=== PATIENT | female | born 1975 | race African-American/Black ===

== ENCOUNTER 2018-12-22 14:52 | Inpatient (IN) | payer OTHER ==
[2018-12-22 16:26] VITALS: BMI 23.5
--- NOTE | 2018-12-22 17:12 | HP ---
CIWA Score Nausea/Vomitin-Mild Nausea/No Vomiting Muscle Tremors: 3 Anxiety: 3 Agitation: 3 Paroxysmal Sweats: 3 Orientation: 0-Oriented Tacttile Disturbances: 0-None Auditory Disturbances: 0-None Visual Disturbances: 0-None Headache: 0-None Present CIWA-Ar Total Score: 13 - Admission Criteria OASAS Guidelines: Admission for Medically Managed Detox: Requires at least one of the followin. CIWA greater than 12 2. Seizures within the past 24 hours 3. Delirium tremens within the past 24 hours 4. Hallucinations within the past 24 hours 5. Acute intervention needed for co occurring medical disorder 6. Acute intervention needed for co occurring psychiatric disorder 7. Severe withdrawal that cannot be handled at a lower level of care (continued vomiting, continued diarrhea, abnormal vital signs) requiring intravenous medication and/or fluids 8. Admission ROS [facility] - HPI Chief Complaint: I need help with my addiction. Allergies/Adverse Reactions: Allergies Allergy/AdvReac Type Severity Reaction Status Date / Time No Known Allergies Allergy Verified 12/22/18 16:58 History of Present Illness: pt is a 43yr old female with a history of alcohol and cocaine dependence seeking detox for treatment. pt is also on a MMTP program last dose received today with 30mg pending verification. Exam Limitations: No Limitations - Ebola screening Have you traveled outside of the country in the last 21 days: No Have you had contact with anyone from an Ebola affected area: No Have you been sick,other than usual withdrawal symptoms: No Do you have a fever: No - Review of Systems Constitutional: Night Sweats, Changes in sleep, Unintentional Wgt. Loss EENT: reports: Blurred Vision, Tearing Respiratory: reports: No Symptoms reported Cardiac: reports: No Symptoms Reported GI: reports: Constipated, Poor Appetite, Poor Fluid Intake : reports: No Symptoms Reported Musculoskeletal: reports: No Symptoms Reported Integumentary: reports: No Symptoms Reported, Sweating Neuro: reports: Headache, Tingling, Tremors Endocrine: reports: Excessive Sweating, Flushing, Intolerance to Cold, Intolerance to Heat Hematology: reports: No Symptoms Reported Psychiatric: reports: Judgement Intact, Mood/Affect Appropiate, Orientated x3, Agitated, Anxious Other Systems: Reviewed and Negative Patient History - Patient Medical History Hx Anemia: No Hx Asthma: No Hx Chronic Obstructive Pulmonary Disease (COPD): No Hx Cancer: No Hx Cardiac Disorders: No Hx Congestive Heart Failure: No Hx Hypertension: No Hx Hypercholesterolemia: No Hx Pacemaker: No HX Cerebrovascular Accident: No Hx Seizures: No Hx Dementia: No Hx Diabetes: No Hx Gastrointestinal Disorders: No Hx Liver Disease: No Hx Genitourinary Disorders: No Hx Sexually Transmitted Disorders: No Hx Renal Disease (ESRD): No Hx Thyroid Disease: No Hx Human Immunodeficiency Virus (HIV): No (denies) Hx Hepatitis C: No Hx Depression: No Hx Suicide Attempt: Yes (in the past. denies any S/H ideation in the past) Hx Bipolar Disorder: No Hx Schizophrenia: No - Patient Surgical History Past Surgical History: No - PPD History Previous Implant?: Yes Documented Results: Negative w/o proof PPD to be Administered?: Yes - Reproductive History Patient is a Female of Child Bearing Age (11 -55 yrs old): Yes Patient : No - Smoking Cessation Smoking history: Current every day smoker Have you smoked in the past 12 months: Yes Aproximately how many cigarettes per day: 10 Hx Chewing Tobacco Use: Yes Initiated information on smoking cessation: Yes 'Breaking Loose' booklet given: 12/23/18 - Substance & Tx. History Hx Alcohol Use: Yes Hx Substance Use: Yes Substance Use Type: Alcohol, Cocaine, Heroin, Opiates, Tranquilizers Hx Substance Use Treatment: No - Substances Abused percocet Route: Oral Frequency: Daily Amount used: 3-4 10 mg pills Age of first use: 40 Date of Last Use: 12/21/18 Alcohol Route: Oral Frequency: Daily Amount used: 6pk beer/ fifth Age of first use: 23 Date of Last Use: 12/22/18 Heroin Route: Inhalation Frequency: Daily Amount used: 2 bags Age of first use: 42 Date of Last Use: 12/21/18 Cocaine Route: Inhalation Frequency: Daily Amount used: $50 Age of first use: 23 Date of Last Use: 12/21/18 Family Disease History - Family Disease History Family History: Denies Admission Physical Exam S - Vital Signs Vital Signs: Vital Signs - 24 hr 12/22/18 16:23 Temperature 97.6 F Pulse Rate 70 Respiratory 20 Rate Blood Pressure 118/70 - Physical General Appearance: Yes: Moderate Distress, Irritable, Sweating, Anxious HEENTM: Yes: Normal ENT Inspection, Nasal Congestion, Rhinorrhea Respiratory: Yes: Lungs Clear, No Respiratory Distress Neck: Yes: No masses,lesions,Nodules Breast: Yes: Within Normal Limits Cardiology: Yes: Regular Rhythm, Regular Rate, S1, S2 Abdominal: Yes: Normal Bowel Sounds, Non Tender, Soft Genitourinary: Yes: Within Normal Limits Back: Yes: Normal Inspection Musculoskeletal: Yes: full range of Motion, Back pain Extremities: Yes: Normal Capillary Refill, Normal Inspection, Non-Tender, Tremors Neurological: Yes: Fully Oriented, Alert, Normal Response Integumentary: Yes: Normal Color Lymphatic: Yes: Within Normal Limits - Diagnostic (1) Alcohol dependence with uncomplicated withdrawal Current Visit: Yes Status: Chronic (2) Methadone maintenance therapy patient Current Visit: Yes Status: Chronic (3) Cocaine dependence Current Visit: Yes Status: Chronic Qualifiers: Substance use status: uncomplicated Qualified Code(s): F14.20 - Cocaine dependence, uncomplicated (4) Nicotine dependence Current Visit: Yes Status: Chronic Qualifiers: Nicotine product type: cigarettes Substance use status: uncomplicated Qualified Code(s): F17.210 - Nicotine dependence, cigarettes, uncomplicated Cleared for Admission [facility] - Detox or Rehab [facility] Level of Care: Medically Managed Detox Regimen/Protocol: Librium [facility] Breath Alcohol Content Breath Alcohol Content: 0 Urine Pregancy Test - Result Urine Test Results: Negative- NO Line Present Urine Drug Screen - Results Drug Screen Negative: No Urine Drug Screen Results: PREM-Cocaine, OPI-Opiates, BZO-Benzodiazepines, MTD- Methadone, FEN-Fentanyl
[2018-12-22] MEDS ORDERED: MAGNESIUM HYDROX 2400MG/30ML ORAL SUSPENSION 30 ML CUP PO PRN (17:13)
[2018-12-22] MEDS ORDERED: IBUPROFEN 400 MG TABLET (FP) PO PRN (17:13)
[2018-12-22] MEDS ORDERED: MAGNESIUM CITRATE 300 ML BOTTLE PO PRN (17:13)
[2018-12-22] MEDS ORDERED: MAG HYDROX/AL HYDROX/SIMETH 30 ML UNIT-DOSE CUP PO PRN (17:13)
[2018-12-22] MEDS ORDERED: ACETAMINOPHEN 325 MG TABLET (FP) PO PRN (17:13)
[2018-12-22] MEDS ORDERED: MENTHOL/PHENOL 1 EACH UD MM PRN (17:13)
[2018-12-22] MEDS ORDERED: NICOTINE POLACRILEX 4 MG GUM BC PRN (17:13)
[2018-12-22] MEDS ORDERED: P-EPHED 60MG/TRIPROLIDI 2.5MG TABLET PO PRN (17:13)
[2018-12-22] MEDS ORDERED: guaiFENesin/D-METHORPHAN HB 10 ML UNIT-DOSE CUPS PO PRN (17:13)
[2018-12-22] MEDS ORDERED: hydrOXYzine PAMOATE 50 MG CAPSULE (FP) PO PRN (17:13)
[2018-12-22] MEDS ORDERED: chlordiazePOXIDE HCL 25 MG CAPSULE PO PRN (17:13)
[2018-12-22] MEDS ORDERED: LOPERAMIDE HCL 2 MG CAPSULE PO PRN (17:13)
[2018-12-22] MEDS ORDERED: chlordiazePOXIDE HCL 25 MG CAPSULE PO ONE (18:00)
[2018-12-22] MEDS ORDERED: MELATONIN 5 MG TABLETS PO PRN (22:00)
[2018-12-22] MEDS: THIAMINE HCL 100 MG TABLET (FP) PO SCH (22:14)
[2018-12-22] MEDS: chlordiazePOXIDE HCL 25 MG CAPSULE PO SCH (22:14)
[2018-12-23] MEDS: chlordiazePOXIDE HCL 25 MG CAPSULE PO SCH ×4 (06:07→22:30)
--- NOTE | 2018-12-23 08:10 | CONSULT ---
[facility] Psychiatric Consult - Data Date of interview: 12/23/18 Admission source: [facility] Identifying data: This is a 43 years old female, single mother og three, homeless, unemployed, on SSI support, currently on MMTP 30mg per day, is here with history of Alcohol and Cocaine dependence/abuse, reports aythdrawal symptoms, reports noo psychiatric hospitalization history, with no suicidal, homicidal history as well. Substance Abuse History: - Substances Abused. percocet. Route: Oral. Frequency: Daily. Amount used: 3-4 10 mg pills. Age of first use: 40. Date of Last Use: 12/21/18. Patient reports dependence history on Cocaine, Opioids and Alcohol. Medical History: Denies significant medical problems Psychiatric History: Patient reports anxiety and asking pharmacologica intervention for anxiety, reports no past psychiatric history of admissions or outpatient management. Denies suicidal and homicidal history Physical/Sexual Abuse/Trauma History: Denies Additional Comment: Vistaril 50mg po prn q4 for anxiety. Doxepin 25mg po bid Mental Status Exam - Mental Status Exam Alert and Oriented to: Person Cognitive Function: Fair Patient Appearance: Well Groomed Mood: Apprehensive Affect: Mood Congruent Patient Behavior: Cooperative Speech Pattern: Appropriate Voice Loudness: Mildly Soft/Quiet Thought Process: Goal Oriented Thought Disorder: Being Controlled Hallucinations: Denies Suicidal Ideation: Denies Homicidal Ideation: Denies Insight/Judgement: Fair Sleep: Difficulty falling asleep Appetite: Weight gain Muscle strength/Tone: Normal Gait/Station: Normal Additional Comments: Vistaril 50mg po prn q4 for anxiety. Doxepin 25mg po bid Psychiatric Findings - Problem List ([place] 1, 2,3) (1) Alcohol dependence with uncomplicated withdrawal Current Visit: Yes Status: Chronic (2) Cocaine dependence Current Visit: Yes Status: Chronic Qualifiers: Substance use status: uncomplicated Qualified Code(s): F14.20 - Cocaine dependence, uncomplicated (3) Methadone maintenance therapy patient Current Visit: Yes Status: Chronic (4) Nicotine dependence Current Visit: Yes Status: Chronic Qualifiers: Nicotine product type: cigarettes Substance use status: uncomplicated Qualified Code(s): F17.210 - Nicotine dependence, cigarettes, uncomplicated - Initial Treatment Plan Initial Treatment Plan: Vistaril 50mg po prn q4 for anxiety. Doxepin 25mg po bid
[2018-12-23] MEDS ORDERED: METHADONE HCL 10 MG TABLET PO ONE (09:05)
--- NOTE | 2018-12-23 09:47 | PN ---
S CIWA - CIWA Score Nausea/Vomitin-No Nausea/No Vomiting Muscle Tremors: 3 Anxiety: 3 Agitation: 3 Paroxysmal Sweats: 3 Orientation: 0-Oriented Tacttile Disturbances: 0-None Auditory Disturbances: 0-None Visual Disturbances: 0-None Headache: 0-None Present CIWA-Ar Total Score: 12 [facility] Progress Note (SOAP) Subjective: sweats upset stomach interrupted sleep body aches Objective: 12/23/18 09:46 Vital Signs Temperature 98.2 F 12/23/18 09:17 Pulse Rate 67 12/23/18 09:17 Respiratory Rate 16 12/23/18 09:17 Blood Pressure 117/69 12/23/18 09:17 O2 Sat by Pulse Oximetry (%) labs pending aaox3 ambulating no acute distress Assessment: 12/23/18 09:46 withdrawal sx Plan: continue detox increase fluids labs pending MOM/mylanta prn
[2018-12-23 10:08] LABS: HEMATOCRIT 40.7 % (32.4-45.2); HEMOGLOBIN 13.3 GM/dL (10.7-15.3); MCH 30.1 pg (25.7-33.7); MCHC 32.7 g/dl (32.0-36.0); MEAN CELL VOLUME 91.8 fl (80-96); MEAN PLT VOLUME 9.4 fl (7.5-11.1); PLATELET COUNT 275 K/MM3 (134-434); RBC 4.43 M/mm3 (3.60-5.2); RDW 13.7 % (11.6-15.6); WHITE BLOOD COUNT 7.5 K/mm3 (4.0-10.0)
[2018-12-23] MEDS: LISINOPRIL 20 MG TABLET (FP) PO SCH (10:16)
[2018-12-23] MEDS: PRENATAL VITAMINS W/ FOLIC ACID TABLET (FP) PO SCH (10:16)
[2018-12-23 10:18] LABS: ALBUMIN 3.2 g/dl (3.4-5.0); ALK PHOS 58 U/L (45-117); ANION GAP 6 MMOL/L (8-16); BILIRUBIN,TOTAL 0.4 mg/dL (0.2-1); BLOOD UREA NITROGEN 14 mg/dL (7-18); CALCIUM 8.6 mg/dL (8.5-10.1); CHLORIDE 104 mmol/L (98-107); CO2 30 mmol/L (21-32); CREATININE 0.9 mg/dL (0.55-1.3); GLUCOSE,RANDOM 115 mg/dL (74-106); POTASSIUM 4.6 mmol/L (3.5-5.1); SGOT/AST 13 U/L (15-37); SGPT/ALT 25 U/L (13-61); SODIUM 140 mmol/L (136-145); TOT PROT 6.5 g/dl (6.4-8.2)
[2018-12-23] MEDS: NICOTINE 21 MG/24 HOURS TOPICAL PATCH TD SCH (10:18)
[2018-12-23] MEDS: DOXEPIN HCL 25 MG CAPSULE PO SCH ×2 (11:27→22:31)
--- NOTE | 2018-12-23 15:42 | PN ---
[facility] Progress Note Note: RN reached out to communications writer regarding the swelling to pt lower legs Legs assessed by communications writer; pt states she has had 30yrs of lymphedema and forgot to tell me on admission. pt states she has been on lasix in the past. lasix 40mg x one now ordered and 40mg daily following days. encouraged to keep legs elevated. pt in agreement. will follow up in am
--- NOTE | 2018-12-23 16:22 | EKG ---
Test Reason : Blood Pressure : / mmHG Vent. Rate : 065 BPM Atrial Rate : 065 BPM P-R Int : 150 ms QRS Dur : 086 ms QT Int : 446 ms P-R-T Axes : 053 039 012 degrees QTc Int : 463 ms NORMAL SINUS RHYTHM WITH SINUS ARRHYTHMIA T WAVE ABNORMALITY, CONSIDER ANTEROLATERAL ISCHEMIA PROLONGED QT ABNORMAL ECG NO PREVIOUS ECGS AVAILABLE Confirmed by CARA GARDUNO MD ([id number]) on 12/23/2018 4:22:45 PM Referred By: Confirmed By:CARA GARDUNO MD
[2018-12-23] MEDS ORDERED: FUROSEMIDE 40 MG TABLET (FP) PO ONE (17:00)
[2018-12-23] MEDS: THIAMINE HCL 100 MG TABLET (FP) PO SCH (22:31)
[2018-12-24] MEDS: chlordiazePOXIDE HCL 25 MG CAPSULE PO SCH ×3 (05:57→17:29)
[2018-12-24] MEDS: METHADONE HCL 10 MG TABLET PO SCH (05:57)
[2018-12-24] MEDS ORDERED: METHADONE HCL 10 MG TABLET PO SCH (06:00)
[2018-12-24] MEDS: PRENATAL VITAMINS W/ FOLIC ACID TABLET (FP) PO SCH (10:15)
[2018-12-24] MEDS: LISINOPRIL 20 MG TABLET (FP) PO SCH (10:15)
[2018-12-24] MEDS: FUROSEMIDE 40 MG TABLET (FP) PO SCH (10:15)
[2018-12-24] MEDS: DOXEPIN HCL 25 MG CAPSULE PO SCH (10:16)
[2018-12-24] MEDS: NICOTINE 21 MG/24 HOURS TOPICAL PATCH TD SCH ×2 (10:16→10:18)
--- NOTE | 2018-12-24 13:23 | PN ---
S CIWA - CIWA Score Nausea/Vomitin-No Nausea/No Vomiting Muscle Tremors: 3 Anxiety: 3 Agitation: 3 Paroxysmal Sweats: 2 Orientation: 0-Oriented Tacttile Disturbances: 0-None Auditory Disturbances: 0-None Visual Disturbances: 0-None Headache: 0-None Present CIWA-Ar Total Score: 11 [facility] Progress Note (SOAP) Subjective: agitation body aches sweats need to lower that psych med that was ordered for me. Objective: 12/24/18 13:23 Vital Signs Temperature 98.1 F 12/24/18 09:58 Pulse Rate 70 12/24/18 09:58 Respiratory Rate 16 12/24/18 09:58 Blood Pressure 119/71 12/24/18 09:58 O2 Sat by Pulse Oximetry (%) Laboratory Tests 12/23/18 12/23/18 12/23/18 07:00 07:00 07:00 WBC 7.5 RBC 4.43 Hgb 13.3 Hct 40.7 MCV 91.8 MCH 30.1 MCHC 32.7 RDW 13.7 Plt Count 275 MPV 9.4 Sodium 140 Potassium 4.6 Chloride 104 Carbon Dioxide 30 Anion Gap 6 L BUN 14 Creatinine 0.9 Creat Clearance w eGFR > 60 Random Glucose 115 H Calcium 8.6 Total Bilirubin 0.4 AST 13 L ALT 25 Alkaline Phosphatase 58 Total Protein 6.5 Albumin 3.2 L RPR Titer Nonreactive aaox3 ambulating no acute distress Assessment: 12/24/18 13:23 withdrawal sx swelling to feet have decreased. Plan: continue detox encourage to keep legs elevated lasix as ordered.
[2018-12-24] MEDS: THIAMINE HCL 100 MG TABLET (FP) PO SCH (22:21)
[2018-12-24] MEDS: chlordiazePOXIDE 5 MG CAPSULE PO SCH (22:21)
[2018-12-25] MEDS: METHADONE HCL 10 MG TABLET PO SCH (05:32)
[2018-12-25] MEDS: chlordiazePOXIDE 5 MG CAPSULE PO SCH ×3 (05:33→18:36)
[2018-12-25] MEDS: NICOTINE 21 MG/24 HOURS TOPICAL PATCH TD SCH (11:08)
[2018-12-25] MEDS: PRENATAL VITAMINS W/ FOLIC ACID TABLET (FP) PO SCH (11:09)
[2018-12-25] MEDS: FUROSEMIDE 40 MG TABLET (FP) PO SCH (11:09)
[2018-12-25] MEDS: LISINOPRIL 20 MG TABLET (FP) PO SCH (11:09)
--- NOTE | 2018-12-25 14:12 | PN ---
[facility] Progress Note (SOAP) Subjective: Diarrhea Objective: 12/25/18 14:11 Last Vital Signs Temp Pulse Resp BP Pulse Ox 97.9 F 73 18 104/60 12/25/18 09:51 12/25/18 09:51 12/25/18 09:51 12/25/18 09:51 Laboratory Last Values WBC 7.5 K/mm3 (4.0-10.0) 12/23/18 07:00 RBC 4.43 M/mm3 (3.60-5.2) 12/23/18 07:00 Hgb 13.3 GM/dL (10.7-15.3) 12/23/18 07:00 Hct 40.7 % (32.4-45.2) 12/23/18 07:00 MCV 91.8 fl (80-96) 12/23/18 07:00 MCH 30.1 pg (25.7-33.7) 12/23/18 07:00 MCHC 32.7 g/dl (32.0-36.0) 12/23/18 07:00 RDW 13.7 % (11.6-15.6) 12/23/18 07:00 Plt Count 275 K/MM3 (134-434) 12/23/18 07:00 MPV 9.4 fl (7.5-11.1) 12/23/18 07:00 Sodium 140 mmol/L (136-145) 12/23/18 07:00 Potassium 4.6 mmol/L (3.5-5.1) 12/23/18 07:00 Chloride 104 mmol/L (98-107) 12/23/18 07:00 Carbon Dioxide 30 mmol/L (21-32) 12/23/18 07:00 Anion Gap 6 MMOL/L (8-16) L 12/23/18 07:00 BUN 14 mg/dL (7-18) 12/23/18 07:00 Creatinine 0.9 mg/dL (0.55-1.3) 12/23/18 07:00 Creat Clearance w eGFR > 60 (>60) 12/23/18 07:00 Random Glucose 115 mg/dL (74-106) H 12/23/18 07:00 Calcium 8.6 mg/dL (8.5-10.1) 12/23/18 07:00 Total Bilirubin 0.4 mg/dL (0.2-1) 12/23/18 07:00 AST 13 U/L (15-37) L 12/23/18 07:00 ALT 25 U/L (13-61) 12/23/18 07:00 Alkaline Phosphatase 58 U/L (45-117) 12/23/18 07:00 Total Protein 6.5 g/dl (6.4-8.2) 12/23/18 07:00 Albumin 3.2 g/dl (3.4-5.0) L 12/23/18 07:00 RPR Titer Nonreactive (NONREACTIVE) 12/23/18 07:00 Labs noted-no panic values Assessment: 12/25/18 14:11 Withdrawal sx Plan: Continue detox
[2018-12-26] MEDS: THIAMINE HCL 100 MG TABLET (FP) PO SCH (00:09)
[2018-12-26] MEDS: chlordiazePOXIDE HCL 10 MG CAPSULE PO SCH ×3 (00:09→10:21)
[2018-12-26] MEDS: METHADONE HCL 10 MG TABLET PO SCH (05:29)
[2018-12-26 06:23] VITALS: BP 119/74; PULSE 65; TEMP 97.9
[2018-12-26] MEDS: FUROSEMIDE 40 MG TABLET (FP) PO SCH (10:20)
[2018-12-26] MEDS: NICOTINE 21 MG/24 HOURS TOPICAL PATCH TD SCH (10:20)
[2018-12-26] MEDS: PRENATAL VITAMINS W/ FOLIC ACID TABLET (FP) PO SCH (10:20)
[2018-12-26] MEDS: LISINOPRIL 20 MG TABLET (FP) PO SCH (10:21)
--- NOTE | 2018-12-26 16:00 | DS ---
[facility] Detox Discharge Summary Admission Date: 12/22/18 Discharge Date: 12/26/18 - History Present History: Alcohol Dependence, Cocaine Dependence, MMTP Additional Comments: Patient completed detox successfully and accepted admission to [facility] , inpatient. Patient is A/A/Ox3, in nad, ambulatory. Pertinent Past History: Alcohol dependence Cocaine dependence Nicotine dependence - Physical Exam Results Vital Signs: Vital Signs Temperature 97.9 F 12/26/18 06:00 Pulse Rate 65 12/26/18 06:00 Respiratory Rate 18 12/26/18 06:00 Blood Pressure 119/74 12/26/18 06:00 O2 Sat by Pulse Oximetry (%) Pertinent Admission Physical Exam Findings: Withdrawal symptoms Laboratory Tests 12/23/18 12/23/18 12/23/18 07:00 07:00 07:00 WBC 7.5 RBC 4.43 Hgb 13.3 Hct 40.7 MCV 91.8 MCH 30.1 MCHC 32.7 RDW 13.7 Plt Count 275 MPV 9.4 Sodium 140 Potassium 4.6 Chloride 104 Carbon Dioxide 30 Anion Gap 6 L BUN 14 Creatinine 0.9 Creat Clearance w eGFR > 60 Random Glucose 115 H Calcium 8.6 Total Bilirubin 0.4 AST 13 L ALT 25 Alkaline Phosphatase 58 Total Protein 6.5 Albumin 3.2 L RPR Titer Nonreactive Labs reviewed - Treatment Hospital Course: Detox Protocol Followed, Detoxed Safely, Responded well, Discharged Condition Good, Rehab Referral Accepted - Medication Discharge Medications: Ambulatory Orders Lisinopril [Prinivil -] 40 mg PO DAILY 12/22/18 Methadone [Dolophine -] 30 mg PO DAILY 12/22/18 Doxepin HCl [Sinequan -] 25 mg PO BID #60 capsule 12/23/18 hydrOXYzine PAMOATE [Vistaril -] 50 mg PO Q4H PRN #90 capsule 12/23/18 - Diagnosis (1) Alcohol dependence with uncomplicated withdrawal Status: Acute (2) Cocaine dependence Status: Chronic Qualifiers: Substance use status: uncomplicated Qualified Code(s): F14.20 - Cocaine dependence, uncomplicated (3) Methadone maintenance therapy patient Status: Chronic (4) Nicotine dependence Status: Chronic Qualifiers: Nicotine product type: cigarettes Substance use status: uncomplicated Qualified Code(s): F17.210 - Nicotine dependence, cigarettes, uncomplicated - AMA Did Patient Leave Against Medical Advice: No (Accepted admission to [facility])
== END 2018-12-26 01:21 | disposition other institution (70) | DRG 773 ==
LOC: YASAS 14:52 → Y6N 17:38
PROVIDERS: ADMIT Neuromusculoskeletal Medicine & OMM; ATTEND Neuromusculoskeletal Medicine & OMM
PROC: HZ2ZZZZ Detoxification Services for Substance Abuse Treatment (ICD-10-PCS; principal; 2018-12-22)
DX: F10.230 Alcohol dependence with withdrawal, uncomplicated (principal); F11.20 Opioid dependence, uncomplicated; F14.20 Cocaine dependence, uncomplicated; F17.210 Nicotine dependence, cigarettes, uncomplicated; R60.9 Edema, unspecified; Z91.5 Personal history of self-harm
CPT/HCPCS: 36415; 80053; 85027; 86593; 93005; 93010

== ENCOUNTER 2018-12-26 12:57 | Inpatient (IN) | payer OTHER ==
[2018-12-26] MEDS ORDERED: MENTHOL/PHENOL 1 EACH UD MM PRN (16:03)
[2018-12-26] MEDS ORDERED: NICOTINE POLACRILEX 2 MG GUM BUC PRN (16:03)
[2018-12-26] MEDS ORDERED: hydrOXYzine PAMOATE 50 MG CAPSULE (FP) PO PRN (16:03)
[2018-12-26] MEDS ORDERED: P-EPHED 60MG/TRIPROLIDI 2.5MG TABLET PO PRN (16:03)
[2018-12-26] MEDS ORDERED: MAG HYDROX/AL HYDROX/SIMETH 30 ML UNIT-DOSE CUP PO PRN (16:03)
[2018-12-26] MEDS ORDERED: MAGNESIUM HYDROX 2400MG/30ML ORAL SUSPENSION 30 ML CUP PO PRN (16:03)
[2018-12-26] MEDS ORDERED: guaiFENesin/D-METHORPHAN HB 10 ML UNIT-DOSE CUPS PO PRN (16:03)
[2018-12-26] MEDS ORDERED: MAGNESIUM CITRATE 300 ML BOTTLE PO PRN (16:03)
[2018-12-26] MEDS ORDERED: LOPERAMIDE HCL 2 MG CAPSULE PO PRN (16:03)
--- NOTE | 2018-12-26 16:10 | HP ---
[facility] Rehab Assess/Revision - Admission History Admitted to Rehab from: [facility] Date of Admission to Rehab: 12/26/2018 - Vital signs Vital Signs: Vital Signs Period Temp Pulse Resp BP Sys/Bland Pulse Ox Last 24 Hr 98.4 F 74 18 124/80 - Findings Detox History & Physical reviewed: Yes Concur with findings: Yes Inpatient Rehab Admission - Initial Determination Are CD services needed?: Yes Free of communicable disease: Yes Not in need of hospitalization: Yes - Rehab Admission Criteria Poor recovery environment: Yes Lacks judgement: Yes Patient is meeting Inpatient Rehab admission criteria:: Yes
[2018-12-26] MEDS: THIAMINE HCL 100 MG TABLET (FP) PO SCH (21:26)
[2018-12-27] MEDS: METHADONE HCL 10 MG TABLET PO SCH (06:46)
[2018-12-27] MEDS: LISINOPRIL 5 MG TABLET (FP) PO SCH (09:55)
[2018-12-27] MEDS: PRENATAL VITAMINS W/ FOLIC ACID TABLET (FP) PO SCH (09:55)
[2018-12-27] MEDS: NICOTINE 21 MG/24 HOURS TOPICAL PATCH TD SCH (09:55)
--- NOTE | 2018-12-27 15:47 | PN ---
[facility] Progress Note Note: Patient reports having ongoing anxiety and feeling drowsy after taking Vistaril 50 mg po prn.Vistaril 50 mg po q 6 hrs for anxiety will be adjusted to 25 mg po q 6 hrs.
[2018-12-27] MEDS: hydrOXYzine PAMOATE 25 MG CAPSULE (FP) PO PRN (17:38)
[2018-12-27] MEDS: THIAMINE HCL 100 MG TABLET (FP) PO SCH (21:09)
[2018-12-28] MEDS: METHADONE HCL 10 MG TABLET PO SCH (06:15)
[2018-12-28] MEDS: LISINOPRIL 5 MG TABLET (FP) PO SCH (09:52)
[2018-12-28] MEDS: NICOTINE 21 MG/24 HOURS TOPICAL PATCH TD SCH (09:52)
[2018-12-28] MEDS: PRENATAL VITAMINS W/ FOLIC ACID TABLET (FP) PO SCH (09:52)
[2018-12-28] MEDS: hydrOXYzine PAMOATE 25 MG CAPSULE (FP) PO PRN (09:54)
[2018-12-28] MEDS: MELATONIN 5 MG TABLETS PO PRN (21:12)
[2018-12-28] MEDS: THIAMINE HCL 100 MG TABLET (FP) PO SCH (21:12)
[2018-12-29] MEDS: METHADONE HCL 10 MG TABLET PO SCH (06:35)
[2018-12-29] MEDS ORDERED: DIPHENOXYLATE 2.5/ATROPINE.025 1 COMBO TABLET PO ONE (07:17)
--- NOTE | 2018-12-29 07:20 | PN ---
[facility] Progress Note Note: Patient complained of diarrhea, reporting that Imodium is not helping her Vital Signs Temperature 98.1 F 12/29/18 07:16 Pulse Rate 77 12/29/18 07:16 Respiratory Rate 18 12/29/18 07:16 Blood Pressure 119/78 12/29/18 07:16 O2 Sat by Pulse Oximetry (%) Action: Diphenoxylayte 2.5/ Atropine 0.25 ( Lomotil ) 1 combo Q8H prn ordered Loperamide HCL (Imodium) 4 mg oral Q6H discontinue
[2018-12-29] MEDS ORDERED: DIPHENOXYLATE 2.5/ATROPINE.025 1 COMBO TABLET PO PRN (07:22)
[2018-12-29] MEDS: hydrOXYzine PAMOATE 25 MG CAPSULE (FP) PO PRN ×3 (09:24→21:07)
[2018-12-29] MEDS: NICOTINE 21 MG/24 HOURS TOPICAL PATCH TD SCH (09:41)
[2018-12-29] MEDS: PRENATAL VITAMINS W/ FOLIC ACID TABLET (FP) PO SCH (09:41)
[2018-12-29] MEDS: LISINOPRIL 5 MG TABLET (FP) PO SCH (09:41)
[2018-12-29] MEDS: COLLOIDAL OATMEAL 1 BAR EACH TP PRN (10:25)
[2018-12-29] MEDS: HYDROCORTISONE 0.5% TOPICAL CREAM 30 GM TUBE TP SCH ×2 (10:26→21:07)
--- NOTE | 2018-12-29 15:57 | PN ---
[facility] Progress Note Note: PATIENT SEEN FOR C/O DIARRHEA AND DRY SKIN/ECZEMA. PATIENT STATES HAVING MULTIPLE BM NOT RELIEVED WITH IMMODIUM. PATIENT IS ALERT AND ORIENTED X 3. DENIES ABDOMINAL PAIN, N/V AND FEVER. STATES SANDWICHES MAY BE THE CAUSE OF DIARRHEA. ALSO REPORTS DRY, ITCHY SKIN AND H/O ECZEMA. Vital Signs Temperature 98.1 F 12/29/18 07:16 Pulse Rate 68 12/29/18 09:25 Respiratory Rate 18 12/29/18 07:16 Blood Pressure 104/65 12/29/18 09:25 O2 Sat by Pulse Oximetry (%) PE: ALERT AND ORIENTED X 3 SKIN WARM, + DRYNESS TO ELBOWS AND BACK, NO VISIBLE RASHES GI SOFT, NT, NT EXT FULL ROM, AMB AD ANGEL A/P: H/O ECZEMA DIARRHEA WILL CONTINUE LOMOTIL PATIENT EDUCATED TO REFRAIN FROM EATING SANDWICHES FOR NOW ENCOURAGE ORAL FLUIDS START AVEENO SOAP AND HYDROCORTISONE FOR DRY SKIN/ECZEMA CONTINUE TO MONITOR
[2018-12-29] MEDS: THIAMINE HCL 100 MG TABLET (FP) PO SCH (21:07)
[2018-12-29] MEDS: MELATONIN 5 MG TABLETS PO PRN (21:08)
[2018-12-30] MEDS: METHADONE HCL 10 MG TABLET PO SCH (06:29)
[2018-12-30] MEDS: NICOTINE 21 MG/24 HOURS TOPICAL PATCH TD SCH (09:17)
[2018-12-30] MEDS: HYDROCORTISONE 0.5% TOPICAL CREAM 30 GM TUBE TP SCH ×2 (09:17→21:38)
[2018-12-30] MEDS: PRENATAL VITAMINS W/ FOLIC ACID TABLET (FP) PO SCH (09:18)
[2018-12-30] MEDS: FUROSEMIDE 20 MG TABLET (FP) PO PRN (09:18)
[2018-12-30] MEDS: LISINOPRIL 5 MG TABLET (FP) PO SCH (09:18)
[2018-12-30] MEDS: hydrOXYzine PAMOATE 25 MG CAPSULE (FP) PO PRN ×3 (09:19→21:17)
[2018-12-30] MEDS: MELATONIN 5 MG TABLETS PO PRN (21:16)
[2018-12-30] MEDS: THIAMINE HCL 100 MG TABLET (FP) PO SCH (21:16)
[2018-12-30] MEDS: TOLNAFTATE 1% CREAM 15 GM TUBE TP SCH (21:18)
[2018-12-31] MEDS: METHADONE HCL 10 MG TABLET PO SCH (06:34)
[2018-12-31] MEDS: hydrOXYzine PAMOATE 25 MG CAPSULE (FP) PO PRN ×2 (08:38→14:06)
[2018-12-31] MEDS: NICOTINE 21 MG/24 HOURS TOPICAL PATCH TD SCH (10:01)
[2018-12-31] MEDS: LISINOPRIL 5 MG TABLET (FP) PO SCH (10:01)
[2018-12-31] MEDS: PRENATAL VITAMINS W/ FOLIC ACID TABLET (FP) PO SCH (10:01)
[2018-12-31] MEDS: HYDROCORTISONE 0.5% TOPICAL CREAM 30 GM TUBE TP SCH ×2 (10:02→21:55)
[2018-12-31] MEDS: TOLNAFTATE 1% CREAM 15 GM TUBE TP SCH ×2 (10:02→21:55)
[2018-12-31] MEDS: THIAMINE HCL 100 MG TABLET (FP) PO SCH (21:56)
[2019-01-01] MEDS: METHADONE HCL 10 MG TABLET PO SCH (06:44)
[2019-01-01] MEDS: hydrOXYzine PAMOATE 25 MG CAPSULE (FP) PO PRN ×2 (06:56→16:38)
[2019-01-01] MEDS: HYDROCORTISONE 0.5% TOPICAL CREAM 30 GM TUBE TP SCH ×2 (09:13→21:23)
[2019-01-01] MEDS: LISINOPRIL 5 MG TABLET (FP) PO SCH (09:13)
[2019-01-01] MEDS: NICOTINE 21 MG/24 HOURS TOPICAL PATCH TD SCH (09:13)
[2019-01-01] MEDS: PRENATAL VITAMINS W/ FOLIC ACID TABLET (FP) PO SCH (09:13)
[2019-01-01] MEDS: TOLNAFTATE 1% CREAM 15 GM TUBE TP SCH ×2 (09:14→21:23)
[2019-01-01] MEDS: THIAMINE HCL 100 MG TABLET (FP) PO SCH (21:23)
[2019-01-01] MEDS: MELATONIN 5 MG TABLETS PO PRN (21:24)
[2019-01-02] MEDS: METHADONE HCL 10 MG TABLET PO SCH (06:36)
[2019-01-02] MEDS: hydrOXYzine PAMOATE 25 MG CAPSULE (FP) PO PRN ×3 (06:38→20:03)
[2019-01-02] MEDS: COLLOIDAL OATMEAL 1 BAR EACH TP PRN (06:57)
--- NOTE | 2019-01-02 07:23 | PN ---
[facility] Progress Note Note: Patient was seen and evaluated by Dr. Blanton yesterday with complaint of abnormal lab and low platelet. She reports that she was bleeding but denies bleeding at this time. Patient also states that her notified her in a phone call that her 15 years old son yesterday Vital Signs Temperature 99.9 F H 01/01/19 11:51 Pulse Rate 65 01/01/19 09:28 Respiratory Rate 18 01/02/19 03:30 Blood Pressure 107/70 01/01/19 09:28 O2 Sat by Pulse Oximetry (%) Action: Awaiting labs ordered yesterday by Dr. Blanton Psych Consult initiated
[2019-01-02] MEDS: PRENATAL VITAMINS W/ FOLIC ACID TABLET (FP) PO SCH (09:08)
[2019-01-02] MEDS: LISINOPRIL 5 MG TABLET (FP) PO SCH (09:08)
[2019-01-02] MEDS: NICOTINE 21 MG/24 HOURS TOPICAL PATCH TD SCH (09:09)
[2019-01-02] MEDS: TOLNAFTATE 1% CREAM 15 GM TUBE TP SCH ×2 (09:10→23:40)
[2019-01-02] MEDS: HYDROCORTISONE 0.5% TOPICAL CREAM 30 GM TUBE TP SCH ×2 (09:59→21:48)
[2019-01-02] MEDS: ACETAMINOPHEN 325 MG TABLET (FP) PO PRN (14:13)
[2019-01-02] MEDS: THIAMINE HCL 100 MG TABLET (FP) PO SCH (21:48)
[2019-01-02] MEDS: MELATONIN 5 MG TABLETS PO PRN (21:48)
[2019-01-03] MEDS: METHADONE HCL 10 MG TABLET PO SCH (06:14)
[2019-01-03] MEDS: ACETAMINOPHEN 325 MG TABLET (FP) PO PRN (06:14)
[2019-01-03] MEDS ORDERED: PT OWN MED DRAWER 7, Y5N ONE (08:53)
[2019-01-03] MEDS: PRENATAL VITAMINS W/ FOLIC ACID TABLET (FP) PO SCH (09:49)
[2019-01-03] MEDS: NICOTINE 21 MG/24 HOURS TOPICAL PATCH TD SCH ×2 (09:49→10:09)
[2019-01-03] MEDS: LISINOPRIL 5 MG TABLET (FP) PO SCH (09:49)
[2019-01-03] MEDS: TOLNAFTATE 1% CREAM 15 GM TUBE TP SCH ×2 (09:51→21:28)
[2019-01-03] MEDS: HYDROCORTISONE 0.5% TOPICAL CREAM 30 GM TUBE TP SCH ×2 (10:10→21:28)
[2019-01-03] MEDS: hydrOXYzine PAMOATE 25 MG CAPSULE (FP) PO PRN ×2 (12:57→21:26)
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
[2019-01-03] MEDS: THIAMINE HCL 100 MG TABLET (FP) PO SCH (21:26)
[2019-01-03] MEDS: MELATONIN 5 MG TABLETS PO PRN (21:27)
[2019-01-03] MEDS: traZODone HCL 50 MG TABLET (FP) PO SCH (21:28)
[2019-01-04] MEDS: METHADONE HCL 10 MG TABLET PO SCH (06:39)
[2019-01-04] MEDS: hydrOXYzine PAMOATE 25 MG CAPSULE (FP) PO PRN ×3 (06:40→19:06)
[2019-01-04] MEDS ORDERED: PT OWN MED DRAWER 7, Y5N ONE ×3 (08:52→20:21)
[2019-01-04] MEDS: NICOTINE 21 MG/24 HOURS TOPICAL PATCH TD SCH (09:49)
[2019-01-04] MEDS: PRENATAL VITAMINS W/ FOLIC ACID TABLET (FP) PO SCH (09:50)
[2019-01-04] MEDS: LISINOPRIL 5 MG TABLET (FP) PO SCH (09:50)
[2019-01-04] MEDS: TOLNAFTATE 1% CREAM 15 GM TUBE TP SCH ×2 (09:51→21:23)
[2019-01-04] MEDS: HYDROCORTISONE 0.5% TOPICAL CREAM 30 GM TUBE TP SCH ×2 (09:51→21:23)
[2019-01-04] MEDS: THIAMINE HCL 100 MG TABLET (FP) PO SCH (21:23)
[2019-01-04] MEDS: traZODone HCL 50 MG TABLET (FP) PO SCH (21:23)
[2019-01-04] MEDS: IBUPROFEN 400 MG TABLET (FP) PO PRN (21:36)
[2019-01-05] MEDS: METHADONE HCL 10 MG TABLET PO SCH (06:16)
[2019-01-05] MEDS: hydrOXYzine PAMOATE 25 MG CAPSULE (FP) PO PRN ×4 (06:16→21:42)
[2019-01-05] MEDS: LISINOPRIL 5 MG TABLET (FP) PO SCH (09:56)
[2019-01-05] MEDS: NICOTINE 21 MG/24 HOURS TOPICAL PATCH TD SCH (09:56)
[2019-01-05] MEDS: PRENATAL VITAMINS W/ FOLIC ACID TABLET (FP) PO SCH (09:56)
[2019-01-05] MEDS: TOLNAFTATE 1% CREAM 15 GM TUBE TP SCH ×2 (09:57→21:43)
[2019-01-05] MEDS: FUROSEMIDE 20 MG TABLET (FP) PO PRN (10:00)
[2019-01-05] MEDS: IBUPROFEN 400 MG TABLET (FP) PO PRN (11:45)
[2019-01-05] MEDS: traZODone HCL 50 MG TABLET (FP) PO SCH (21:42)
[2019-01-05] MEDS: THIAMINE HCL 100 MG TABLET (FP) PO SCH (21:42)
[2019-01-06] MEDS: METHADONE HCL 10 MG TABLET PO SCH (06:35)
[2019-01-06] MEDS: hydrOXYzine PAMOATE 25 MG CAPSULE (FP) PO PRN (06:36)
[2019-01-06 07:13] VITALS: BP 141/85; PULSE 70; TEMP 98.3
--- NOTE | 2019-01-06 12:17 | PN ---
[facility] Progress Note Note: PT COMPLETED REHAB AND DISCHARGED TODAY. PT HAS BEEN REFERRED TO [facility], [place], [place] FOR AFTERCARE. PT REPORTS SHE USED [facility] FOR PRIMARY CARE BUT IS RELOCATING TODAY TO [facility] AND WILL FOLLOW UP WITH MEDICAL CLINIC WITH ACCESS TO TREATMENT LOCATION. PT IS ALERT O X 3. COURTES[facility] RX FOR LISINOPRIL 5 MG PO DAILY #30 ELECTRONICALLY SENT TO [facility] FOR [facility]. Vital Signs - 24 hr 01/06/19 01/06/19 01/06/19 00:30 03:30 07:12 Temperature 98.3 F Pulse Rate 70 Respiratory 18 18 18 Rate Blood Pressure 141/85 NAD MEDICALLY STABLE PLAN:FOLLOW UP WITH CD AFTERCARE RECOMMENDED. FOLLOW UP WITH MEDICAL MANAGEMENT 1-2 WEEKS AFTER DISCHARGE DISCUSSED.
== END 2019-01-06 08:52 | disposition home or self-care (01) | DRG 772 ==
LOC: YASAS 12:57 → Y3E 12:58
PROVIDERS: ADMIT Psychiatry & Neurology Psychiatry; ATTEND Psychiatry & Neurology Psychiatry
PROC: HZ42ZZZ Group Counseling for Substance Abuse Treatment, Cognitive-Behavioral (ICD-10-PCS; principal; 2018-12-26)
DX: F10.20 Alcohol dependence, uncomplicated (principal); F11.20 Opioid dependence, uncomplicated; F14.20 Cocaine dependence, uncomplicated; F17.210 Nicotine dependence, cigarettes, uncomplicated; F43.10 Post-traumatic stress disorder, unspecified; I89.0 Lymphedema, not elsewhere classified; R19.7 Diarrhea, unspecified; L30.9 Dermatitis, unspecified

== ENCOUNTER 2019-02-06 12:56 | Inpatient (IN) | payer OTHER ==
[2019-02-06 15:16] VITALS: BMI 25.9
--- NOTE | 2019-02-06 16:40 | HP ---
COWS - Scale Resting Pulse: 0= [place] 80 or Below Sweatin=Flushed/Facial Moisture Restless Observation: 1= Difficult to Sit Still Pupil Size: 2= Moderately Dilated Bone or Joint Aches: 2= Severe Diffuse Aches Runny Nose/ Eye Tearin= Runny Nose/Eyes GI Upset > 30mins: 1= Stomach Cramp Tremor Observation: 0= None Yawning Observation: 1= 1-2x During Session Anxiety or Irritability: 2=Irritable/Anxious Goose Flesh Skin: 3=Piloerection COWS Score: 16 CIWA Score Nausea/Vomitin-No Nausea/No Vomiting Muscle Tremors: None Anxiety: 3 Agitation: 3 Paroxysmal Sweats: 3 Orientation: 0-Oriented Tacttile Disturbances: 2-Mild Itch/Numbness/Burn Auditory Disturbances: 0-None Visual Disturbances: 0-None Headache: 3-Moderate CIWA-Ar Total Score: 14 - Admission Criteria OASAS Guidelines: Admission for Medically Managed Detox: Requires at least one of the followin. CIWA greater than 12 2. Seizures within the past 24 hours 3. Delirium tremens within the past 24 hours 4. Hallucinations within the past 24 hours 5. Acute intervention needed for co occurring medical disorder 6. Acute intervention needed for co occurring psychiatric disorder 7. Severe withdrawal that cannot be handled at a lower level of care (continued vomiting, continued diarrhea, abnormal vital signs) requiring intravenous medication and/or fluids 8. Admission [facility] Chief Complaint: PATIENT PRESENTS WITH ETOH WITHDRAWAL SX. Allergies/Adverse Reactions: Allergies Allergy/AdvReac Type Severity Reaction Status Date / Time No Known Allergies Allergy Verified 12/22/18 16:58 History of Present Illness: THIS IS PATIENTS SECOND ADMISSION TO [facility] FOR ETOH WITHDRAWAL SX. PATIENT STATES SHE STARTED DRINKING AT AGE 23 AND DRINKS 8-10 NIPS DAILY, LAST DRINK THIS AFTERNOON. PATIENT DENIES SEIZURES, BLACKOUTS AND FALLS. 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 PATIENT ALSO REPORTS BEING IN METHADONE PROGRAM, VIP, PHOTOCOPY OF CARD OBTAINED. LAST DOSE 02/03/19. PATIENT REPORTS DOSE 30MG DAILY. UDS +PREM, BZO. PATIENT REPORTS BUYING OXYCONTIN/XANAX TO YAÑEZ OFF WITHDRAWAL SX WHICH IS WHY URINE IS +BZO. PATIENT ALSO SNIFFS COCAINE, 20 DOLLARS DAILY, LAST TIME SHE USED WAS 3/7/19. RN VERIFICATION TO BE DONE TOMORROW MORNING. PATIENT REPORTS HX OF PTSD/ANXIETY, DENIES SI/HI AND SUICIDE ATTEMPTS. Exam Limitations: No Limitations - Ebola screening Have you traveled outside of the country in the last 21 days: No (N) Have you had contact with anyone from an Ebola affected area: No Have you been sick,other than usual withdrawal symptoms: No Do you have a fever: No - Review of Systems Constitutional: Chills, Night Sweats, Changes in sleep EENT: reports: Tearing, Nose Congestion Respiratory: reports: No Symptoms reported Cardiac: reports: Edema GI: reports: Poor Fluid Intake, Abdominal cramping : reports: No Symptoms Reported Musculoskeletal: reports: Back Pain, Muscle Pain Integumentary: reports: Sweating Neuro: reports: Headache, Numbness, Tingling Endocrine: reports: No Symptoms Reported Hematology: reports: No Symptoms Reported Psychiatric: reports: Orientated x3, Anxious Patient History - Patient Medical History Hx Anemia: No Hx Asthma: No Hx Chronic Obstructive Pulmonary Disease (COPD): No Hx Cancer: No Hx Cardiac Disorders: No Hx Congestive Heart Failure: No Hx Hypertension: Yes Hx Hypercholesterolemia: No Hx Pacemaker: No HX Cerebrovascular Accident: No Hx Seizures: No Hx Dementia: No Hx Diabetes: No Hx Gastrointestinal Disorders: No Hx Liver Disease: No Hx Genitourinary Disorders: No Hx Sexually Transmitted Disorders: No Hx Renal Disease (ESRD): No Hx Thyroid Disease: No Hx Human Immunodeficiency Virus (HIV): No (LAST TEST 11/2018 NEGATIVE) Hx Hepatitis C: No Hx Depression: No Hx Suicide Attempt: No Hx Bipolar Disorder: No Hx Schizophrenia: No Other Medical History: ANXIETY - Patient Surgical History Past Surgical History: No Hx Neurologic Surgery: No Hx Cataract Extraction: No Hx Cardiac Surgery: No Hx Lung Surgery: No Hx Breast Surgery: No Hx Breast Biopsy: No Hx Abdominal Surgery: No Hx Appendectomy: No Hx Cholecystectomy: No Hx Genitourinary Surgery: No Hx Section: No Hx Orthopedic Surgery: No Hx Hysterectomy: No Anesthesia Reaction: No - PPD History Date: 12/24/18 Results: 0mm induration PPD to be Administered?: No - Reproductive History Patient is a Female of Child Bearing Age (11 -55 yrs old): Yes Last Menstrual Period: 01/30/19 Patient : No - Smoking Cessation Smoking history: Current every day smoker Have you smoked in the past 12 months: Yes Aproximately how many cigarettes per day: 10 Hx Chewing Tobacco Use: Yes Initiated information on smoking cessation: Yes 'Breaking Loose' booklet given: 02/06/19 - Substance & Tx. History Hx Alcohol Use: Yes Hx Substance Use: Yes Substance Use Type: Alcohol, Prescribed Hx Substance Use Treatment: Yes - Substances Abused Alcohol Route: Oral Frequency: Daily Amount used: 8-10 NIPS Age of first use: 23 Date of Last Use: 02/06/19 Cocaine Route: Inhalation Frequency: 1-2 times per week Amount used: 20 DOLLARS Age of first use: 23 Date of Last Use: 01/28/19 Family Disease History - Family Disease History Family History: Denies Family Disease History: Other: Father (, SUBSTANCE ABUSE), Mother ( , SUBSTANCE ABUSE) Admission Physical Exam [facility] - Vital Signs Vital Signs: Vital Signs - 24 hr 02/06/19 15:03 Temperature 97.2 F L Pulse Rate 72 Respiratory 18 Rate Blood Pressure 156/100 - Physical General Appearance: Yes: Appropriately Dressed, Irritable, Sweating, Anxious HEENTM: Yes: EOMI, Hearing grossly Normal, Normocephalic, Normal Voice, YANG, Pharynx Normal, Nasal Congestion Respiratory: Yes: Chest Non-Tender, Lungs Clear, Normal Breath Sounds, No Respiratory Distress, No Accessory Muscle Use Neck: Yes: No masses,lesions,Nodules, Supple, Trachea in good position Breast: Yes: Breast Exam Deferred Cardiology: Yes: Regular Rhythm, Regular Rate, S1, S2 Abdominal: Yes: Normal Bowel Sounds, Non Tender, Soft Genitourinary: Yes: Within Normal Limits Back: Yes: Muscle Spasm Musculoskeletal: Yes: full range of Motion, Gait Steady, Back pain, Muscle Pain , Other (LYMPHEDEMA BLE) Extremities: Yes: Normal Range of Motion, Swelling Neurological: Yes: converter skimmer II-XII NML intact, Fully Oriented, Alert, Motor Strength 5/5, Normal Response, Other (ANXIETY) Integumentary: Yes: Normal Color, Warm, Moist, Pitting Edema Lymphatic: Yes: Within Normal Limits Cleared for Admission [facility] - Detox or Rehab [facility] Level of Care: Medically Managed Detox Regimen/Protocol: Librium [facility] Breath Alcohol Content Breath Alcohol Content: 0 Urine Pregancy Test - Result Urine Test Results: Negative - NO Line Present Urine Drug Screen - Results Drug Screen Negative: No Urine Drug Screen Results: PREM-Cocaine, BZO-Benzodiazepines Inpatient Rehab Admission - Rehab Decision to Admit Inpatient rehab admission?: No
[2019-02-06] MEDS ORDERED: MAGNESIUM CITRATE 300 ML BOTTLE PO PRN (16:45)
[2019-02-06] MEDS ORDERED: BISMUTH SUBSALICYLATE 524 MG/30 ML UD PO PRN (16:45)
[2019-02-06] MEDS ORDERED: METHOCARBAMOL 500 MG TABLET PO PRN (16:45)
[2019-02-06] MEDS ORDERED: MELATONIN 5 MG TABLETS PO PRN (16:45)
[2019-02-06] MEDS ORDERED: DICYCLOMINE HCL 10 MG CAPSULE PO PRN (16:45)
[2019-02-06] MEDS ORDERED: MAG HYDROX/AL HYDROX/SIMETH 30 ML UNIT-DOSE CUP PO PRN (16:45)
[2019-02-06] MEDS ORDERED: ACETAMINOPHEN 325 MG TABLET (FP) PO PRN ×2 (16:45)
[2019-02-06] MEDS ORDERED: MAGNESIUM HYDROX 2400MG/30ML ORAL SUSPENSION 30 ML CUP PO PRN (16:45)
[2019-02-06] MEDS ORDERED: IBUPROFEN 400 MG TABLET (FP) PO PRN (16:45)
[2019-02-06] MEDS ORDERED: MENTHOL/PHENOL 1 EACH UD MM PRN (16:45)
[2019-02-06] MEDS ORDERED: NICOTINE POLACRILEX 2 MG GUM BUC PRN (16:45)
[2019-02-06] MEDS ORDERED: METHADONE HCL 10 MG TABLET PO ONE (16:51)
[2019-02-06] MEDS ORDERED: chlordiazePOXIDE HCL 10 MG CAPSULE PO PRN (16:51)
[2019-02-06] MEDS: chlordiazePOXIDE HCL 10 MG CAPSULE PO PRN (19:15)
[2019-02-06] MEDS: THIAMINE HCL 100 MG TABLET (FP) PO SCH (22:16)
[2019-02-06] MEDS: chlordiazePOXIDE HCL 25 MG CAPSULE PO SCH (22:16)
[2019-02-06] MEDS: hydrOXYzine PAMOATE 25 MG CAPSULE (FP) PO PRN (22:17)
[2019-02-06 22:44] LABS: URINE APPEARANCE SLCLOUDY; URINE BILIRUBIN NEGATIVE (<2.0 mg/dL); URINE COLOR STRAW; URINE GLUCOSE (UA) NEGATIVE (NEGATIVE); URINE KETONE NEGATIVE (NEGATIVE); URINE LEUK ESTERASE NEGATIVE (NEGATIVE); URINE NITRITE NEGATIVE (NEGATIVE); URINE PROTEIN NEGATIVE (NEGATIVE); URINE UROBILINOGEN NEGATIVE mg/dL (0.2-1.0)
[2019-02-07] MEDS: chlordiazePOXIDE HCL 25 MG CAPSULE PO SCH ×2 (05:16→14:25)
[2019-02-07] MEDS ORDERED: METHADONE HCL 10 MG TABLET PO ONE (10:00)
[2019-02-07 10:14] LABS: HEMATOCRIT 37.3 % (32.4-45.2); HEMOGLOBIN 12.7 GM/dL (10.7-15.3); MCH 31.2 pg (25.7-33.7); MEAN CELL VOLUME 91.8 fl (80-96); MEAN PLT VOLUME 10.2 fl (7.5-11.1); PLATELET COUNT 258 K/MM3 (134-434); RBC 4.06 M/mm3 (3.60-5.2); RDW 13.3 % (11.6-15.6); WHITE BLOOD COUNT 9.2 K/mm3 (4.0-10.0)
[2019-02-07] MEDS: LISINOPRIL 5 MG TABLET (FP) PO SCH (10:23)
[2019-02-07] MEDS: PRENATAL VITAMINS W/ FOLIC ACID TABLET (FP) PO SCH (10:23)
[2019-02-07] MEDS: NICOTINE 14 MG/24 HOURS TOPICAL PATCH TD SCH (10:24)
[2019-02-07 10:34] LABS: ALBUMIN 3.5 g/dl (3.4-5.0); ALK PHOS 68 U/L (45-117); ANION GAP 7 MMOL/L (8-16); BILIRUBIN,TOTAL 0.2 mg/dL (0.2-1); BLOOD UREA NITROGEN 12 mg/dL (7-18); CALCIUM 9.1 mg/dL (8.5-10.1); CHLORIDE 104 mmol/L (98-107); CO2 29 mmol/L (21-32); CREATININE 1.1 mg/dL (0.55-1.3); GLUCOSE,RANDOM 90 mg/dL (74-106); POTASSIUM 4.1 mmol/L (3.5-5.1); SGOT/AST 24 U/L (15-37); SGPT/ALT 30 U/L (13-61); SODIUM 140 mmol/L (136-145); TOT PROT 7.2 g/dl (6.4-8.2)
[2019-02-07] MEDS: hydrOXYzine PAMOATE 25 MG CAPSULE (FP) PO PRN ×2 (11:00→20:59)
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
--- NOTE | 2019-02-07 14:36 | PN ---
[facility] CIWA - CIWA Score Nausea/Vomitin-No Nausea/No Vomiting Muscle Tremors: 2 Anxiety: 2 Agitation: 1-Slight > Activity Paroxysmal Sweats: 1-Minimal Palms Moist Orientation: 2-Disoriented Date<2 days Tacttile Disturbances: 0-None Auditory Disturbances: 0-None Visual Disturbances: 0-None Headache: 1-Very Mild CIWA-Ar Total Score: 9 S Progress Note (SOAP) Subjective: tremor anxiety took methadone 30 mg today feeling ok sweating Objective: 02/07/19 14:35 Vital Signs Temperature 97.0 F L 02/07/19 13:31 Pulse Rate 68 02/07/19 13:31 Respiratory Rate 18 02/07/19 13:31 Blood Pressure 157/92 02/07/19 13:31 O2 Sat by Pulse Oximetry (%) Laboratory Last Values WBC 9.2 K/mm3 (4.0-10.0) 02/07/19 08:00 RBC 4.06 M/mm3 (3.60-5.2) 02/07/19 08:00 Hgb 12.7 GM/dL (10.7-15.3) 02/07/19 08:00 Hct 37.3 % (32.4-45.2) 02/07/19 08:00 MCV 91.8 fl (80-96) 02/07/19 08:00 MCH 31.2 pg (25.7-33.7) 02/07/19 08:00 MCHC 34.0 g/dl (32.0-36.0) 02/07/19 08:00 RDW 13.3 % (11.6-15.6) 02/07/19 08:00 Plt Count 258 K/MM3 (134-434) 02/07/19 08:00 MPV 10.2 fl (7.5-11.1) 02/07/19 08:00 Sodium 140 mmol/L (136-145) 02/07/19 08:00 Potassium 4.1 mmol/L (3.5-5.1) 02/07/19 08:00 Chloride 104 mmol/L (98-107) 02/07/19 08:00 Carbon Dioxide 29 mmol/L (21-32) 02/07/19 08:00 Anion Gap 7 MMOL/L (8-16) L 02/07/19 08:00 BUN 12 mg/dL (7-18) 02/07/19 08:00 Creatinine 1.1 mg/dL (0.55-1.3) 02/07/19 08:00 Creat Clearance w eGFR 53.96 (>60) 02/07/19 08:00 Random Glucose 90 mg/dL (74-106) 02/07/19 08:00 Calcium 9.1 mg/dL (8.5-10.1) 02/07/19 08:00 Total Bilirubin 0.2 mg/dL (0.2-1) 02/07/19 08:00 AST 24 U/L (15-37) 02/07/19 08:00 ALT 30 U/L (13-61) 02/07/19 08:00 Alkaline Phosphatase 68 U/L (45-117) 02/07/19 08:00 Total Protein 7.2 g/dl (6.4-8.2) 02/07/19 08:00 Albumin 3.5 g/dl (3.4-5.0) 02/07/19 08:00 Urine Color Straw 02/06/19 21:37 Urine Appearance Slcloudy 02/06/19 21:37 Urine pH 8.0 (5.0-8.0) 02/06/19 21:37 Ur Specific [place] 1.009 (1.010-1.035) L 02/06/19 21:37 Urine Protein Negative (NEGATIVE) 02/06/19 21:37 Urine Glucose (UA) Negative (NEGATIVE) 02/06/19 21:37 Urine Ketones Negative (NEGATIVE) 02/06/19 21:37 Urine Blood Negative (NEGATIVE) 02/06/19 21:37 Urine Nitrite Negative (NEGATIVE) 02/06/19 21:37 Urine Bilirubin Negative (<2.0 mg/dL) 02/06/19 21:37 Urine Urobilinogen Negative mg/dL (0.2-1.0) 02/06/19 21:37 Ur Leukocyte Esterase Negative (NEGATIVE) 02/06/19 21:37 lab note Assessment: 02/07/19 14:36 alcohol withdrawal sx Plan: continue detox
[2019-02-07] MEDS: chlordiazePOXIDE 5 MG CAPSULE PO SCH (20:59)
[2019-02-07] MEDS: traZODone HCL 50 MG TABLET (FP) PO SCH (20:59)
[2019-02-07] MEDS: THIAMINE HCL 100 MG TABLET (FP) PO SCH (20:59)
[2019-02-08] MEDS: METHADONE HCL 10 MG TABLET PO SCH (06:14)
[2019-02-08] MEDS: chlordiazePOXIDE 5 MG CAPSULE PO SCH ×2 (06:14→14:17)
[2019-02-08] MEDS: hydrOXYzine PAMOATE 25 MG CAPSULE (FP) PO PRN ×2 (06:53→18:25)
[2019-02-08] MEDS: LISINOPRIL 5 MG TABLET (FP) PO SCH (10:17)
[2019-02-08] MEDS: PRENATAL VITAMINS W/ FOLIC ACID TABLET (FP) PO SCH (10:17)
[2019-02-08] MEDS: NICOTINE 14 MG/24 HOURS TOPICAL PATCH TD SCH (10:17)
[2019-02-08] MEDS: chlordiazePOXIDE HCL 10 MG CAPSULE PO PRN (10:44)
[2019-02-08] MEDS: SODIUM CHLORIDE NASAL SPRAY 44 ML BOTTLE NS SCH ×2 (14:51→22:24)
--- NOTE | 2019-02-08 16:04 | PN ---
S CIWA - CIWA Score Nausea/Vomitin-Mild Nausea/No Vomiting Muscle Tremors: 1-None Visible, but [place] Anxiety: 1-Mildly Anxious Agitation: 1-Slight > Activity Paroxysmal Sweats: No Perspiration Orientation: 0-Oriented Tacttile Disturbances: 0-None Auditory Disturbances: 0-None Visual Disturbances: 0-None Headache: 1-Very Mild CIWA-Ar Total Score: 5 BHS Progress Note (SOAP) Subjective: feeling better less tremor mild sweating sleep better at night Objective: 02/08/19 16:05 Vital Signs Temperature 96.6 F L 02/08/19 13:33 Pulse Rate 67 02/08/19 13:33 Respiratory Rate 18 02/08/19 13:33 Blood Pressure 134/84 02/08/19 13:33 O2 Sat by Pulse Oximetry (%) Laboratory Last Values WBC 9.2 K/mm3 (4.0-10.0) 02/07/19 08:00 RBC 4.06 M/mm3 (3.60-5.2) 02/07/19 08:00 Hgb 12.7 GM/dL (10.7-15.3) 02/07/19 08:00 Hct 37.3 % (32.4-45.2) 02/07/19 08:00 MCV 91.8 fl (80-96) 02/07/19 08:00 MCH 31.2 pg (25.7-33.7) 02/07/19 08:00 MCHC 34.0 g/dl (32.0-36.0) 02/07/19 08:00 RDW 13.3 % (11.6-15.6) 02/07/19 08:00 Plt Count 258 K/MM3 (134-434) 02/07/19 08:00 MPV 10.2 fl (7.5-11.1) 02/07/19 08:00 Sodium 140 mmol/L (136-145) 02/07/19 08:00 Potassium 4.1 mmol/L (3.5-5.1) 02/07/19 08:00 Chloride 104 mmol/L (98-107) 02/07/19 08:00 Carbon Dioxide 29 mmol/L (21-32) 02/07/19 08:00 Anion Gap 7 MMOL/L (8-16) L 02/07/19 08:00 BUN 12 mg/dL (7-18) 02/07/19 08:00 Creatinine 1.1 mg/dL (0.55-1.3) 02/07/19 08:00 Creat Clearance w eGFR 53.96 (>60) 02/07/19 08:00 Random Glucose 90 mg/dL (74-106) 02/07/19 08:00 Calcium 9.1 mg/dL (8.5-10.1) 02/07/19 08:00 Total Bilirubin 0.2 mg/dL (0.2-1) 02/07/19 08:00 AST 24 U/L (15-37) 02/07/19 08:00 ALT 30 U/L (13-61) 02/07/19 08:00 Alkaline Phosphatase 68 U/L (45-117) 02/07/19 08:00 Total Protein 7.2 g/dl (6.4-8.2) 02/07/19 08:00 Albumin 3.5 g/dl (3.4-5.0) 02/07/19 08:00 Urine Color Straw 02/06/19 21:37 Urine Appearance Slcloudy 02/06/19 21:37 Urine pH 8.0 (5.0-8.0) 02/06/19 21:37 Ur Specific [place] 1.009 (1.010-1.035) L 02/06/19 21:37 Urine Protein Negative (NEGATIVE) 02/06/19 21:37 Urine Glucose (UA) Negative (NEGATIVE) 02/06/19 21:37 Urine Ketones Negative (NEGATIVE) 02/06/19 21:37 Urine Blood Negative (NEGATIVE) 02/06/19 21:37 Urine Nitrite Negative (NEGATIVE) 02/06/19 21:37 Urine Bilirubin Negative (<2.0 mg/dL) 02/06/19 21:37 Urine Urobilinogen Negative mg/dL (0.2-1.0) 02/06/19 21:37 Ur Leukocyte Esterase Negative (NEGATIVE) 02/06/19 21:37 lab noted Assessment: 02/08/19 16:05 mild withdrawal sx Plan: continue detox
[2019-02-08 16:11] LABS: RPR REACTIVE 1:2 (NONREACTIVE)
[2019-02-08 16:15] LABS: TREPONEMA ANTIBODY REACTIVE (NONREACTIVE)
[2019-02-08] MEDS: chlordiazePOXIDE HCL 10 MG CAPSULE PO SCH (22:24)
[2019-02-08] MEDS: traZODone HCL 50 MG TABLET (FP) PO SCH (22:24)
[2019-02-08] MEDS: THIAMINE HCL 100 MG TABLET (FP) PO SCH (22:24)
[2019-02-09] MEDS: METHADONE HCL 10 MG TABLET PO SCH (06:07)
[2019-02-09] MEDS: hydrOXYzine PAMOATE 25 MG CAPSULE (FP) PO PRN (06:07)
[2019-02-09] MEDS: chlordiazePOXIDE HCL 10 MG CAPSULE PO SCH (06:08)
[2019-02-09] MEDS: SODIUM CHLORIDE NASAL SPRAY 44 ML BOTTLE NS SCH (06:20)
[2019-02-09 09:22] VITALS: BP 121/79; PULSE 74; TEMP 98.5
[2019-02-09] MEDS: LISINOPRIL 5 MG TABLET (FP) PO SCH (10:46)
[2019-02-09] MEDS: PRENATAL VITAMINS W/ FOLIC ACID TABLET (FP) PO SCH (10:46)
[2019-02-09] MEDS: NICOTINE 14 MG/24 HOURS TOPICAL PATCH TD SCH (10:46)
[2019-02-09] MEDS: chlordiazePOXIDE HCL 10 MG CAPSULE PO PRN (10:49)
--- NOTE | 2019-02-09 14:23 | DS ---
[facility] Detox Discharge Summary Admission Date: 02/06/19 Discharge Date: 02/09/19 - History Present History: Alcohol Dependence Additional Comments: 44 years old female admitted on 02/06/19for alcohol withdrawal stabilization feeling better prefer alcohol rehab today [facility] - Physical Exam Results Vital Signs: Vital Signs Temperature 98.5 F 02/09/19 09:20 Pulse Rate 74 02/09/19 09:20 Respiratory Rate 18 02/09/19 09:20 Blood Pressure 121/79 02/09/19 09:20 O2 Sat by Pulse Oximetry (%) Pertinent Admission Physical Exam Findings: alcohol withdrawal sx Laboratory Last Values WBC 9.2 K/mm3 (4.0-10.0) 02/07/19 08:00 RBC 4.06 M/mm3 (3.60-5.2) 02/07/19 08:00 Hgb 12.7 GM/dL (10.7-15.3) 02/07/19 08:00 Hct 37.3 % (32.4-45.2) 02/07/19 08:00 MCV 91.8 fl (80-96) 02/07/19 08:00 MCH 31.2 pg (25.7-33.7) 02/07/19 08:00 MCHC 34.0 g/dl (32.0-36.0) 02/07/19 08:00 RDW 13.3 % (11.6-15.6) 02/07/19 08:00 Plt Count 258 K/MM3 (134-434) 02/07/19 08:00 MPV 10.2 fl (7.5-11.1) 02/07/19 08:00 Sodium 140 mmol/L (136-145) 02/07/19 08:00 Potassium 4.1 mmol/L (3.5-5.1) 02/07/19 08:00 Chloride 104 mmol/L (98-107) 02/07/19 08:00 Carbon Dioxide 29 mmol/L (21-32) 02/07/19 08:00 Anion Gap 7 MMOL/L (8-16) L 02/07/19 08:00 BUN 12 mg/dL (7-18) 02/07/19 08:00 Creatinine 1.1 mg/dL (0.55-1.3) 02/07/19 08:00 Creat Clearance w eGFR 53.96 (>60) 02/07/19 08:00 Random Glucose 90 mg/dL (74-106) 02/07/19 08:00 Calcium 9.1 mg/dL (8.5-10.1) 02/07/19 08:00 Total Bilirubin 0.2 mg/dL (0.2-1) 02/07/19 08:00 AST 24 U/L (15-37) 02/07/19 08:00 ALT 30 U/L (13-61) 02/07/19 08:00 Alkaline Phosphatase 68 U/L (45-117) 02/07/19 08:00 Total Protein 7.2 g/dl (6.4-8.2) 02/07/19 08:00 Albumin 3.5 g/dl (3.4-5.0) 02/07/19 08:00 Urine Color Straw 02/06/19 21:37 Urine Appearance Slcloudy 02/06/19 21:37 Urine pH 8.0 (5.0-8.0) 02/06/19 21:37 Ur Specific [place] 1.009 (1.010-1.035) L 02/06/19 21:37 Urine Protein Negative (NEGATIVE) 02/06/19 21:37 Urine Glucose (UA) Negative (NEGATIVE) 02/06/19 21:37 Urine Ketones Negative (NEGATIVE) 02/06/19 21:37 Urine Blood Negative (NEGATIVE) 02/06/19 21:37 Urine Nitrite Negative (NEGATIVE) 02/06/19 21:37 Urine Bilirubin Negative (<2.0 mg/dL) 02/06/19 21:37 Urine Urobilinogen Negative mg/dL (0.2-1.0) 02/06/19 21:37 Ur Leukocyte Esterase Negative (NEGATIVE) 02/06/19 21:37 RPR Titer Reactive 1:2 (NONREACTIVE) H D 02/07/19 08:00 T.pallidum Ab (MHA) Reactive (NONREACTIVE) 02/07/19 08:00 lab noted - Treatment Hospital Course: Detox Protocol Followed, Detoxed Safely, Responded well, Discharged Condition Good, Rehab Referral Accepted Patient has Accepted [facility] Referral to: [facility] - Medication Discharge Medications: Ambulatory Orders Methadone [Dolophine -] 30 mg PO DAILY 12/22/18 Doxepin HCl [Sinequan -] 25 mg PO BID #60 capsule 12/23/18 traZODone HCL [Desyrel -] 50 mg PO HS #30 tablet 01/05/19 Lisinopril [Prinivil -] 5 mg PO DAILY #30 tablet 02/08/19 - Diagnosis (1) Alcohol dependence with uncomplicated withdrawal Status: Acute (2) Methadone maintenance therapy patient Status: Chronic (3) Nicotine dependence Status: Acute Qualifiers: Nicotine product type: cigarettes Substance use status: in withdrawal Qualified Code(s): F17.213 - Nicotine dependence, cigarettes, with withdrawal (4) Substance induced mood disorder Status: Suspected - AMA Did Patient Leave Against Medical Advice: No
== END 2019-02-09 11:49 | disposition other institution (70) | DRG 773 ==
LOC: YASAS 12:56 → Y3N 17:18
PROVIDERS: ADMIT Surgery; ATTEND Surgery
PROC: HZ2ZZZZ Detoxification Services for Substance Abuse Treatment (ICD-10-PCS; principal; 2019-02-06)
DX: F10.230 Alcohol dependence with withdrawal, uncomplicated (principal); F11.20 Opioid dependence, uncomplicated; F14.20 Cocaine dependence, uncomplicated; F17.213 Nicotine dependence, cigarettes, with withdrawal; F19.24 Other psychoactive substance dependence with psychoactive substance-induced mood disorder; F43.10 Post-traumatic stress disorder, unspecified; I10 Essential (primary) hypertension; G47.00 Insomnia, unspecified; I89.0 Lymphedema, not elsewhere classified
CPT/HCPCS: 36415; 80053; 81003; 85027; 86593; 86780

== ENCOUNTER 2019-02-09 11:43 | Inpatient (IN) | payer OTHER ==
[2019-02-09] MEDS ORDERED: ACETAMINOPHEN 325 MG TABLET (FP) PO PRN (14:24)
[2019-02-09] MEDS ORDERED: MENTHOL/PHENOL 1 EACH UD MM PRN (14:24)
[2019-02-09] MEDS ORDERED: MAGNESIUM HYDROX 2400MG/30ML ORAL SUSPENSION 30 ML CUP PO PRN (14:24)
[2019-02-09] MEDS ORDERED: MAG HYDROX/AL HYDROX/SIMETH 30 ML UNIT-DOSE CUP PO PRN (14:24)
[2019-02-09] MEDS ORDERED: NICOTINE POLACRILEX 2 MG GUM BUC PRN (14:24)
[2019-02-09] MEDS ORDERED: MAGNESIUM CITRATE 300 ML BOTTLE PO PRN (14:24)
[2019-02-09] MEDS ORDERED: LOPERAMIDE HCL 2 MG CAPSULE PO PRN (14:24)
[2019-02-09] MEDS ORDERED: P-EPHED 60MG/TRIPROLIDI 2.5MG TABLET PO PRN (14:24)
[2019-02-09] MEDS ORDERED: IBUPROFEN 400 MG TABLET (FP) PO PRN (14:24)
[2019-02-09] MEDS ORDERED: guaiFENesin 200 MG/10 ML 10 ML UNIT-DOSE CUPS PO PRN (14:24)
--- NOTE | 2019-02-09 14:24 | HP ---
[facility] Rehab Assess/Revision - Admission History Admitted to Rehab from: [facility] Date of Admission to Rehab: 02/09/19 - Vital signs Vital Signs: Vital Signs Period Temp Pulse Resp BP Sys/Bland Pulse Ox Last 24 Hr 97.4 F 63 18 144/70 - Findings Detox History & Physical reviewed: Yes Concur with findings: Yes Comments/Additional Findings: transferred from detox to rehab admission as per protocol Inpatient Rehab Admission - Rehab Decision to Admit Inpatient rehab admission?: Yes - Initial Determination Are CD services needed?: Yes Free of communicable disease: Yes Not in need of hospitalization: Yes - Rehab Admission Criteria Previous failed treatment: Yes Poor recovery environment: Yes Comorbidities: Yes Lacks judgement: No Patient is meeting Inpatient Rehab admission criteria:: Yes
[2019-02-09] MEDS: MINERAL OIL/PETROLAT/WATER TOPICAL CREAM 113 GM JAR TP SCH (14:40)
[2019-02-09] MEDS: GABAPENTIN 100 MG CAPSULE (FP) PO SCH (21:13)
[2019-02-09] MEDS: THIAMINE HCL 100 MG TABLET (FP) PO SCH (21:13)
[2019-02-10] MEDS: GABAPENTIN 100 MG CAPSULE (FP) PO SCH ×3 (06:40→21:26)
[2019-02-10] MEDS: METHADONE HCL 10 MG TABLET PO SCH ×2 (06:40→10:58)
[2019-02-10] MEDS ORDERED: PT OWN MED DRAWER 7, Y5N ONE (08:48)
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
[2019-02-10] MEDS: PRENATAL VITAMINS W/ FOLIC ACID TABLET (FP) PO SCH (10:57)
[2019-02-10] MEDS: LISINOPRIL 5 MG TABLET (FP) PO SCH (10:58)
[2019-02-10] MEDS: hydrOXYzine PAMOATE 25 MG CAPSULE (FP) PO PRN ×2 (11:00→18:15)
[2019-02-10] MEDS: MINERAL OIL/PETROLAT/WATER TOPICAL CREAM 113 GM JAR TP SCH (11:11)
[2019-02-10] MEDS: SERTRALINE HCL 50 MG TABLET (FP) PO SCH (11:49)
[2019-02-10] MEDS: NICOTINE 14 MG/24 HOURS TOPICAL PATCH TD PRN (13:37)
[2019-02-10] MEDS: THIAMINE HCL 100 MG TABLET (FP) PO SCH (21:26)
[2019-02-10] MEDS: traZODone HCL 50 MG TABLET (FP) PO SCH (21:27)
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
[2019-02-11] MEDS: METHADONE HCL 10 MG TABLET PO SCH (07:03)
[2019-02-11] MEDS: hydrOXYzine PAMOATE 25 MG CAPSULE (FP) PO PRN ×3 (07:04→21:37)
[2019-02-11] MEDS: GABAPENTIN 100 MG CAPSULE (FP) PO SCH ×2 (07:04→07:06)
[2019-02-11] MEDS: MINERAL OIL/PETROLAT/WATER TOPICAL CREAM 113 GM JAR TP SCH ×2 (10:50→21:39)
[2019-02-11] MEDS: LISINOPRIL 5 MG TABLET (FP) PO SCH (10:57)
[2019-02-11] MEDS: PRENATAL VITAMINS W/ FOLIC ACID TABLET (FP) PO SCH (10:57)
[2019-02-11] MEDS: NICOTINE 14 MG/24 HOURS TOPICAL PATCH TD PRN (10:58)
--- NOTE | 2019-02-11 12:13 | PN ---
[facility] Progress Note Note: PATIENT HAS CHRONIC SWELLING TO B/L DUE TO HX OF LYMPHEDEMA. REQUESTING SUPPORT STOCKINGS. PATIENT ALSO STATES GABAPENTIN MAKES HER SLEEPY AND WOULD LIKE TO HAVE MEDICATION D/C. Vital Signs Temperature 97.7 F 02/11/19 07:17 Pulse Rate 60 02/11/19 07:17 Respiratory Rate 18 02/11/19 07:17 Blood Pressure 151/89 02/11/19 07:17 O2 Sat by Pulse Oximetry (%) Laboratory Tests 02/10/19 06:00 HIV 1&2 Antibody Screen Negative HIV P24 Antigen Negative PE: ALERT AND ORIENTED X 3 SKIN WARM AND DRY EXT +3 BLE, FULL ROM AMB AD ANGEL A/P: LYMPHEDEMA OF B/L LOWER EXTREMITIES WILL ORDER TEDS LEG ELEVATION WHILE IN BED CONTINUE TO MONITOR CLINICALLY
[2019-02-11] MEDS ORDERED: PT OWN MED DRAWER 7, Y5N ONE (12:47)
[2019-02-11] MEDS: SERTRALINE HCL 50 MG TABLET (FP) PO SCH (12:48)
[2019-02-11] MEDS: THIAMINE HCL 100 MG TABLET (FP) PO SCH (21:37)
[2019-02-11] MEDS: traZODone HCL 50 MG TABLET (FP) PO SCH (21:37)
[2019-02-12] MEDS: METHADONE HCL 10 MG TABLET PO SCH (06:42)
[2019-02-12] MEDS: LISINOPRIL 5 MG TABLET (FP) PO SCH (09:39)
[2019-02-12] MEDS: SERTRALINE HCL 50 MG TABLET (FP) PO SCH (09:39)
[2019-02-12] MEDS: PRENATAL VITAMINS W/ FOLIC ACID TABLET (FP) PO SCH (09:39)
[2019-02-12] MEDS: hydrOXYzine PAMOATE 25 MG CAPSULE (FP) PO PRN ×3 (09:40→21:38)
[2019-02-12] MEDS: NICOTINE 14 MG/24 HOURS TOPICAL PATCH TD PRN (09:44)
[2019-02-12] MEDS: MINERAL OIL/PETROLAT/WATER TOPICAL CREAM 113 GM JAR TP SCH ×2 (09:44→21:38)
[2019-02-12] MEDS: THIAMINE HCL 100 MG TABLET (FP) PO SCH (21:38)
[2019-02-12] MEDS: traZODone HCL 50 MG TABLET (FP) PO SCH (21:38)
[2019-02-13] MEDS: METHADONE HCL 10 MG TABLET PO SCH (06:38)
[2019-02-13] MEDS ORDERED: PT OWN MED DRAWER 7, Y5N ONE ×3 (08:45→15:38)
[2019-02-13] MEDS: hydrOXYzine PAMOATE 25 MG CAPSULE (FP) PO PRN ×3 (08:52→19:53)
[2019-02-13] MEDS: PRENATAL VITAMINS W/ FOLIC ACID TABLET (FP) PO SCH (10:50)
[2019-02-13] MEDS: SERTRALINE HCL 50 MG TABLET (FP) PO SCH (10:50)
[2019-02-13] MEDS: LISINOPRIL 5 MG TABLET (FP) PO SCH (10:50)
[2019-02-13] MEDS: MINERAL OIL/PETROLAT/WATER TOPICAL CREAM 113 GM JAR TP SCH ×2 (10:52→21:42)
[2019-02-13] MEDS: NICOTINE 14 MG/24 HOURS TOPICAL PATCH TD PRN (11:00)
[2019-02-13] MEDS: COLLOIDAL OATMEAL 1 BAR EACH TP PRN (11:00)
[2019-02-13] MEDS: traZODone HCL 50 MG TABLET (FP) PO SCH (21:42)
[2019-02-13] MEDS: THIAMINE HCL 100 MG TABLET (FP) PO SCH (21:42)
[2019-02-14] MEDS: METHADONE HCL 10 MG TABLET PO SCH (06:29)
[2019-02-14] MEDS: hydrOXYzine PAMOATE 25 MG CAPSULE (FP) PO PRN (06:30)
[2019-02-14] MEDS: MINERAL OIL/PETROLAT/WATER TOPICAL CREAM 113 GM JAR TP SCH ×2 (09:26→21:07)
[2019-02-14] MEDS: SERTRALINE HCL 50 MG TABLET (FP) PO SCH (09:26)
[2019-02-14] MEDS: PRENATAL VITAMINS W/ FOLIC ACID TABLET (FP) PO SCH (09:26)
[2019-02-14] MEDS: LISINOPRIL 5 MG TABLET (FP) PO SCH (09:28)
[2019-02-14] MEDS: NICOTINE 14 MG/24 HOURS TOPICAL PATCH TD PRN (10:06)
[2019-02-14] MEDS: THIAMINE HCL 100 MG TABLET (FP) PO SCH (21:06)
[2019-02-14] MEDS: MELATONIN 5 MG TABLETS PO PRN (21:06)
[2019-02-14] MEDS: traZODone HCL 50 MG TABLET (FP) PO SCH (21:06)
[2019-02-15] MEDS: METHADONE HCL 10 MG TABLET PO SCH (06:28)
[2019-02-15] MEDS: hydrOXYzine PAMOATE 25 MG CAPSULE (FP) PO PRN ×3 (06:29→20:21)
[2019-02-15] MEDS ORDERED: PT OWN MED DRAWER 7, Y5N ONE ×2 (08:57→10:04)
[2019-02-15] MEDS: PRENATAL VITAMINS W/ FOLIC ACID TABLET (FP) PO SCH (10:03)
[2019-02-15] MEDS: SERTRALINE HCL 50 MG TABLET (FP) PO SCH (10:03)
[2019-02-15] MEDS: LISINOPRIL 5 MG TABLET (FP) PO SCH (10:03)
[2019-02-15] MEDS: NICOTINE 14 MG/24 HOURS TOPICAL PATCH TD PRN (10:05)
[2019-02-15] MEDS: MINERAL OIL/PETROLAT/WATER TOPICAL CREAM 113 GM JAR TP SCH ×2 (10:06→23:31)
[2019-02-15] MEDS: traZODone HCL 50 MG TABLET (FP) PO SCH (23:31)
[2019-02-15] MEDS: THIAMINE HCL 100 MG TABLET (FP) PO SCH (23:31)
[2019-02-16] MEDS: METHADONE HCL 10 MG TABLET PO SCH (06:29)
[2019-02-16] MEDS: hydrOXYzine PAMOATE 25 MG CAPSULE (FP) PO PRN ×3 (06:30→18:13)
[2019-02-16] MEDS: PRENATAL VITAMINS W/ FOLIC ACID TABLET (FP) PO SCH (09:54)
[2019-02-16] MEDS: SERTRALINE HCL 50 MG TABLET (FP) PO SCH (09:54)
[2019-02-16] MEDS: LISINOPRIL 5 MG TABLET (FP) PO SCH (09:54)
[2019-02-16] MEDS: NICOTINE 14 MG/24 HOURS TOPICAL PATCH TD SCH (09:55)
[2019-02-16] MEDS: MINERAL OIL/PETROLAT/WATER TOPICAL CREAM 113 GM JAR TP SCH ×2 (09:56→21:30)
--- NOTE | 2019-02-16 11:53 | PN ---
BHS Progress Note (SOAP) Subjective: Client c/o rash on right foot, itchy Objective: Plantar aspect of right foot scaly, slightly red, 02/16/19 11:51 Assessment: tinea pedis 02/16/19 11:52 t Plan: tinactin cream ordered.
[2019-02-16] MEDS: THIAMINE HCL 100 MG TABLET (FP) PO SCH (21:30)
[2019-02-16] MEDS: traZODone HCL 50 MG TABLET (FP) PO SCH (21:30)
[2019-02-16] MEDS: MELATONIN 5 MG TABLETS PO PRN (21:30)
[2019-02-16] MEDS: TOLNAFTATE 1% CREAM 15 GM TUBE TP SCH (21:31)
[2019-02-17] MEDS: hydrOXYzine PAMOATE 25 MG CAPSULE (FP) PO PRN ×3 (07:00→21:46)
[2019-02-17] MEDS: METHADONE HCL 10 MG TABLET PO SCH (07:00)
[2019-02-17] MEDS ORDERED: METHADONE HCL 10 MG TABLET PO SCH (07:28)
[2019-02-17] MEDS: NICOTINE 14 MG/24 HOURS TOPICAL PATCH TD SCH (09:54)
[2019-02-17] MEDS: PRENATAL VITAMINS W/ FOLIC ACID TABLET (FP) PO SCH (09:54)
[2019-02-17] MEDS: MINERAL OIL/PETROLAT/WATER TOPICAL CREAM 113 GM JAR TP SCH ×2 (09:54→21:48)
[2019-02-17] MEDS: LISINOPRIL 5 MG TABLET (FP) PO SCH (09:55)
[2019-02-17] MEDS: SERTRALINE HCL 50 MG TABLET (FP) PO SCH (09:55)
[2019-02-17] MEDS: TOLNAFTATE 1% CREAM 15 GM TUBE TP SCH ×2 (09:55→21:47)
--- NOTE | 2019-02-17 17:09 | PN ---
Psychiatric Progress Note Vital Signs: Vital Signs Period Temp Pulse Resp BP Sys/Bland Pulse Ox Last 24 Hr 98.3 F 53-60 16-18 149-151/79-80 Date of Session: 02/17/19 Chief Complaint:: "I can't sleep." HPI: Patient reports difficulty sleeping despite accepting trazodone for insomnia. ROS: Hypertension and lymphedema Current Medications: Active Medications Generic Name Dose Route Start Last Admin Trade Name Freq PRN Reason Stop Dose Admin Acetaminophen 650 mg 02/09/19 14:24 Tylenol - PO Q4H PRN FEVER Al Hydroxide/Mg Hydroxide 30 ml 02/09/19 14:24 Mylanta Oral Suspension - PO Q6H PRN DYSPEPSIA Colloidal Oatmeal 1 applic 02/09/19 14:27 02/13/19 11:00 Aveeno Soap - TP 1 bar DAILY PRN Administration HYGEINE Eucalyptus/Menthol/Phenol/Sorbitol 1 each 02/09/19 14:24 Cepastat Lozenge - MM Q4H PRN SORE THROAT Guaifenesin 10 ml 02/09/19 14:24 Robitussin - PO Q6H PRN COUGH Hydroxyzine Pamoate 25 mg 02/10/19 10:47 02/17/19 16:23 Vistaril - PO 25 mg Q4H PRN Administration ANXIETY Ibuprofen 400 mg 02/09/19 14:24 Motrin - PO Q6H PRN Pain level 4-6 Lisinopril 5 mg 02/10/19 10:00 02/17/19 09:55 Prinivil PO 5 mg DAILY ANGELA Administration Loperamide HCl 4 mg 02/09/19 14:24 Imodium - PO Q6H PRN DIARRHEA Magnesium Citrate 300 ml 02/09/19 14:24 Citroma - PO Q48H PRN CONSTIPATION Magnesium Hydroxide 30 ml 02/09/19 14:24 Milk Of Magnesia - PO DAILY PRN CONSTIPATION Melatonin 5 mg 02/09/19 22:00 02/16/19 21:30 Melatonin PO 5 mg HS PRN Administration INSOMNIA Methadone HCl 30 mg 02/18/19 07:28 Dolophine - PO 02/24/19 07:27 DAILY@0600 ANGELA Multi-Ingredient Lotion 1 applic 02/11/19 22:00 02/17/19 09:54 Eucerin (Small Jar) - TP 1 applic BID ANGELA Administration Nicotine 14 mg 02/16/19 10:00 02/17/19 09:54 Nicoderm Patch - TD 14 mg DAILY ANGELA Administration Nicotine Polacrilex 2 mg 02/09/19 14:24 Nicorette Gum - BUC Q2H PRN NICOTINE REPLACEMENT RX Multivit/Folic Acid/Iron 1 tab 02/10/19 10:00 02/17/19 09:54 Vitamins (Sjr) - PO 1 tab DAILY ANGELA Administration Pseudoephedrine/Triprolidine 1 combo 02/09/19 14:24 Actifed - PO TID PRN NASAL CONGESTION Sertraline HCl 50 mg 02/10/19 11:30 02/17/19 09:55 Zoloft - PO 50 mg DAILY ANGELA Administration Thiamine HCl 100 mg 02/09/19 22:00 02/16/19 21:30 Vitamin B1 - PO 100 mg HS ANGELA Administration Tolnaftate 1 applic 02/16/19 22:00 02/17/19 09:55 Tinactin 1% Cream - TP 1 applic BID ANGELA Administration Trazodone HCl 50 mg 02/10/19 22:00 02/16/19 21:30 Desyrel - PO 50 mg HS ANGELA Administration Medication(s) Change(s): Yes. Will d/c trazodone 50mg and order Seroquel 50mg. Current Side Effect: No Lab tests ordered: No Lab tests reviewed: Yes Provider note:: Patient c/o difficulty sleeping and states trazodone is not effective. Patient refusing an increase in trazodone dose. Instead she is requesting seroquel which she reports taking in the past with favorable effect. Will d/c trazodone 50mg and order Seroquel 50mg. Benefits and side effects discussed. Verbal consent given. Total face to face time:: 25 Mental Status Exam - Mental Status Exam Alert and Oriented to: Time, Place, Person Cognitive Function: Good Patient Appearance: Well Groomed Mood: Euthymic Affect: Appropriate Patient Behavior: Appropriate, Cooperative Speech Pattern: Clear, Appropriate Voice Loudness: Normal Thought Process: Intact, Goal Oriented Thought Disorder: Not Present Hallucinations: Denies Suicidal Ideation: Denies Homicidal Ideation: Denies Insight/Judgement: Poor Sleep: Poorly Appetite: Fair Muscle strength/Tone: Normal Gait/Station: Normal Psychiatric Treatment Plan - Problem List (1) PTSD (post-traumatic stress disorder) Current Visit: Yes (2) Opioid dependence on agonist therapy Current Visit: Yes (3) Cocaine dependence Current Visit: Yes Qualifiers: Substance use status: uncomplicated Qualified Code(s): F14.20 - Cocaine dependence, uncomplicated (4) Substance-induced sleep disorder Current Visit: Yes (5) Nicotine dependence Current Visit: Yes Qualifiers: Nicotine product type: cigarettes Substance use status: in withdrawal Qualified Code(s): F17.213 - Nicotine dependence, cigarettes, with withdrawal
[2019-02-17] MEDS: THIAMINE HCL 100 MG TABLET (FP) PO SCH (21:46)
[2019-02-17] MEDS: QUEtiapine FUMARATE 50 MG TABLET PO SCH (21:47)
[2019-02-18] MEDS: METHADONE HCL 10 MG TABLET PO SCH (06:41)
[2019-02-18] MEDS: LISINOPRIL 5 MG TABLET (FP) PO SCH (10:08)
[2019-02-18] MEDS: PRENATAL VITAMINS W/ FOLIC ACID TABLET (FP) PO SCH (10:08)
[2019-02-18] MEDS: NICOTINE 14 MG/24 HOURS TOPICAL PATCH TD SCH (10:08)
[2019-02-18] MEDS: SERTRALINE HCL 50 MG TABLET (FP) PO SCH (10:08)
[2019-02-18] MEDS: MINERAL OIL/PETROLAT/WATER TOPICAL CREAM 113 GM JAR TP SCH ×2 (10:09→21:54)
[2019-02-18] MEDS: TOLNAFTATE 1% CREAM 15 GM TUBE TP SCH ×2 (10:10→21:54)
--- NOTE | 2019-02-18 13:35 | PN ---
[facility] Progress Note Note: PATIENT STATES SHE WAS TAKING HIGHER DOSE OF LISINOPRIL IN PAST. EXTERNAL HX SHOWS PRESCRIPTION FOR LISINOPRIL 20MG SENT ELECTRONICALLY 02/05/19. PATIENT ASYMPTOMATIC AT THIS TIME. Vital Signs (72 hours) 02/16/19 02/16/19 02/16/19 00:30 07:25 10:00 Temperature 98.2 F Pulse Rate 55 L 56 L Respiratory 18 18 Rate Blood Pressure 150/84 148/80 02/17/19 02/17/19 02/17/19 00:30 07:08 09:26 Temperature 98.3 F Pulse Rate 60 53 L Respiratory 18 16 Rate Blood Pressure 149/80 151/79 02/18/19 02/18/19 07:12 10:00 Temperature 98.2 F Pulse Rate 56 L 51 L Respiratory 19 20 Rate Blood Pressure 132/90 155/82 A/P: HTN BP RANGE 132/90-155/82 WILL RESUME LISINOPRIL TO 20MG DAILY MONITOR V/S CONTINUE GURPREET DIET
[2019-02-18] MEDS: hydrOXYzine PAMOATE 25 MG CAPSULE (FP) PO PRN (16:45)
[2019-02-18] MEDS: QUEtiapine FUMARATE 50 MG TABLET PO SCH (21:54)
[2019-02-18] MEDS: THIAMINE HCL 100 MG TABLET (FP) PO SCH (21:54)
[2019-02-19] MEDS: METHADONE HCL 10 MG TABLET PO SCH (06:58)
[2019-02-19] MEDS: hydrOXYzine PAMOATE 25 MG CAPSULE (FP) PO PRN ×2 (06:59→13:35)
[2019-02-19] MEDS: TOLNAFTATE 1% CREAM 15 GM TUBE TP SCH ×2 (09:50→21:38)
[2019-02-19] MEDS: PRENATAL VITAMINS W/ FOLIC ACID TABLET (FP) PO SCH (09:51)
[2019-02-19] MEDS: NICOTINE 14 MG/24 HOURS TOPICAL PATCH TD SCH (09:51)
[2019-02-19] MEDS: MINERAL OIL/PETROLAT/WATER TOPICAL CREAM 113 GM JAR TP SCH ×2 (09:51→21:38)
[2019-02-19] MEDS: LISINOPRIL 20 MG TABLET (FP) PO SCH (09:52)
[2019-02-19] MEDS: SERTRALINE HCL 50 MG TABLET (FP) PO SCH (09:52)
[2019-02-19] MEDS: QUEtiapine FUMARATE 50 MG TABLET PO SCH (21:38)
[2019-02-19] MEDS: THIAMINE HCL 100 MG TABLET (FP) PO SCH (21:38)
[2019-02-20] MEDS: METHADONE HCL 10 MG TABLET PO SCH (06:52)
[2019-02-20] MEDS: COLLOIDAL OATMEAL 1 BAR EACH TP PRN (08:32)
[2019-02-20] MEDS: NICOTINE 14 MG/24 HOURS TOPICAL PATCH TD SCH (09:25)
[2019-02-20] MEDS: PRENATAL VITAMINS W/ FOLIC ACID TABLET (FP) PO SCH (09:26)
[2019-02-20] MEDS: TOLNAFTATE 1% CREAM 15 GM TUBE TP SCH ×2 (09:26→22:26)
[2019-02-20] MEDS: SERTRALINE HCL 50 MG TABLET (FP) PO SCH (09:26)
[2019-02-20] MEDS: LISINOPRIL 20 MG TABLET (FP) PO SCH (09:26)
[2019-02-20] MEDS: MINERAL OIL/PETROLAT/WATER TOPICAL CREAM 113 GM JAR TP SCH ×2 (09:27→22:25)
[2019-02-20] MEDS: hydrOXYzine PAMOATE 25 MG CAPSULE (FP) PO PRN (17:47)
[2019-02-20] MEDS: THIAMINE HCL 100 MG TABLET (FP) PO SCH (22:26)
[2019-02-20] MEDS: QUEtiapine FUMARATE 50 MG TABLET PO SCH (22:26)
[2019-02-21] MEDS: METHADONE HCL 10 MG TABLET PO SCH (06:45)
[2019-02-21] MEDS: SERTRALINE HCL 50 MG TABLET (FP) PO SCH (09:19)
[2019-02-21] MEDS: PRENATAL VITAMINS W/ FOLIC ACID TABLET (FP) PO SCH (09:19)
[2019-02-21] MEDS: NICOTINE 14 MG/24 HOURS TOPICAL PATCH TD SCH (09:19)
[2019-02-21] MEDS: LISINOPRIL 20 MG TABLET (FP) PO SCH (09:19)
[2019-02-21] MEDS: TOLNAFTATE 1% CREAM 15 GM TUBE TP SCH ×2 (09:20→21:45)
[2019-02-21] MEDS ORDERED: PT OWN MED DRAWER 7, Y5N ONE (09:22)
[2019-02-21] MEDS: MINERAL OIL/PETROLAT/WATER TOPICAL CREAM 113 GM JAR TP SCH ×2 (09:23→21:45)
[2019-02-21] MEDS: hydrOXYzine PAMOATE 25 MG CAPSULE (FP) PO PRN (13:58)
[2019-02-21] MEDS: THIAMINE HCL 100 MG TABLET (FP) PO SCH (21:45)
[2019-02-21] MEDS: QUEtiapine FUMARATE 50 MG TABLET PO SCH (21:45)
[2019-02-22] MEDS: METHADONE HCL 10 MG TABLET PO SCH (06:47)
[2019-02-22] MEDS: MINERAL OIL/PETROLAT/WATER TOPICAL CREAM 113 GM JAR TP SCH ×2 (09:54→21:24)
[2019-02-22] MEDS: NICOTINE 14 MG/24 HOURS TOPICAL PATCH TD SCH (09:54)
[2019-02-22] MEDS: hydrOXYzine PAMOATE 25 MG CAPSULE (FP) PO PRN ×3 (09:55→21:23)
[2019-02-22] MEDS: TOLNAFTATE 1% CREAM 15 GM TUBE TP SCH ×2 (09:55→21:23)
[2019-02-22] MEDS: PRENATAL VITAMINS W/ FOLIC ACID TABLET (FP) PO SCH (09:55)
[2019-02-22] MEDS: LISINOPRIL 20 MG TABLET (FP) PO SCH (09:55)
[2019-02-22] MEDS: SERTRALINE HCL 50 MG TABLET (FP) PO SCH (09:55)
--- NOTE | 2019-02-22 14:23 | PN ---
[facility] Progress Note Note: Going to [facility] for after care. Receives primary care at [facility]. Prescriptions sent to [facility].
--- NOTE | 2019-02-22 17:14 | PN ---
[facility] Progress Note Note: Patient is scheduled for discharged tomorrow. Scripts for 30 days supply of medications(Seroquel, Zoloft) will be electronically transmitted to [facility] at [address] [place] [address]
[2019-02-22] MEDS: QUEtiapine FUMARATE 50 MG TABLET PO SCH (21:23)
[2019-02-22] MEDS: THIAMINE HCL 100 MG TABLET (FP) PO SCH (21:23)
[2019-02-23] MEDS: METHADONE HCL 10 MG TABLET PO SCH (06:42)
[2019-02-23 07:12] VITALS: TEMP 98.4
[2019-02-23] MEDS: PRENATAL VITAMINS W/ FOLIC ACID TABLET (FP) PO SCH (09:00)
[2019-02-23] MEDS ORDERED: PT OWN MED DRAWER 7, Y5N ONE (09:01)
[2019-02-23] MEDS: LISINOPRIL 20 MG TABLET (FP) PO SCH (09:01)
[2019-02-23] MEDS: MINERAL OIL/PETROLAT/WATER TOPICAL CREAM 113 GM JAR TP SCH (09:01)
[2019-02-23] MEDS: NICOTINE 14 MG/24 HOURS TOPICAL PATCH TD SCH (09:02)
[2019-02-23 09:12] VITALS: BP 147/89; PULSE 67
== END 2019-02-23 09:01 | disposition home or self-care (01) | DRG 772 ==
LOC: YASAS 11:43 → Y3E 11:44 → Y3W 02-16 11:32 → Y3E 02-16 11:34
PROVIDERS: ADMIT Neuromusculoskeletal Medicine & OMM; ATTEND Neuromusculoskeletal Medicine & OMM
PROC: HZ42ZZZ Group Counseling for Substance Abuse Treatment, Cognitive-Behavioral (ICD-10-PCS; principal; 2019-02-09)
DX: F14.20 Cocaine dependence, uncomplicated (principal); F11.20 Opioid dependence, uncomplicated; F17.213 Nicotine dependence, cigarettes, with withdrawal; F19.282 Other psychoactive substance dependence with psychoactive substance-induced sleep disorder; F43.10 Post-traumatic stress disorder, unspecified; B35.3 Tinea pedis; I89.0 Lymphedema, not elsewhere classified
CPT/HCPCS: 36415; 87389

== ENCOUNTER 2019-08-02 10:11 | Inpatient (IN) | payer OTHER ==
[2019-08-02 12:54] VITALS: BMI 25.0
--- NOTE | 2019-08-02 16:50 | HP ---
CIWA Score - Admission Criteria OASAS Guidelines: Admission for Medically Managed Detox: Requires at least one of the followin. CIWA greater than 12 2. Seizures within the past 24 hours 3. Delirium tremens within the past 24 hours 4. Hallucinations within the past 24 hours 5. Acute intervention needed for co occurring medical disorder 6. Acute intervention needed for co occurring psychiatric disorder 7. Severe withdrawal that cannot be handled at a lower level of care (continued vomiting, continued diarrhea, abnormal vital signs) requiring intravenous medication and/or fluids 8. Admission ROS [facility] - HPI Chief Complaint: rehab from polysubstance use- cocaine, opioids and alcohol Allergies/Adverse Reactions: Allergies Allergy/AdvReac Type Severity Reaction Status Date / Time No Known Allergies Allergy Verified 08/02/19 12:26 History of Present Illness: 44 yo with h/o HTN and with intermittent l leg lymphedema due to past trauma here for rehab. Completed detox at [facility] 4 days ago. Says doing well now. Says using "not much" since discharge. Pt is taking vistaril, zoloft. DUR- no controlled substances Utox- nikolay, met, mop, mtd, fen - Ebola screening Have you traveled outside of the country in the last 21 days: No Have you had contact with anyone from an Ebola affected area: No Do you have a fever: No - Review of Systems Constitutional: No Symptoms Reported EENT: reports: No Symptoms Reported Respiratory: reports: No Symptoms reported Cardiac: reports: No Symptoms Reported GI: reports: No Symptoms Reported : reports: No Symptoms Reported Musculoskeletal: reports: No Symptoms Reported Integumentary: reports: No Symptoms Reported Neuro: reports: No Symptoms reported Endocrine: reports: No Symptoms Reported Hematology: reports: No Symptoms Reported Psychiatric: reports: No Sypmtoms Reported Other Systems: Reviewed and Negative Patient History - Patient Medical History Hx Anemia: No Hx Asthma: No Hx Chronic Obstructive Pulmonary Disease (COPD): No Hx Cancer: No Hx Cardiac Disorders: No Hx Congestive Heart Failure: No Hx Hypertension: Yes Hx Hypercholesterolemia: No Hx Pacemaker: No HX Cerebrovascular Accident: No Hx Seizures: No Hx Dementia: No Hx Diabetes: No Hx Gastrointestinal Disorders: No Hx Liver Disease: No Hx Genitourinary Disorders: No Hx Sexually Transmitted Disorders: (Syphillis 1996) Hx Renal Disease (ESRD): No Hx Thyroid Disease: No Hx Human Immunodeficiency Virus (HIV): No (LAST TEST 11/2018 NEGATIVE) Hx Hepatitis C: No Hx Depression: Yes Hx Suicide Attempt: Yes Hx Bipolar Disorder: No Hx Schizophrenia: No - Patient Surgical History Past Surgical History: No Hx Neurologic Surgery: No Hx Cataract Extraction: No Hx Cardiac Surgery: No Hx Lung Surgery: No Hx Breast Surgery: No Hx Breast Biopsy: No Hx Abdominal Surgery: No Hx Appendectomy: No Hx Cholecystectomy: No Hx Genitourinary Surgery: No Hx Section: No Hx Orthopedic Surgery: No Hx Hysterectomy: No Anesthesia Reaction: No - PPD History Date: 12/24/18 Results: 0mm - Reproductive History Last Menstrual Period: 01/27/19 - Smoking Cessation Smoking history: Current every day smoker Have you smoked in the past 12 months: Yes Aproximately how many cigarettes per day: 10 Hx Chewing Tobacco Use: Yes Initiated information on smoking cessation: Yes 'Breaking Loose' booklet given: 08/02/19 - Substance & Tx. History Substance Use Type: Alcohol, Heroin, Opiates Hx Substance Use Treatment: Yes - Substances abused Alcohol Substance route: Oral Frequency: Daily Amount used: BEER - 6 PACK, Ciroc Age of first use: 23 Date of last use: 08/01/19 Oxycontin Other (specify): Percocets Substance route: Oral Frequency: 1-2 times per week Amount used: 2 tablets Age of first use: 40 Date of last use: 07/31/19 Heroin Substance route: Inhalation Frequency: 1-2 times per week Amount used: 1-2 bags Age of first use: 40 Date of last use: 08/01/19 Family Disease History - Family Disease History Family Disease History: Other: Father (, SUBSTANCE ABUSE), Mother ( , SUBSTANCE ABUSE) Admission Physical Exam BHS - Vital Signs Vital Signs: Vital Signs - 24 hr 08/02/19 12:36 Temperature 98.9 F Pulse Rate 63 Respiratory 16 Rate Blood Pressure 151/118 H - Physical General Appearance: Yes: Within Normal Limits HEENTM: Yes: Within Normal Limits Respiratory: Yes: Chest Non-Tender Neck: Yes: Within Normal Limits Cardiology: Yes: Within Normal Limits, Regular Rhythm Abdominal: Yes: Within Normal Limits, Normal Bowel Sounds Genitourinary: Yes: Within Normal Limits Musculoskeletal: Yes: Within Normal Limits Extremities: Yes: Other (L leg with increased non pitting edema- good DP pulses , walking OK) Neurological: Yes: Within Normal Limits Integumentary: Yes: Within Normal Limits Lymphatic: Yes: Within Normal Limits - Diagnostic (1) HTN (hypertension) Current Visit: Yes Status: Acute (2) Alcohol dependence Current Visit: No Status: Acute (3) Cocaine dependence Current Visit: No Status: Acute Qualifiers: Substance use status: uncomplicated Qualified Code(s): F14.20 - Cocaine dependence, uncomplicated (4) Substance-induced sleep disorder Current Visit: No Status: Acute (5) History of peripheral edema Current Visit: No Status: Chronic (6) Nicotine dependence Current Visit: No Status: Chronic Qualifiers: Nicotine product type: cigarettes Substance use status: in withdrawal Qualified Code(s): F17.213 - Nicotine dependence, cigarettes, with withdrawal (7) PTSD (post-traumatic stress disorder) Current Visit: No Status: Chronic (8) Substance induced mood disorder Current Visit: No Status: Suspected Breathalyzer - Breathalyzer Breathalyzer: 0 Urine Drug Screen - Test Device Lot number: [id number] Expiration date: 04/29/21 - Results Drug screen NEGATIVE: No Urine drug screen results: NIKOLAY-Cocaine, MET-Methamphetamine, FEN-Fentanyl, MOP- Opiates, MTD-Methadone Inpatient Rehab Admission - Rehab Decision to Admit Inpatient rehab admission?: Yes - Initial Determination Are CD services needed?: Yes Free of communicable disease: Yes Not in need of hospitalization: Yes - Rehab Admission Criteria Previous failed treatment: Yes Poor recovery environment: Yes Comorbidities: Yes Lacks judgement: Yes Patient is meeting Inpatient Rehab admission criteria:: Yes (completed detox)
[2019-08-02] MEDS ORDERED: guaiFENesin 200 MG/10 ML 10 ML UNIT-DOSE CUPS PO PRN (16:58)
[2019-08-02] MEDS ORDERED: ACETAMINOPHEN 325 MG TABLET (FP) PO PRN (16:58)
[2019-08-02] MEDS ORDERED: MAG HYDROX/AL HYDROX/SIMETH 30 ML UNIT-DOSE CUP PO PRN (16:58)
[2019-08-02] MEDS ORDERED: NICOTINE POLACRILEX 2 MG GUM BC PRN (16:58)
[2019-08-02] MEDS ORDERED: P-EPHED 60MG/TRIPROLIDI 2.5MG TABLET PO PRN (16:58)
[2019-08-02] MEDS ORDERED: MAGNESIUM CITRATE 300 ML BOTTLE PO PRN (16:58)
[2019-08-02] MEDS ORDERED: MAGNESIUM HYDROX 2400MG/30ML ORAL SUSPENSION 30 ML CUP PO PRN (16:58)
[2019-08-02] MEDS ORDERED: IBUPROFEN 400 MG TABLET (FP) PO PRN (16:58)
[2019-08-02] MEDS ORDERED: LOPERAMIDE HCL 2 MG CAPSULE PO PRN (16:58)
[2019-08-02] MEDS ORDERED: MENTHOL/PHENOL 1 EACH UD MM PRN (16:58)
[2019-08-02] MEDS: cloNIDine HCL 0.1 MG TABLET PO PRN (19:17)
[2019-08-02] MEDS: MELATONIN 5 MG TABLETS PO PRN (21:59)
[2019-08-02] MEDS: THIAMINE HCL 100 MG TABLET (FP) PO SCH (21:59)
[2019-08-02] MEDS: hydrOXYzine PAMOATE 25 MG CAPSULE (FP) PO PRN (21:59)
[2019-08-02] MEDS ORDERED: traZODone HCL 50 MG TABLET (FP) PO ONE (22:00)
[2019-08-03] MEDS: cloNIDine HCL 0.1 MG TABLET PO PRN ×4 (06:43→21:46)
[2019-08-03] MEDS: NICOTINE 14 MG/24 HOURS TOPICAL PATCH TD SCH (10:20)
[2019-08-03] MEDS: SERTRALINE HCL 50 MG TABLET (FP) PO SCH (10:20)
[2019-08-03] MEDS: PRENATAL VITAMINS W/ FOLIC ACID TABLET (FP) PO SCH (10:20)
[2019-08-03] MEDS: LISINOPRIL 20 MG TABLET (FP) PO SCH (10:20)
[2019-08-03] MEDS: hydrOXYzine PAMOATE 25 MG CAPSULE (FP) PO PRN ×3 (10:56→21:46)
[2019-08-03 15:04] LABS: HEMATOCRIT 41.4 % (32.4-45.2); HEMOGLOBIN 13.5 GM/dL (10.7-15.3); MCHC 32.7 g/dl (32.0-36.0); MEAN CELL VOLUME 91.8 fl (80-96); MEAN PLT VOLUME 10.6 fl (7.5-11.1); PLATELET COUNT 267 K/MM3 (134-434); RBC 4.51 M/mm3 (3.60-5.2); WHITE BLOOD COUNT 7.3 K/mm3 (4.0-10.0)
[2019-08-03 15:08] LABS: ALBUMIN 3.4 g/dl (3.4-5.0); BILIRUBIN,TOTAL 0.3 mg/dL (0.2-1); BLOOD UREA NITROGEN 5.9 mg/dL (7-18); CALCIUM 9.8 mg/dL (8.5-10.1); POTASSIUM 4.5 mmol/L (3.5-5.1)
--- NOTE | 2019-08-03 15:41 | PN ---
[facility] Progress Note (SOAP) Subjective: patient requesting to start methadone treatment here. Was admitted to rehab through the [facility] after completing detox at [facility]. During her stay at [facility], patient was on methadone 30 mg daily. Last dose on 07/29. Prior to that she was in [facility] receiving meth[facility]one 30mg daily, her last dose there was 06/28. She was told upon admission that we could not start her on Methadone here because she was not in a program. Patient states she is experiencing withdrawal, reports fatigue, body aches, anxiety. Objective: P/E General: asleep, but arousable, oriented, HEENTM: normocephalic, PERRLA Heart s1 s2 audible Lungs: clear Abd: +BS Neuro: no apparent neurological deficits 08/03/19 15:38 Assessment: withdrawal for multiple substances including opiates and benzo 08/03/19 15:40 Plan: Advised patient that we cannot start her methadone treatment here; however, explained that she may be able to start suboxone in a few days if she is interested. Encouraged patient to take the medications prescribed to assist with withdrawal: vistaril, pain medicine, muscle relaxants. Patient agreed to plan.
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
[2019-08-03 17:17] LABS: URINE APPEARANCE Error; URINE BILIRUBIN NEGATIVE (NEGATIVE); URINE COLOR YELLOW; URINE GLUCOSE (UA) NEGATIVE (NEGATIVE); URINE KETONE NEGATIVE (NEGATIVE); URINE LEUK ESTERASE NEGATIVE (NEGATIVE); URINE NITRITE NEGATIVE (NEGATIVE); URINE PROTEIN NEGATIVE (NEGATIVE); URINE UROBILINOGEN 0.2 mg/dL (0.2-1.0)
[2019-08-03] MEDS: traZODone HCL 50 MG TABLET (FP) PO SCH (21:46)
[2019-08-03] MEDS: THIAMINE HCL 100 MG TABLET (FP) PO SCH (21:46)
[2019-08-04] MEDS: cloNIDine HCL 0.1 MG TABLET PO PRN ×4 (06:12→21:37)
[2019-08-04] MEDS: hydrOXYzine PAMOATE 25 MG CAPSULE (FP) PO PRN ×4 (06:13→21:37)
[2019-08-04] MEDS: PRENATAL VITAMINS W/ FOLIC ACID TABLET (FP) PO SCH (09:25)
[2019-08-04] MEDS: NICOTINE 14 MG/24 HOURS TOPICAL PATCH TD SCH (09:25)
[2019-08-04] MEDS: LISINOPRIL 20 MG TABLET (FP) PO SCH (09:25)
[2019-08-04] MEDS: SERTRALINE HCL 50 MG TABLET (FP) PO SCH (09:26)
[2019-08-04 17:36] LABS: RPR REACTIVE 1:2 (NONREACTIVE)
[2019-08-04 17:37] LABS: TREPONEMA ANTIBODY REACTIVE (NONREACTIVE)
[2019-08-04] MEDS: THIAMINE HCL 100 MG TABLET (FP) PO SCH (21:37)
[2019-08-04] MEDS: traZODone HCL 50 MG TABLET (FP) PO SCH (21:37)
[2019-08-05] MEDS: cloNIDine HCL 0.1 MG TABLET PO PRN ×2 (06:45→19:46)
[2019-08-05] MEDS: hydrOXYzine PAMOATE 25 MG CAPSULE (FP) PO PRN ×3 (06:46→21:04)
--- NOTE | 2019-08-05 09:31 | PN ---
[facility] Progress Note Note: Vital Signs Temperature 98.4 F 08/05/19 07:14 Pulse Rate 53 L 08/05/19 07:14 Respiratory Rate 18 08/05/19 07:14 Blood Pressure 148/84 08/05/19 07:14 O2 Sat by Pulse Oximetry (%) Patient with hx of opiod use disorder c/o of withdrawal sx, c/o of body aches, chills and anxiety Patient is AOx3, anxious no adventitious breath sounds full ROM ambulatory skin intact, no edema or erythema utox upon admission 08/02/19 +FEN withdrawal sx Start patient on suboxone 4mg qd for symptoms management Patient to follow up with aftercare at [facility] continue to monitor
--- NOTE | 2019-08-05 09:31 | PN ---
[facility] COWS - Scale Resting Pulse: 0= NC 80 or Below Sweatin= Chills/Flushing Restless Observation: 1= Difficult to Sit Still Pupil Size: 0= Normal to Room Light Bone or Joint Aches: 2= Severe Diffuse Aches Runny Nose/ Eye Tearin= Nasal Congestion GI Upset > 30mins: 0= None Tremor Observation of Outstretched Hands: 1= Tremor [place], Not Seen Yawning Observation: 0= None Anxiety or Irritability: 4=Extreme Anxiety Goose Flesh Skin: 0=Smooth Skin COWS Score: 10 [facility] Progress Note (SOAP) Objective: 08/05/19 09:31 Vital Signs Temperature 98.4 F 08/05/19 07:14 Pulse Rate 53 L 08/05/19 07:14 Respiratory Rate 18 08/05/19 07:14 Blood Pressure 148/84 08/05/19 07:14 O2 Sat by Pulse Oximetry (%)
[2019-08-05] MEDS: SERTRALINE HCL 50 MG TABLET (FP) PO SCH (09:50)
[2019-08-05] MEDS: PRENATAL VITAMINS W/ FOLIC ACID TABLET (FP) PO SCH (09:50)
[2019-08-05] MEDS: LISINOPRIL 20 MG TABLET (FP) PO SCH (09:51)
[2019-08-05] MEDS: BUPRENORPHINE/NALOXONE 4 MG/1 MG FILM PACKET SL SCH (09:51)
[2019-08-05] MEDS: NICOTINE 14 MG/24 HOURS TOPICAL PATCH TD SCH (09:56)
[2019-08-05] MEDS: CYCLOBENZAPRINE HCL 5 MG TABLET PO SCH ×2 (14:07→21:04)
[2019-08-05] MEDS: GABAPENTIN 100 MG CAPSULE (FP) PO SCH ×2 (14:07→21:04)
[2019-08-05] MEDS: THIAMINE HCL 100 MG TABLET (FP) PO SCH (21:04)
[2019-08-05] MEDS: traZODone HCL 50 MG TABLET (FP) PO SCH (21:04)
[2019-08-06] MEDS: GABAPENTIN 100 MG CAPSULE (FP) PO SCH ×3 (06:43→21:53)
[2019-08-06] MEDS: CYCLOBENZAPRINE HCL 5 MG TABLET PO SCH ×4 (06:43→21:53)
[2019-08-06] MEDS: cloNIDine HCL 0.1 MG TABLET PO PRN (06:45)
[2019-08-06] MEDS: hydrOXYzine PAMOATE 25 MG CAPSULE (FP) PO PRN (06:45)
[2019-08-06] MEDS: SERTRALINE HCL 50 MG TABLET (FP) PO SCH (10:51)
[2019-08-06] MEDS: BUPRENORPHINE/NALOXONE 4 MG/1 MG FILM PACKET SL SCH ×2 (10:51→11:21)
[2019-08-06] MEDS: NICOTINE 14 MG/24 HOURS TOPICAL PATCH TD SCH (10:52)
[2019-08-06] MEDS: LISINOPRIL 20 MG TABLET (FP) PO SCH (10:52)
[2019-08-06] MEDS: PRENATAL VITAMINS W/ FOLIC ACID TABLET (FP) PO SCH (10:52)
[2019-08-06] MEDS: TOLNAFTATE 1% CREAM 15 GM TUBE TP SCH ×2 (10:54→22:37)
[2019-08-06] MEDS: COLLOIDAL OATMEAL 1 BAR EACH TP PRN (14:34)
[2019-08-06] MEDS: traZODone HCL 50 MG TABLET (FP) PO SCH (21:53)
[2019-08-06] MEDS: THIAMINE HCL 100 MG TABLET (FP) PO SCH (21:53)
[2019-08-06] MEDS: MELATONIN 5 MG TABLETS PO PRN (21:54)
[2019-08-07] MEDS: CYCLOBENZAPRINE HCL 5 MG TABLET PO SCH ×3 (06:28→21:34)
[2019-08-07] MEDS: GABAPENTIN 100 MG CAPSULE (FP) PO SCH ×3 (06:28→21:34)
[2019-08-07] MEDS: BUPRENORPHINE/NALOXONE 4 MG/1 MG FILM PACKET SL SCH (06:29)
[2019-08-07] MEDS ORDERED: PT OWN MED DRAWER 7, Y5N ONE (09:05)
[2019-08-07] MEDS: TOLNAFTATE 1% CREAM 15 GM TUBE TP SCH ×2 (09:51→21:35)
[2019-08-07] MEDS: SERTRALINE HCL 50 MG TABLET (FP) PO SCH (09:51)
[2019-08-07] MEDS: LISINOPRIL 20 MG TABLET (FP) PO SCH (09:51)
[2019-08-07] MEDS: PRENATAL VITAMINS W/ FOLIC ACID TABLET (FP) PO SCH (09:51)
[2019-08-07] MEDS: NICOTINE 14 MG/24 HOURS TOPICAL PATCH TD SCH (09:51)
[2019-08-07] MEDS: cloNIDine HCL 0.1 MG TABLET PO PRN ×2 (09:55→16:59)
[2019-08-07] MEDS: hydrOXYzine PAMOATE 25 MG CAPSULE (FP) PO PRN ×2 (09:55→16:59)
[2019-08-07] MEDS: THIAMINE HCL 100 MG TABLET (FP) PO SCH (21:34)
[2019-08-07] MEDS: traZODone HCL 50 MG TABLET (FP) PO SCH (21:34)
[2019-08-08] MEDS: CYCLOBENZAPRINE HCL 5 MG TABLET PO SCH ×3 (06:22→21:57)
[2019-08-08] MEDS: GABAPENTIN 100 MG CAPSULE (FP) PO SCH ×3 (06:23→21:58)
[2019-08-08] MEDS: BUPRENORPHINE/NALOXONE 4 MG/1 MG FILM PACKET SL SCH (06:25)
[2019-08-08] MEDS: TOLNAFTATE 1% CREAM 15 GM TUBE TP SCH ×2 (10:29→22:00)
[2019-08-08] MEDS: PRENATAL VITAMINS W/ FOLIC ACID TABLET (FP) PO SCH (10:29)
[2019-08-08] MEDS: NICOTINE 14 MG/24 HOURS TOPICAL PATCH TD SCH (10:29)
[2019-08-08] MEDS: LISINOPRIL 20 MG TABLET (FP) PO SCH (10:29)
[2019-08-08] MEDS: SERTRALINE HCL 50 MG TABLET (FP) PO SCH (10:29)
[2019-08-08] MEDS: hydrOXYzine PAMOATE 25 MG CAPSULE (FP) PO PRN ×2 (10:30→14:31)
--- NOTE | 2019-08-08 11:39 | PN ---
[facility] Progress Note Note: Patient requesting cream for dry skin. Denies itching, rash and lesions to skin. Vital Signs Temperature 98.1 F 08/08/19 07:25 Pulse Rate 65 08/08/19 09:44 Respiratory Rate 18 08/08/19 07:25 Blood Pressure 127/80 08/08/19 09:44 O2 Sat by Pulse Oximetry (%) Laboratory Tests 08/02/19 08/03/19 08/03/19 13:25 09:20 09:20 WBC 7.3 RBC 4.51 Hgb 13.5 Hct 41.4 MCV 91.8 MCH 30.0 MCHC 32.7 RDW 14.0 Plt Count 267 MPV 10.6 Sodium 140 Potassium 4.5 Chloride 106 Carbon Dioxide 27 Anion Gap 7 L BUN 5.9 L Creatinine 1.0 Est GFR (CKD-EPI)AfAm 79.35 Est GFR (CKD-EPI)NonAf 68.46 POC Glucometer Random Glucose 154 H Calcium 9.8 Total Bilirubin 0.3 AST 12 L ALT 18 Alkaline Phosphatase 59 Total Protein 7.0 Albumin 3.4 Urine Color Urine Appearance Urine pH Ur Specific [place] Urine Protein Urine Glucose (UA) Urine Ketones Urine Blood Urine Nitrite Urine Bilirubin Urine Urobilinogen Ur Leukocyte Esterase POC Urine HCG, Qual Negative RPR Titer T.pallidum Ab (MHA) 08/03/19 08/03/19 08/06/19 09:20 15:26 06:41 WBC RBC Hgb Hct MCV MCH MCHC RDW Plt Count MPV Sodium Potassium Chloride Carbon Dioxide Anion Gap BUN Creatinine Est GFR (CKD-EPI)AfAm Est GFR (CKD-EPI)NonAf POC Glucometer 107 Random Glucose Calcium Total Bilirubin AST ALT Alkaline Phosphatase Total Protein Albumin Urine Color Yellow Urine Appearance Error Urine pH 8.0 Ur Specific [place] 1.017 Urine Protein Negative Urine Glucose (UA) Negative Urine Ketones Negative Urine Blood Negative Urine Nitrite Negative Urine Bilirubin Negative Urine Urobilinogen 0.2 Ur Leukocyte Esterase Negative POC Urine HCG, Qual RPR Titer Reactive 1:2 H T.pallidum Ab (MHA) Reactive 08/07/19 06:30 WBC RBC Hgb Hct MCV MCH MCHC RDW Plt Count MPV Sodium Potassium Chloride Carbon Dioxide Anion Gap BUN Creatinine Est GFR (CKD-EPI)AfAm Est GFR (CKD-EPI)NonAf POC Glucometer 117 Random Glucose Calcium Total Bilirubin AST ALT Alkaline Phosphatase Total Protein Albumin Urine Color Urine Appearance Urine pH Ur Specific [place] Urine Protein Urine Glucose (UA) Urine Ketones Urine Blood Urine Nitrite Urine Bilirubin Urine Urobilinogen Ur Leukocyte Esterase POC Urine HCG, Qual RPR Titer T.pallidum Ab (A) PE alert and oriented x 3 skin warm and dry and intact A/P Dry skin Eucerin cream BID Fasting BGM noted elevated at 107-117, however patient snacks frequently and not certain if patient held oral intake as instructed. Patient has family hx of DM. Will order fasting BGM x one more day.
[2019-08-08] MEDS ORDERED: PT OWN MED DRAWER 7, Y5N ONE (14:40)
[2019-08-08] MEDS: VITAMINS A AND D TOPICAL OINTMENT 60 GM TUBE TP SCH ×2 (17:22→23:53)
[2019-08-08] MEDS: THIAMINE HCL 100 MG TABLET (FP) PO SCH (21:56)
[2019-08-08] MEDS: traZODone HCL 50 MG TABLET (FP) PO SCH (21:58)
[2019-08-08] MEDS: MINERAL OIL/PETROLAT/WATER TOPICAL CREAM 113 GM JAR TP SCH (21:59)
[2019-08-09] MEDS: BUPRENORPHINE/NALOXONE 4 MG/1 MG FILM PACKET SL SCH (06:34)
[2019-08-09] MEDS: CYCLOBENZAPRINE HCL 5 MG TABLET PO SCH ×3 (06:34→22:09)
[2019-08-09] MEDS: GABAPENTIN 100 MG CAPSULE (FP) PO SCH ×3 (06:34→22:09)
[2019-08-09] MEDS: VITAMINS A AND D TOPICAL OINTMENT 60 GM TUBE TP SCH ×3 (06:34→18:18)
[2019-08-09] MEDS: NICOTINE 14 MG/24 HOURS TOPICAL PATCH TD SCH (10:12)
[2019-08-09] MEDS: LISINOPRIL 20 MG TABLET (FP) PO SCH (10:13)
[2019-08-09] MEDS: PRENATAL VITAMINS W/ FOLIC ACID TABLET (FP) PO SCH (10:13)
[2019-08-09] MEDS: SERTRALINE HCL 50 MG TABLET (FP) PO SCH (10:13)
[2019-08-09] MEDS: TOLNAFTATE 1% CREAM 15 GM TUBE TP SCH ×2 (10:14→22:25)
[2019-08-09] MEDS: MINERAL OIL/PETROLAT/WATER TOPICAL CREAM 113 GM JAR TP SCH ×2 (10:14→22:25)
[2019-08-09] MEDS: hydrOXYzine PAMOATE 25 MG CAPSULE (FP) PO PRN (18:01)
[2019-08-09] MEDS: traZODone HCL 50 MG TABLET (FP) PO SCH (22:09)
[2019-08-09] MEDS: THIAMINE HCL 100 MG TABLET (FP) PO SCH (22:09)
[2019-08-09] MEDS: MELATONIN 5 MG TABLETS PO PRN (22:10)
[2019-08-10] MEDS: VITAMINS A AND D TOPICAL OINTMENT 60 GM TUBE TP SCH ×4 (00:15→18:30)
[2019-08-10] MEDS ORDERED: PT OWN MED DRAWER 7, Y5N ONE ×4 (06:43→11:12)
[2019-08-10] MEDS: cloNIDine HCL 0.1 MG TABLET PO PRN ×3 (06:43→19:56)
[2019-08-10] MEDS: GABAPENTIN 100 MG CAPSULE (FP) PO SCH ×3 (06:43→21:47)
[2019-08-10] MEDS: CYCLOBENZAPRINE HCL 5 MG TABLET PO SCH ×3 (06:43→21:47)
[2019-08-10] MEDS: BUPRENORPHINE/NALOXONE 4 MG/1 MG FILM PACKET SL SCH (06:44)
[2019-08-10] MEDS: PRENATAL VITAMINS W/ FOLIC ACID TABLET (FP) PO SCH (10:40)
[2019-08-10] MEDS: LISINOPRIL 20 MG TABLET (FP) PO SCH (10:40)
[2019-08-10] MEDS: SERTRALINE HCL 50 MG TABLET (FP) PO SCH (10:40)
[2019-08-10] MEDS: TOLNAFTATE 1% CREAM 15 GM TUBE TP SCH ×2 (10:41→21:48)
[2019-08-10] MEDS: MINERAL OIL/PETROLAT/WATER TOPICAL CREAM 113 GM JAR TP SCH ×2 (10:41→21:49)
[2019-08-10] MEDS: NICOTINE 14 MG/24 HOURS TOPICAL PATCH TD SCH (10:41)
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
[2019-08-10 14:59] LABS: RPR REACTIVE 1:2 (NONREACTIVE)
[2019-08-10 15:01] LABS: TREPONEMA ANTIBODY PREVIOUSLY REACTIVE (NONREACTIVE)
[2019-08-10] MEDS: hydrOXYzine PAMOATE 25 MG CAPSULE (FP) PO PRN ×2 (15:30→19:56)
[2019-08-10] MEDS: HYDROCHLOROTHIAZIDE 12.5 MG CAPSULE (FP) PO SCH (15:33)
--- NOTE | 2019-08-10 15:56 | PN ---
[facility] Progress Note (SOAP) Subjective: patient seen yesterday about +RPR. At that time, patient denied sexual activity that may result in syphilis infection. States her last syphilis infection and treatment was in 2013. Objective: General: no distress Skin: clear. Neuro: no deficits noted. 08/10/19 15:55 CBC, BMP 08/03/19 09:20 08/03/19 09:20 Laboratory Tests 08/02/19 08/03/19 08/03/19 13:25 09:20 09:20 WBC 7.3 RBC 4.51 Hgb 13.5 Hct 41.4 MCV 91.8 MCH 30.0 MCHC 32.7 RDW 14.0 Plt Count 267 MPV 10.6 Sodium 140 Potassium 4.5 Chloride 106 Carbon Dioxide 27 Anion Gap 7 L BUN 5.9 L Creatinine 1.0 Est GFR (CKD-EPI)AfAm 79.35 Est GFR (CKD-EPI)NonAf 68.46 POC Glucometer Random Glucose 154 H Calcium 9.8 Total Bilirubin 0.3 AST 12 L ALT 18 Alkaline Phosphatase 59 Total Protein 7.0 Albumin 3.4 Urine Color Urine Appearance Urine pH Ur Specific [place] Urine Protein Urine Glucose (UA) Urine Ketones Urine Blood Urine Nitrite Urine Bilirubin Urine Urobilinogen Ur Leukocyte Esterase POC Urine HCG, Qual Negative RPR Titer T.pallidum Ab (MHA) 08/03/19 08/03/19 08/06/19 09:20 15:26 06:41 WBC RBC Hgb Hct MCV MCH MCHC RDW Plt Count MPV Sodium Potassium Chloride Carbon Dioxide Anion Gap BUN Creatinine Est GFR (CKD-EPI)AfAm Est GFR (CKD-EPI)NonAf POC Glucometer 107 Random Glucose Calcium Total Bilirubin AST ALT Alkaline Phosphatase Total Protein Albumin Urine Color Yellow Urine Appearance Error Urine pH 8.0 Ur Specific [place] 1.017 Urine Protein Negative Urine Glucose (UA) Negative Urine Ketones Negative Urine Blood Negative Urine Nitrite Negative Urine Bilirubin Negative Urine Urobilinogen 0.2 Ur Leukocyte Esterase Negative POC Urine HCG, Qual RPR Titer Reactive 1:2 H T.pallidum Ab (MHA) Reactive 08/07/19 08/09/19 08/10/19 06:30 07:21 06:41 WBC RBC Hgb Hct MCV MCH MCHC RDW Plt Count MPV Sodium Potassium Chloride Carbon Dioxide Anion Gap BUN Creatinine Est GFR (CKD-EPI)AfAm Est GFR (CKD-EPI)NonAf POC Glucometer 117 117 112 Random Glucose Calcium Total Bilirubin AST ALT Alkaline Phosphatase Total Protein Albumin Urine Color Urine Appearance Urine pH Ur Specific [place] Urine Protein Urine Glucose (UA) Urine Ketones Urine Blood Urine Nitrite Urine Bilirubin Urine Urobilinogen Ur Leukocyte Esterase POC Urine HCG, Qual RPR Titer T.pallidum Ab (MHA) 08/10/19 08:25 WBC RBC Hgb Hct MCV MCH MCHC RDW Plt Count MPV Sodium Potassium Chloride Carbon Dioxide Anion Gap BUN Creatinine Est GFR (CKD-EPI)AfAm Est GFR (CKD-EPI)NonAf POC Glucometer Random Glucose Calcium Total Bilirubin AST ALT Alkaline Phosphatase Total Protein Albumin Urine Color Urine Appearance Urine pH Ur Specific [place] Urine Protein Urine Glucose (UA) Urine Ketones Urine Blood Urine Nitrite Urine Bilirubin Urine Urobilinogen Ur Leukocyte Esterase POC Urine HCG, Qual RPR Titer Reactive 1:2 H T.pallidum Ab (MHA) Previously reactive 08/10/19 15:59 Assessment: + RPR 08/10/19 15:59 Plan: Test repeated yesterday, confirmed positive. Will discuss with patient again.
[2019-08-10] MEDS: traZODone HCL 50 MG TABLET (FP) PO SCH (21:47)
[2019-08-10] MEDS: THIAMINE HCL 100 MG TABLET (FP) PO SCH (21:47)
[2019-08-11] MEDS: VITAMINS A AND D TOPICAL OINTMENT 60 GM TUBE TP SCH ×4 (00:30→18:03)
[2019-08-11] MEDS: GABAPENTIN 100 MG CAPSULE (FP) PO SCH ×3 (06:27→21:58)
[2019-08-11] MEDS: cloNIDine HCL 0.1 MG TABLET PO PRN (06:28)
[2019-08-11] MEDS: CYCLOBENZAPRINE HCL 5 MG TABLET PO SCH ×3 (06:28→21:59)
[2019-08-11] MEDS: BUPRENORPHINE/NALOXONE 4 MG/1 MG FILM PACKET SL SCH (06:28)
[2019-08-11] MEDS ORDERED: PT OWN MED DRAWER 7, Y5N ONE (09:41)
[2019-08-11] MEDS: LISINOPRIL 20 MG TABLET (FP) PO SCH (10:32)
[2019-08-11] MEDS: HYDROCHLOROTHIAZIDE 12.5 MG CAPSULE (FP) PO SCH (10:32)
[2019-08-11] MEDS: MINERAL OIL/PETROLAT/WATER TOPICAL CREAM 113 GM JAR TP SCH ×2 (10:32→22:03)
[2019-08-11] MEDS: TOLNAFTATE 1% CREAM 15 GM TUBE TP SCH ×2 (10:32→22:03)
[2019-08-11] MEDS: NICOTINE 14 MG/24 HOURS TOPICAL PATCH TD SCH (10:32)
[2019-08-11] MEDS: SERTRALINE HCL 50 MG TABLET (FP) PO SCH (10:32)
[2019-08-11] MEDS: PRENATAL VITAMINS W/ FOLIC ACID TABLET (FP) PO SCH (10:32)
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
[2019-08-11] MEDS ORDERED: PENICILLIN G BENZATHINE 2,400,000 UNIT/4 ML PFS IM ONE (12:30)
[2019-08-11] MEDS: hydrOXYzine PAMOATE 25 MG CAPSULE (FP) PO PRN (17:21)
[2019-08-11] MEDS: traZODone HCL 50 MG TABLET (FP) PO SCH (21:58)
[2019-08-11] MEDS: THIAMINE HCL 100 MG TABLET (FP) PO SCH (21:58)
[2019-08-11] MEDS: MELATONIN 5 MG TABLETS PO PRN (21:59)
[2019-08-12] MEDS: VITAMINS A AND D TOPICAL OINTMENT 60 GM TUBE TP SCH ×5 (00:18→23:43)
[2019-08-12] MEDS ORDERED: PT OWN MED DRAWER 7, Y5N ONE ×3 (03:20→19:46)
[2019-08-12] MEDS: CYCLOBENZAPRINE HCL 5 MG TABLET PO SCH ×3 (06:35→21:36)
[2019-08-12] MEDS: GABAPENTIN 100 MG CAPSULE (FP) PO SCH ×3 (06:35→21:36)
[2019-08-12] MEDS: BUPRENORPHINE/NALOXONE 4 MG/1 MG FILM PACKET SL SCH (06:35)
[2019-08-12] MEDS: cloNIDine HCL 0.1 MG TABLET PO PRN (06:35)
[2019-08-12] MEDS: COLLOIDAL OATMEAL 1 BAR EACH TP PRN (07:45)
[2019-08-12] MEDS: NICOTINE 14 MG/24 HOURS TOPICAL PATCH TD SCH (09:57)
[2019-08-12] MEDS: SERTRALINE HCL 50 MG TABLET (FP) PO SCH (09:57)
[2019-08-12] MEDS: LISINOPRIL 20 MG TABLET (FP) PO SCH (09:57)
[2019-08-12] MEDS: PRENATAL VITAMINS W/ FOLIC ACID TABLET (FP) PO SCH (09:57)
[2019-08-12] MEDS: HYDROCHLOROTHIAZIDE 12.5 MG CAPSULE (FP) PO SCH (09:57)
[2019-08-12] MEDS: TOLNAFTATE 1% CREAM 15 GM TUBE TP SCH ×2 (09:59→21:37)
[2019-08-12] MEDS: MINERAL OIL/PETROLAT/WATER TOPICAL CREAM 113 GM JAR TP SCH ×2 (09:59→21:37)
--- NOTE | 2019-08-12 10:44 | PN ---
S Progress Note Note: vital signs review. Elevated BP No apparent c/o discomfort. hydrochlorothiazide 12.5 mg po daily was added to regimen yesterday. Vital Signs - 24 hr 08/12/19 08/12/19 08/12/19 00:30 03:30 07:11 Temperature 98.1 F Pulse Rate 66 Respiratory 18 18 16 Rate Blood Pressure 171/110 H 08/12/19 08/12/19 07:30 09:01 Temperature Pulse Rate 60 65 Respiratory 16 18 Rate Blood Pressure 155/105 H 136/83 A/P Uncontrolled HTN Increase to hydrochlorothiazide 25 mg po daily.
[2019-08-12] MEDS: hydrOXYzine PAMOATE 25 MG CAPSULE (FP) PO PRN (17:02)
[2019-08-12] MEDS: THIAMINE HCL 100 MG TABLET (FP) PO SCH (21:36)
[2019-08-12] MEDS: traZODone HCL 50 MG TABLET (FP) PO SCH (21:36)
[2019-08-12] MEDS: MELATONIN 5 MG TABLETS PO PRN (21:38)
[2019-08-13] MEDS ORDERED: PT OWN MED DRAWER 7, Y5N ONE ×2 (05:55→08:52)
[2019-08-13] MEDS: VITAMINS A AND D TOPICAL OINTMENT 60 GM TUBE TP SCH ×3 (06:19→19:28)
[2019-08-13] MEDS: GABAPENTIN 100 MG CAPSULE (FP) PO SCH ×3 (06:19→21:31)
[2019-08-13] MEDS: CYCLOBENZAPRINE HCL 5 MG TABLET PO SCH ×3 (06:19→21:31)
[2019-08-13] MEDS: BUPRENORPHINE/NALOXONE 4 MG/1 MG FILM PACKET SL SCH (06:20)
[2019-08-13] MEDS: TOLNAFTATE 1% CREAM 15 GM TUBE TP SCH ×2 (09:56→21:32)
[2019-08-13] MEDS: NICOTINE 14 MG/24 HOURS TOPICAL PATCH TD SCH (09:56)
[2019-08-13] MEDS: PRENATAL VITAMINS W/ FOLIC ACID TABLET (FP) PO SCH (09:56)
[2019-08-13] MEDS: MINERAL OIL/PETROLAT/WATER TOPICAL CREAM 113 GM JAR TP SCH ×2 (09:56→21:32)
[2019-08-13] MEDS: HYDROCHLOROTHIAZIDE 25 MG TABLET (FP) PO SCH (09:56)
[2019-08-13] MEDS: SERTRALINE HCL 50 MG TABLET (FP) PO SCH (09:57)
[2019-08-13] MEDS: LISINOPRIL 20 MG TABLET (FP) PO SCH (09:57)
--- NOTE | 2019-08-13 14:10 | PN ---
S Progress Note Note: patient transfer from [facility] to [facility] for rehab continuation of care
[2019-08-13] MEDS: THIAMINE HCL 100 MG TABLET (FP) PO SCH (21:29)
[2019-08-13] MEDS: MELATONIN 5 MG TABLETS PO PRN (21:31)
[2019-08-13] MEDS: traZODone HCL 50 MG TABLET (FP) PO SCH (21:31)
[2019-08-14] MEDS: GABAPENTIN 100 MG CAPSULE (FP) PO SCH ×3 (06:08→21:21)
[2019-08-14] MEDS: BUPRENORPHINE/NALOXONE 4 MG/1 MG FILM PACKET SL SCH (06:08)
[2019-08-14] MEDS: cloNIDine HCL 0.1 MG TABLET PO PRN (06:08)
[2019-08-14] MEDS: CYCLOBENZAPRINE HCL 5 MG TABLET PO SCH ×3 (06:08→21:21)
[2019-08-14] MEDS: VITAMINS A AND D TOPICAL OINTMENT 60 GM TUBE TP SCH ×5 (06:41→23:40)
[2019-08-14] MEDS: HYDROCHLOROTHIAZIDE 25 MG TABLET (FP) PO SCH (09:39)
[2019-08-14] MEDS: NICOTINE 14 MG/24 HOURS TOPICAL PATCH TD SCH (09:39)
[2019-08-14] MEDS: SERTRALINE HCL 50 MG TABLET (FP) PO SCH (09:40)
[2019-08-14] MEDS: PRENATAL VITAMINS W/ FOLIC ACID TABLET (FP) PO SCH (09:40)
[2019-08-14] MEDS: LISINOPRIL 20 MG TABLET (FP) PO SCH (09:40)
[2019-08-14] MEDS: TOLNAFTATE 1% CREAM 15 GM TUBE TP SCH ×2 (09:42→21:53)
[2019-08-14] MEDS: MINERAL OIL/PETROLAT/WATER TOPICAL CREAM 113 GM JAR TP SCH ×2 (09:42→21:53)
[2019-08-14] MEDS: hydrOXYzine PAMOATE 25 MG CAPSULE (FP) PO PRN ×2 (10:49→17:32)
[2019-08-14] MEDS: MELATONIN 5 MG TABLETS PO PRN (21:21)
[2019-08-14] MEDS: traZODone HCL 50 MG TABLET (FP) PO SCH (21:21)
[2019-08-14] MEDS: THIAMINE HCL 100 MG TABLET (FP) PO SCH (21:21)
[2019-08-15] MEDS: CYCLOBENZAPRINE HCL 5 MG TABLET PO SCH ×3 (06:09→21:14)
[2019-08-15] MEDS: BUPRENORPHINE/NALOXONE 4 MG/1 MG FILM PACKET SL SCH (06:09)
[2019-08-15] MEDS: GABAPENTIN 100 MG CAPSULE (FP) PO SCH ×3 (06:09→21:14)
[2019-08-15] MEDS: VITAMINS A AND D TOPICAL OINTMENT 60 GM TUBE TP SCH ×4 (06:10→23:43)
[2019-08-15] MEDS: HYDROCHLOROTHIAZIDE 25 MG TABLET (FP) PO SCH (09:58)
[2019-08-15] MEDS: MINERAL OIL/PETROLAT/WATER TOPICAL CREAM 113 GM JAR TP SCH ×2 (09:58→21:14)
[2019-08-15] MEDS: NICOTINE 14 MG/24 HOURS TOPICAL PATCH TD SCH (09:58)
[2019-08-15] MEDS: PRENATAL VITAMINS W/ FOLIC ACID TABLET (FP) PO SCH (09:59)
[2019-08-15] MEDS: LISINOPRIL 20 MG TABLET (FP) PO SCH (09:59)
[2019-08-15] MEDS: TOLNAFTATE 1% CREAM 15 GM TUBE TP SCH ×2 (10:00→21:14)
[2019-08-15] MEDS: SERTRALINE HCL 50 MG TABLET (FP) PO SCH (10:00)
[2019-08-15] MEDS ORDERED: PT OWN MED DRAWER 7, Y5N ONE (11:09)
[2019-08-15] MEDS: THIAMINE HCL 100 MG TABLET (FP) PO SCH (21:14)
[2019-08-15] MEDS: traZODone HCL 50 MG TABLET (FP) PO SCH (21:14)
[2019-08-15] MEDS: MELATONIN 5 MG TABLETS PO PRN (21:14)
[2019-08-16] MEDS: cloNIDine HCL 0.1 MG TABLET PO PRN (06:13)
[2019-08-16] MEDS: GABAPENTIN 100 MG CAPSULE (FP) PO SCH ×3 (06:13→21:30)
[2019-08-16] MEDS: CYCLOBENZAPRINE HCL 5 MG TABLET PO SCH ×3 (06:13→21:30)
[2019-08-16] MEDS: BUPRENORPHINE/NALOXONE 4 MG/1 MG FILM PACKET SL SCH (06:14)
[2019-08-16] MEDS: VITAMINS A AND D TOPICAL OINTMENT 60 GM TUBE TP SCH ×4 (06:35→23:50)
[2019-08-16] MEDS: NICOTINE 14 MG/24 HOURS TOPICAL PATCH TD SCH (10:05)
[2019-08-16] MEDS: SERTRALINE HCL 50 MG TABLET (FP) PO SCH (10:06)
[2019-08-16] MEDS: PRENATAL VITAMINS W/ FOLIC ACID TABLET (FP) PO SCH (10:06)
[2019-08-16] MEDS: HYDROCHLOROTHIAZIDE 25 MG TABLET (FP) PO SCH (10:06)
[2019-08-16] MEDS: LISINOPRIL 20 MG TABLET (FP) PO SCH (10:06)
[2019-08-16] MEDS: MINERAL OIL/PETROLAT/WATER TOPICAL CREAM 113 GM JAR TP SCH ×2 (10:07→21:30)
[2019-08-16] MEDS: TOLNAFTATE 1% CREAM 15 GM TUBE TP SCH ×2 (10:08→21:31)
--- NOTE | 2019-08-16 12:47 | PN ---
S Progress Note Note: Patient w/ hx of OUD on subxone 4 mg SL QAM c/o of withdrawal symptoms in the evening, c/o of sweats chills, anxious. Patient reports she feels in the afternoon hours the effects of the suboxone wears off ad has increase craving. Vital Signs Temperature 98.1 F 08/16/19 06:49 Pulse Rate 63 08/16/19 09:30 Respiratory Rate 18 08/16/19 09:30 Blood Pressure 119/78 08/16/19 09:30 O2 Sat by Pulse Oximetry (%) Laboratory Last Values WBC 7.3 K/mm3 (4.0-10.0) 08/03/19 09:20 RBC 4.51 M/mm3 (3.60-5.2) 08/03/19 09:20 Hgb 13.5 GM/dL (10.7-15.3) 08/03/19 09:20 Hct 41.4 % (32.4-45.2) 08/03/19 09:20 MCV 91.8 fl (80-96) 08/03/19 09:20 MCH 30.0 pg (25.7-33.7) 08/03/19 09:20 MCHC 32.7 g/dl (32.0-36.0) 08/03/19 09:20 RDW 14.0 % (11.6-15.6) 08/03/19 09:20 Plt Count 267 K/MM3 (134-434) 08/03/19 09:20 MPV 10.6 fl (7.5-11.1) 08/03/19 09:20 Sodium 140 mmol/L (136-145) 08/03/19 09:20 Potassium 4.5 mmol/L (3.5-5.1) 08/03/19 09:20 Chloride 106 mmol/L (98-107) 08/03/19 09:20 Carbon Dioxide 27 mmol/L (21-32) 08/03/19 09:20 Anion Gap 7 MMOL/L (8-16) L 08/03/19 09:20 BUN 5.9 mg/dL (7-18) L 08/03/19 09:20 Creatinine 1.0 mg/dL (0.55-1.3) 08/03/19 09:20 Est GFR (CKD-EPI)AfAm 79.35 08/03/19 09:20 Est GFR (CKD-EPI)NonAf 68.46 08/03/19 09:20 POC Glucometer 112 UNITS (80-120) 08/10/19 06:41 Random Glucose 154 mg/dL (74-106) H 08/03/19 09:20 Calcium 9.8 mg/dL (8.5-10.1) 08/03/19 09:20 Total Bilirubin 0.3 mg/dL (0.2-1) 08/03/19 09:20 AST 12 U/L (15-37) L 08/03/19 09:20 ALT 18 U/L (13-61) 08/03/19 09:20 Alkaline Phosphatase 59 U/L (45-117) 08/03/19 09:20 Total Protein 7.0 g/dl (6.4-8.2) 08/03/19 09:20 Albumin 3.4 g/dl (3.4-5.0) 08/03/19 09:20 Urine Color Yellow 08/03/19 15:26 Urine Appearance Error 08/03/19 15:26 Urine pH 8.0 (5.0-8.0) 08/03/19 15:26 Ur Specific [place] 1.017 (1.010-1.035) 08/03/19 15:26 Urine Protein Negative (NEGATIVE) 08/03/19 15:26 Urine Glucose (UA) Negative (NEGATIVE) 08/03/19 15:26 Urine Ketones Negative (NEGATIVE) 08/03/19 15:26 Urine Blood Negative (NEGATIVE) 08/03/19 15:26 Urine Nitrite Negative (NEGATIVE) 08/03/19 15:26 Urine Bilirubin Negative (NEGATIVE) 08/03/19 15:26 Urine Urobilinogen 0.2 mg/dL (0.2-1.0) 08/03/19 15:26 Ur Leukocyte Esterase Negative (NEGATIVE) 08/03/19 15:26 POC Urine HCG, Qual Negative 08/02/19 13:25 RPR Titer Reactive 1:2 (NONREACTIVE) H 08/10/19 08:25 T.pallidum Ab ([facility]) Previously reactive (NONREACTIVE) 08/10/19 08:25 Patient aox3 , anxious, + diaphoresis no adventitious breath sounds full ROM no gait abnormality OUD increase Bup dose by 2mg in the PM, new medication dose suboxone 4mg AM and 2mp PM increase fluids continue to monitor follow up at [facility] upon d/c
[2019-08-16] MEDS: BUPRENORPHINE/NALOXONE 2 MG/0.5 MG FILM PACKET SL SCH (16:41)
[2019-08-16] MEDS: traZODone HCL 50 MG TABLET (FP) PO SCH (21:30)
[2019-08-16] MEDS: THIAMINE HCL 100 MG TABLET (FP) PO SCH (21:30)
[2019-08-16] MEDS: MELATONIN 5 MG TABLETS PO PRN (21:32)
[2019-08-17] MEDS: CYCLOBENZAPRINE HCL 5 MG TABLET PO SCH ×3 (06:13→21:38)
[2019-08-17] MEDS: GABAPENTIN 100 MG CAPSULE (FP) PO SCH ×3 (06:13→21:38)
[2019-08-17] MEDS: BUPRENORPHINE/NALOXONE 4 MG/1 MG FILM PACKET SL SCH (06:13)
[2019-08-17] MEDS: VITAMINS A AND D TOPICAL OINTMENT 60 GM TUBE TP SCH ×3 (06:45→19:15)
[2019-08-17] MEDS ORDERED: PT OWN MED DRAWER 7, Y5N ONE (08:53)
[2019-08-17] MEDS: NICOTINE 14 MG/24 HOURS TOPICAL PATCH TD SCH (09:52)
[2019-08-17] MEDS: PRENATAL VITAMINS W/ FOLIC ACID TABLET (FP) PO SCH (09:53)
[2019-08-17] MEDS: LISINOPRIL 20 MG TABLET (FP) PO SCH (09:53)
[2019-08-17] MEDS: HYDROCHLOROTHIAZIDE 25 MG TABLET (FP) PO SCH (09:53)
[2019-08-17] MEDS: MINERAL OIL/PETROLAT/WATER TOPICAL CREAM 113 GM JAR TP SCH ×2 (09:54→21:40)
[2019-08-17] MEDS: BUPRENORPHINE/NALOXONE 2 MG/0.5 MG FILM PACKET SL SCH (09:57)
[2019-08-17] MEDS: TOLNAFTATE 1% CREAM 15 GM TUBE TP SCH ×2 (10:42→21:39)
[2019-08-17] MEDS: SERTRALINE HCL 50 MG TABLET (FP) PO SCH (10:44)
[2019-08-17] MEDS: hydrOXYzine PAMOATE 25 MG CAPSULE (FP) PO PRN (15:41)
[2019-08-17] MEDS: THIAMINE HCL 100 MG TABLET (FP) PO SCH (21:36)
[2019-08-17] MEDS: MELATONIN 5 MG TABLETS PO PRN (21:36)
[2019-08-17] MEDS: traZODone HCL 50 MG TABLET (FP) PO SCH (21:38)
[2019-08-18] MEDS: VITAMINS A AND D TOPICAL OINTMENT 60 GM TUBE TP SCH ×5 (00:23→23:52)
[2019-08-18] MEDS ORDERED: PT OWN MED DRAWER 7, Y5N ONE ×2 (03:40→19:56)
[2019-08-18] MEDS: BUPRENORPHINE/NALOXONE 4 MG/1 MG FILM PACKET SL SCH (06:20)
[2019-08-18] MEDS: cloNIDine HCL 0.1 MG TABLET PO PRN ×2 (06:20→19:09)
[2019-08-18] MEDS: GABAPENTIN 100 MG CAPSULE (FP) PO SCH ×3 (06:20→21:45)
[2019-08-18] MEDS: CYCLOBENZAPRINE HCL 5 MG TABLET PO SCH ×3 (06:20→21:45)
[2019-08-18] MEDS: HYDROCHLOROTHIAZIDE 25 MG TABLET (FP) PO SCH (09:28)
[2019-08-18] MEDS: NICOTINE 14 MG/24 HOURS TOPICAL PATCH TD SCH (09:28)
[2019-08-18] MEDS: MINERAL OIL/PETROLAT/WATER TOPICAL CREAM 113 GM JAR TP SCH ×2 (09:28→21:49)
[2019-08-18] MEDS: SERTRALINE HCL 50 MG TABLET (FP) PO SCH (09:29)
[2019-08-18] MEDS: LISINOPRIL 20 MG TABLET (FP) PO SCH (09:29)
[2019-08-18] MEDS: TOLNAFTATE 1% CREAM 15 GM TUBE TP SCH ×2 (09:29→21:49)
[2019-08-18] MEDS: PRENATAL VITAMINS W/ FOLIC ACID TABLET (FP) PO SCH (09:29)
[2019-08-18] MEDS: hydrOXYzine PAMOATE 25 MG CAPSULE (FP) PO PRN ×3 (09:30→19:10)
[2019-08-18] MEDS ORDERED: BUPRENORPHINE/NALOXONE 2 MG/0.5 MG FILM PACKET SL ONE ×2 (11:00→16:00)
[2019-08-18] MEDS: THIAMINE HCL 100 MG TABLET (FP) PO SCH (21:45)
[2019-08-18] MEDS: traZODone HCL 50 MG TABLET (FP) PO SCH (21:45)
[2019-08-18] MEDS: MELATONIN 5 MG TABLETS PO PRN (21:45)
[2019-08-19] MEDS ORDERED: BUPRENORPHINE/NALOXONE 4 MG/1 MG FILM PACKET SL SCH (06:00)
[2019-08-19] MEDS ORDERED: PT OWN MED DRAWER 7, Y5N ONE (06:08)
[2019-08-19] MEDS: CYCLOBENZAPRINE HCL 5 MG TABLET PO SCH ×3 (06:16→21:04)
[2019-08-19] MEDS: VITAMINS A AND D TOPICAL OINTMENT 60 GM TUBE TP SCH ×4 (06:16→23:36)
[2019-08-19] MEDS: BUPRENORPHINE/NALOXONE 2 MG/0.5 MG FILM PACKET SL SCH (06:16)
[2019-08-19] MEDS: GABAPENTIN 100 MG CAPSULE (FP) PO SCH ×3 (06:17→21:04)
[2019-08-19] MEDS: hydrOXYzine PAMOATE 25 MG CAPSULE (FP) PO PRN ×2 (07:32→13:52)
[2019-08-19] MEDS: TOLNAFTATE 1% CREAM 15 GM TUBE TP SCH ×2 (10:06→21:06)
[2019-08-19] MEDS: NICOTINE 14 MG/24 HOURS TOPICAL PATCH TD SCH (10:07)
[2019-08-19] MEDS: PRENATAL VITAMINS W/ FOLIC ACID TABLET (FP) PO SCH (10:07)
[2019-08-19] MEDS: MINERAL OIL/PETROLAT/WATER TOPICAL CREAM 113 GM JAR TP SCH ×2 (10:07→21:06)
[2019-08-19] MEDS: LISINOPRIL 20 MG TABLET (FP) PO SCH (10:07)
[2019-08-19] MEDS: SERTRALINE HCL 50 MG TABLET (FP) PO SCH (10:07)
[2019-08-19] MEDS: HYDROCHLOROTHIAZIDE 25 MG TABLET (FP) PO SCH (10:09)
[2019-08-19] MEDS ORDERED: BUPRENORPHINE/NALOXONE 2 MG/0.5 MG FILM PACKET SL SCH (16:00)
[2019-08-19] MEDS: THIAMINE HCL 100 MG TABLET (FP) PO SCH (21:04)
[2019-08-19] MEDS: traZODone HCL 50 MG TABLET (FP) PO SCH (21:04)
[2019-08-19] MEDS: MELATONIN 5 MG TABLETS PO PRN (21:04)
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
[2019-08-20] MEDS: cloNIDine HCL 0.1 MG TABLET PO PRN (06:12)
[2019-08-20] MEDS: GABAPENTIN 100 MG CAPSULE (FP) PO SCH ×3 (06:12→21:32)
[2019-08-20] MEDS: CYCLOBENZAPRINE HCL 5 MG TABLET PO SCH ×3 (06:12→21:32)
[2019-08-20] MEDS: BUPRENORPHINE/NALOXONE 2 MG/0.5 MG FILM PACKET SL SCH (06:13)
[2019-08-20] MEDS: VITAMINS A AND D TOPICAL OINTMENT 60 GM TUBE TP SCH ×4 (06:15→23:16)
[2019-08-20] MEDS: COLLOIDAL OATMEAL 1 BAR EACH TP PRN (06:30)
[2019-08-20] MEDS: HYDROCHLOROTHIAZIDE 25 MG TABLET (FP) PO SCH ×2 (09:46→10:59)
[2019-08-20] MEDS: PRENATAL VITAMINS W/ FOLIC ACID TABLET (FP) PO SCH (09:46)
[2019-08-20] MEDS: SERTRALINE HCL 50 MG TABLET (FP) PO SCH (09:47)
[2019-08-20] MEDS: LISINOPRIL 20 MG TABLET (FP) PO SCH (09:47)
[2019-08-20] MEDS: hydrOXYzine PAMOATE 25 MG CAPSULE (FP) PO PRN ×3 (09:48→19:04)
[2019-08-20] MEDS: NICOTINE 14 MG/24 HOURS TOPICAL PATCH TD SCH (09:49)
[2019-08-20] MEDS: MINERAL OIL/PETROLAT/WATER TOPICAL CREAM 113 GM JAR TP SCH ×2 (09:50→22:16)
[2019-08-20] MEDS: BACITRACIN 15 GM TUBE TOPICAL OINTMENT TP SCH (09:50)
[2019-08-20] MEDS: TOLNAFTATE 1% CREAM 15 GM TUBE TP SCH ×2 (09:52→22:16)
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
[2019-08-20] MEDS: traZODone HCL 50 MG TABLET (FP) PO SCH (21:32)
[2019-08-20] MEDS: THIAMINE HCL 100 MG TABLET (FP) PO SCH (21:32)
[2019-08-20] MEDS: MELATONIN 5 MG TABLETS PO PRN (21:32)
[2019-08-21] MEDS: GABAPENTIN 100 MG CAPSULE (FP) PO SCH ×3 (06:19→21:13)
[2019-08-21] MEDS: cloNIDine HCL 0.1 MG TABLET PO PRN (06:19)
[2019-08-21] MEDS: CYCLOBENZAPRINE HCL 5 MG TABLET PO SCH ×3 (06:19→21:13)
[2019-08-21] MEDS: VITAMINS A AND D TOPICAL OINTMENT 60 GM TUBE TP SCH ×3 (06:20→17:49)
[2019-08-21] MEDS: BUPRENORPHINE/NALOXONE 2 MG/0.5 MG FILM PACKET SL SCH (06:20)
[2019-08-21] MEDS ORDERED: PT OWN MED DRAWER 7, Y5N ONE (09:45)
[2019-08-21] MEDS: LISINOPRIL 20 MG TABLET (FP) PO SCH (10:31)
[2019-08-21] MEDS: PRENATAL VITAMINS W/ FOLIC ACID TABLET (FP) PO SCH (10:31)
[2019-08-21] MEDS: NICOTINE 14 MG/24 HOURS TOPICAL PATCH TD SCH (10:31)
[2019-08-21] MEDS: SERTRALINE HCL 50 MG TABLET (FP) PO SCH (10:31)
[2019-08-21] MEDS: TOLNAFTATE 1% CREAM 15 GM TUBE TP SCH ×2 (10:31→21:14)
[2019-08-21] MEDS: MINERAL OIL/PETROLAT/WATER TOPICAL CREAM 113 GM JAR TP SCH ×2 (10:32→21:14)
[2019-08-21] MEDS: BACITRACIN 15 GM TUBE TOPICAL OINTMENT TP SCH (10:32)
[2019-08-21] MEDS: HYDROCHLOROTHIAZIDE 25 MG TABLET (FP) PO SCH (10:33)
[2019-08-21] MEDS: hydrOXYzine PAMOATE 25 MG CAPSULE (FP) PO PRN ×2 (13:44→18:10)
--- NOTE | 2019-08-21 14:35 | PN ---
[facility] Progress Note Note: Patient is scheduled for discharge tomorrow. Scripts for 30 days supply of medications(Zoloft 50 mg/day, Trazadone 50 mg/hs) will be electronically transmitted to [facility] at [address] [place] [address]
[2019-08-21] MEDS: MELATONIN 5 MG TABLETS PO PRN (21:13)
[2019-08-21] MEDS: traZODone HCL 50 MG TABLET (FP) PO SCH (21:13)
[2019-08-21] MEDS: THIAMINE HCL 100 MG TABLET (FP) PO SCH (21:13)
[2019-08-22] MEDS: VITAMINS A AND D TOPICAL OINTMENT 60 GM TUBE TP SCH ×2 (00:16→06:14)
[2019-08-22] MEDS: GABAPENTIN 100 MG CAPSULE (FP) PO SCH (06:12)
[2019-08-22] MEDS: cloNIDine HCL 0.1 MG TABLET PO PRN (06:12)
[2019-08-22] MEDS: CYCLOBENZAPRINE HCL 5 MG TABLET PO SCH (06:12)
[2019-08-22] MEDS: BUPRENORPHINE/NALOXONE 2 MG/0.5 MG FILM PACKET SL SCH (06:12)
[2019-08-22 07:13] VITALS: TEMP 98.1
[2019-08-22] MEDS: PRENATAL VITAMINS W/ FOLIC ACID TABLET (FP) PO SCH (09:10)
[2019-08-22] MEDS: LISINOPRIL 20 MG TABLET (FP) PO SCH (09:10)
[2019-08-22] MEDS: NICOTINE 14 MG/24 HOURS TOPICAL PATCH TD SCH (09:11)
[2019-08-22] MEDS: TOLNAFTATE 1% CREAM 15 GM TUBE TP SCH (09:11)
[2019-08-22] MEDS: SERTRALINE HCL 50 MG TABLET (FP) PO SCH (09:11)
[2019-08-22] MEDS: MINERAL OIL/PETROLAT/WATER TOPICAL CREAM 113 GM JAR TP SCH (09:12)
[2019-08-22] MEDS: BACITRACIN 15 GM TUBE TOPICAL OINTMENT TP SCH (09:12)
[2019-08-22] MEDS: HYDROCHLOROTHIAZIDE 25 MG TABLET (FP) PO SCH (09:12)
--- NOTE | 2019-08-22 09:58 | DS ---
[facility] Rehab Discharge Summary - [facility] Rehab Discharge Summary Admission Date: 08/02/19 Discharge Date: 08/22/19 - History Present History: Alcohol dependence, Cocaine dependence, Opioid dependence Additional Comments: Pt is a 44 y/o female admitted to rehab and completed treatment today. Pertinent Past History: HTN Chronix Lymphedema PTSD - Discharge Physical Exam Vital Signs: Vital Signs Temperature 98.1 F 08/22/19 07:12 Pulse Rate 71 08/22/19 07:12 Respiratory Rate 16 08/22/19 07:12 Blood Pressure 158/105 H 08/22/19 07:12 O2 Sat by Pulse Oximetry (%) Alert o x 3 NAd oob ambulating with steady gait Cardiac:s1 s2,rrr Lungs:cta,chance. Extremities/Skin: Non-pitting edema; no cyanosis; skin intact Pertinent Admission Physical Exam Findings: Laboratory Tests 08/02/19 08/03/19 08/03/19 13:25 09:20 09:20 WBC 7.3 RBC 4.51 Hgb 13.5 Hct 41.4 MCV 91.8 MCH 30.0 MCHC 32.7 RDW 14.0 Plt Count 267 MPV 10.6 Sodium 140 Potassium 4.5 Chloride 106 Carbon Dioxide 27 Anion Gap 7 L BUN 5.9 L Creatinine 1.0 Est GFR (CKD-EPI)AfAm 79.35 Est GFR (CKD-EPI)NonAf 68.46 POC Glucometer Random Glucose 154 H Calcium 9.8 Total Bilirubin 0.3 AST 12 L ALT 18 Alkaline Phosphatase 59 Total Protein 7.0 Albumin 3.4 Urine Color Urine Appearance Urine pH Ur Specific [place] Urine Protein Urine Glucose (UA) Urine Ketones Urine Blood Urine Nitrite Urine Bilirubin Urine Urobilinogen Ur Leukocyte Esterase POC Urine HCG, Qual Negative RPR Titer T.pallidum Ab (A) 08/03/19 08/03/19 08/06/19 09:20 15:26 06:41 WBC RBC Hgb Hct MCV MCH MCHC RDW Plt Count MPV Sodium Potassium Chloride Carbon Dioxide Anion Gap BUN Creatinine Est GFR (CKD-EPI)AfAm Est GFR (CKD-EPI)NonAf POC Glucometer 107 Random Glucose Calcium Total Bilirubin AST ALT Alkaline Phosphatase Total Protein Albumin Urine Color Yellow Urine Appearance Error Urine pH 8.0 Ur Specific [place] 1.017 Urine Protein Negative Urine Glucose (UA) Negative Urine Ketones Negative Urine Blood Negative Urine Nitrite Negative Urine Bilirubin Negative Urine Urobilinogen 0.2 Ur Leukocyte Esterase Negative POC Urine HCG, Qual RPR Titer Reactive 1:2 H T.pallidum Ab (MHA) Reactive 08/07/19 08/09/19 08/10/19 06:30 07:21 06:41 WBC RBC Hgb Hct MCV MCH MCHC RDW Plt Count MPV Sodium Potassium Chloride Carbon Dioxide Anion Gap BUN Creatinine Est GFR (CKD-EPI)AfAm Est GFR (CKD-EPI)NonAf POC Glucometer 117 117 112 Random Glucose Calcium Total Bilirubin AST ALT Alkaline Phosphatase Total Protein Albumin Urine Color Urine Appearance Urine pH Ur Specific [place] Urine Protein Urine Glucose (UA) Urine Ketones Urine Blood Urine Nitrite Urine Bilirubin Urine Urobilinogen Ur Leukocyte Esterase POC Urine HCG, Qual RPR Titer T.pallidum Ab ([facility]) 08/10/19 08:25 WBC RBC Hgb Hct MCV MCH MCHC RDW Plt Count MPV Sodium Potassium Chloride Carbon Dioxide Anion Gap BUN Creatinine Est GFR (CKD-EPI)AfAm Est GFR (CKD-EPI)NonAf POC Glucometer Random Glucose Calcium Total Bilirubin AST ALT Alkaline Phosphatase Total Protein Albumin Urine Color Urine Appearance Urine pH Ur Specific [place] Urine Protein Urine Glucose (UA) Urine Ketones Urine Blood Urine Nitrite Urine Bilirubin Urine Urobilinogen Ur Leukocyte Esterase POC Urine HCG, Qual RPR Titer Reactive 1:2 H T.pallidum Ab ([facility]) Previously reactive - Treatment Discharge Condition: Discharge condition good Hospital Course: Rehabilitated safely and responded well. Accepted aftercare referral - Medication Discharge Medications: Ambulatory Orders Doxepin HCl [Sinequan -] 25 mg PO BID #60 capsule 12/23/18 traZODone HCL [Desyrel -] 50 mg PO HS #30 tablet 01/05/19 Quetiapine Fumarate [Seroquel -] 50 mg PO HS #30 tablet 02/22/19 Quetiapine Fumarate [Seroquel] 50 mg PO HS 30 Days #30 tablet 02/22/19 Sertraline HCl [Zoloft -] 50 mg PO DAILY #30 tablet 02/22/19 Sertraline HCl [Zoloft -] 50 mg PO DAILY 30 Days #30 tablet 08/21/19 traZODone HCL [Desyrel -] 50 mg PO HS #30 tablet 08/21/19 Buprenorphine/Naloxone [Suboxone 2Mg/0.5MG Sl Film -] 3 combo SL DAILY 7 Days # 21 packet MDD 3 08/22/19 Hydrochlorothiazide [Hctz -] 25 mg PO DAILY #30 tablet 08/22/19 Lisinopril [Prinivil -] 40 mg PO DAILY #30 tablet 08/22/19 Sertraline HCl [Zoloft -] 50 mg PO DAILY #30 tablet 08/22/19 traZODone HCL [Trazodone HCl] 50 mg PO HS #30 tablet 08/22/19 - Medication-Assisted Treatment (MAT) Medication-Assisted Treatment (MAT): Yes Medication Prescribed: Suboxone MAT Follow-up Referral: Nasrin rutledge - Discharge Instructions Diet, activity, other medical instructions: Diet:Low salt diet Activity: oob ad mary carmen Other medical instructions:Follow up with primary care and CD aftercare with [facility] after discharge today. - Diagnosis (1) HTN (hypertension) Status: Chronic Qualifiers: Hypertension type: essential hypertension Qualified Code(s): I10 - Essential (primary) hypertension (2) Alcohol dependence Status: Chronic Qualifiers: Substance use status: uncomplicated Qualified Code(s): F10.20 - Alcohol dependence, uncomplicated (3) Cocaine dependence Status: Chronic Qualifiers: Substance use status: uncomplicated Qualified Code(s): F14.20 - Cocaine dependence, uncomplicated (4) Lymphedema in adult patient Status: Chronic (5) Nicotine dependence Status: Chronic Qualifiers: Nicotine product type: cigarettes Substance use status: uncomplicated Qualified Code(s): F17.210 - Nicotine dependence, cigarettes, uncomplicated (6) Opioid dependence on agonist therapy Status: Chronic - Follow-up Referral Minutes to complete discharge: 25 - AMA Did Patient Leave Against Medical Advice: No
[2019-08-22 11:12] VITALS: BP 153/103; PULSE 84
== END 2019-08-22 11:25 | disposition home or self-care (01) | DRG 772 ==
LOC: YASAS 10:11 → Y3E 17:57 → Y3N 08-10 14:08 → Y3E 08-10 14:10 → Y3W 08-13 14:03 → Y3E 08-13 14:28 → Y3W 08-13 14:36 → Y3E 08-17 17:37
PROVIDERS: ADMIT Surgery; ATTEND Neuromusculoskeletal Medicine & OMM
PROC: HZ42ZZZ Group Counseling for Substance Abuse Treatment, Cognitive-Behavioral (ICD-10-PCS; principal; 2019-08-22)
DX: F10.20 Alcohol dependence, uncomplicated (principal); F11.20 Opioid dependence, uncomplicated; F14.20 Cocaine dependence, uncomplicated; F17.210 Nicotine dependence, cigarettes, uncomplicated; F19.282 Other psychoactive substance dependence with psychoactive substance-induced sleep disorder; F19.24 Other psychoactive substance dependence with psychoactive substance-induced mood disorder; F43.10 Post-traumatic stress disorder, unspecified; F32.9 Major depressive disorder, single episode, unspecified; I10 Essential (primary) hypertension; I89.0 Lymphedema, not elsewhere classified; L85.3 Xerosis cutis; A53.0 Latent syphilis, unspecified as early or late; S80.812A Abrasion, left lower leg, initial encounter; W22.03XA Walked into furniture, initial encounter; Y93.89 Activity, other specified; Y92.238 Other place in hospital as the place of occurrence of the external cause; Y99.8 Other external cause status
CPT/HCPCS: 36415; 80053; 81003; 81025; 82962; 85027; 86593; 86780; J0735

== ENCOUNTER 2020-06-18 13:13 | Inpatient (IN) | payer OTHER ==
--- NOTE | 2020-06-18 13:26 | BHS.RME ---
Substance Use & Tx History - Substance Use History Alcohol Substance amount: 1/5 of víctor hoffman Frequency of use: Daily Substance route: Oral Date of Last Use: 06/18/20 (8am) Ecstasy Substance amount: 5-6 pills Frequency of use: Daily Substance route: Oral Date of Last Use: 06/18/20 Nicotine Substance amount: 10 ciggs Frequency of use: Less than 3 times per week Substance route: Smoking Date of Last Use: 06/18/20 Physical/Psych/Mental Status - Behavior General Behavior: Increased activity (restlessness, agitation) Eye Contact: Normal - Cooperativeness Cooperativeness: Cooperative - Thinking Thought Processes: Tight, Logical, Goal Directed - Physical Health Problems Is patient presently having any pain?: No Does patient presently have any injuries (include location): No Does patient currently have a fever: No Is patient : No CIWA Nausea/Vomitin-Mild Nausea/No Vomiting Muscle Tremors: 3 Anxiety: 3 Agitation: 3 Paroxysmal Sweats: 2 Orientation: 0-Oriented Tacttile Disturbances: 0-None Auditory Disturbances: 0-None Visual Disturbances: 0-None Headache: 0-None Present CIWA-Ar Total Score: 12 Treatment Recommendation - Level of Care Level of Care: Outpatient (patient does not meet criteria for detox)
[2020-06-18] MEDS ORDERED: ONDANSETRON *ODT* 4 MG TABLET SL PRN (14:39)
[2020-06-18] MEDS ORDERED: MAG HYDROX/AL HYDROX/SIMETH 30 ML UNIT-DOSE CUP PO PRN (14:39)
[2020-06-18] MEDS ORDERED: ACETAMINOPHEN 325 MG TABLET (FP) PO PRN ×2 (14:39)
[2020-06-18] MEDS ORDERED: MENTHOL/PHENOL 1 EACH UD MM PRN (14:39)
[2020-06-18] MEDS ORDERED: MAGNESIUM CITRATE 300 ML BOTTLE PO PRN (14:39)
[2020-06-18] MEDS ORDERED: chlordiazePOXIDE HCL 25 MG CAPSULE PO PRN (14:39)
[2020-06-18] MEDS ORDERED: NICOTINE POLACRILEX 2 MG GUM BUC PRN (14:39)
[2020-06-18] MEDS ORDERED: BISMUTH SUBSALICYLATE 524 MG/30 ML UD PO PRN (14:39)
[2020-06-18] MEDS ORDERED: IBUPROFEN 400 MG TABLET (FP) PO PRN (14:39)
[2020-06-18] MEDS ORDERED: MAGNESIUM HYDROX 2400MG/30ML ORAL SUSPENSION 30 ML CUP PO PRN (14:39)
--- NOTE | 2020-06-18 14:39 | HP ---
CIWA Score Nausea/Vomitin-Mild Nausea/No Vomiting Muscle Tremors: 3 Anxiety: 3 Agitation: 3 Paroxysmal Sweats: 2 Orientation: 0-Oriented Tacttile Disturbances: 0-None Auditory Disturbances: 0-None Visual Disturbances: 0-None Headache: 0-None Present CIWA-Ar Total Score: 12 - Admission Criteria OASAS Guidelines: Admission for Medically Managed Detox: Requires at least one of the followin. CIWA greater than 12 2. Seizures within the past 24 hours 3. Delirium tremens within the past 24 hours 4. Hallucinations within the past 24 hours 5. Acute intervention needed for co occurring medical disorder 6. Acute intervention needed for co occurring psychiatric disorder 7. Severe withdrawal that cannot be handled at a lower level of care (continued vomiting, continued diarrhea, abnormal vital signs) requiring intravenous medication and/or fluids 8. Admitting History and Physical - Admission Chief Complaint: Ms. Cristina is a 45 yo woman who presents to [facility] stating "I need to go to detox again and will then complete rehab". She requests admission for alcohol use disorder. History of Present Illness: Ms. Cristina is a 45 yo woman who presents to [facility] stating "I need to go to detox again and will then complete rehab". She requests admission for alcohol use disorder. She was last here for detox and rehab between May 14 and May 22. She left early to attend to her daughter. PMH: HTN PSH: none Psych: PTSD SOC: [facility] [place] Legal: none Substance Use History Alcohol Substance amount: /5 of [email or web address] [place] Frequency of use: Daily Substance route: Oral Date of Last Use: 06/18/20 (8am) First use age 23y No seiuzres or blackouts. 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 Cardiovascular: Yes: HTN ...LMP: 04/22/20 Psych: Yes: Addictions, Anxiety, Depression, Other (ptsd) - Smoking History Smoking history: Current every day smoker Have you smoked in the past 12 months: Yes Aproximately how many cigarettes per day: 10 - Alcohol/Substance Use Hx Alcohol Use: Yes History of Substance Use: reports: Cocaine - Social History ADL: Support Services Occupation: unemployed History of Recent Travel: No Admission ROS S - HPI Allergies/Adverse Reactions: Allergies Allergy/AdvReac Type Severity Reaction Status Date / Time No Known Allergies Allergy Verified 05/09/20 10:51 Exam Limitations: No Limitations - Ebola screening Have you traveled outside of the country in the last 21 days: No Have you been sick,other than usual withdrawal symptoms: No Do you have a fever: No - Review of Systems Constitutional: No Symptoms Reported EENT: reports: No Symptoms Reported Respiratory: reports: No Symptoms reported Cardiac: reports: No Symptoms Reported GI: reports: No Symptoms Reported : reports: No Symptoms Reported Musculoskeletal: reports: No Symptoms Reported Integumentary: reports: No Symptoms Reported Neuro: reports: No Symptoms reported Endocrine: reports: No Symptoms Reported Hematology: reports: No Symptoms Reported Psychiatric: reports: Anxious Patient History - Patient Medical History Hx Anemia: No Hx Asthma: No Hx Chronic Obstructive Pulmonary Disease (COPD): No Hx Cancer: No Hx Cardiac Disorders: No Hx Congestive Heart Failure: No Hx Hypertension: Yes Hx Hypercholesterolemia: No Hx Pacemaker: No HX Cerebrovascular Accident: No Hx Seizures: No Hx Dementia: No Hx Diabetes: No Hx Gastrointestinal Disorders: No Hx Liver Disease: No Hx Genitourinary Disorders: No Hx Sexually Transmitted Disorders: Yes (syphilis) Hx Renal Disease (ESRD): No Hx Thyroid Disease: No Hx Human Immunodeficiency Virus (HIV): No (LAST TEST 11/2018 NEGATIVE) Hx Hepatitis C: No Hx Depression: Yes Hx Suicide Attempt: Yes (cut wrist last 2003, od by alchol last 2016) Hx Bipolar Disorder: No Hx Schizophrenia: No - Patient Surgical History Past Surgical History: No Hx Neurologic Surgery: No Hx Cataract Extraction: No Hx Cardiac Surgery: No Hx Lung Surgery: No Hx Breast Surgery: No Hx Breast Biopsy: No Hx Abdominal Surgery: No Hx Appendectomy: No Hx Cholecystectomy: No Hx Genitourinary Surgery: No Hx Section: No Hx Orthopedic Surgery: No Hx Hysterectomy: No Anesthesia Reaction: No - PPD History Date: 04/10/20 Results: 0 mm - Reproductive History Last Menstrual Period: 04/22/20 - Smoking Cessation Smoking history: Current every day smoker Have you smoked in the past 12 months: Yes Aproximately how many cigarettes per day: 10 Hx Chewing Tobacco Use: No Initiated information on smoking cessation: Yes 'Breaking Loose' booklet given: 06/18/20 Admission Physical Exam [facility] - Physical General Appearance: Yes: Within Normal Limits, No Apparent Distress, Nourished, Appropriately Dressed HEENTM: Yes: EOMI, Hearing grossly Normal, Normocephalic, Normal Voice Respiratory: Yes: Lungs Clear, Normal Breath Sounds, No Accessory Muscle Use Neck: Yes: Within Normal Limits, Supple Cardiology: Yes: Regular Rhythm, Regular Rate, S1, S2 Abdominal: Yes: Normal Bowel Sounds, Non Tender, Flat, Soft Genitourinary: Yes: Other (deferred) Back: Yes: Normal Inspection Extremities: Yes: Normal Inspection, Non-Tender Neurological: Yes: Fully Oriented, Alert, Normal Mood/Affect, Normal Response Integumentary: Yes: Within Normal Limits - Diagnostic (1) Alcohol dependence with uncomplicated withdrawal Current Visit: Yes Status: Acute (2) Ecstasy abuse Current Visit: Yes Status: Acute (3) HTN (hypertension) Current Visit: Yes Status: Chronic Qualifiers: Hypertension type: essential hypertension Qualified Code(s): I10 - Essential (primary) hypertension (4) Nicotine dependence Current Visit: Yes Status: Acute Qualifiers: Nicotine product type: cigarettes Substance use status: in withdrawal Enrique lified Code(s): F17.213 - Nicotine dependence, cigarettes, with withdrawal Cleared for Admission [facility] - Detox or Rehab [facility] Level of Care: Medically Managed Detox Regimen/Protocol: Librium Breathalyzer - Breathalyzer Breathalyzer: 0 Urine Drug Screen - Test Device Lot number: [id number] Expiration date: 07/30/21 - Control Is test valid?: Yes - Results Drug screen NEGATIVE: No Urine drug screen results: PREM-Cocaine, MET-Methamphetamine, AMP-Amphetamines Inpatient Rehab Admission - Rehab Decision to Admit Inpatient rehab admission?: No
[2020-06-18 16:43] VITALS: BMI 20.9
[2020-06-18] MEDS ORDERED: MASKS NR ONE (17:31)
[2020-06-18] MEDS: hydrOXYzine PAMOATE 25 MG CAPSULE (FP) PO SCH ×2 (17:33→22:38)
[2020-06-18] MEDS: NICOTINE 14 MG/24 HOURS TOPICAL PATCH TD SCH (17:33)
[2020-06-18] MEDS: chlordiazePOXIDE HCL 25 MG CAPSULE PO SCH ×2 (17:33→22:39)
[2020-06-18 17:41] LABS: ALBUMIN 3.7 g/dl (3.4-5.0); BILIRUBIN,TOTAL 0.4 mg/dL (0.2-1); BLOOD UREA NITROGEN 7.4 mg/dL (7-18); CALCIUM 9.2 mg/dL (8.5-10.1); CREATININE 0.9 mg/dL (0.55-1.3); POTASSIUM 3.7 mmol/L (3.5-5.1); TOT PROT 7.6 g/dl (6.4-8.2)
[2020-06-18] MEDS ORDERED: cloNIDine HCL 0.1 MG TABLET PO ONE (17:41)
[2020-06-18 17:48] LABS: HEMATOCRIT 40.2 % (32.4-45.2); MCH 29.4 pg (25.7-33.7); MCHC 32.4 g/dl (32.0-36.0); MEAN CELL VOLUME 90.8 fl (80-96); MEAN PLT VOLUME 9.4 fl (7.5-11.1); PLATELET COUNT 292 K/MM3 (134-434); RBC 4.43 M/mm3 (3.60-5.2); RDW 13.8 % (11.6-15.6); WHITE BLOOD COUNT 7.9 K/mm3 (4.0-10.0)
[2020-06-18] MEDS ORDERED: LISINOPRIL 10 MG TABLET (FP) PO ONE ×2 (22:00→23:00)
[2020-06-18] MEDS: MELATONIN 5 MG TABLETS PO SCH (22:38)
[2020-06-18] MEDS: THIAMINE HCL 100 MG TABLET (FP) PO SCH (22:39)
[2020-06-19] MEDS: chlordiazePOXIDE HCL 25 MG CAPSULE PO SCH ×4 (05:52→22:56)
[2020-06-19] MEDS: hydrOXYzine PAMOATE 25 MG CAPSULE (FP) PO SCH ×5 (05:52→22:56)
[2020-06-19] MEDS ORDERED: PATIENT'S OWN MEDICATION (NON-FORMULARY) (Lisinopril [Prinivil -] 40 MG) PO SCH (10:00)
[2020-06-19] MEDS ORDERED: amLODIPine BESYLATE 10 MG TABLET (FP) PO SCH (10:00)
[2020-06-19] MEDS: amLODIPine BESYLATE 10 MG TABLET (FP) PO SCH (10:23)
[2020-06-19] MEDS: NICOTINE 14 MG/24 HOURS TOPICAL PATCH TD SCH (10:23)
[2020-06-19] MEDS: LISINOPRIL 20 MG TABLET (FP) PO SCH (10:23)
[2020-06-19] MEDS: PRENATAL VITAMINS W/ FOLIC ACID TABLET (FP) PO SCH (10:23)
--- NOTE | 2020-06-19 12:11 | PN ---
[facility] CIWA - CIWA Score Nausea/Vomitin-Mild Nausea/No Vomiting Muscle Tremors: 3 Anxiety: 2 Agitation: 2 Paroxysmal Sweats: 1-Minimal Palms Moist Orientation: 0-Oriented Tacttile Disturbances: 0-None Auditory Disturbances: 0-None Visual Disturbances: 2-Mild Sensitivity Headache: 0-None Present CIWA-Ar Total Score: 11 S Progress Note (SOAP) Subjective: 45 years old female admitted on 06/18/20 for alcohol withdrawal sx management treating with librium detox regiment ate breakfast and lunch in room resting in bed limited conversation with staff prefers to stay in bed today Objective: 06/19/20 12:13 Vital Signs - 24 hr 06/18/20 06/18/20 06/18/20 16:39 17:32 20:23 Temperature 98.1 F 96.8 F L 96.9 F L Pulse Rate 74 62 63 Respiratory 18 18 18 Rate Blood Pressure 171/103 H 170/101 H 130/84 O2 Sat by Pulse 99 99 Oximetry (%) 06/19/20 06/19/20 06:28 09:01 Temperature 97.5 F L 97.6 F Pulse Rate 60 67 Respiratory 18 18 Rate Blood Pressure 121/84 108/64 O2 Sat by Pulse 98 Oximetry (%) Laboratory Tests 06/18/20 06/18/20 06/18/20 14:30 14:30 14:30 WBC 7.9 RBC 4.43 Hgb 13.0 Hct 40.2 MCV 90.8 MCH 29.4 MCHC 32.4 RDW 13.8 Plt Count 292 MPV 9.4 Sodium 139 Potassium 3.7 Chloride 107 Carbon Dioxide 25 Anion Gap 6 L BUN 7.4 Creatinine 0.9 Est GFR (CKD-EPI)AfAm 89.50 Est GFR (CKD-EPI)NonAf 77.22 Random Glucose 101 Calcium 9.2 Total Bilirubin 0.4 AST 18 ALT 25 Alkaline Phosphatase 68 Total Protein 7.6 Albumin 3.7 POC Urine HCG, Qual Syphilis Serology Reactive A* RPR Titer 06/18/20 06/18/20 14:30 14:55 WBC RBC Hgb Hct MCV MCH MCHC RDW Plt Count MPV Sodium Potassium Chloride Carbon Dioxide Anion Gap BUN Creatinine Est GFR (CKD-EPI)AfAm Est GFR (CKD-EPI)NonAf Random Glucose Calcium Total Bilirubin AST ALT Alkaline Phosphatase Total Protein Albumin POC Urine HCG, Qual Negative Syphilis Serology RPR Titer Reactive 1:1 H syphilis contact treated 06/19/20 12:15 Assessment: 06/19/20 12:16 alcohol withdrawal Plan: librium regiment
[2020-06-19] MEDS: METHOCARBAMOL 500 MG TABLET PO PRN (13:47)
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
[2020-06-19] MEDS: ARIPiprazole 5 MG TABLET PO SCH (22:56)
[2020-06-19] MEDS: GABAPENTIN 100 MG CAPSULE PO SCH (22:56)
[2020-06-19] MEDS: MELATONIN 5 MG TABLETS PO SCH (22:57)
[2020-06-19] MEDS: THIAMINE HCL 100 MG TABLET (FP) PO SCH (22:57)
[2020-06-19] MEDS: traZODone HCL 50 MG TABLET (FP) PO SCH (22:57)
[2020-06-20] MEDS: hydrOXYzine PAMOATE 25 MG CAPSULE (FP) PO SCH (05:59)
[2020-06-20] MEDS: GABAPENTIN 100 MG CAPSULE PO SCH ×3 (05:59→21:45)
[2020-06-20] MEDS: chlordiazePOXIDE HCL 25 MG CAPSULE PO SCH ×4 (05:59→22:41)
[2020-06-20] MEDS ORDERED: hydrOXYzine PAMOATE 25 MG CAPSULE (FP) PO PRN (09:46)
--- NOTE | 2020-06-20 09:47 | PN ---
S CIWA - CIWA Score Nausea/Vomitin-Mild Nausea/No Vomiting Muscle Tremors: 3 Anxiety: 1-Mildly Anxious Agitation: 0-Normal Activity Paroxysmal Sweats: No Perspiration Orientation: 0-Oriented Tacttile Disturbances: 1-Very Mild Itch/Numbness Auditory Disturbances: 0-None Visual Disturbances: 2-Mild Sensitivity Headache: 2-Mild CIWA-Ar Total Score: 10 BHS Progress Note (SOAP) Subjective: 45 years old female admitted on 06/18/20 for alcohol withdrawal sx management treating with librium detox regiment feeling better today ensure 120ml po tid with meals vistaril prn Objective: 06/20/20 09:49 Vital Signs - 24 hr 06/19/20 06/19/20 06/19/20 12:45 16:34 20:59 Temperature 98 F 97.5 F L 97.7 F Pulse Rate 62 73 73 Respiratory 18 16 18 Rate Blood Pressure 123/73 134/93 133/91 O2 Sat by Pulse 96 96 97 Oximetry (%) 06/20/20 06/20/20 06:17 08:47 Temperature 98.0 F 97.1 F L Pulse Rate 66 70 Respiratory 18 18 Rate Blood Pressure 113/71 110/70 O2 Sat by Pulse 97 Oximetry (%) Laboratory Tests 06/18/20 06/18/20 06/18/20 14:30 14:30 14:30 WBC 7.9 RBC 4.43 Hgb 13.0 Hct 40.2 MCV 90.8 MCH 29.4 MCHC 32.4 RDW 13.8 Plt Count 292 MPV 9.4 Sodium 139 Potassium 3.7 Chloride 107 Carbon Dioxide 25 Anion Gap 6 L BUN 7.4 Creatinine 0.9 Est GFR (CKD-EPI)AfAm 89.50 Est GFR (CKD-EPI)NonAf 77.22 Random Glucose 101 Calcium 9.2 Total Bilirubin 0.4 AST 18 ALT 25 Alkaline Phosphatase 68 Total Protein 7.6 Albumin 3.7 POC Urine HCG, Qual Syphilis Serology Reactive A* RPR Titer 06/18/20 06/18/20 14:30 14:55 WBC RBC Hgb Hct MCV MCH MCHC RDW Plt Count MPV Sodium Potassium Chloride Carbon Dioxide Anion Gap BUN Creatinine Est GFR (CKD-EPI)AfAm Est GFR (CKD-EPI)NonAf Random Glucose Calcium Total Bilirubin AST ALT Alkaline Phosphatase Total Protein Albumin POC Urine HCG, Qual Negative Syphilis Serology RPR Titer Reactive 1:1 H syphilis treated by history 06/20/20 09:49 covid pending Assessment: 06/20/20 09:50 alcohol withdrawal Plan: librium regiment
[2020-06-20] MEDS: NICOTINE 14 MG/24 HOURS TOPICAL PATCH TD SCH (10:22)
[2020-06-20] MEDS: SERTRALINE HCL 25 MG TABLET (FP) PO SCH (10:23)
[2020-06-20] MEDS: LISINOPRIL 20 MG TABLET (FP) PO SCH (10:24)
[2020-06-20] MEDS: amLODIPine BESYLATE 10 MG TABLET (FP) PO SCH (10:24)
[2020-06-20] MEDS: PRENATAL VITAMINS W/ FOLIC ACID TABLET (FP) PO SCH (10:24)
[2020-06-20] MEDS: METHOCARBAMOL 500 MG TABLET PO PRN ×2 (11:01→19:27)
[2020-06-20] MEDS: traZODone HCL 50 MG TABLET (FP) PO SCH (21:45)
[2020-06-20] MEDS: THIAMINE HCL 100 MG TABLET (FP) PO SCH (21:45)
[2020-06-20] MEDS: ARIPiprazole 5 MG TABLET PO SCH (21:45)
[2020-06-20] MEDS: MELATONIN 5 MG TABLETS PO SCH (21:46)
[2020-06-21] MEDS ORDERED: chlordiazePOXIDE HCL 10 MG CAPSULE PO PRN
[2020-06-21] MEDS: GABAPENTIN 100 MG CAPSULE PO SCH ×3 (05:52→22:44)
[2020-06-21] MEDS: chlordiazePOXIDE HCL 10 MG CAPSULE PO SCH ×4 (05:52→22:44)
[2020-06-21] MEDS: METHOCARBAMOL 500 MG TABLET PO PRN (09:04)
--- NOTE | 2020-06-21 09:29 | PN ---
S CIWA - CIWA Score Nausea/Vomitin-Mild Nausea/No Vomiting Muscle Tremors: 2 Anxiety: 1-Mildly Anxious Agitation: 1-Slight > Activity Paroxysmal Sweats: 2 Orientation: 0-Oriented Tacttile Disturbances: 1-Very Mild Itch/Numbness Auditory Disturbances: 0-None Visual Disturbances: 0-None Headache: 0-None Present CIWA-Ar Total Score: 8 BHS Progress Note (SOAP) Subjective: 45 years old female admitted on 06/18/20 for alcohol withdrawal sx management treating with librium detox regiment seen by psychiatrist resume gabapentin abilify and zoloft feeling better today ate breakfast in room showered discussing aftercare with staff [facility] for alcohol recovery Objective: 06/21/20 09:28 Vital Signs - 24 hr 06/20/20 06/20/20 06/20/20 12:37 16:30 20:27 Temperature 98.8 F 96.4 F L 97.7 F Pulse Rate 60 78 69 Respiratory 18 18 18 Rate Blood Pressure 108/70 143/98 152/99 O2 Sat by Pulse 96 97 Oximetry (%) 06/21/20 06:18 Temperature 97.7 F Pulse Rate 66 Respiratory 18 Rate Blood Pressure 127/83 O2 Sat by Pulse 100 Oximetry (%) Laboratory Tests 06/18/20 06/18/20 06/18/20 14:30 14:30 14:30 WBC 7.9 RBC 4.43 Hgb 13.0 Hct 40.2 MCV 90.8 MCH 29.4 MCHC 32.4 RDW 13.8 Plt Count 292 MPV 9.4 Sodium 139 Potassium 3.7 Chloride 107 Carbon Dioxide 25 Anion Gap 6 L BUN 7.4 Creatinine 0.9 Est GFR (CKD-EPI)AfAm 89.50 Est GFR (CKD-EPI)NonAf 77.22 Random Glucose 101 Calcium 9.2 Total Bilirubin 0.4 AST 18 ALT 25 Alkaline Phosphatase 68 Total Protein 7.6 Albumin 3.7 POC Urine HCG, Qual Syphilis Serology Reactive A* RPR Titer COVID-19 (DEEPA) 06/18/20 06/18/20 06/18/20 14:30 14:55 21:15 WBC RBC Hgb Hct MCV MCH MCHC RDW Plt Count MPV Sodium Potassium Chloride Carbon Dioxide Anion Gap BUN Creatinine Est GFR (CKD-EPI)AfAm Est GFR (CKD-EPI)NonAf Random Glucose Calcium Total Bilirubin AST ALT Alkaline Phosphatase Total Protein Albumin POC Urine HCG, Qual Negative Syphilis Serology RPR Titer Reactive 1:1 H COVID-19 (DEEPA) Not detected lab noted syphilis contacted treated Assessment: 06/21/20 09:28 alcohol withdrawal Plan: librium regiment
[2020-06-21] MEDS: PRENATAL VITAMINS W/ FOLIC ACID TABLET (FP) PO SCH (10:17)
[2020-06-21] MEDS: LISINOPRIL 20 MG TABLET (FP) PO SCH (10:18)
[2020-06-21] MEDS: amLODIPine BESYLATE 10 MG TABLET (FP) PO SCH (10:18)
[2020-06-21] MEDS: SERTRALINE HCL 25 MG TABLET (FP) PO SCH (10:18)
[2020-06-21] MEDS: NICOTINE 14 MG/24 HOURS TOPICAL PATCH TD SCH (10:19)
[2020-06-21] MEDS: THIAMINE HCL 100 MG TABLET (FP) PO SCH (22:44)
[2020-06-21] MEDS: ARIPiprazole 5 MG TABLET PO SCH (22:44)
[2020-06-21] MEDS: traZODone HCL 50 MG TABLET (FP) PO SCH (22:44)
[2020-06-21] MEDS: MELATONIN 5 MG TABLETS PO SCH (22:45)
[2020-06-22] MEDS: GABAPENTIN 100 MG CAPSULE PO SCH ×3 (06:51→21:13)
[2020-06-22] MEDS: chlordiazePOXIDE HCL 10 MG CAPSULE PO SCH ×2 (06:51→18:03)
[2020-06-22] MEDS: NICOTINE 14 MG/24 HOURS TOPICAL PATCH TD SCH (09:59)
[2020-06-22] MEDS: LISINOPRIL 20 MG TABLET (FP) PO SCH (09:59)
[2020-06-22] MEDS: PRENATAL VITAMINS W/ FOLIC ACID TABLET (FP) PO SCH (09:59)
[2020-06-22] MEDS: amLODIPine BESYLATE 10 MG TABLET (FP) PO SCH (09:59)
[2020-06-22] MEDS: SERTRALINE HCL 25 MG TABLET (FP) PO SCH (09:59)
--- NOTE | 2020-06-22 10:46 | PN ---
[facility] CIWA - CIWA Score Nausea/Vomitin-Mild Nausea/No Vomiting Muscle Tremors: None Anxiety: 1-Mildly Anxious Agitation: 0-Normal Activity Paroxysmal Sweats: 1-Minimal Palms Moist Orientation: 2-Disoriented Date<2 days Tacttile Disturbances: 0-None Auditory Disturbances: 0-None Visual Disturbances: 1-Very Mild Sensitivity Headache: 0-None Present CIWA-Ar Total Score: 6 BHS Progress Note (SOAP) Subjective: Complains of nausea, anxiety, sweats, light sensitivity, restless legs Objective: 06/22/20 10:48 PE Gnl: WDWN Laboratory Tests 06/18/20 06/18/20 06/18/20 14:30 14:30 14:30 WBC 7.9 RBC 4.43 Hgb 13.0 Hct 40.2 MCV 90.8 MCH 29.4 MCHC 32.4 RDW 13.8 Plt Count 292 MPV 9.4 Sodium 139 Potassium 3.7 Chloride 107 Carbon Dioxide 25 Anion Gap 6 L BUN 7.4 Creatinine 0.9 Est GFR (CKD-EPI)AfAm 89.50 Est GFR (CKD-EPI)NonAf 77.22 Random Glucose 101 Calcium 9.2 Total Bilirubin 0.4 AST 18 ALT 25 Alkaline Phosphatase 68 Total Protein 7.6 Albumin 3.7 POC Urine HCG, Qual Syphilis Serology Reactive A* RPR Titer COVID-19 (DEEPA) 06/18/20 06/18/20 06/18/20 14:30 14:55 21:15 WBC RBC Hgb Hct MCV MCH MCHC RDW Plt Count MPV Sodium Potassium Chloride Carbon Dioxide Anion Gap BUN Creatinine Est GFR (CKD-EPI)AfAm Est GFR (CKD-EPI)NonAf Random Glucose Calcium Total Bilirubin AST ALT Alkaline Phosphatase Total Protein Albumin POC Urine HCG, Qual Negative Syphilis Serology RPR Titer Reactive 1:1 H COVID-19 (DEEPA) Not detected Active Medications Generic Name Dose Route Start Last Admin Trade Name Freq PRN Reason Stop Dose Admin Acetaminophen 650 mg 06/18/20 14:39 Tylenol - PO Q6H PRN PAIN LEVEL 4 - 6 Acetaminophen 650 mg 06/18/20 14:39 Tylenol - PO Q6H PRN FEVER Al Hydroxide/Mg Hydroxide 30 ml 06/18/20 14:39 Mylanta Oral Suspension - PO Q6H PRN DYSPEPSIA Amlodipine Besylate 10 mg 06/19/20 10:00 06/22/20 09:59 Norvasc - PO 10 mg DAILY ANGELA Administration Aripiprazole 5 mg 06/19/20 22:00 06/21/20 22:44 Abilify PO 5 mg HS [facility] Administration Bismuth Subsalicylate 524 mg 06/18/20 14:39 Pepto-Bismol - PO Q1H PRN DIARRHEA Chlordiazepoxide HCl 10 mg 06/22/20 05:00 06/22/20 06:51 Librium - PO 06/22/20 17:01 Not Given Q12H ANGELA Chlordiazepoxide HCl 10 mg 06/23/20 05:00 Librium - PO 06/23/20 05:01 ONCE@0500 ONE Eucalyptus/Menthol/Phenol/Sorbitol 1 each 06/18/20 14:39 Cepastat Lozenge - MM 06/24/20 14:39 Q4H PRN SORE THROAT Gabapentin 100 mg 06/19/20 22:00 06/22/20 06:51 Neurontin - PO Not Given TID [facility] Hydroxyzine Pamoate 25 mg 06/20/20 09:46 Vistaril - PO 06/24/20 14:39 Q4H PRN ANXIETY Ibuprofen 400 mg 06/18/20 14:39 Motrin - PO Q6H PRN PAIN LEVEL 1 - 3 Lisinopril 40 mg 06/19/20 10:00 06/22/20 09:59 Prinivil PO 40 mg DAILY [facility] Administration Magnesium Citrate 300 ml 06/18/20 14:39 Citroma - PO Q48H PRN CONSTIPATION Magnesium Hydroxide 30 ml 06/18/20 14:39 Milk Of Magnesia - PO PRN PRN CONSTIPATION Melatonin 5 mg 06/18/20 22:00 06/21/20 22:45 Melatonin PO 5 mg HS [facility] Administration Methocarbamol 500 mg 06/18/20 14:39 06/21/20 09:04 Robaxin - PO 06/24/20 14:39 500 mg Q6H PRN Administration MUSCLE SPASMS Nicotine 14 mg 06/18/20 15:00 06/22/20 09:59 Nicoderm Patch - TD 14 mg DAILY ANGELA Administration Nicotine Polacrilex 2 mg 06/18/20 14:39 Nicorette Gum - BUC Q2H PRN NICOTINE REPLACEMENT RX Ondansetron HCl 4 mg 06/18/20 14:39 Zofran Odt - SL 06/24/20 14:40 Q8H PRN Nausea/Vomiting Multivit/Folic Acid/Iron 1 tab 06/19/20 10:00 06/22/20 09:59 Vitamins (Sjr) - PO 1 tab DAILY ANGELA Administration Sertraline HCl 25 mg 06/20/20 10:00 06/22/20 09:59 Zoloft - PO 25 mg DAILY ANGELA Administration Thiamine HCl 100 mg 06/18/20 22:00 06/21/20 22:44 Vitamin B1 - PO 100 mg HS ANGELA Administration Trazodone HCl 50 mg 06/19/20 22:00 06/21/20 22:44 Desyrel - PO 50 mg HS ANGELA Administration Vital Signs Temperature 97.5 F L 06/22/20 08:50 Pulse Rate 75 06/22/20 08:50 Respiratory Rate 18 06/22/20 08:50 Blood Pressure 132/80 06/22/20 08:50 O2 Sat by Pulse Oximetry (%) 97 06/22/20 08:50 MS: awake, alert, nl mentation Motor: moves limbs well Coord: nl Gait: steady when observed in hallway Assessment: 06/22/20 10:45 Mr. Wayne presents to [facility] requesting detox from alcohol. This is his first admission to [facility]. PMH/PSH/Psych/Legal: none SoC: lives with aunt Substance Use History Alcohol Substance amount: one liter of Vodka Frequency of use: Daily Substance route: Oral Date of Last Use: 06/21/20 (First use age 13y. No seizures, Has had a blackout about 8 mos ago. 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 Alcohol use disorder 2. Ecstasy use disorder 3. Cocaine use disorder 4. Seen by psychiatry: PTSD, substance induced mood disorder, insomnia 06/22/20 10:50 06/22/20 10:50 Plan: 1. Librium protocol, projected finish 06/23
--- NOTE | 2020-06-22 12:59 | PN ---
[facility] Progress Note Note: Called by JAIR Mcneal BP 152/100 Vital signs reviewed Will continue current regime and repeat BP at 2pm
[2020-06-22] MEDS: METHOCARBAMOL 500 MG TABLET PO PRN (18:01)
[2020-06-22] MEDS: THIAMINE HCL 100 MG TABLET (FP) PO SCH (21:13)
[2020-06-22] MEDS: MELATONIN 5 MG TABLETS PO SCH (21:13)
[2020-06-22] MEDS: ARIPiprazole 5 MG TABLET PO SCH (21:13)
[2020-06-22] MEDS: traZODone HCL 50 MG TABLET (FP) PO SCH (21:13)
[2020-06-23] MEDS ORDERED: chlordiazePOXIDE HCL 10 MG CAPSULE PO ONE (05:00)
[2020-06-23] MEDS: GABAPENTIN 100 MG CAPSULE PO SCH (07:09)
[2020-06-23 09:33] VITALS: BP 124/87; PULSE 79; TEMP 97.5
[2020-06-23] MEDS: LISINOPRIL 20 MG TABLET (FP) PO SCH (10:16)
[2020-06-23] MEDS: SERTRALINE HCL 25 MG TABLET (FP) PO SCH (10:16)
[2020-06-23] MEDS: amLODIPine BESYLATE 10 MG TABLET (FP) PO SCH (10:16)
[2020-06-23] MEDS: PRENATAL VITAMINS W/ FOLIC ACID TABLET (FP) PO SCH (10:17)
[2020-06-23] MEDS: NICOTINE 14 MG/24 HOURS TOPICAL PATCH TD SCH (10:17)
--- NOTE | 2020-06-23 13:45 | DS ---
[facility] Detox Discharge Summary Admission Date: 06/18/20 Discharge Date: 06/23/20 - History Present History: Alcohol Dependence Additional Comments: Patient going to [facility] ([facility]) for aftercare. Patient A & O X 3, observed ambulating on Detox Unit unassisted prior to time of discharge. Patient denied current withdrawal / detox symptoms when assessed prior to time of Discharge from Detox Unit. Patient was discharged from Detox Unit to be taken over to Rehab Unit in stable medical condition. Pertinent Past History: Hypertension, Depression, PTSD, Nicotine Dependence, Ecstasy Abuse, Insomnia. - Physical Exam Results Vital Signs: Vital Signs Temperature 97.5 F L 06/23/20 08:33 Pulse Rate 79 06/23/20 08:33 Respiratory Rate 16 06/23/20 08:33 Blood Pressure 124/87 06/23/20 08:33 O2 Sat by Pulse Oximetry (%) 98 06/23/20 08:33 Pertinent Admission Physical Exam Findings: WITHDRAWAL SYMPTOMS Laboratory Tests 06/18/20 06/18/20 06/18/20 14:30 14:30 14:30 WBC 7.9 RBC 4.43 Hgb 13.0 Hct 40.2 MCV 90.8 MCH 29.4 MCHC 32.4 RDW 13.8 Plt Count 292 MPV 9.4 Sodium 139 Potassium 3.7 Chloride 107 Carbon Dioxide 25 Anion Gap 6 L BUN 7.4 Creatinine 0.9 Est GFR (CKD-EPI)AfAm 89.50 Est GFR (CKD-EPI)NonAf 77.22 Random Glucose 101 Calcium 9.2 Total Bilirubin 0.4 AST 18 ALT 25 Alkaline Phosphatase 68 Total Protein 7.6 Albumin 3.7 POC Urine HCG, Qual Syphilis Serology Reactive A* RPR Titer COVID-19 (DEEPA) 06/18/20 06/18/20 06/18/20 14:30 14:55 21:15 WBC RBC Hgb Hct MCV MCH MCHC RDW Plt Count MPV Sodium Potassium Chloride Carbon Dioxide Anion Gap BUN Creatinine Est GFR (CKD-EPI)AfAm Est GFR (CKD-EPI)NonAf Random Glucose Calcium Total Bilirubin AST ALT Alkaline Phosphatase Total Protein Albumin POC Urine HCG, Qual Negative Syphilis Serology RPR Titer Reactive 1:1 H COVID-19 (DEEPA) Not detected Lab Results Noted. - Treatment Hospital Course: Detox Protocol Followed, Detoxed Safely, Responded well, Discharged Condition Good, Rehab Referral Accepted Patient has Accepted a Rehab Referral to: [facility] ([place], [place]) - Medication Discharge Medications: Ambulatory Orders Amlodipine Besylate [Norvasc -] 10 mg PO DAILY #14 tablet 05/22/20 Aripiprazole [Abilify -] 5 mg PO HS #30 tablet 05/22/20 Gabapentin [Neurontin -] 100 mg PO TID #90 capsule 05/22/20 Lisinopril [Prinivil -] 40 mg PO DAILY #30 tablet 05/22/20 Sertraline HCl [Zoloft] 25 mg PO DAILY #30 tablet 05/22/20 traZODone HCL [Desyrel -] 50 mg PO HS #30 tablet 05/22/20 - Diagnosis (1) Alcohol dependence with uncomplicated withdrawal Current Visit: Yes Status: Acute (2) Ecstasy abuse Current Visit: Yes Status: Acute (3) HTN (hypertension) Current Visit: Yes Status: Chronic Qualifiers: Hypertension type: essential hypertension Qualified Code(s): I10 - Essential (primary) hypertension (4) Nicotine dependence Current Visit: Yes Status: Acute Qualifiers: Nicotine product type: cigarettes Substance use status: in withdrawal Qualified Code(s): F17.213 - Nicotine dependence, cigarettes, with withdrawal (5) Insomnia Current Visit: Yes Status: Chronic Qualifiers: Insomnia type: unspecified Qualified Code(s): G47.00 - Insomnia, unspecified (6) Non-compliance Current Visit: Yes Status: Chronic (7) PTSD (post-traumatic stress disorder) Current Visit: Yes Status: Chronic - AMA Did Patient Leave Against Medical Advice: No
== END 2020-06-23 11:46 | disposition other institution (70) | DRG 775 ==
LOC: YASAS 13:13 → Y3N 16:34
PROVIDERS: ADMIT Allergy & Immunology; ATTEND Allergy & Immunology
PROC: HZ2ZZZZ Detoxification Services for Substance Abuse Treatment (ICD-10-PCS; principal; 2020-06-18)
DX: F10.230 Alcohol dependence with withdrawal, uncomplicated (principal); F16.10 Hallucinogen abuse, uncomplicated; F12.10 Cannabis abuse, uncomplicated; F17.210 Nicotine dependence, cigarettes, uncomplicated; F19.24 Other psychoactive substance dependence with psychoactive substance-induced mood disorder; F32.9 Major depressive disorder, single episode, unspecified; F43.10 Post-traumatic stress disorder, unspecified; I10 Essential (primary) hypertension; I89.0 Lymphedema, not elsewhere classified; Z62.810 Personal history of physical and sexual abuse in childhood; Z91.410 Personal history of adult physical and sexual abuse; Z20.2 Contact with and (suspected) exposure to infections with a predominantly sexual mode of transmission; Z91.5 Personal history of self-harm; Z91.19 Patient's noncompliance with other medical treatment and regimen; Z86.19 Personal history of other infectious and parasitic diseases
CPT/HCPCS: 36415; 80053; 81025; 85027; 86593; 86780; J0735; U0003

== ENCOUNTER 2020-06-23 11:51 | Inpatient (IN) | payer OTHER ==
[2020-06-23] MEDS ORDERED: MAGNESIUM CITRATE 300 ML BOTTLE PO PRN (13:54)
[2020-06-23] MEDS ORDERED: MENTHOL/PHENOL 1 EACH UD MM PRN (13:54)
[2020-06-23] MEDS ORDERED: LOPERAMIDE HCL 2 MG CAPSULE PO PRN (13:54)
[2020-06-23] MEDS ORDERED: MAG HYDROX/AL HYDROX/SIMETH 30 ML UNIT-DOSE CUP PO PRN (13:54)
[2020-06-23] MEDS ORDERED: guaiFENesin 200 MG/10 ML 10 ML UNIT-DOSE CUPS PO PRN (13:54)
[2020-06-23] MEDS ORDERED: ACETAMINOPHEN 325 MG TABLET (FP) PO PRN (13:54)
[2020-06-23] MEDS ORDERED: P-EPHED 60MG/TRIPROLIDI 2.5MG TABLET PO PRN (13:54)
[2020-06-23] MEDS ORDERED: MAGNESIUM HYDROX 2400MG/30ML ORAL SUSPENSION 30 ML CUP PO PRN (13:54)
--- NOTE | 2020-06-23 13:59 | HP ---
[facility] Rehab Assess/Revision - Admission History Admitted to Rehab from: [facility] Date of Admission to Rehab: 06/23/2020 - Vital signs Vital Signs: Vital Signs Period Temp Pulse Resp BP Sys/Bland Pulse Ox Last 24 Hr 96.9 F 73-78 18 143-154/96-103 - Findings Detox History & Physical reviewed: Yes Concur with findings: Yes Comments/Additional Findings: Patient's Medical / Medication History reviewed prior to Discharge from Detox Unit. Patient was Discharged from Detox unit to be taken over to Rehab unit in stable medical condition. Inpatient Rehab Admission - Rehab Decision to Admit Inpatient rehab admission?: Yes - Initial Determination Are CD services needed?: Yes Free of communicable disease: Yes Not in need of hospitalization: Yes - Rehab Admission Criteria Previous failed treatment: Yes Poor recovery environment: Yes Comorbidities: Yes Lacks judgement: No Patient is meeting Inpatient Rehab admission criteria:: Yes
[2020-06-23] MEDS: hydrOXYzine PAMOATE 25 MG CAPSULE (FP) PO SCH ×3 (14:47→21:41)
[2020-06-23] MEDS: IBUPROFEN 400 MG TABLET (FP) PO PRN (17:51)
[2020-06-23] MEDS: THIAMINE HCL 100 MG TABLET (FP) PO SCH (21:41)
[2020-06-23] MEDS: MELATONIN 5 MG TABLETS PO SCH (21:41)
[2020-06-24] MEDS: hydrOXYzine PAMOATE 25 MG CAPSULE (FP) PO SCH ×5 (06:37→21:12)
--- NOTE | 2020-06-24 08:23 | CONSULT ---
[facility] Psychiatric Consult - Data Date of interview: 06/24/20 Admission source: 3N Identifying data: Ms Cristina is a 45 years old single Black female, mother of 4 children, unenployed receiving SSI, undomiciled admitted from detox on 06/23/20 for inpatient rehabbilitation treatment for alcohol, cocaine and MDMA Substance Abuse History: Reports history of alcohol, cocaine and ecstacy use. Refer to addiction counselor's summary for further informatiojn Medical History: Significant for lymphedema, hypertension and history of treatment for syphillis (1996). Smokes 10 cigarettes daily Psychiatric History: Patient seen by Dr Patel on 06/19/20 while admitted to detox. She was prescribed Gabapentin 100 mg/tid, Abilify 5 mg/hs, Zoloft 25 mg/day and Trazadone 50 mg/hs. Refer to Dr Patel note. Will continue same medications as ordered by Dr Patel
[2020-06-24] MEDS: GABAPENTIN 100 MG CAPSULE PO SCH ×3 (08:25→21:12)
[2020-06-24] MEDS: PRENATAL VITAMINS W/ FOLIC ACID TABLET (FP) PO SCH (09:04)
[2020-06-24] MEDS: amLODIPine BESYLATE 10 MG TABLET (FP) PO SCH (09:04)
[2020-06-24] MEDS: LISINOPRIL 20 MG TABLET (FP) PO SCH (09:04)
[2020-06-24] MEDS: SERTRALINE HCL 25 MG TABLET (FP) PO SCH (09:04)
[2020-06-24] MEDS: NICOTINE 14 MG/24 HOURS TOPICAL PATCH TD SCH (09:05)
[2020-06-24] MEDS: BENZOCAINE 20 % GEL TUBE MM PRN (12:46)
[2020-06-24] MEDS: MELATONIN 5 MG TABLETS PO SCH (21:12)
[2020-06-24] MEDS: traZODone HCL 50 MG TABLET (FP) PO SCH (21:12)
[2020-06-24] MEDS: ARIPiprazole 5 MG TABLET PO SCH (21:12)
[2020-06-24] MEDS: THIAMINE HCL 100 MG TABLET (FP) PO SCH (21:12)
[2020-06-25] MEDS: GABAPENTIN 100 MG CAPSULE PO SCH ×3 (06:27→22:00)
[2020-06-25] MEDS: hydrOXYzine PAMOATE 25 MG CAPSULE (FP) PO SCH ×5 (06:27→21:59)
[2020-06-25] MEDS: amLODIPine BESYLATE 10 MG TABLET (FP) PO SCH (10:23)
[2020-06-25] MEDS: SERTRALINE HCL 25 MG TABLET (FP) PO SCH (10:23)
[2020-06-25] MEDS: PRENATAL VITAMINS W/ FOLIC ACID TABLET (FP) PO SCH (10:23)
[2020-06-25] MEDS: NICOTINE 14 MG/24 HOURS TOPICAL PATCH TD SCH (10:24)
[2020-06-25] MEDS: LISINOPRIL 20 MG TABLET (FP) PO SCH (10:24)
[2020-06-25] MEDS: NICOTINE POLACRILEX 2 MG GUM BUC PRN (10:27)
[2020-06-25] MEDS ORDERED: PT OWN MED DRAWER 7, Y5N ONE (20:08)
[2020-06-25] MEDS: traZODone HCL 50 MG TABLET (FP) PO SCH (21:59)
[2020-06-25] MEDS: THIAMINE HCL 100 MG TABLET (FP) PO SCH (21:59)
[2020-06-25] MEDS: ARIPiprazole 5 MG TABLET PO SCH (21:59)
[2020-06-25] MEDS: MELATONIN 5 MG TABLETS PO SCH (22:00)
[2020-06-25] MEDS: IBUPROFEN 400 MG TABLET (FP) PO PRN (23:29)
[2020-06-26] MEDS: hydrOXYzine PAMOATE 25 MG CAPSULE (FP) PO SCH ×5 (06:59→21:04)
[2020-06-26] MEDS: GABAPENTIN 100 MG CAPSULE PO SCH ×3 (06:59→21:03)
[2020-06-26] MEDS: SERTRALINE HCL 25 MG TABLET (FP) PO SCH (09:50)
[2020-06-26] MEDS: NICOTINE 14 MG/24 HOURS TOPICAL PATCH TD SCH (09:50)
[2020-06-26] MEDS: amLODIPine BESYLATE 10 MG TABLET (FP) PO SCH (09:50)
[2020-06-26] MEDS: LISINOPRIL 20 MG TABLET (FP) PO SCH (09:50)
[2020-06-26] MEDS: PRENATAL VITAMINS W/ FOLIC ACID TABLET (FP) PO SCH (09:52)
[2020-06-26] MEDS: IBUPROFEN 400 MG TABLET (FP) PO PRN (12:34)
[2020-06-26] MEDS ORDERED: PT OWN MED DRAWER 7, Y5N ONE ×2 (18:48→22:17)
[2020-06-26] MEDS: MELATONIN 5 MG TABLETS PO SCH (21:04)
[2020-06-26] MEDS: THIAMINE HCL 100 MG TABLET (FP) PO SCH (21:04)
[2020-06-26] MEDS: traZODone HCL 50 MG TABLET (FP) PO SCH (21:05)
[2020-06-26] MEDS: ARIPiprazole 5 MG TABLET PO SCH (22:40)
[2020-06-27] MEDS: hydrOXYzine PAMOATE 25 MG CAPSULE (FP) PO SCH ×5 (06:25→21:30)
[2020-06-27] MEDS: GABAPENTIN 100 MG CAPSULE PO SCH ×3 (06:25→21:30)
[2020-06-27] MEDS: SERTRALINE HCL 25 MG TABLET (FP) PO SCH (09:41)
[2020-06-27] MEDS: NICOTINE 14 MG/24 HOURS TOPICAL PATCH TD SCH (09:41)
[2020-06-27] MEDS: amLODIPine BESYLATE 10 MG TABLET (FP) PO SCH (09:41)
[2020-06-27] MEDS: LISINOPRIL 20 MG TABLET (FP) PO SCH (09:42)
[2020-06-27] MEDS: PRENATAL VITAMINS W/ FOLIC ACID TABLET (FP) PO SCH (09:44)
[2020-06-27] MEDS: NICOTINE POLACRILEX 2 MG GUM BUC PRN (13:30)
[2020-06-27] MEDS: IBUPROFEN 400 MG TABLET (FP) PO PRN (14:51)
[2020-06-27] MEDS: THIAMINE HCL 100 MG TABLET (FP) PO SCH (21:30)
[2020-06-27] MEDS: traZODone HCL 50 MG TABLET (FP) PO SCH (21:30)
[2020-06-27] MEDS: ARIPiprazole 5 MG TABLET PO SCH (21:30)
[2020-06-27] MEDS: MELATONIN 5 MG TABLETS PO SCH (21:30)
[2020-06-28] MEDS: GABAPENTIN 100 MG CAPSULE PO SCH ×3 (06:11→21:03)
[2020-06-28] MEDS: hydrOXYzine PAMOATE 25 MG CAPSULE (FP) PO SCH ×5 (06:11→21:03)
[2020-06-28] MEDS: amLODIPine BESYLATE 10 MG TABLET (FP) PO SCH (09:45)
[2020-06-28] MEDS: NICOTINE 14 MG/24 HOURS TOPICAL PATCH TD SCH (09:45)
[2020-06-28] MEDS: PRENATAL VITAMINS W/ FOLIC ACID TABLET (FP) PO SCH (09:46)
[2020-06-28] MEDS: LISINOPRIL 20 MG TABLET (FP) PO SCH (09:46)
[2020-06-28] MEDS: SERTRALINE HCL 25 MG TABLET (FP) PO SCH (09:46)
[2020-06-28] MEDS: NICOTINE POLACRILEX 2 MG GUM BUC PRN (09:47)
[2020-06-28] MEDS: IBUPROFEN 400 MG TABLET (FP) PO PRN (13:38)
[2020-06-28] MEDS: BENZOCAINE 20 % GEL TUBE MM PRN (13:40)
--- NOTE | 2020-06-28 15:08 | PN ---
[facility] Progress Note Note: Patient is scheduled for discharge tomorrow. Scripts for 30 days supply of medications(Gabapentin 100 mg/tid, Abilify 5 mg/hs, Zoloft 25 mg/day, Trazadone 50 mg/hs) will be electronically transmitted to [facility], [address] [place], [place] [id number]
[2020-06-28] MEDS: ARIPiprazole 5 MG TABLET PO SCH (21:03)
[2020-06-28] MEDS: traZODone HCL 50 MG TABLET (FP) PO SCH (21:03)
[2020-06-28] MEDS: THIAMINE HCL 100 MG TABLET (FP) PO SCH (21:03)
[2020-06-28] MEDS: MELATONIN 5 MG TABLETS PO SCH (21:03)
[2020-06-29] MEDS: GABAPENTIN 100 MG CAPSULE PO SCH (05:49)
[2020-06-29] MEDS: hydrOXYzine PAMOATE 25 MG CAPSULE (FP) PO SCH (05:49)
[2020-06-29 06:38] VITALS: BP 147/90; PULSE 72; TEMP 97.3
[2020-06-29] MEDS: IBUPROFEN 400 MG TABLET (FP) PO PRN (07:40)
--- NOTE | 2020-06-29 09:58 | DS ---
[facility] Rehab Discharge Summary - [facility] Rehab Discharge Summary Admission Date: 06/23/20 Discharge Date: 06/29/20 - History Present History: Alcohol dependence - Discharge Physical Exam Vital Signs: Vital Signs Temperature 97.3 F L 06/29/20 06:37 Pulse Rate 72 06/29/20 06:37 Respiratory Rate 18 06/29/20 06:37 Blood Pressure 147/90 06/29/20 06:37 O2 Sat by Pulse Oximetry (%) 98 06/29/20 06:37 ROS: PATIENT DENIES SWEATS, SHAKES, RESTLESSNESS, CRAVINGS AND HEADACHES PE ALERT AND ORIENTED X 3 SKIN WARM AND DRY CAR S1S2 RESP CTA BL EXT FULL ROM, AMB AD ANGEL NO TREMORS A/P ALCOHOL DEPENDENCE ECSTASTY USE HTN PATIENT IS MEDICALLY STABLE FOR DISCHARGE AFTERCARE ARRANGED FOR VIP OTP - Treatment Discharge Condition: Discharge condition good Hospital Course: PATIENT D/C FROM REHAB TODAY FOR ALCOHOL DEPENDENCE AND ECSTASY USE. PATIENT IS MEDICALLY STABLE AND DENIES SI/HI. AFTERCARE ARRANGED FOR VIP OTP. DURING COURSE OF TREATMENT, PATIENT ATTENDED GROUP MEETINGS AND 1:1 COUNSELING SESSIONS WITH COUNSELOR. SHE STATES SHE IS MOTIVATED TO MAINTAIN SOBRIETY AND WILL FOLLOW UP WITH AFTERCARE RECOMMENDED. PATIENT MEDICALLY ADVISED TO FOLLOW UP WITH PCP RECOMMENDED. Ambulatory Orders Aripiprazole [Abilify -] 5 mg PO HS #30 tablet 05/22/20 Amlodipine Besylate [Norvasc -] 10 mg PO DAILY #14 tablet 06/28/20 Aripiprazole [Abilify -] 5 mg PO HS #30 tablet 06/28/20 Gabapentin [Neurontin -] 100 mg PO TID #90 capsule 06/28/20 Lisinopril [Prinivil -] 40 mg PO DAILY #30 tablet 06/28/20 Sertraline HCl [Zoloft] 25 mg PO DAILY #30 tablet 06/28/20 traZODone HCL [Desyrel -] 50 mg PO HS #30 tablet 06/28/20 - Medication Discharge Medications: Ambulatory Orders Aripiprazole [Abilify -] 5 mg PO HS #30 tablet 05/22/20 Amlodipine Besylate [Norvasc -] 10 mg PO DAILY #14 tablet 06/28/20 Aripiprazole [Abilify -] 5 mg PO HS #30 tablet 06/28/20 Gabapentin [Neurontin -] 100 mg PO TID #90 capsule 06/28/20 Lisinopril [Prinivil -] 40 mg PO DAILY #30 tablet 06/28/20 Sertraline HCl [Zoloft] 25 mg PO DAILY #30 tablet 06/28/20 traZODone HCL [Desyrel -] 50 mg PO HS #30 tablet 06/28/20 - Medication-Assisted Treatment (MAT) Medication-Assisted Treatment (MAT): No - Discharge Instructions Diet, activity, other medical instructions: Diet: GURPREET DIET RECOMMENDED Activity: TOLERATED Other medical instructions: F/U WITH PCP RECOMMENDED - Follow-up Referral Minutes to complete discharge: 30 - AMA Did Patient Leave Against Medical Advice: No
== END 2020-06-29 08:47 | disposition home or self-care (01) | DRG 772 ==
LOC: YASAS 11:51 → Y3W 11:52
PROVIDERS: ADMIT Allergy & Immunology; ATTEND Allergy & Immunology
PROC: HZ42ZZZ Group Counseling for Substance Abuse Treatment, Cognitive-Behavioral (ICD-10-PCS; principal; 2020-06-23)
DX: F10.20 Alcohol dependence, uncomplicated (principal); F16.10 Hallucinogen abuse, uncomplicated; F17.213 Nicotine dependence, cigarettes, with withdrawal; I10 Essential (primary) hypertension; Z87.42 Personal history of other diseases of the female genital tract

== ENCOUNTER 2020-08-08 11:35 | Inpatient (IN) | payer OTHER ==
--- NOTE | 2020-08-08 12:00 | BHS.RME ---
Substance Use & Tx History - Substance Use History Alcohol Substance amount: 1 pint [place] Frequency of use: Daily Substance route: Oral Date of Last Use: 08/08/20 Heroin Substance amount: 3 bags Frequency of use: Daily Substance route: Inhalation (ex: sniffing or snorting) Date of Last Use: 08/08/20 Cocaine- Powder Substance amount: $100 Frequency of use: Daily Substance route: Inhalation (ex: sniffing or snorting) Date of Last Use: 08/08/20 Nicotine Substance amount: 1/2 pack Frequency of use: Daily Substance route: Smoking Date of Last Use: 08/08/20 Ecstasy Substance amount: 2 tabs Frequency of use: Daily Substance route: Oral Date of Last Use: 08/08/20 Physical/Psych/Mental Status - Behavior General Behavior: Increased activity (restlessness, agitation) Eye Contact: Normal - Cooperativeness Cooperativeness: Cooperative - Thinking Thought Processes: Tight, Logical, Goal Directed - Physical Health Problems Is patient presently having any pain?: No Does patient presently have any injuries (include location): No Does patient currently have a fever: No Is patient : No COWS - Scale Resting Pulse: 0= [place] 80 or Below Sweatin= Chills/Flushing (not yet in withdrawals due to use this morning prior to coming in.) Restless Observation: 1= Difficult to Sit Still Pupil Size: 0= Normal to Room Light Bone or Joint Aches: 1= Mild Discomfort Runny Nose/ Eye Tearin= None GI Upset > 30mins: 0= None Tremor Observation: 0= None Yawning Observation: 1= 1-2x During Session Anxiety or Irritability: 1=Feels Anxious/Irritable Goose Flesh Skin: 0=Smooth Skin COWS Score: 5 CIWA Nausea/Vomitin Muscle Tremors: 1-None Visible, but [place] Anxiety: 0-No Anxiety, at Ease Agitation: 2 Paroxysmal Sweats: 1-Minimal Palms Moist Orientation: 0-Oriented Tacttile Disturbances: 0-None Auditory Disturbances: 0-None Visual Disturbances: 0-None Headache: 0-None Present (not yet in withdrawal due to use prior to coming in) CIWA-Ar Total Score: 9
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
[2020-08-08 14:27] VITALS: BMI 29.4
[2020-08-08] MEDS ORDERED: ACETAMINOPHEN 325 MG TABLET (FP) PO PRN ×2 (14:32)
[2020-08-08] MEDS ORDERED: BISMUTH SUBSALICYLATE 524 MG/30 ML UD PO PRN (14:32)
[2020-08-08] MEDS ORDERED: cloNIDine HCL 0.1 MG TABLET PO PRN (14:32)
[2020-08-08] MEDS ORDERED: IBUPROFEN 400 MG TABLET (FP) PO PRN (14:32)
[2020-08-08] MEDS ORDERED: NICOTINE POLACRILEX 2 MG GUM BUC PRN (14:32)
[2020-08-08] MEDS ORDERED: chlordiazePOXIDE HCL 25 MG CAPSULE PO PRN (14:32)
[2020-08-08] MEDS ORDERED: MENTHOL/PHENOL 1 EACH UD MM PRN (14:32)
[2020-08-08] MEDS ORDERED: MAGNESIUM HYDROX 2400MG/30ML ORAL SUSPENSION 30 ML CUP PO PRN (14:32)
[2020-08-08] MEDS ORDERED: ONDANSETRON *ODT* 4 MG TABLET SL PRN (14:32)
[2020-08-08] MEDS ORDERED: MAG HYDROX/AL HYDROX/SIMETH 30 ML UNIT-DOSE CUP PO PRN (14:32)
[2020-08-08] MEDS ORDERED: MAGNESIUM CITRATE 300 ML BOTTLE PO PRN (14:32)
[2020-08-08] MEDS ORDERED: METHADONE HCL 10 MG TABLET (FOR DETOX USE ONLY) PO ONE (15:00)
[2020-08-08] MEDS: PRENATAL VITAMINS W/ FOLIC ACID TABLET (FP) PO SCH (17:20)
[2020-08-08] MEDS: chlordiazePOXIDE HCL 25 MG CAPSULE PO SCH ×2 (17:20→22:23)
[2020-08-08] MEDS: hydrOXYzine PAMOATE 25 MG CAPSULE (FP) PO SCH ×2 (17:20→22:23)
[2020-08-08] MEDS: NICOTINE 14 MG/24 HOURS TOPICAL PATCH TD SCH (17:21)
--- NOTE | 2020-08-08 17:38 | PN ---
[facility] Progress Note Note: Psychiatry Attending's note : Patient is approached for psychiatric interview. Ms Cristina indicates that she is " tired " at this time. Politely requests that interview be deferred until AM. Patient is ambulatory. Steady gait. Cognitively intact. To be seen by Psychiatry-Liaison sales operations consultant tomorrow.
[2020-08-08 17:57] LABS: ALBUMIN 3.7 g/dl (3.4-5.0); BILIRUBIN,TOTAL 0.9 mg/dL (0.2-1); BLOOD UREA NITROGEN 6.7 mg/dL (7-18); CALCIUM 9.4 mg/dL (8.5-10.1); POTASSIUM 3.7 mmol/L (3.5-5.1); TOT PROT 8.1 g/dl (6.4-8.2)
[2020-08-08 18:02] LABS: HEMATOCRIT 37.2 % (32.4-45.2); HEMOGLOBIN 12.4 GM/dL (10.7-15.3); MCH 29.6 pg (25.7-33.7); MCHC 33.4 g/dl (32.0-36.0); MEAN CELL VOLUME 88.8 fl (80-96); MEAN PLT VOLUME 8.8 fl (7.5-11.1); PLATELET COUNT 424 K/MM3 (134-434); RBC 4.19 M/mm3 (3.60-5.2); RDW 14.1 % (11.6-15.6); WHITE BLOOD COUNT 12.5 K/mm3 (4.0-10.0)
[2020-08-08] MEDS: MELATONIN 5 MG TABLETS PO SCH (22:23)
[2020-08-08] MEDS: GABAPENTIN 100 MG CAPSULE PO SCH (22:23)
[2020-08-08] MEDS: THIAMINE HCL 100 MG TABLET (FP) PO SCH (22:24)
[2020-08-09] MEDS: hydrOXYzine PAMOATE 25 MG CAPSULE (FP) PO SCH ×5 (05:58→22:26)
[2020-08-09] MEDS: GABAPENTIN 100 MG CAPSULE PO SCH ×3 (05:58→22:26)
[2020-08-09] MEDS: chlordiazePOXIDE HCL 25 MG CAPSULE PO SCH ×4 (05:59→22:26)
[2020-08-09] MEDS ORDERED: METHADONE HCL 5 MG TABLET (FOR DETOX USE ONLY) ONE (08:49)
[2020-08-09] MEDS ORDERED: METHADONE HCL 10 MG TABLET (FOR DETOX USE ONLY) ONE (08:49)
[2020-08-09] MEDS ORDERED: METHADONE (DETOX) 20 MG, METHADONE (DETOX) 5 MG PO ONE (10:00)
[2020-08-09] MEDS: NICOTINE 14 MG/24 HOURS TOPICAL PATCH TD SCH (10:47)
[2020-08-09] MEDS: amLODIPine BESYLATE 10 MG TABLET (FP) PO SCH (10:47)
[2020-08-09] MEDS: LISINOPRIL 20 MG TABLET (FP) PO SCH (10:47)
[2020-08-09] MEDS: PRENATAL VITAMINS W/ FOLIC ACID TABLET (FP) PO SCH (10:47)
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
--- NOTE | 2020-08-09 16:03 | PN ---
[facility] CIWA - CIWA Score Nausea/Vomitin Muscle Tremors: 2 Anxiety: 2 Agitation: 2 Paroxysmal Sweats: 1-Minimal Palms Moist Orientation: 0-Oriented Tacttile Disturbances: 1-Very Mild Itch/Numbness Auditory Disturbances: 0-None Visual Disturbances: 0-None Headache: 2-Mild CIWA-Ar Total Score: 12 BHS COWS - Scale Resting Pulse: 0= [place] 80 or Below Sweatin= No chills or Flushing Restless Observation: 0= Sits Still Pupil Size: 1= Pupils >than Normal Bone or Joint Aches: 2= Severe Diffuse Aches Runny Nose/ Eye Tearin= Runny Nose/Eyes GI Upset > 30mins: 2= Nausea/Diarrhea Tremor Observation of Outstretched Hands: 2= Slight Tremor Visible Yawning Observation: 1= 1-2x During Session Anxiety or Irritability: 2=Irritable/Anxious Goose Flesh Skin: 0=Smooth Skin COWS Score: 12 S Progress Note (SOAP) Subjective: alert,irritable,anxious,interrupted sleep,tremor,pain in the body and back Objective: 08/09/20 16:01 Vital Signs Temperature 97.7 F 08/09/20 12:44 Pulse Rate 58 L 08/09/20 12:44 Respiratory Rate 18 08/09/20 12:44 Blood Pressure 111/76 08/09/20 12:44 O2 Sat by Pulse Oximetry (%) 100 08/09/20 12:44 Laboratory Last Values WBC 12.5 K/mm3 (4.0-10.0) H 08/08/20 15:15 RBC 4.19 M/mm3 (3.60-5.2) 08/08/20 15:15 Hgb 12.4 GM/dL (10.7-15.3) 08/08/20 15:15 Hct 37.2 % (32.4-45.2) 08/08/20 15:15 MCV 88.8 fl (80-96) 08/08/20 15:15 MCH 29.6 pg (25.7-33.7) 08/08/20 15:15 MCHC 33.4 g/dl (32.0-36.0) 08/08/20 15:15 RDW 14.1 % (11.6-15.6) 08/08/20 15:15 Plt Count 424 K/MM3 (134-434) D 08/08/20 15:15 MPV 8.8 fl (7.5-11.1) 08/08/20 15:15 Sodium 139 mmol/L (136-145) 08/08/20 15:10 Potassium 3.7 mmol/L (3.5-5.1) 08/08/20 15:10 Chloride 97 mmol/L (98-107) L 08/08/20 15:10 Carbon Dioxide 32 mmol/L (21-32) 08/08/20 15:10 Anion Gap 9 MMOL/L (8-16) 08/08/20 15:10 BUN 6.7 mg/dL (7-18) L 08/08/20 15:10 Creatinine 1.0 mg/dL (0.55-1.3) 08/08/20 15:10 Est GFR (CKD-EPI)AfAm 78.79 08/08/20 15:10 Est GFR (CKD-EPI)NonAf 67.98 08/08/20 15:10 Random Glucose 155 mg/dL (74-106) H 08/08/20 15:10 Calcium 9.4 mg/dL (8.5-10.1) 08/08/20 15:10 Total Bilirubin 0.9 mg/dL (0.2-1) 08/08/20 15:10 AST 13 U/L (15-37) L 08/08/20 15:10 ALT 17 U/L (13-61) 08/08/20 15:10 Alkaline Phosphatase 85 U/L (45-117) 08/08/20 15:10 Total Protein 8.1 g/dl (6.4-8.2) 08/08/20 15:10 Albumin 3.7 g/dl (3.4-5.0) 08/08/20 15:10 POC Urine HCG, Qual Negative 08/08/20 13:07 Syphilis Serology Reactive (NONREACTIVE) A* 08/08/20 15:10 RPR Titer Reactive 1:1 (NONREACTIVE) H 08/08/20 15:10 HIV Ag/Ab Combo Qual Negative (NEGATIVE) 08/09/20 08:45 previously treated for syphilis in the past Assessment: 08/09/20 16:02 withdrawal symptom Plan: continue detox methadone and librium regimen,repeat cbc in am initial cbc is 12,500
[2020-08-09] MEDS: ARIPiprazole 5 MG TABLET PO SCH (22:26)
[2020-08-09] MEDS: THIAMINE HCL 100 MG TABLET (FP) PO SCH (22:26)
[2020-08-09] MEDS: MELATONIN 5 MG TABLETS PO SCH (22:26)
[2020-08-10] MEDS: chlordiazePOXIDE HCL 25 MG CAPSULE PO SCH ×4 (05:49→22:08)
[2020-08-10] MEDS: hydrOXYzine PAMOATE 25 MG CAPSULE (FP) PO SCH ×5 (05:49→22:07)
[2020-08-10] MEDS: GABAPENTIN 100 MG CAPSULE PO SCH ×3 (05:49→22:07)
--- NOTE | 2020-08-10 09:54 | PN ---
[facility] CIWA - CIWA Score Nausea/Vomitin-No Nausea/No Vomiting Muscle Tremors: None Anxiety: 0-No Anxiety, at Ease Agitation: 0-Normal Activity Paroxysmal Sweats: No Perspiration Orientation: 0-Oriented Tacttile Disturbances: 0-None Auditory Disturbances: 0-None Visual Disturbances: 0-None Headache: 0-None Present CIWA-Ar Total Score: 0 S COWS - Scale Resting Pulse: 0= [place] 80 or Below Sweatin= No chills or Flushing Restless Observation: 0= Sits Still Pupil Size: 0= Normal to Room Light Bone or Joint Aches: 0= None Runny Nose/ Eye Tearin= None GI Upset > 30mins: 0= None Tremor Observation of Outstretched Hands: 0= None Yawning Observation: 0= None Anxiety or Irritability: 0= None Goose Flesh Skin: 0=Smooth Skin COWS Score: 0 [facility] Progress Note (SOAP) Subjective: Patient is a 45 y/o female with a history of HTN and lymphedema who is admitted for heroin abuse and alcohol abuse. Patient has no acute complaints. Objective: 08/10/20 09:53 Vital Signs Temperature 96.8 F L 08/10/20 08:32 Pulse Rate 58 L 08/10/20 08:32 Respiratory Rate 18 08/10/20 08:32 Blood Pressure 119/69 08/10/20 08:32 O2 Sat by Pulse Oximetry (%) 96 08/10/20 05:39 Physical Exam general: WNNL, awake, alert HEENT: hearing intact, normocephalic, EOMI Neuro: ROM intact, gait normal skin: intact dry CBC, BMP 08/08/20 15:10 Active Medications Acetaminophen (Tylenol -) 650 mg PO Q6H PRN PRN Reason: PAIN LEVEL 4 - 6 Acetaminophen (Tylenol -) 650 mg PO Q6H PRN PRN Reason: FEVER Al Hydroxide/Mg Hydroxide (Mylanta Oral Suspension -) 30 ml PO Q6H PRN PRN Reason: DYSPEPSIA Amlodipine Besylate (Norvasc -) 10 mg PO DAILY [facility] Last Admin: 08/09/20 10:47 Dose: 10 mg Documented by: Aripiprazole (Abilify) 5 mg PO HS [facility] Last Admin: 08/09/20 22:26 Dose: 5 mg Documented by: Bismuth Subsalicylate (Pepto-Bismol -) 524 mg PO Q1H PRN PRN Reason: DIARRHEA Chlordiazepoxide HCl (Librium -) 25 mg PO [id number] [facility] Stop: 08/10/20 23:01 Last Admin: 08/10/20 05:49 Dose: 25 mg Documented by: Chlordiazepoxide HCl (Librium -) 25 mg PO Q4H PRN PRN Reason: WITHDRAWAL(CONT SUBST) Stop: 08/10/20 23:59 Chlordiazepoxide HCl (Librium -) 10 mg PO [id number] [facility] Stop: 08/11/20 23:01 Chlordiazepoxide HCl (Librium -) 10 mg PO Q12H [facility] Stop: 08/12/20 17:01 Chlordiazepoxide HCl (Librium -) 10 mg PO Q4H PRN PRN Reason: WITHDRAWAL(CONT SUBST) Stop: 08/12/20 00:00 Chlordiazepoxide HCl (Librium -) 10 mg PO ONCE@0500 ONE Stop: 08/13/20 05:01 Clonidine (Catapres -) 0.1 mg PO Q4H PRN PRN Reason: Withdrawal Symptoms Stop: 08/10/20 23:59 Eucalyptus/Menthol/Phenol/Sorbitol (Cepastat Lozenge -) 1 each MM Q4H PRN PRN Reason: SORE THROAT Stop: 08/14/20 14:32 Gabapentin (Neurontin -) 100 mg PO TID [facility] Last Admin: 08/10/20 05:49 Dose: 100 mg Documented by: Hydroxyzine Pamoate (Vistaril -) 25 mg PO Q4HWA [facility] Stop: 08/14/20 14:32 Last Admin: 08/10/20 05:49 Dose: 25 mg Documented by: Ibuprofen (Motrin -) 400 mg PO Q6H PRN PRN Reason: PAIN LEVEL 1 - 3 Lisinopril (Prinivil) 40 mg PO DAILY [facility] Last Admin: 08/09/20 10:47 Dose: 40 mg Documented by: Magnesium Citrate (Citroma -) 300 ml PO Q48H PRN PRN Reason: CONSTIPATION Magnesium Hydroxide (Milk Of Magnesia -) 30 ml PO PRN PRN PRN Reason: CONSTIPATION Melatonin (Melatonin) 5 mg PO HS [facility] Last Admin: 08/09/20 22:26 Dose: 5 mg Documented by: Methadone HCl (Dolophine -) 5 mg PO ONCE@0600 ONE Stop: 08/13/20 06:01 Methadone HCl (Dolophine -) 10 mg PO ONCE ONE Stop: 08/12/20 10:01 Methadone HCl (Dolophine -) 20 mg PO ONCE ONE Stop: 08/10/20 10:01 Methadone HCl 10 mg/ Methadone (HCl 5 mg) 15 mg PO ONCE ONE Stop: 08/11/20 10:01 Methocarbamol (Robaxin -) 500 mg PO Q6H PRN PRN Reason: MUSCLE SPASMS Stop: 08/14/20 14:32 Nicotine (Nicoderm Patch -) 14 mg TD DAILY [facility] Last Admin: 08/09/20 10:47 Dose: 14 mg Documented by: Nicotine Polacrilex (Nicorette Gum -) 2 mg BUC Q2H PRN PRN Reason: NICOTINE REPLACEMENT RX Ondansetron HCl (Zofran Odt -) 4 mg SL Q8H PRN PRN Reason: Nausea/Vomiting Multivit/Folic Acid/Iron ( Vitamins (Sjr) -) 1 tab PO DAILY [facility] Last Admin: 08/09/20 10:47 Dose: 1 tab Documented by: Sertraline HCl (Zoloft -) 25 mg PO DAILY [facility] Thiamine HCl (Vitamin B1 -) 100 mg PO [facility] Last Admin: 08/09/20 22:26 Dose: 100 mg Documented by: Assessment: 08/10/20 09:54 1. Alcohol dependence with withdrawal 2. Heroin dependence with withdrawal 3. HTN Plan: 1. Continue Librium for alcohol detox 2. Continue Methadone for heroin detox 3. home medications for HTN 4. continue medications for nicotine dependence
[2020-08-10] MEDS ORDERED: METHADONE HCL 10 MG TABLET (FOR DETOX USE ONLY) PO ONE (10:00)
[2020-08-10] MEDS: LISINOPRIL 20 MG TABLET (FP) PO SCH (10:23)
[2020-08-10] MEDS: amLODIPine BESYLATE 10 MG TABLET (FP) PO SCH (10:23)
[2020-08-10] MEDS: SERTRALINE HCL 25 MG TABLET (FP) PO SCH (10:23)
[2020-08-10] MEDS: PRENATAL VITAMINS W/ FOLIC ACID TABLET (FP) PO SCH (10:24)
[2020-08-10] MEDS: NICOTINE 14 MG/24 HOURS TOPICAL PATCH TD SCH (10:26)
[2020-08-10 10:38] LABS: HEMATOCRIT 37.7 % (32.4-45.2); HEMOGLOBIN 12.3 GM/dL (10.7-15.3); MCH 29.7 pg (25.7-33.7); MCHC 32.7 g/dl (32.0-36.0); MEAN CELL VOLUME 90.8 fl (80-96); MEAN PLT VOLUME 9.8 fl (7.5-11.1); PLATELET COUNT 350 K/MM3 (134-434); RBC 4.15 M/mm3 (3.60-5.2); RDW 14.3 % (11.6-15.6); WHITE BLOOD COUNT 8.1 K/mm3 (4.0-10.0)
[2020-08-10] MEDS: ARIPiprazole 5 MG TABLET PO SCH (22:06)
[2020-08-10] MEDS: MELATONIN 5 MG TABLETS PO SCH (22:07)
[2020-08-10] MEDS: THIAMINE HCL 100 MG TABLET (FP) PO SCH (22:07)
[2020-08-11] MEDS ORDERED: chlordiazePOXIDE HCL 10 MG CAPSULE PO PRN
[2020-08-11] MEDS: chlordiazePOXIDE HCL 10 MG CAPSULE PO SCH ×4 (06:54→23:07)
[2020-08-11] MEDS: GABAPENTIN 100 MG CAPSULE PO SCH ×3 (06:54→23:07)
[2020-08-11] MEDS: hydrOXYzine PAMOATE 25 MG CAPSULE (FP) PO SCH ×5 (06:54→23:06)
[2020-08-11] MEDS: METHOCARBAMOL 500 MG TABLET PO PRN (08:32)
[2020-08-11] MEDS ORDERED: METHADONE (DETOX) 10 MG, METHADONE (DETOX) 5 MG PO ONE (10:00)
[2020-08-11] MEDS ORDERED: METHADONE HCL 5 MG TABLET (FOR DETOX USE ONLY) ONE (10:32)
[2020-08-11] MEDS ORDERED: METHADONE HCL 10 MG TABLET (FOR DETOX USE ONLY) ONE (10:32)
[2020-08-11] MEDS: NICOTINE 14 MG/24 HOURS TOPICAL PATCH TD SCH (10:33)
[2020-08-11] MEDS: PRENATAL VITAMINS W/ FOLIC ACID TABLET (FP) PO SCH (10:33)
[2020-08-11] MEDS: LISINOPRIL 20 MG TABLET (FP) PO SCH (10:34)
[2020-08-11] MEDS: amLODIPine BESYLATE 10 MG TABLET (FP) PO SCH (10:34)
[2020-08-11] MEDS: SERTRALINE HCL 25 MG TABLET (FP) PO SCH (10:36)
--- NOTE | 2020-08-11 14:36 | PN ---
[facility] CIWA - CIWA Score Nausea/Vomitin-No Nausea/No Vomiting Muscle Tremors: None Anxiety: 2 Agitation: 0-Normal Activity Paroxysmal Sweats: 2 Orientation: 0-Oriented Tacttile Disturbances: 0-None Auditory Disturbances: 0-None Visual Disturbances: 0-None Headache: 1-Very Mild CIWA-Ar Total Score: 5 BHS COWS - Scale Resting Pulse: 0= [place] 80 or Below Sweatin= No chills or Flushing Restless Observation: 0= Sits Still Pupil Size: 0= Normal to Room Light Bone or Joint Aches: 2= Severe Diffuse Aches Runny Nose/ Eye Tearin= None GI Upset > 30mins: 0= None Tremor Observation of Outstretched Hands: 0= None Yawning Observation: 1= 1-2x During Session Anxiety or Irritability: 2=Irritable/Anxious Goose Flesh Skin: 0=Smooth Skin COWS Score: 5 S Progress Note (SOAP) Subjective: c/o mild withdrawal symptoms. Objective: 08/11/20 14:35 Vital Signs 08/11/20 08/11/20 08/11/20 06:56 09:04 12:44 Temperature 97.1 F L 97.9 F 97.9 F Pulse Rate 64 60 70 Respiratory 18 17 18 Rate Blood Pressure 133/97 115/76 143/92 O2 Sat by Pulse 96 100 Oximetry (%) Laboratory Last Values WBC 8.1 K/mm3 (4.0-10.0) 08/10/20 08:10 RBC 4.15 M/mm3 (3.60-5.2) 08/10/20 08:10 Hgb 12.3 GM/dL (10.7-15.3) 08/10/20 08:10 Hct 37.7 % (32.4-45.2) 08/10/20 08:10 MCV 90.8 fl (80-96) 08/10/20 08:10 MCH 29.7 pg (25.7-33.7) 08/10/20 08:10 MCHC 32.7 g/dl (32.0-36.0) 08/10/20 08:10 RDW 14.3 % (11.6-15.6) 08/10/20 08:10 Plt Count 350 K/MM3 (134-434) 08/10/20 08:10 MPV 9.8 fl (7.5-11.1) D 08/10/20 08:10 Sodium 139 mmol/L (136-145) 08/08/20 15:10 Potassium 3.7 mmol/L (3.5-5.1) 08/08/20 15:10 Chloride 97 mmol/L (98-107) L 08/08/20 15:10 Carbon Dioxide 32 mmol/L (21-32) 08/08/20 15:10 Anion Gap 9 MMOL/L (8-16) 08/08/20 15:10 BUN 6.7 mg/dL (7-18) L 08/08/20 15:10 Creatinine 1.0 mg/dL (0.55-1.3) 08/08/20 15:10 Est GFR (CKD-EPI)AfAm 78.79 08/08/20 15:10 Est GFR (CKD-EPI)NonAf 67.98 08/08/20 15:10 Random Glucose 155 mg/dL (74-106) H 08/08/20 15:10 Calcium 9.4 mg/dL (8.5-10.1) 08/08/20 15:10 Total Bilirubin 0.9 mg/dL (0.2-1) 08/08/20 15:10 AST 13 U/L (15-37) L 08/08/20 15:10 ALT 17 U/L (13-61) 08/08/20 15:10 Alkaline Phosphatase 85 U/L (45-117) 08/08/20 15:10 Total Protein 8.1 g/dl (6.4-8.2) 08/08/20 15:10 Albumin 3.7 g/dl (3.4-5.0) 08/08/20 15:10 POC Urine HCG, Qual Negative 08/08/20 13:07 Syphilis Serology Reactive (NONREACTIVE) A* 08/08/20 15:10 RPR Titer Reactive 1:1 (NONREACTIVE) H 08/08/20 15:10 COVID-19 (DEEPA) Not detected (Not Detected) 08/08/20 16:10 HIV Ag/Ab Combo Qual Negative (NEGATIVE) 08/09/20 08:45 Labs noted. Assessment: 08/11/20 14:35 AOX3, in no acute respiratory distress. Full ROM, ambulating in the unit. Mild Withdrawal symptoms. Plan: continue detox.
[2020-08-11] MEDS: MELATONIN 5 MG TABLETS PO SCH (23:07)
[2020-08-11] MEDS: THIAMINE HCL 100 MG TABLET (FP) PO SCH (23:07)
[2020-08-11] MEDS: ARIPiprazole 5 MG TABLET PO SCH (23:07)
[2020-08-12] MEDS: hydrOXYzine PAMOATE 25 MG CAPSULE (FP) PO SCH ×5 (06:45→23:01)
[2020-08-12] MEDS: GABAPENTIN 100 MG CAPSULE PO SCH ×3 (06:45→23:00)
[2020-08-12] MEDS: METHOCARBAMOL 500 MG TABLET PO PRN ×2 (06:46→18:15)
[2020-08-12] MEDS: chlordiazePOXIDE HCL 10 MG CAPSULE PO SCH ×2 (06:46→18:15)
--- NOTE | 2020-08-12 08:58 | PN ---
[facility] CIWA - CIWA Score Nausea/Vomitin-No Nausea/No Vomiting Muscle Tremors: 1-None Visible, but [place] Anxiety: 1-Mildly Anxious Agitation: 0-Normal Activity Paroxysmal Sweats: No Perspiration Orientation: 0-Oriented Tacttile Disturbances: 0-None Auditory Disturbances: 0-None Visual Disturbances: 0-None Headache: 1-Very Mild CIWA-Ar Total Score: 3 S COWS - Scale Resting Pulse: 0= [place] 80 or Below Sweatin= No chills or Flushing Restless Observation: 0= Sits Still Pupil Size: 0= Normal to Room Light Bone or Joint Aches: 1= Mild Discomfort Runny Nose/ Eye Tearin= None GI Upset > 30mins: 0= None Tremor Observation of Outstretched Hands: 1= Tremor [place], Not Seen Yawning Observation: 0= None Anxiety or Irritability: 1=Feels Anxious/Irritable Goose Flesh Skin: 0=Smooth Skin COWS Score: 3 S Progress Note (SOAP) Subjective: 45 years old female was admitted on 08/08/20 for alcohol and opiate withdrawal sx management treating with librium and methadone detox regiments feels better bp Vital Signs - 24 hr 08/11/20 08/11/20 08/11/20 09:04 12:44 16:58 Temperature 97.9 F 97.9 F 97.7 F Pulse Rate 60 70 86 Respiratory 17 18 18 Rate Blood Pressure 115/76 143/92 134/72 O2 Sat by Pulse 100 Oximetry (%) 08/11/20 08/12/20 20:50 06:28 Temperature 97.9 F 97.1 F L Pulse Rate 71 70 Respiratory 18 18 Rate Blood Pressure 117/81 126/79 O2 Sat by Pulse 95 95 Oximetry (%) within acceptable range Objective: 08/12/20 08:58 Laboratory Tests 08/08/20 08/08/20 08/08/20 13:07 15:10 15:10 WBC RBC Hgb Hct MCV MCH MCHC RDW Plt Count MPV Sodium 139 Potassium 3.7 Chloride 97 L Carbon Dioxide 32 Anion Gap 9 BUN 6.7 L Creatinine 1.0 Est GFR (CKD-EPI)AfAm 78.79 Est GFR (CKD-EPI)NonAf 67.98 Random Glucose 155 H Calcium 9.4 Total Bilirubin 0.9 AST 13 L ALT 17 Alkaline Phosphatase 85 Total Protein 8.1 Albumin 3.7 POC Urine HCG, Qual Negative Syphilis Serology Reactive A* RPR Titer COVID-19 (DEEPA) HIV Ag/Ab Combo Qual 08/08/20 08/08/20 08/08/20 15:10 15:15 16:10 WBC 12.5 H RBC 4.19 Hgb 12.4 Hct 37.2 MCV 88.8 MCH 29.6 MCHC 33.4 RDW 14.1 Plt Count 424 D MPV 8.8 Sodium Potassium Chloride Carbon Dioxide Anion Gap BUN Creatinine Est GFR (CKD-EPI)AfAm Est GFR (CKD-EPI)NonAf Random Glucose Calcium Total Bilirubin AST ALT Alkaline Phosphatase Total Protein Albumin POC Urine HCG, Qual Syphilis Serology RPR Titer Reactive 1:1 H COVID-19 (DEEPA) Not detected HIV Ag/Ab Combo Qual 08/09/20 08/10/20 08:45 08:10 WBC 8.1 RBC 4.15 Hgb 12.3 Hct 37.7 MCV 90.8 MCH 29.7 MCHC 32.7 RDW 14.3 Plt Count 350 MPV 9.8 D Sodium Potassium Chloride Carbon Dioxide Anion Gap BUN Creatinine Est GFR (CKD-EPI)AfAm Est GFR (CKD-EPI)NonAf Random Glucose Calcium Total Bilirubin AST ALT Alkaline Phosphatase Total Protein Albumin POC Urine HCG, Qual Syphilis Serology RPR Titer COVID-19 (DEEPA) HIV Ag/Ab Combo Qual Negative 08/12/20 09:00 syphilis treated by history Assessment: 08/12/20 09:00 alcohol and opiate withdrawal Plan: librium and methadone regiments
[2020-08-12] MEDS ORDERED: METHADONE HCL 10 MG TABLET (FOR DETOX USE ONLY) PO ONE (10:00)
[2020-08-12] MEDS: SERTRALINE HCL 25 MG TABLET (FP) PO SCH (10:37)
[2020-08-12] MEDS: LISINOPRIL 20 MG TABLET (FP) PO SCH (10:37)
[2020-08-12] MEDS: amLODIPine BESYLATE 10 MG TABLET (FP) PO SCH (10:38)
[2020-08-12] MEDS: PRENATAL VITAMINS W/ FOLIC ACID TABLET (FP) PO SCH (10:38)
[2020-08-12] MEDS: NICOTINE 14 MG/24 HOURS TOPICAL PATCH TD SCH (10:38)
[2020-08-12] MEDS: ARIPiprazole 5 MG TABLET PO SCH (23:00)
[2020-08-12] MEDS: MELATONIN 5 MG TABLETS PO SCH (23:01)
[2020-08-12] MEDS: THIAMINE HCL 100 MG TABLET (FP) PO SCH (23:01)
[2020-08-13] MEDS ORDERED: chlordiazePOXIDE HCL 10 MG CAPSULE PO ONE (05:00)
[2020-08-13] MEDS: GABAPENTIN 100 MG CAPSULE PO SCH ×2 (05:54→14:22)
[2020-08-13] MEDS ORDERED: METHADONE HCL 5 MG TABLET (FOR DETOX USE ONLY) PO ONE (06:00)
[2020-08-13] MEDS: hydrOXYzine PAMOATE 25 MG CAPSULE (FP) PO SCH ×3 (06:38→14:22)
[2020-08-13] MEDS: METHOCARBAMOL 500 MG TABLET PO PRN (08:25)
--- NOTE | 2020-08-13 09:01 | DS ---
[facility] Detox Discharge Summary Admission Date: 08/08/20 Discharge Date: 08/13/20 - History Present History: Alcohol Dependence, Opioid Dependence Additional Comments: 45 years old female was admitted on 08/08/20 for alcohol and opiate withdrawal sx management treated with librium and methadone detox regiments seen by psychiatrist kirstin sanchez mr mcdaniel has completed librium and methadone regiments and is tolerated well General Appearance: Yes: Within Normal Limits, no Distress HEENTM: Yes: Hearing grossly Normal, Normal ENT Inspection, Normocephalic Respiratory: Yes: Within Normal Limits, Normal Breath Sounds, No Respiratory Distress, No Accessory Muscle Use Neck: Yes: Within Normal Limits Cardiology: Yes: Regular Rhythm, Regular Rate Abdominal: Yes: Normal Bowel Sounds, Non Tender, Flat, Soft Back: Yes: Normal Inspection Musculoskeletal: Yes: Within Normal Limits, full range of Motion Extremities: Yes: Non-Tender, Pedal Edema (left leg) Neurological: Yes: Fully Oriented, Normal Mood/Affect, Normal Response Integumentary: Yes: Normal Color, Dry, Warm Pertinent Past History: time for discharge 48 minutes transferred order set from detox to rehab - Physical Exam Results Vital Signs: Vital Signs Temperature 96.5 F L 08/13/20 05:44 Pulse Rate 56 L 08/13/20 05:44 Respiratory Rate 18 08/13/20 05:44 Blood Pressure 112/80 08/13/20 05:44 O2 Sat by Pulse Oximetry (%) 100 08/13/20 05:44 Pertinent Admission Physical Exam Findings: alcohol and opiate withdrawal Vital Signs - 24 hr 08/12/20 08/12/20 08/12/20 12:45 16:45 20:39 Temperature 97.1 F L 98.1 F 97.7 F Pulse Rate 58 L 71 65 Respiratory 18 18 18 Rate Blood Pressure 95/66 102/69 133/83 O2 Sat by Pulse 97 100 Oximetry (%) 08/13/20 05:44 Temperature 96.5 F L Pulse Rate 56 L Respiratory 18 Rate Blood Pressure 112/80 O2 Sat by Pulse 100 Oximetry (%) Laboratory Tests 08/08/20 08/08/20 08/08/20 13:07 15:10 15:10 WBC RBC Hgb Hct MCV MCH MCHC RDW Plt Count MPV Sodium 139 Potassium 3.7 Chloride 97 L Carbon Dioxide 32 Anion Gap 9 BUN 6.7 L Creatinine 1.0 Est GFR (CKD-EPI)AfAm 78.79 Est GFR (CKD-EPI)NonAf 67.98 Random Glucose 155 H Calcium 9.4 Total Bilirubin 0.9 AST 13 L ALT 17 Alkaline Phosphatase 85 Total Protein 8.1 Albumin 3.7 POC Urine HCG, Qual Negative Syphilis Serology Reactive A* RPR Titer COVID-19 (DEEPA) HIV Ag/Ab Combo Qual 08/08/20 08/08/20 08/08/20 15:10 15:15 16:10 WBC 12.5 H RBC 4.19 Hgb 12.4 Hct 37.2 MCV 88.8 MCH 29.6 MCHC 33.4 RDW 14.1 Plt Count 424 D MPV 8.8 Sodium Potassium Chloride Carbon Dioxide Anion Gap BUN Creatinine Est GFR (CKD-EPI)AfAm Est GFR (CKD-EPI)NonAf Random Glucose Calcium Total Bilirubin AST ALT Alkaline Phosphatase Total Protein Albumin POC Urine HCG, Qual Syphilis Serology RPR Titer Reactive 1:1 H COVID-19 (DEEPA) Not detected HIV Ag/Ab Combo Qual 08/09/20 08/10/20 08:45 08:10 WBC 8.1 RBC 4.15 Hgb 12.3 Hct 37.7 MCV 90.8 MCH 29.7 MCHC 32.7 RDW 14.3 Plt Count 350 MPV 9.8 D Sodium Potassium Chloride Carbon Dioxide Anion Gap BUN Creatinine Est GFR (CKD-EPI)AfAm Est GFR (CKD-EPI)NonAf Random Glucose Calcium Total Bilirubin AST ALT Alkaline Phosphatase Total Protein Albumin POC Urine HCG, Qual Syphilis Serology RPR Titer COVID-19 (DEEPA) HIV Ag/Ab Combo Qual Negative glucose elevation will repeat fasting glucose in [facility] syphilis contacted treated - Treatment Hospital Course: Detox Protocol Followed, Detoxed Safely, Responded well, Discharged Condition Good, Rehab Referral Accepted Patient has Accepted a Rehab Referral to: [facility] - Medication Discharge Medications: Ambulatory Orders Amlodipine Besylate [Norvasc -] 10 mg PO DAILY #14 tablet 06/28/20 Aripiprazole [Abilify -] 5 mg PO HS #30 tablet 06/28/20 Gabapentin [Neurontin -] 100 mg PO TID #90 capsule 06/28/20 Lisinopril [Prinivil -] 40 mg PO DAILY #30 tablet 06/28/20 Sertraline HCl [Zoloft] 25 mg PO DAILY #30 tablet 06/28/20 traZODone HCL [Desyrel -] 50 mg PO HS #30 tablet 06/28/20 - Diagnosis (1) Substance induced mood disorder Current Visit: Yes Status: Suspected (2) Alcohol dependence with uncomplicated withdrawal Current Visit: Yes Status: Acute (3) Nicotine dependence Current Visit: Yes Status: Acute Qualifiers: Nicotine product type: cigarettes Substance use status: in withdrawal Qualified Code(s): F17.213 - Nicotine dependence, cigarettes, with withdrawal (4) HTN (hypertension) Current Visit: Yes Status: Chronic Qualifiers: Hypertension type: essential hypertension Qualified Code(s): I10 - Essential (primary) hypertension (5) Syphilis contact, treated Current Visit: Yes Status: Chronic - AMA Did Patient Leave Against Medical Advice: No CIWA Score - CIWA Score Nausea/Vomitin-No Nausea/No Vomiting Muscle Tremors: 1-None Visible, but [place] Anxiety: 1-Mildly Anxious Agitation: 0-Normal Activity Paroxysmal Sweats: No Perspiration Orientation: 0-Oriented Tacttile Disturbances: 0-None Auditory Disturbances: 0-None Visual Disturbances: 0-None Headache: 0-None Present CIWA-Ar Total Score: 2 COWS (PN) - Opiate Withdrawal Resting Pulse: 0= [place] 80 or Below Sweatin= No chills or Flushing Restless Observation: 0= Sits Still Pupil Size: 0= Normal to Room Light Bone or Joint Aches: 0= None Runny Nose/ Eye Tearin= None GI Upset > 30mins: 0= None Tremor Observation of Outstretched Hands: 1= Tremor [place], Not Seen Yawning Observation: 0= None Anxiety or Irritability: 1=Feels Anxious/Irritable Goose Flesh Skin: 0=Smooth Skin COWS Score: 2
[2020-08-13 10:00] VITALS: BP 116/83; PULSE 78; TEMP 96.4
[2020-08-13] MEDS: NICOTINE 14 MG/24 HOURS TOPICAL PATCH TD SCH (10:33)
[2020-08-13] MEDS: LISINOPRIL 20 MG TABLET (FP) PO SCH (10:34)
[2020-08-13] MEDS: PRENATAL VITAMINS W/ FOLIC ACID TABLET (FP) PO SCH (10:34)
[2020-08-13] MEDS: amLODIPine BESYLATE 10 MG TABLET (FP) PO SCH (10:34)
[2020-08-13] MEDS: SERTRALINE HCL 25 MG TABLET (FP) PO SCH (10:34)
== END 2020-08-13 17:23 | disposition other institution (70) | DRG 773 ==
LOC: YASAS 11:35 → Y3N 16:07
PROVIDERS: ADMIT Allergy & Immunology; ATTEND Allergy & Immunology
PROC: HZ2ZZZZ Detoxification Services for Substance Abuse Treatment (ICD-10-PCS; principal; 2020-08-08)
DX: F10.230 Alcohol dependence with withdrawal, uncomplicated (principal); F11.23 Opioid dependence with withdrawal; F14.20 Cocaine dependence, uncomplicated; F16.10 Hallucinogen abuse, uncomplicated; F15.10 Other stimulant abuse, uncomplicated; F17.210 Nicotine dependence, cigarettes, uncomplicated; F19.24 Other psychoactive substance dependence with psychoactive substance-induced mood disorder; F32.9 Major depressive disorder, single episode, unspecified; F41.9 Anxiety disorder, unspecified; F43.10 Post-traumatic stress disorder, unspecified; I10 Essential (primary) hypertension; I89.0 Lymphedema, not elsewhere classified; A53.0 Latent syphilis, unspecified as early or late; Z91.5 Personal history of self-harm; Z56.0 Unemployment, unspecified; Z59.0 Homelessness
CPT/HCPCS: 36415; 80053; 81025; 85027; 86593; 86780; 87389; U0003

== ENCOUNTER 2020-08-13 17:35 | Inpatient (IN) | payer OTHER ==
--- NOTE | 2020-08-13 13:39 | HP ---
[facility] Rehab Assess/Revision - Admission History Admitted to Rehab from: [facility] Date of Admission to Rehab: 08/13/20 - Findings Detox History & Physical reviewed: Yes Concur with findings: Yes Comments/Additional Findings: transferred from detox to rehab admission as per protocol Inpatient Rehab Admission - Rehab Decision to Admit Inpatient rehab admission?: Yes - Initial Determination Are CD services needed?: Yes Free of communicable disease: Yes Not in need of hospitalization: Yes - Rehab Admission Criteria Previous failed treatment: Yes Poor recovery environment: Yes Comorbidities: Yes Lacks judgement: Yes Patient is meeting Inpatient Rehab admission criteria:: Yes
[2020-08-13] MEDS: GABAPENTIN 100 MG CAPSULE PO SCH ×2 (14:57→22:01)
[~2020-08-13 17:35] MED LIST: ACETAMINOPHEN 325 MG TABLET (FP) PO PRN; LOPERAMIDE HCL 2 MG CAPSULE PO PRN; MAG HYDROX/AL HYDROX/SIMETH 30 ML UNIT-DOSE CUP PO PRN; MAGNESIUM CITRATE 300 ML BOTTLE PO PRN; MAGNESIUM HYDROX 2400MG/30ML ORAL SUSPENSION 30 ML CUP PO PRN; P-EPHED 60MG/TRIPROLIDI 2.5MG TABLET PO PRN; guaiFENesin 200 MG/10 ML 10 ML UNIT-DOSE CUPS PO PRN
--- OUTSIDE RECORDS SUMMARY | 2020-08-13 18:28 | XMS ---
:1975 Author Organization [facility] Support Name Relationship Address Phone UE, UNEMPLOYED Unavailable Unavailable Unavailable [address] [place] [address] UE Unavailable Unavailable Unavailable JOSE ALBERTO [address]U [address] [place] [address] JOSE ALBERTO JARAMILLO [address] [place] [address] [address] [place] [address] Re-disclosure Warning The records that you are about to access may contain information from federally- assisted alcohol or drug abuse programs. If such information is present, then the following federally mandated warning applies: This information has been disclosed to you from records protected by federal confidentiality rules (42 CFR part 2). The federal rules prohibit you from making any further disclosure of this information unless further disclosure is expressly permitted by the written consent of the person to whom it pertains or as otherwise permitted by 42 CFR part 2. A general authorization for the release of medical or other information is NOT sufficient for this purpose. The Federal rules restrict any use of the information to criminally investigate or prosecute any alcohol or drug abuse patient.The records that you are about to access may contain highly sensitive health information, the redisclosure of which is protected by Article 27-F of the [facility] Public Health law. If you continue you may haveaccess to information: Regarding HIV / AIDS; Provided by facilities licensed or operated by the [facility] Office of Mental Health; or Provided by the [facility] Office for People With Developmental Disabilities. If such information is present, then the following [facility] mandated warning applies: This information has been disclosed to you from confidential records which are protected by state law. State law prohibits you from making any further disclosure of this information without the specific written consent of the person to whom it pertains, or as otherwise permitted by law. Any unauthorized further disclosure in violation of state law may result in a fine or fpc sentence or both. A general authorization for the release of medical or other information is NOT sufficient authorization for further disclosure. Insurance Providers Payer name Policy type Policy ID Covered Covered republican's Policy P jeff / Coverage republican ID relationship to [employer] ormation type [employer] [id number] SP [id number] [employer] [id number] SP [id number] FIRST Results ID Date Data Source [id number] 08/08/2020 04:10:00 PM EDT [facility] Name Value Range Interpretation Description Data Sup porting Code Source(s) Document(s ) SARS [facility] coronavirus 2 RNA This lab was ordered by [facility] and reported by [facility]. ID Date Data Source [id number] 06/18/2020 09:15:00 PM EDT [facility] Name Value Range Interpretation Description Data Sup porting Code Source(s) Document(s ) SARS [facility] coronavirus 2 RNA This lab was ordered by [facility] and reported by [facility]. ID Date Data Source [id number] 05/09/2020 12:00:00 PM EDT [facility] Name Value Range Interpretation Description Data Sup porting Code Source(s) Document(s ) SARS [facility] CORONAVIRUS 2 RNA This lab was ordered by [facility] and reported by [facility]. Procedure
--- OUTSIDE RECORDS SUMMARY | 2020-08-13 18:28 | XMS ---
:1975 Author Organization [facility] Support Name Relationship Address Phone UE, UNEMPLOYED Unavailable Unavailable Unavailable [facility] [address] [address] [place] [address] UE Unavailable Unavailable Unavailable JOSE ALBERTO CANTU [address] [place] [address] JOSE ALBERTO JARAMILLO [address] [place] [address] [address] [place] [address] Re-disclosure Warning The records that you are [...] is protected by Article 27-F of the [facility] Public Health law. If you continue you may haveaccess to information: Regarding HIV / AIDS; Provided by facilities licensed or operated by the [facility] Office of Mental Health; or Provided by the [facility] Office for People With Developmental Disabilities. If such information is present, then the following [facility] mandated warning applies: This information has [...] law may result in a fine or fci sentence or both. A general authorization for the release of medical or other information is NOT sufficient authorization for further disclosure. Insurance Providers Payer name Policy type Policy ID Covered Covered republican's Policy P jeff / Coverage republican ID relationship to [employer] ormation type [employer] [id number] SP [id number] [employer] [id number] SP [id number] FIRST Results ID Date Data Source [id number] 08/08/2020 04:10:00 PM EDT [facility] Name Value Range Interpretation Description Data Sup porting Code Source(s) Document(s ) SARS [facility] coronavirus 2 RNA This lab was ordered by [facility] and reported by [facility]. ID Date Data Source [id number] 06/18/2020 09:15:00 PM EDT [facility] Name Value Range Interpretation Description Data Sup porting Code Source(s) Document(s ) SARS [facility] coronavirus 2 RNA This lab was ordered by [facility] and reported by [facility]. ID Date Data Source [id number] 05/09/2020 12:00:00 PM EDT [facility] Name Value Range Interpretation Description Data Sup porting Code Source(s) Document(s ) SARS [facility] CORONAVIRUS 2 RNA This lab was ordered by [facility] and reported by [facility]. Procedure
[2020-08-13] MEDS: THIAMINE HCL 100 MG TABLET (FP) PO SCH (22:00)
[2020-08-13] MEDS: ARIPiprazole 5 MG TABLET PO SCH (22:00)
[2020-08-13] MEDS: MELATONIN 5 MG TABLETS PO SCH (22:02)
[2020-08-14] MEDS: GABAPENTIN 100 MG CAPSULE PO SCH ×3 (07:01→21:51)
[2020-08-14] MEDS: IBUPROFEN 400 MG TABLET (FP) PO PRN (07:02)
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
[2020-08-14] MEDS: LISINOPRIL 20 MG TABLET PO SCH (09:51)
[2020-08-14] MEDS: amLODIPine BESYLATE 10 MG TABLET (FP) PO SCH (09:51)
[2020-08-14] MEDS: NICOTINE 14 MG/24 HOURS TOPICAL PATCH TD SCH (09:51)
[2020-08-14] MEDS: PRENATAL VITAMINS W/ FOLIC ACID TABLET (FP) PO SCH (09:52)
[2020-08-14] MEDS: SERTRALINE HCL 25 MG TABLET (FP) PO SCH (09:52)
[2020-08-14] MEDS: COLLOIDAL OATMEAL 1 BAR EACH TP PRN (14:30)
[2020-08-14] MEDS: ARIPiprazole 5 MG TABLET PO SCH (21:51)
[2020-08-14] MEDS: MELATONIN 5 MG TABLETS PO SCH (21:51)
[2020-08-14] MEDS: THIAMINE HCL 100 MG TABLET (FP) PO SCH (21:52)
[2020-08-15] MEDS: GABAPENTIN 100 MG CAPSULE PO SCH ×3 (06:45→21:12)
[2020-08-15] MEDS ORDERED: PT OWN MED DRAWER 7, Y5N ONE ×2 (09:16→15:23)
[2020-08-15] MEDS: NICOTINE 14 MG/24 HOURS TOPICAL PATCH TD SCH (09:32)
[2020-08-15] MEDS: amLODIPine BESYLATE 10 MG TABLET (FP) PO SCH (09:33)
[2020-08-15] MEDS: PRENATAL VITAMINS W/ FOLIC ACID TABLET (FP) PO SCH (09:33)
[2020-08-15] MEDS: SERTRALINE HCL 25 MG TABLET (FP) PO SCH (09:33)
[2020-08-15] MEDS: LISINOPRIL 20 MG TABLET PO SCH (09:33)
[2020-08-15] MEDS: MELATONIN 5 MG TABLETS PO SCH (21:12)
[2020-08-15] MEDS: THIAMINE HCL 100 MG TABLET (FP) PO SCH (21:12)
[2020-08-15] MEDS: ARIPiprazole 5 MG TABLET PO SCH (21:12)
[2020-08-16] MEDS: GABAPENTIN 100 MG CAPSULE PO SCH ×3 (06:38→21:06)
[2020-08-16] MEDS: NICOTINE 14 MG/24 HOURS TOPICAL PATCH TD SCH (10:21)
[2020-08-16] MEDS: PRENATAL VITAMINS W/ FOLIC ACID TABLET (FP) PO SCH (10:22)
[2020-08-16] MEDS: SERTRALINE HCL 25 MG TABLET (FP) PO SCH (10:22)
[2020-08-16] MEDS: amLODIPine BESYLATE 10 MG TABLET (FP) PO SCH (10:23)
[2020-08-16] MEDS: LISINOPRIL 20 MG TABLET PO SCH (10:23)
[2020-08-16] MEDS ORDERED: PT OWN MED DRAWER 7, Y5N ONE (11:29)
[2020-08-16] MEDS: THIAMINE HCL 100 MG TABLET (FP) PO SCH (21:06)
[2020-08-16] MEDS: MELATONIN 5 MG TABLETS PO SCH (21:06)
[2020-08-16] MEDS: ARIPiprazole 5 MG TABLET PO SCH (21:06)
[2020-08-17] MEDS: GABAPENTIN 100 MG CAPSULE PO SCH ×3 (06:28→21:04)
[2020-08-17] MEDS: LISINOPRIL 20 MG TABLET PO SCH (10:02)
[2020-08-17] MEDS: amLODIPine BESYLATE 10 MG TABLET (FP) PO SCH (10:02)
[2020-08-17] MEDS: PRENATAL VITAMINS W/ FOLIC ACID TABLET (FP) PO SCH (10:02)
[2020-08-17] MEDS: SERTRALINE HCL 25 MG TABLET (FP) PO SCH (10:02)
[2020-08-17] MEDS: NICOTINE 14 MG/24 HOURS TOPICAL PATCH TD SCH (10:02)
[2020-08-17] MEDS: NICOTINE POLACRILEX 2 MG GUM BC PRN (19:04)
[2020-08-17] MEDS: MELATONIN 5 MG TABLETS PO SCH (21:04)
[2020-08-17] MEDS: ARIPiprazole 5 MG TABLET PO SCH (21:04)
[2020-08-17] MEDS: THIAMINE HCL 100 MG TABLET (FP) PO SCH (21:04)
[2020-08-18] MEDS: GABAPENTIN 100 MG CAPSULE PO SCH ×3 (07:07→23:11)
[2020-08-18] MEDS: NICOTINE POLACRILEX 2 MG GUM BC PRN (07:22)
[2020-08-18] MEDS: NICOTINE 14 MG/24 HOURS TOPICAL PATCH TD SCH (10:55)
[2020-08-18] MEDS: LISINOPRIL 20 MG TABLET PO SCH (10:58)
[2020-08-18] MEDS: amLODIPine BESYLATE 10 MG TABLET (FP) PO SCH (10:58)
[2020-08-18] MEDS: PRENATAL VITAMINS W/ FOLIC ACID TABLET (FP) PO SCH (10:58)
[2020-08-18] MEDS: SERTRALINE HCL 25 MG TABLET (FP) PO SCH (10:58)
[2020-08-18] MEDS: ARIPiprazole 5 MG TABLET PO SCH (23:11)
[2020-08-18] MEDS: THIAMINE HCL 100 MG TABLET (FP) PO SCH (23:11)
[2020-08-18] MEDS: MELATONIN 5 MG TABLETS PO SCH (23:11)
[2020-08-19] MEDS: GABAPENTIN 100 MG CAPSULE PO SCH ×3 (06:36→21:17)
[2020-08-19] MEDS: PRENATAL VITAMINS W/ FOLIC ACID TABLET (FP) PO SCH (09:13)
[2020-08-19] MEDS: SERTRALINE HCL 25 MG TABLET (FP) PO SCH (09:13)
[2020-08-19] MEDS: LISINOPRIL 20 MG TABLET PO SCH (09:13)
[2020-08-19] MEDS: NICOTINE 14 MG/24 HOURS TOPICAL PATCH TD SCH (09:13)
[2020-08-19] MEDS: amLODIPine BESYLATE 10 MG TABLET (FP) PO SCH (09:13)
[2020-08-19] MEDS: THIAMINE HCL 100 MG TABLET (FP) PO SCH (21:17)
[2020-08-19] MEDS: ARIPiprazole 5 MG TABLET PO SCH (21:17)
[2020-08-19] MEDS: MELATONIN 5 MG TABLETS PO SCH (21:18)
[2020-08-20] MEDS: GABAPENTIN 100 MG CAPSULE PO SCH ×3 (06:17→21:18)
[2020-08-20] MEDS: NICOTINE 14 MG/24 HOURS TOPICAL PATCH TD SCH (10:26)
[2020-08-20] MEDS: LISINOPRIL 20 MG TABLET PO SCH (10:26)
[2020-08-20] MEDS: amLODIPine BESYLATE 10 MG TABLET (FP) PO SCH (10:26)
[2020-08-20] MEDS: PRENATAL VITAMINS W/ FOLIC ACID TABLET (FP) PO SCH (10:26)
[2020-08-20] MEDS: SERTRALINE HCL 25 MG TABLET (FP) PO SCH (10:26)
[2020-08-20] MEDS: MELATONIN 5 MG TABLETS PO SCH (21:18)
[2020-08-20] MEDS: THIAMINE HCL 100 MG TABLET (FP) PO SCH (21:18)
[2020-08-20] MEDS: ARIPiprazole 5 MG TABLET PO SCH (21:18)
[2020-08-21] MEDS: GABAPENTIN 100 MG CAPSULE PO SCH ×3 (06:25→21:21)
[2020-08-21] MEDS: NICOTINE POLACRILEX 2 MG GUM BC PRN (08:56)
[2020-08-21] MEDS: NICOTINE 14 MG/24 HOURS TOPICAL PATCH TD SCH (10:48)
[2020-08-21] MEDS: LISINOPRIL 20 MG TABLET PO SCH (10:49)
[2020-08-21] MEDS: PRENATAL VITAMINS W/ FOLIC ACID TABLET (FP) PO SCH (10:49)
[2020-08-21] MEDS: SERTRALINE HCL 25 MG TABLET (FP) PO SCH (10:49)
[2020-08-21] MEDS: amLODIPine BESYLATE 10 MG TABLET (FP) PO SCH (10:49)
[2020-08-21] MEDS: THIAMINE HCL 100 MG TABLET (FP) PO SCH (21:21)
[2020-08-21] MEDS: ARIPiprazole 5 MG TABLET PO SCH (21:21)
[2020-08-21] MEDS: MELATONIN 5 MG TABLETS PO SCH (21:22)
[2020-08-22] MEDS: GABAPENTIN 100 MG CAPSULE PO SCH ×3 (06:20→21:15)
[2020-08-22] MEDS: amLODIPine BESYLATE 10 MG TABLET (FP) PO SCH (10:21)
[2020-08-22] MEDS: NICOTINE 14 MG/24 HOURS TOPICAL PATCH TD SCH (10:21)
[2020-08-22] MEDS: PRENATAL VITAMINS W/ FOLIC ACID TABLET (FP) PO SCH (10:21)
[2020-08-22] MEDS: LISINOPRIL 20 MG TABLET PO SCH (10:21)
[2020-08-22] MEDS: SERTRALINE HCL 25 MG TABLET (FP) PO SCH (10:21)
[2020-08-22] MEDS: ARIPiprazole 5 MG TABLET PO SCH (21:15)
[2020-08-22] MEDS: MELATONIN 5 MG TABLETS PO SCH (21:15)
[2020-08-22] MEDS: THIAMINE HCL 100 MG TABLET (FP) PO SCH (21:15)
[2020-08-23] MEDS: GABAPENTIN 100 MG CAPSULE PO SCH ×3 (06:31→21:39)
[2020-08-23] MEDS: SERTRALINE HCL 25 MG TABLET (FP) PO SCH (10:12)
[2020-08-23] MEDS: LISINOPRIL 20 MG TABLET PO SCH (10:12)
[2020-08-23] MEDS: amLODIPine BESYLATE 10 MG TABLET (FP) PO SCH (10:12)
[2020-08-23] MEDS: NICOTINE 14 MG/24 HOURS TOPICAL PATCH TD SCH (10:12)
[2020-08-23] MEDS: PRENATAL VITAMINS W/ FOLIC ACID TABLET (FP) PO SCH (10:12)
[2020-08-23] MEDS ORDERED: ASPIRIN 81 MG CHEWABLE TABLETS PO ONE (18:58)
--- NOTE | 2020-08-23 19:03 | PN ---
[facility] Progress Note Note: Patient complained of chest pain. She reports that it is non radiating and constant. Vital Signs Temperature 97.5 F L 08/23/20 06:19 Pulse Rate 63 08/23/20 10:00 Respiratory Rate 20 08/23/20 06:19 Blood Pressure 134/90 08/23/20 10:00 O2 Sat by Pulse Oximetry (%) 99 08/23/20 13:44 Laboratory Last Values Fasting Glucose 116 mg/dL (74-106) H 08/14/20 08:00 Action: EKG stat - Normal sinus rhythm Aspirin 81mg tablet oral stat Ibuprofen 400mg tablet oral
[2020-08-23] MEDS: IBUPROFEN 400 MG TABLET (FP) PO PRN (19:07)
[2020-08-23] MEDS: ARIPiprazole 5 MG TABLET PO SCH (21:38)
[2020-08-23] MEDS: MELATONIN 5 MG TABLETS PO SCH (21:38)
[2020-08-23] MEDS: THIAMINE HCL 100 MG TABLET (FP) PO SCH (21:39)
[2020-08-24] MEDS: GABAPENTIN 100 MG CAPSULE PO SCH ×3 (05:59→21:16)
[2020-08-24] MEDS: SERTRALINE HCL 25 MG TABLET (FP) PO SCH (10:02)
[2020-08-24] MEDS: amLODIPine BESYLATE 10 MG TABLET (FP) PO SCH (10:02)
[2020-08-24] MEDS: NICOTINE 14 MG/24 HOURS TOPICAL PATCH TD SCH (10:02)
[2020-08-24] MEDS: LISINOPRIL 20 MG TABLET PO SCH (10:02)
[2020-08-24] MEDS: PRENATAL VITAMINS W/ FOLIC ACID TABLET (FP) PO SCH (10:03)
--- NOTE | 2020-08-24 10:31 | EKG ---
Test Reason : Blood Pressure : / mmHG Vent. Rate : 068 BPM Atrial Rate : 068 BPM P-R Int : 180 ms QRS Dur : 086 ms QT Int : 412 ms P-R-T Axes : 052 052 049 degrees QTc Int : 438 ms NORMAL SINUS RHYTHM WHEN COMPARED WITH ECG OF 16-MAY-2020 13:55, NONSPECIFIC T WAVE ABNORMALITY NO LONGER EVIDENT IN ANTERIOR LEADS Confirmed by MELINA JOSUE MD ([id number]) on 08/24/2020 10:31:18 AM Referred By: Confirmed By:MELINA JOSUE MD
[2020-08-24] MEDS: COLLOIDAL OATMEAL 1 BAR EACH TP PRN (15:54)
[2020-08-24] MEDS ORDERED: PT OWN MED DRAWER 7, Y5N ONE (19:56)
[2020-08-24] MEDS: ARIPiprazole 5 MG TABLET PO SCH (21:15)
[2020-08-24] MEDS: THIAMINE HCL 100 MG TABLET (FP) PO SCH (21:15)
[2020-08-24] MEDS: MELATONIN 5 MG TABLETS PO SCH (21:16)
[2020-08-25] MEDS: GABAPENTIN 100 MG CAPSULE PO SCH ×3 (06:19→21:31)
[2020-08-25] MEDS: LISINOPRIL 20 MG TABLET PO SCH (09:45)
[2020-08-25] MEDS: amLODIPine BESYLATE 10 MG TABLET (FP) PO SCH (09:45)
[2020-08-25] MEDS: PRENATAL VITAMINS W/ FOLIC ACID TABLET (FP) PO SCH (09:45)
[2020-08-25] MEDS: SERTRALINE HCL 25 MG TABLET (FP) PO SCH (09:45)
[2020-08-25] MEDS: NICOTINE 14 MG/24 HOURS TOPICAL PATCH TD SCH (09:45)
[2020-08-25] MEDS: THIAMINE HCL 100 MG TABLET (FP) PO SCH (21:31)
[2020-08-25] MEDS: MELATONIN 5 MG TABLETS PO SCH (21:31)
[2020-08-25] MEDS: ARIPiprazole 5 MG TABLET PO SCH (21:31)
[2020-08-26] MEDS: GABAPENTIN 100 MG CAPSULE PO SCH ×3 (06:38→21:07)
[2020-08-26] MEDS: SERTRALINE HCL 25 MG TABLET (FP) PO SCH (09:35)
[2020-08-26] MEDS: PRENATAL VITAMINS W/ FOLIC ACID TABLET (FP) PO SCH (09:35)
[2020-08-26] MEDS: amLODIPine BESYLATE 10 MG TABLET (FP) PO SCH (09:35)
[2020-08-26] MEDS: NICOTINE 14 MG/24 HOURS TOPICAL PATCH TD SCH (09:35)
[2020-08-26] MEDS: LISINOPRIL 20 MG TABLET PO SCH (09:36)
[2020-08-26] MEDS: ARIPiprazole 5 MG TABLET PO SCH (21:07)
[2020-08-26] MEDS: THIAMINE HCL 100 MG TABLET (FP) PO SCH (21:07)
[2020-08-26] MEDS: MELATONIN 5 MG TABLETS PO SCH (21:07)
[2020-08-27] MEDS: GABAPENTIN 100 MG CAPSULE PO SCH (06:12)
[2020-08-27 06:48] VITALS: TEMP 97.7
[2020-08-27] MEDS: LISINOPRIL 20 MG TABLET PO SCH (09:12)
[2020-08-27] MEDS: SERTRALINE HCL 25 MG TABLET (FP) PO SCH (09:12)
[2020-08-27] MEDS: amLODIPine BESYLATE 10 MG TABLET (FP) PO SCH (09:12)
[2020-08-27] MEDS: NICOTINE 14 MG/24 HOURS TOPICAL PATCH TD SCH (09:13)
[2020-08-27] MEDS: PRENATAL VITAMINS W/ FOLIC ACID TABLET (FP) PO SCH (09:13)
--- NOTE | 2020-08-27 09:34 | DS ---
[facility] Rehab Discharge Summary - [facility] Rehab Discharge Summary Admission Date: 08/13/20 Discharge Date: 08/27/20 - History Present History: Alcohol dependence, Opioid dependence Pertinent Past History: HTN Hx Peripheral edema syphilis contact hx with treatment Mood Disorder - Discharge Physical Exam Vital Signs: Vital Signs Temperature 97.7 F 08/27/20 06:47 Pulse Rate 73 08/27/20 06:47 Respiratory Rate 18 08/27/20 06:47 Blood Pressure 135/87 08/27/20 06:47 O2 Sat by Pulse Oximetry (%) 100 08/27/20 06:47 General:WDWN female,alert o x 3 Nad, no resp difficulty MSK:Active ROM,all limbs, oob ambulating with steady gait Skin:minimal pedal edema Left >right, skin intact. Pertinent Admission Physical Exam Findings: s/p detox Laboratory Tests 08/14/20 08:00 Fasting Glucose 116 H - Treatment Discharge Condition: Discharge condition good Hospital Course: Pt is a 45 y/o female admitted to rehab after detox for alcohol and heroin use disorder on and discharging today. Pt met her counselor and has been referred to [facility] for aftercare. - Medication Discharge Medications: Ambulatory Orders Aripiprazole [Abilify -] 5 mg PO HS #30 tablet 06/28/20 Gabapentin [Neurontin -] 100 mg PO TID #90 capsule 06/28/20 Sertraline HCl [Zoloft] 25 mg PO DAILY #30 tablet 06/28/20 traZODone HCL [Desyrel -] 50 mg PO HS #30 tablet 06/28/20 Amlodipine Besylate [Norvasc -] 10 mg PO DAILY #14 tablet 08/27/20 Lisinopril [Prinivil -] 40 mg PO DAILY #30 tablet 08/27/20 - Medication-Assisted Treatment (MAT) Medication-Assisted Treatment (MAT): No - Discharge Instructions Diet, activity, other medical instructions: Diet:GURPREET Activity: oob ad mary carmen Other medical instructions:Follow up with CD aftercare to - Diagnosis (1) Alcohol use disorder Status: Chronic (2) Ecstasy abuse Status: Chronic (3) Nicotine dependence Status: Chronic Qualifiers: Nicotine product type: cigarettes Substance use status: in withdrawal Qualified Code(s): F17.213 - Nicotine dependence, cigarettes, with withdrawal (4) Cocaine dependence Status: Chronic Qualifiers: Substance use status: uncomplicated Qualified Code(s): F14.20 - Cocaine dependence, uncomplicated (5) HTN (hypertension) Status: Chronic Qualifiers: Hypertension type: essential hypertension Qualified Code(s): I10 - Essential (primary) hypertension (6) History of peripheral edema Status: Chronic - Follow-up Referral Minutes to complete discharge: 25 - AMA Did Patient Leave Against Medical Advice: No Additional Comments: Pt reports she has own primary care provider, Dr. Jacobson at [facility]. 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 Pt reminded to Follow up with PCP for further medical managemet of comorbid conditions.
[2020-08-27 10:40] VITALS: BP 115/76; PULSE 65
== END 2020-08-27 09:48 | disposition home or self-care (01) | DRG 772 ==
LOC: YASAS 17:35 → Y3E 17:36
PROVIDERS: ADMIT Allergy & Immunology; ATTEND Allergy & Immunology
PROC: HZ42ZZZ Group Counseling for Substance Abuse Treatment, Cognitive-Behavioral (ICD-10-PCS; principal; 2020-08-13)
DX: F10.20 Alcohol dependence, uncomplicated (principal); F11.20 Opioid dependence, uncomplicated; F14.20 Cocaine dependence, uncomplicated; F16.10 Hallucinogen abuse, uncomplicated; F15.10 Other stimulant abuse, uncomplicated; F39 Unspecified mood [affective] disorder; F43.10 Post-traumatic stress disorder, unspecified; I10 Essential (primary) hypertension; R07.89 Other chest pain; R60.0 Localized edema; Z62.810 Personal history of physical and sexual abuse in childhood; Z91.410 Personal history of adult physical and sexual abuse; Z91.5 Personal history of self-harm; Z86.19 Personal history of other infectious and parasitic diseases; Z56.0 Unemployment, unspecified; Z59.0 Homelessness
CPT/HCPCS: 36415; 82947; 93005; 93010

== ENCOUNTER 2021-03-05 13:09 | Inpatient (IN) | payer OTHER ==
[2021-03-05 15:49] VITALS: BMI 30.7
[2021-03-05] MEDS ORDERED: MENTHOL/PHENOL 1 EACH UD MM PRN (16:07)
[2021-03-05] MEDS ORDERED: MAGNESIUM HYDROX 2400MG/30ML ORAL SUSPENSION 30 ML CUP PO PRN (16:07)
[2021-03-05] MEDS ORDERED: METHADONE HCL 10 MG TABLET (FOR DETOX USE ONLY) PO ONE (16:07)
[2021-03-05] MEDS ORDERED: MAG HYDROX/AL HYDROX/SIMETH 30 ML UNIT-DOSE CUP PO PRN (16:07)
[2021-03-05] MEDS ORDERED: IBUPROFEN 400 MG TABLET (FP) PO PRN (16:07)
[2021-03-05] MEDS ORDERED: cloNIDine HCL 0.1 MG TABLET PO PRN (16:07)
[2021-03-05] MEDS ORDERED: BISMUTH SUBSALICYLATE 524 MG/30 ML UD PO PRN (16:07)
[2021-03-05] MEDS ORDERED: MAGNESIUM CITRATE 300 ML BOTTLE PO PRN (16:07)
[2021-03-05] MEDS ORDERED: chlordiazePOXIDE HCL 25 MG CAPSULE PO PRN (16:07)
[2021-03-05] MEDS ORDERED: ONDANSETRON *ODT* 4 MG TABLET SL PRN (16:07)
[2021-03-05] MEDS ORDERED: ACETAMINOPHEN 325 MG TABLET (FP) PO PRN ×2 (16:07)
[2021-03-05] MEDS ORDERED: NICOTINE POLACRILEX 2 MG GUM BUC PRN (16:07)
[2021-03-05] MEDS: LISINOPRIL 20 MG TABLET PO SCH (18:01)
[2021-03-05] MEDS: hydrOXYzine PAMOATE 25 MG CAPSULE (FP) PO SCH ×2 (18:03→22:10)
[2021-03-05] MEDS: NICOTINE 14 MG/24 HOURS TOPICAL PATCH TD SCH (18:04)
[2021-03-05] MEDS: chlordiazePOXIDE HCL 25 MG CAPSULE PO SCH (22:10)
[2021-03-05] MEDS: MELATONIN 5 MG TABLETS PO SCH (22:10)
[2021-03-05] MEDS: THIAMINE HCL 100 MG TABLET (FP) PO SCH (22:10)
[2021-03-06] MEDS: chlordiazePOXIDE HCL 25 MG CAPSULE PO SCH ×4 (07:10→22:45)
[2021-03-06] MEDS: hydrOXYzine PAMOATE 25 MG CAPSULE (FP) PO SCH ×5 (07:11→22:44)
[2021-03-06] MEDS ORDERED: METHADONE HCL 5 MG TABLET (FOR DETOX USE ONLY) ONE (08:35)
[2021-03-06] MEDS ORDERED: METHADONE HCL 10 MG TABLET (FOR DETOX USE ONLY) ONE (08:36)
[2021-03-06] MEDS ORDERED: METHADONE (DETOX) 20 MG, METHADONE (DETOX) 5 MG PO ONE (10:00)
[2021-03-06] MEDS: NICOTINE 14 MG/24 HOURS TOPICAL PATCH TD SCH (10:50)
[2021-03-06] MEDS: SERTRALINE HCL 25 MG TABLET (FP) PO SCH (10:51)
[2021-03-06] MEDS: LISINOPRIL 20 MG TABLET PO SCH (10:51)
[2021-03-06] MEDS: PRENATAL VITAMINS W/ FOLIC ACID TABLET (FP) PO SCH (10:51)
[2021-03-06] MEDS: ARIPiprazole 5 MG TABLET PO SCH (12:12)
[2021-03-06 12:34] LABS: HEMATOCRIT 37.3 % (32.4-45.2); HEMOGLOBIN 12.2 GM/dL (10.7-15.3); MCH 28.5 pg (25.7-33.7); MCHC 32.7 g/dl (32.0-36.0); MEAN CELL VOLUME 87.2 fl (80-96); MEAN PLT VOLUME 8.9 fl (7.5-11.1); PLATELET COUNT 422 K/MM3 (134-434); RBC 4.27 M/mm3 (3.60-5.2); RDW 14.7 % (11.6-15.6); WHITE BLOOD COUNT 7.1 K/mm3 (4.0-10.0)
[2021-03-06 13:09] LABS: BLOOD UREA NITROGEN 8.8 mg/dL (7-18); CALCIUM 9.2 mg/dL (8.5-10.1)
[2021-03-06 13:10] LABS: ALBUMIN 3.1 g/dl (3.4-5.0)
[2021-03-06 13:14] LABS: BILIRUBIN,TOTAL 0.3 mg/dL (0.2-1); CREATININE 1.1 mg/dL (0.55-1.3); TOT PROT 6.8 g/dl (6.4-8.2)
[2021-03-06] MEDS: GABAPENTIN 100 MG CAPSULE PO SCH ×2 (15:12→22:44)
[2021-03-06] MEDS ORDERED: SUVOREXANT 10 MG TABLET PO PRN (22:00)
[2021-03-06] MEDS: MELATONIN 5 MG TABLETS PO SCH (22:44)
[2021-03-06] MEDS: THIAMINE HCL 100 MG TABLET (FP) PO SCH (22:45)
[2021-03-07] MEDS: GABAPENTIN 100 MG CAPSULE PO SCH ×3 (05:55→22:33)
[2021-03-07] MEDS: chlordiazePOXIDE HCL 25 MG CAPSULE PO SCH ×4 (05:55→22:33)
[2021-03-07] MEDS: hydrOXYzine PAMOATE 25 MG CAPSULE (FP) PO SCH ×5 (05:55→22:34)
[2021-03-07] MEDS ORDERED: METHADONE HCL 10 MG TABLET (FOR DETOX USE ONLY) PO ONE (10:00)
[2021-03-07] MEDS: ARIPiprazole 5 MG TABLET PO SCH (10:22)
[2021-03-07] MEDS: NICOTINE 14 MG/24 HOURS TOPICAL PATCH TD SCH (10:23)
[2021-03-07] MEDS: PRENATAL VITAMINS W/ FOLIC ACID TABLET (FP) PO SCH (10:23)
[2021-03-07] MEDS: SERTRALINE HCL 25 MG TABLET (FP) PO SCH (10:23)
[2021-03-07] MEDS: LISINOPRIL 20 MG TABLET PO SCH (10:23)
[2021-03-07] MEDS: THIAMINE HCL 100 MG TABLET (FP) PO SCH (22:33)
[2021-03-07] MEDS: MELATONIN 5 MG TABLETS PO SCH (22:35)
[2021-03-08] MEDS ORDERED: chlordiazePOXIDE HCL 10 MG CAPSULE PO PRN
[2021-03-08 05:11] LABS: SARS-CoV-2 NAA Not Detected (Not Detected)
[2021-03-08] MEDS: chlordiazePOXIDE HCL 10 MG CAPSULE PO SCH ×4 (07:05→23:13)
[2021-03-08] MEDS: hydrOXYzine PAMOATE 25 MG CAPSULE (FP) PO SCH ×5 (07:11→23:14)
[2021-03-08] MEDS: GABAPENTIN 100 MG CAPSULE PO SCH ×3 (07:11→23:14)
[2021-03-08] MEDS ORDERED: METHADONE HCL 5 MG TABLET (FOR DETOX USE ONLY) ONE (08:42)
[2021-03-08] MEDS ORDERED: METHADONE HCL 10 MG TABLET (FOR DETOX USE ONLY) ONE (08:43)
[2021-03-08] MEDS ORDERED: METHADONE (DETOX) 10 MG, METHADONE (DETOX) 5 MG PO ONE (10:00)
[2021-03-08] MEDS: ARIPiprazole 5 MG TABLET PO SCH (10:52)
[2021-03-08] MEDS: PRENATAL VITAMINS W/ FOLIC ACID TABLET (FP) PO SCH (10:54)
[2021-03-08] MEDS: LISINOPRIL 20 MG TABLET PO SCH (10:54)
[2021-03-08] MEDS: NICOTINE 14 MG/24 HOURS TOPICAL PATCH TD SCH (10:54)
[2021-03-08] MEDS: SERTRALINE HCL 25 MG TABLET (FP) PO SCH (10:55)
[2021-03-08] MEDS: MELATONIN 5 MG TABLETS PO SCH (23:14)
[2021-03-08] MEDS: THIAMINE HCL 100 MG TABLET (FP) PO SCH (23:14)
[2021-03-09] MEDS: hydrOXYzine PAMOATE 25 MG CAPSULE (FP) PO SCH ×5 (06:54→23:12)
[2021-03-09] MEDS: GABAPENTIN 100 MG CAPSULE PO SCH ×3 (06:54→23:12)
[2021-03-09] MEDS: chlordiazePOXIDE HCL 10 MG CAPSULE PO SCH ×2 (06:54→17:51)
[2021-03-09] MEDS ORDERED: METHADONE HCL 10 MG TABLET (FOR DETOX USE ONLY) PO ONE (10:00)
[2021-03-09] MEDS: ARIPiprazole 5 MG TABLET PO SCH (10:48)
[2021-03-09] MEDS: PRENATAL VITAMINS W/ FOLIC ACID TABLET (FP) PO SCH (10:48)
[2021-03-09] MEDS: LISINOPRIL 20 MG TABLET PO SCH (10:48)
[2021-03-09] MEDS: SERTRALINE HCL 25 MG TABLET (FP) PO SCH (10:54)
[2021-03-09] MEDS: NICOTINE 14 MG/24 HOURS TOPICAL PATCH TD SCH (10:54)
[2021-03-09] MEDS: THIAMINE HCL 100 MG TABLET (FP) PO SCH (23:12)
[2021-03-09] MEDS: MELATONIN 5 MG TABLETS PO SCH (23:12)
[2021-03-09] MEDS: METHOCARBAMOL 500 MG TABLET PO PRN (23:12)
[2021-03-10] MEDS ORDERED: chlordiazePOXIDE HCL 10 MG CAPSULE PO ONE (05:00)
[2021-03-10] MEDS ORDERED: METHADONE HCL 5 MG TABLET (FOR DETOX USE ONLY) PO ONE (06:00)
[2021-03-10] MEDS: GABAPENTIN 100 MG CAPSULE PO SCH ×3 (06:51→21:42)
[2021-03-10] MEDS: hydrOXYzine PAMOATE 25 MG CAPSULE (FP) PO SCH ×5 (06:52→21:42)
[2021-03-10] MEDS: PRENATAL VITAMINS W/ FOLIC ACID TABLET (FP) PO SCH (10:03)
[2021-03-10] MEDS: ARIPiprazole 5 MG TABLET PO SCH (10:04)
[2021-03-10] MEDS: SERTRALINE HCL 25 MG TABLET (FP) PO SCH (10:04)
[2021-03-10] MEDS: LISINOPRIL 20 MG TABLET PO SCH (10:04)
[2021-03-10] MEDS: NICOTINE 14 MG/24 HOURS TOPICAL PATCH TD SCH (10:05)
[2021-03-10] MEDS: METHOCARBAMOL 500 MG TABLET PO PRN (21:42)
[2021-03-10] MEDS: MELATONIN 5 MG TABLETS PO SCH (21:42)
[2021-03-10] MEDS: THIAMINE HCL 100 MG TABLET (FP) PO SCH (21:42)
[2021-03-11] MEDS: hydrOXYzine PAMOATE 25 MG CAPSULE (FP) PO SCH ×2 (07:08→11:08)
[2021-03-11] MEDS: GABAPENTIN 100 MG CAPSULE PO SCH (07:08)
[2021-03-11 09:44] VITALS: BP 141/51; PULSE 78; TEMP 98.1
[2021-03-11] MEDS: NICOTINE 14 MG/24 HOURS TOPICAL PATCH TD SCH (11:04)
[2021-03-11] MEDS: ARIPiprazole 5 MG TABLET PO SCH (11:04)
[2021-03-11] MEDS: PRENATAL VITAMINS W/ FOLIC ACID TABLET (FP) PO SCH (11:05)
[2021-03-11] MEDS: LISINOPRIL 20 MG TABLET PO SCH (11:05)
[2021-03-11] MEDS: SERTRALINE HCL 25 MG TABLET (FP) PO SCH (11:08)
== END 2021-03-11 12:28 | disposition home or self-care (01) | DRG 773 ==
LOC: YASAS 13:09 → Y6N 16:20
PROVIDERS: ADMIT Allergy & Immunology; ATTEND Allergy & Immunology
PROC: HZ2ZZZZ Detoxification Services for Substance Abuse Treatment (ICD-10-PCS; principal; 2021-03-05)
DX: F11.23 Opioid dependence with withdrawal (principal); F10.230 Alcohol dependence with withdrawal, uncomplicated; F16.10 Hallucinogen abuse, uncomplicated; F17.210 Nicotine dependence, cigarettes, uncomplicated; F19.24 Other psychoactive substance dependence with psychoactive substance-induced mood disorder; F43.10 Post-traumatic stress disorder, unspecified; F39 Unspecified mood [affective] disorder; U07.1 COVID-19; I89.0 Lymphedema, not elsewhere classified; Z62.810 Personal history of physical and sexual abuse in childhood; Z86.19 Personal history of other infectious and parasitic diseases
CPT/HCPCS: 36415; 80053; 81025; 85027; 86593; 86780; 93005; 93010; C9803; U0003; U0005

== ENCOUNTER 2021-04-10 12:49 | Inpatient (IN) | payer OTHER ==
[2021-04-10 14:35] VITALS: BMI 30.8
[2021-04-10] MEDS ORDERED: MAG HYDROX/AL HYDROX/SIMETH 30 ML UNIT-DOSE CUP PO PRN (16:15)
[2021-04-10] MEDS ORDERED: BISMUTH SUBSALICYLATE 524 MG/30 ML UD PO PRN (16:15)
[2021-04-10] MEDS ORDERED: MAGNESIUM CITRATE 300 ML BOTTLE PO PRN (16:15)
[2021-04-10] MEDS ORDERED: MENTHOL/PHENOL 1 EACH UD MM PRN (16:15)
[2021-04-10] MEDS ORDERED: MAGNESIUM HYDROX 2400MG/30ML ORAL SUSPENSION 30 ML CUP PO PRN (16:15)
[2021-04-10] MEDS ORDERED: ONDANSETRON *ODT* 4 MG TABLET SL PRN (16:15)
[2021-04-10] MEDS ORDERED: NICOTINE POLACRILEX 2 MG GUM BUC PRN (16:15)
[2021-04-10] MEDS ORDERED: ACETAMINOPHEN 325 MG TABLET (FP) PO PRN ×2 (16:15)
[2021-04-10] MEDS: IBUPROFEN 400 MG TABLET (FP) PO PRN (17:20)
[2021-04-10] MEDS: hydrOXYzine PAMOATE 25 MG CAPSULE (FP) PO SCH ×2 (17:20→21:56)
[2021-04-10] MEDS: METHOCARBAMOL 500 MG TABLET PO PRN (21:56)
[2021-04-10] MEDS ORDERED: THIAMINE HCL 100 MG TABLET (FP) PO SCH (22:00)
[2021-04-10] MEDS ORDERED: MELATONIN 5 MG TABLETS PO SCH (22:00)
[2021-04-11] MEDS: hydrOXYzine PAMOATE 25 MG CAPSULE (FP) PO SCH (06:48)
[2021-04-11] MEDS ORDERED: hydrOXYzine PAMOATE 25 MG CAPSULE (FP) PO PRN (08:41)
[2021-04-11] MEDS: METHOCARBAMOL 500 MG TABLET PO PRN (09:52)
[2021-04-11] MEDS ORDERED: PRENATAL VITAMINS W/ FOLIC ACID TABLET (FP) PO SCH (10:00)
[2021-04-11] MEDS ORDERED: amLODIPine BESYLATE 10 MG TABLET (FP) PO SCH (10:00)
[2021-04-11] MEDS ORDERED: LISINOPRIL 20 MG TABLET PO SCH (10:00)
[2021-04-11] MEDS ORDERED: NICOTINE 21 MG/24 HOURS TOPICAL PATCH TD SCH (10:00)
[2021-04-11] MEDS ORDERED: ARIPiprazole 5 MG TABLET PO SCH (10:15)
[2021-04-11] MEDS ORDERED: SERTRALINE HCL 25 MG TABLET (FP) PO SCH (10:15)
[2021-04-11 10:39] LABS: CALCIUM 8.9 mg/dL (8.5-10.1); HEMATOCRIT 36.1 % (32.4-45.2); MCH 28.8 pg (25.7-33.7); MCHC 33.4 g/dl (32.0-36.0); MEAN CELL VOLUME 86.5 fl (80-96); MEAN PLT VOLUME 9.5 fl (7.5-11.1); PLATELET COUNT 341 K/MM3 (134-434); RBC 4.18 M/mm3 (3.60-5.2); RDW 14.6 % (11.6-15.6); WHITE BLOOD COUNT 8.4 K/mm3 (4.0-10.0)
[2021-04-11 10:40] LABS: ALBUMIN 3.5 g/dl (3.4-5.0); BLOOD UREA NITROGEN 11.3 mg/dL (7-18)
[2021-04-11 10:43] LABS: CREATININE 0.9 mg/dL (0.55-1.3)
[2021-04-11 10:44] LABS: BILIRUBIN,TOTAL 0.4 mg/dL (0.2-1)
[2021-04-11 10:45] LABS: TOT PROT 7.5 g/dl (6.4-8.2)
[2021-04-11] MEDS: IBUPROFEN 400 MG TABLET (FP) PO PRN (12:12)
[2021-04-11 13:10] VITALS: BP 123/77; PULSE 59; TEMP 96.8
[2021-04-11] MEDS ORDERED: GABAPENTIN 100 MG CAPSULE PO SCH (14:00)
[2021-04-11 17:03] LABS: HIV INTERPRETATION NEGATIVE (NEGATIVE)
== END 2021-04-11 13:19 | disposition other institution (70) | DRG 773 ==
LOC: YASAS 12:49 → Y3N 16:48
PROVIDERS: ADMIT Allergy & Immunology; ATTEND Allergy & Immunology
PROC: HZ2ZZZZ Detoxification Services for Substance Abuse Treatment (ICD-10-PCS; principal; 2021-04-10)
DX: F10.230 Alcohol dependence with withdrawal, uncomplicated (principal); F11.20 Opioid dependence, uncomplicated; F14.20 Cocaine dependence, uncomplicated; F16.10 Hallucinogen abuse, uncomplicated; F17.210 Nicotine dependence, cigarettes, uncomplicated; F19.282 Other psychoactive substance dependence with psychoactive substance-induced sleep disorder; F19.24 Other psychoactive substance dependence with psychoactive substance-induced mood disorder; F41.8 Other specified anxiety disorders; F39 Unspecified mood [affective] disorder; F32.9 Major depressive disorder, single episode, unspecified; F43.10 Post-traumatic stress disorder, unspecified; I10 Essential (primary) hypertension; I89.0 Lymphedema, not elsewhere classified; G47.00 Insomnia, unspecified; Z62.810 Personal history of physical and sexual abuse in childhood
CPT/HCPCS: 36415; 80053; 85027; 86593; 86780; 87389; C9803; U0003; U0005

== ENCOUNTER 2021-04-11 13:38 | Inpatient (IN) | payer OTHER ==
[2021-04-11] MEDS ORDERED: MAG HYDROX/AL HYDROX/SIMETH 30 ML UNIT-DOSE CUP PO PRN (14:46)
[2021-04-11] MEDS ORDERED: NICOTINE POLACRILEX 2 MG GUM BUC PRN (14:46)
[2021-04-11] MEDS ORDERED: LOPERAMIDE HCL 2 MG CAPSULE PO PRN (14:46)
[2021-04-11] MEDS ORDERED: ACETAMINOPHEN 325 MG TABLET (FP) PO PRN (14:46)
[2021-04-11] MEDS ORDERED: MENTHOL/PHENOL 1 EACH UD MM PRN (14:46)
[2021-04-11] MEDS ORDERED: P-EPHED 60MG/TRIPROLIDI 2.5MG TABLET PO PRN (14:46)
[2021-04-11] MEDS ORDERED: MAGNESIUM HYDROX 2400MG/30ML ORAL SUSPENSION 30 ML CUP PO PRN (14:46)
[2021-04-11] MEDS ORDERED: MAGNESIUM CITRATE 300 ML BOTTLE PO PRN (14:46)
[2021-04-11] MEDS ORDERED: guaiFENesin 200 MG/10 ML 10 ML UNIT-DOSE CUPS PO PRN (14:46)
[2021-04-11] MEDS ORDERED: cloNIDine HCL 0.1 MG TABLET PO ONE (15:15)
[2021-04-11] MEDS: IBUPROFEN 400 MG TABLET (FP) PO PRN (17:10)
[2021-04-11] MEDS: METHOCARBAMOL 500 MG TABLET PO SCH ×2 (17:10→22:18)
[2021-04-11] MEDS: THIAMINE HCL 100 MG TABLET (FP) PO SCH (22:17)
[2021-04-11] MEDS: MELATONIN 5 MG TABLETS PO SCH (22:17)
[2021-04-11] MEDS: GABAPENTIN 100 MG CAPSULE PO SCH (22:18)
[2021-04-12] MEDS: GABAPENTIN 100 MG CAPSULE PO SCH ×3 (06:39→21:13)
[2021-04-12] MEDS ORDERED: PT OWN MED DRAWER 7, Y5N ONE (06:44)
[2021-04-12] MEDS ORDERED: cloNIDine HCL 0.1 MG TABLET PO ONE (08:00)
[2021-04-12] MEDS: hydrOXYzine PAMOATE 25 MG CAPSULE (FP) PO PRN ×2 (08:08→13:19)
[2021-04-12] MEDS: NICOTINE 21 MG/24 HOURS TOPICAL PATCH TD SCH (09:51)
[2021-04-12] MEDS: LISINOPRIL 20 MG TABLET PO SCH (09:52)
[2021-04-12] MEDS: SERTRALINE HCL 25 MG TABLET (FP) PO SCH (09:52)
[2021-04-12] MEDS: PRENATAL VITAMINS W/ FOLIC ACID TABLET (FP) PO SCH (09:52)
[2021-04-12] MEDS: amLODIPine BESYLATE 10 MG TABLET (FP) PO SCH (09:52)
[2021-04-12] MEDS: ARIPiprazole 5 MG TABLET PO SCH (09:52)
[2021-04-12] MEDS: METHOCARBAMOL 500 MG TABLET PO SCH ×4 (09:52→21:13)
[2021-04-12] MEDS: HYDROCHLOROTHIAZIDE 12.5 MG CAPSULE (FP) PO SCH (09:53)
[2021-04-12] MEDS: hydrOXYzine PAMOATE 50 MG CAPSULE (FP) PO PRN ×2 (17:04→21:14)
[2021-04-12] MEDS: MELATONIN 5 MG TABLETS PO SCH (21:13)
[2021-04-12] MEDS: THIAMINE HCL 100 MG TABLET (FP) PO SCH (21:13)
[2021-04-13] MEDS: GABAPENTIN 100 MG CAPSULE PO SCH ×3 (06:43→21:56)
[2021-04-13] MEDS: NICOTINE 21 MG/24 HOURS TOPICAL PATCH TD SCH (09:56)
[2021-04-13] MEDS: PRENATAL VITAMINS W/ FOLIC ACID TABLET (FP) PO SCH (09:56)
[2021-04-13] MEDS: METHOCARBAMOL 500 MG TABLET PO SCH ×4 (09:59→21:56)
[2021-04-13] MEDS: amLODIPine BESYLATE 10 MG TABLET (FP) PO SCH (09:59)
[2021-04-13] MEDS: LISINOPRIL 20 MG TABLET PO SCH (09:59)
[2021-04-13] MEDS: HYDROCHLOROTHIAZIDE 12.5 MG CAPSULE (FP) PO SCH (09:59)
[2021-04-13] MEDS: hydrOXYzine PAMOATE 50 MG CAPSULE (FP) PO PRN ×3 (10:01→20:14)
[2021-04-13] MEDS: ARIPiprazole 5 MG TABLET PO SCH (11:37)
[2021-04-13] MEDS: SERTRALINE HCL 25 MG TABLET (FP) PO SCH (11:37)
[2021-04-13] MEDS: MELATONIN 5 MG TABLETS PO SCH (21:55)
[2021-04-13] MEDS: THIAMINE HCL 100 MG TABLET (FP) PO SCH (21:56)
[2021-04-14] MEDS: GABAPENTIN 100 MG CAPSULE PO SCH ×3 (06:33→21:12)
[2021-04-14] MEDS: HYDROCHLOROTHIAZIDE 12.5 MG CAPSULE (FP) PO SCH (10:31)
[2021-04-14] MEDS: NICOTINE 21 MG/24 HOURS TOPICAL PATCH TD SCH (10:31)
[2021-04-14] MEDS: amLODIPine BESYLATE 10 MG TABLET (FP) PO SCH (10:31)
[2021-04-14] MEDS: hydrOXYzine PAMOATE 50 MG CAPSULE (FP) PO PRN ×3 (10:31→21:12)
[2021-04-14] MEDS: METHOCARBAMOL 500 MG TABLET PO SCH ×4 (10:31→21:12)
[2021-04-14] MEDS: PRENATAL VITAMINS W/ FOLIC ACID TABLET (FP) PO SCH (10:31)
[2021-04-14] MEDS: LISINOPRIL 20 MG TABLET PO SCH (10:31)
[2021-04-14] MEDS: SERTRALINE HCL 25 MG TABLET (FP) PO SCH (10:32)
[2021-04-14] MEDS: ARIPiprazole 5 MG TABLET PO SCH (10:32)
[2021-04-14] MEDS: THIAMINE HCL 100 MG TABLET (FP) PO SCH (21:12)
[2021-04-14] MEDS: MELATONIN 5 MG TABLETS PO SCH (21:13)
[2021-04-15] MEDS: GABAPENTIN 100 MG CAPSULE PO SCH ×3 (06:22→21:52)
[2021-04-15] MEDS: hydrOXYzine PAMOATE 50 MG CAPSULE (FP) PO PRN ×2 (06:23→21:53)
[2021-04-15] MEDS: NICOTINE 21 MG/24 HOURS TOPICAL PATCH TD SCH (10:21)
[2021-04-15] MEDS: amLODIPine BESYLATE 10 MG TABLET (FP) PO SCH (10:22)
[2021-04-15] MEDS: METHOCARBAMOL 500 MG TABLET PO SCH ×4 (10:22→21:53)
[2021-04-15] MEDS: LISINOPRIL 20 MG TABLET PO SCH (10:22)
[2021-04-15] MEDS: HYDROCHLOROTHIAZIDE 12.5 MG CAPSULE (FP) PO SCH (10:22)
[2021-04-15] MEDS: ARIPiprazole 5 MG TABLET PO SCH (10:23)
[2021-04-15] MEDS: SERTRALINE HCL 25 MG TABLET (FP) PO SCH (10:23)
[2021-04-15] MEDS: PRENATAL VITAMINS W/ FOLIC ACID TABLET (FP) PO SCH (10:23)
[2021-04-15] MEDS ORDERED: BUPRENORPHINE/NALOXONE 2 MG/0.5 MG FILM PACKET SL ONE (14:24)
[2021-04-15] MEDS: THIAMINE HCL 100 MG TABLET (FP) PO SCH (21:52)
[2021-04-15] MEDS: MELATONIN 5 MG TABLETS PO SCH (21:53)
[2021-04-16] MEDS: GABAPENTIN 100 MG CAPSULE PO SCH ×3 (06:18→21:17)
[2021-04-16] MEDS: hydrOXYzine PAMOATE 50 MG CAPSULE (FP) PO PRN ×3 (07:40→21:18)
[2021-04-16] MEDS: BUPRENORPHINE/NALOXONE 2 MG/0.5 MG FILM PACKET SL SCH (09:04)
[2021-04-16] MEDS: PRENATAL VITAMINS W/ FOLIC ACID TABLET (FP) PO SCH (09:04)
[2021-04-16] MEDS: LISINOPRIL 20 MG TABLET PO SCH (09:05)
[2021-04-16] MEDS: HYDROCHLOROTHIAZIDE 12.5 MG CAPSULE (FP) PO SCH (09:05)
[2021-04-16] MEDS: amLODIPine BESYLATE 10 MG TABLET (FP) PO SCH (09:05)
[2021-04-16] MEDS: METHOCARBAMOL 500 MG TABLET PO SCH ×4 (09:05→21:17)
[2021-04-16] MEDS: NICOTINE 21 MG/24 HOURS TOPICAL PATCH TD SCH (09:05)
[2021-04-16] MEDS: ARIPiprazole 5 MG TABLET PO SCH (09:53)
[2021-04-16] MEDS: SERTRALINE HCL 25 MG TABLET (FP) PO SCH (09:53)
[2021-04-16 12:58] LABS: SARS-CoV-2 NAA Not Detected
[2021-04-16] MEDS: MELATONIN 5 MG TABLETS PO SCH (21:17)
[2021-04-16] MEDS: THIAMINE HCL 100 MG TABLET (FP) PO SCH (21:17)
[2021-04-17] MEDS: hydrOXYzine PAMOATE 50 MG CAPSULE (FP) PO PRN ×2 (06:07→13:04)
[2021-04-17] MEDS: GABAPENTIN 100 MG CAPSULE PO SCH ×3 (06:07→21:38)
[2021-04-17] MEDS ORDERED: PT OWN MED DRAWER 7, Y5N ONE (09:05)
[2021-04-17] MEDS: METHOCARBAMOL 500 MG TABLET PO SCH ×4 (09:39→21:38)
[2021-04-17] MEDS: HYDROCHLOROTHIAZIDE 12.5 MG CAPSULE (FP) PO SCH (09:39)
[2021-04-17] MEDS: amLODIPine BESYLATE 10 MG TABLET (FP) PO SCH (09:39)
[2021-04-17] MEDS: LISINOPRIL 20 MG TABLET PO SCH (09:39)
[2021-04-17] MEDS: BUPRENORPHINE/NALOXONE 2 MG/0.5 MG FILM PACKET SL SCH (09:39)
[2021-04-17] MEDS: NICOTINE 21 MG/24 HOURS TOPICAL PATCH TD SCH (09:39)
[2021-04-17] MEDS: PRENATAL VITAMINS W/ FOLIC ACID TABLET (FP) PO SCH (09:39)
[2021-04-17] MEDS: SERTRALINE HCL 25 MG TABLET (FP) PO SCH (09:39)
[2021-04-17] MEDS: ARIPiprazole 5 MG TABLET PO SCH (09:39)
[2021-04-17] MEDS: IBUPROFEN 400 MG TABLET (FP) PO PRN (16:47)
[2021-04-17] MEDS: THIAMINE HCL 100 MG TABLET (FP) PO SCH (21:38)
[2021-04-17] MEDS: SUVOREXANT 10 MG TABLET PO PRN (21:39)
[2021-04-18] MEDS: hydrOXYzine PAMOATE 50 MG CAPSULE (FP) PO PRN ×4 (06:04→21:14)
[2021-04-18] MEDS: GABAPENTIN 100 MG CAPSULE PO SCH ×3 (06:04→21:15)
[2021-04-18] MEDS: BUPRENORPHINE/NALOXONE 2 MG/0.5 MG FILM PACKET SL SCH (10:00)
[2021-04-18] MEDS: PRENATAL VITAMINS W/ FOLIC ACID TABLET (FP) PO SCH (10:00)
[2021-04-18] MEDS: ARIPiprazole 5 MG TABLET PO SCH (10:01)
[2021-04-18] MEDS: LISINOPRIL 20 MG TABLET PO SCH (10:01)
[2021-04-18] MEDS: amLODIPine BESYLATE 10 MG TABLET (FP) PO SCH (10:01)
[2021-04-18] MEDS: METHOCARBAMOL 500 MG TABLET PO SCH ×4 (10:01→21:14)
[2021-04-18] MEDS: SERTRALINE HCL 25 MG TABLET (FP) PO SCH (10:01)
[2021-04-18] MEDS: HYDROCHLOROTHIAZIDE 12.5 MG CAPSULE (FP) PO SCH (10:01)
[2021-04-18] MEDS: NICOTINE 21 MG/24 HOURS TOPICAL PATCH TD SCH (10:02)
[2021-04-18] MEDS: SUVOREXANT 10 MG TABLET PO PRN (21:14)
[2021-04-18] MEDS: THIAMINE HCL 100 MG TABLET (FP) PO SCH (21:15)
[2021-04-19] MEDS: GABAPENTIN 100 MG CAPSULE PO SCH ×3 (06:19→21:40)
[2021-04-19] MEDS: hydrOXYzine PAMOATE 50 MG CAPSULE (FP) PO PRN ×2 (06:20→17:20)
[2021-04-19] MEDS: SERTRALINE HCL 25 MG TABLET (FP) PO SCH (09:14)
[2021-04-19] MEDS: LISINOPRIL 20 MG TABLET PO SCH (09:14)
[2021-04-19] MEDS: amLODIPine BESYLATE 10 MG TABLET (FP) PO SCH (09:16)
[2021-04-19] MEDS: BUPRENORPHINE/NALOXONE 2 MG/0.5 MG FILM PACKET SL SCH (09:16)
[2021-04-19] MEDS: ARIPiprazole 5 MG TABLET PO SCH (09:16)
[2021-04-19] MEDS: HYDROCHLOROTHIAZIDE 12.5 MG CAPSULE (FP) PO SCH (09:17)
[2021-04-19] MEDS: NICOTINE 21 MG/24 HOURS TOPICAL PATCH TD SCH (09:17)
[2021-04-19] MEDS: PRENATAL VITAMINS W/ FOLIC ACID TABLET (FP) PO SCH (09:18)
[2021-04-19] MEDS: METHOCARBAMOL 500 MG TABLET PO SCH ×4 (10:59→21:40)
[2021-04-19] MEDS: TOLNAFTATE 1% CREAM 15 GM TUBE TP SCH ×2 (10:59→21:42)
[2021-04-19] MEDS: THIAMINE HCL 100 MG TABLET (FP) PO SCH (21:40)
[2021-04-19] MEDS: SUVOREXANT 10 MG TABLET PO PRN (21:40)
[2021-04-20] MEDS: GABAPENTIN 100 MG CAPSULE PO SCH ×3 (07:01→21:19)
[2021-04-20] MEDS: hydrOXYzine PAMOATE 50 MG CAPSULE (FP) PO PRN ×4 (07:01→21:19)
[2021-04-20] MEDS: HYDROCHLOROTHIAZIDE 12.5 MG CAPSULE (FP) PO SCH (09:25)
[2021-04-20] MEDS: BUPRENORPHINE/NALOXONE 2 MG/0.5 MG FILM PACKET SL SCH (09:25)
[2021-04-20] MEDS: NICOTINE 21 MG/24 HOURS TOPICAL PATCH TD SCH (09:25)
[2021-04-20] MEDS: amLODIPine BESYLATE 10 MG TABLET (FP) PO SCH (09:25)
[2021-04-20] MEDS: METHOCARBAMOL 500 MG TABLET PO SCH ×4 (09:25→21:19)
[2021-04-20] MEDS: SERTRALINE HCL 25 MG TABLET (FP) PO SCH (09:25)
[2021-04-20] MEDS: LISINOPRIL 20 MG TABLET PO SCH (09:25)
[2021-04-20] MEDS: PRENATAL VITAMINS W/ FOLIC ACID TABLET (FP) PO SCH (09:26)
[2021-04-20] MEDS: ARIPiprazole 5 MG TABLET PO SCH (10:40)
[2021-04-20] MEDS: TOLNAFTATE 1% CREAM 15 GM TUBE TP SCH ×2 (14:42→21:22)
[2021-04-20] MEDS: THIAMINE HCL 100 MG TABLET (FP) PO SCH (21:19)
[2021-04-20] MEDS: SUVOREXANT 10 MG TABLET PO PRN (21:21)
[2021-04-21] MEDS: hydrOXYzine PAMOATE 50 MG CAPSULE (FP) PO PRN ×3 (06:40→21:51)
[2021-04-21] MEDS: GABAPENTIN 100 MG CAPSULE PO SCH ×3 (06:40→21:48)
[2021-04-21] MEDS: PRENATAL VITAMINS W/ FOLIC ACID TABLET (FP) PO SCH (10:11)
[2021-04-21] MEDS: SERTRALINE HCL 25 MG TABLET (FP) PO SCH (10:11)
[2021-04-21] MEDS: ARIPiprazole 5 MG TABLET PO SCH (10:11)
[2021-04-21] MEDS: LISINOPRIL 20 MG TABLET PO SCH (10:12)
[2021-04-21] MEDS: METHOCARBAMOL 500 MG TABLET PO SCH ×4 (10:12→21:48)
[2021-04-21] MEDS: amLODIPine BESYLATE 10 MG TABLET (FP) PO SCH (10:12)
[2021-04-21] MEDS: BUPRENORPHINE/NALOXONE 2 MG/0.5 MG FILM PACKET SL SCH (10:12)
[2021-04-21] MEDS: HYDROCHLOROTHIAZIDE 12.5 MG CAPSULE (FP) PO SCH (10:12)
[2021-04-21] MEDS: TOLNAFTATE 1% CREAM 15 GM TUBE TP SCH ×2 (10:13→22:34)
[2021-04-21] MEDS: NICOTINE 21 MG/24 HOURS TOPICAL PATCH TD SCH (10:14)
[2021-04-21] MEDS: THIAMINE HCL 100 MG TABLET (FP) PO SCH (21:48)
[2021-04-21] MEDS: SUVOREXANT 10 MG TABLET PO PRN (22:33)
[2021-04-22] MEDS: hydrOXYzine PAMOATE 50 MG CAPSULE (FP) PO PRN ×3 (06:15→21:20)
[2021-04-22] MEDS: GABAPENTIN 100 MG CAPSULE PO SCH ×3 (06:15→21:20)
[2021-04-22] MEDS: PRENATAL VITAMINS W/ FOLIC ACID TABLET (FP) PO SCH (10:18)
[2021-04-22] MEDS: SERTRALINE HCL 25 MG TABLET (FP) PO SCH (10:19)
[2021-04-22] MEDS: BUPRENORPHINE/NALOXONE 2 MG/0.5 MG FILM PACKET SL SCH (10:19)
[2021-04-22] MEDS: HYDROCHLOROTHIAZIDE 12.5 MG CAPSULE (FP) PO SCH (10:20)
[2021-04-22] MEDS: amLODIPine BESYLATE 10 MG TABLET (FP) PO SCH (10:20)
[2021-04-22] MEDS: ARIPiprazole 5 MG TABLET PO SCH (10:20)
[2021-04-22] MEDS: LISINOPRIL 20 MG TABLET PO SCH (10:20)
[2021-04-22] MEDS: METHOCARBAMOL 500 MG TABLET PO SCH ×4 (10:20→21:19)
[2021-04-22] MEDS: NICOTINE 21 MG/24 HOURS TOPICAL PATCH TD SCH (10:21)
[2021-04-22] MEDS: TOLNAFTATE 1% CREAM 15 GM TUBE TP SCH ×2 (10:21→21:20)
[2021-04-22] MEDS: SUVOREXANT 10 MG TABLET PO PRN (21:19)
[2021-04-22] MEDS: THIAMINE HCL 100 MG TABLET (FP) PO SCH (21:20)
[2021-04-23] MEDS: hydrOXYzine PAMOATE 50 MG CAPSULE (FP) PO PRN ×3 (05:55→22:00)
[2021-04-23] MEDS: GABAPENTIN 100 MG CAPSULE PO SCH ×3 (05:55→22:00)
[2021-04-23] MEDS: PRENATAL VITAMINS W/ FOLIC ACID TABLET (FP) PO SCH (10:03)
[2021-04-23] MEDS: BUPRENORPHINE/NALOXONE 2 MG/0.5 MG FILM PACKET SL SCH (10:03)
[2021-04-23] MEDS: HYDROCHLOROTHIAZIDE 12.5 MG CAPSULE (FP) PO SCH (10:04)
[2021-04-23] MEDS: amLODIPine BESYLATE 10 MG TABLET (FP) PO SCH (10:04)
[2021-04-23] MEDS: SERTRALINE HCL 25 MG TABLET (FP) PO SCH (10:04)
[2021-04-23] MEDS: METHOCARBAMOL 500 MG TABLET PO SCH ×4 (10:04→22:00)
[2021-04-23] MEDS: ARIPiprazole 5 MG TABLET PO SCH (10:04)
[2021-04-23] MEDS: LISINOPRIL 20 MG TABLET PO SCH (10:04)
[2021-04-23] MEDS: NICOTINE 21 MG/24 HOURS TOPICAL PATCH TD SCH (10:05)
[2021-04-23] MEDS: TOLNAFTATE 1% CREAM 15 GM TUBE TP SCH ×2 (10:05→22:01)
[2021-04-23] MEDS: THIAMINE HCL 100 MG TABLET (FP) PO SCH (22:00)
[2021-04-23] MEDS: SUVOREXANT 10 MG TABLET PO PRN (22:01)
[2021-04-24] MEDS: hydrOXYzine PAMOATE 50 MG CAPSULE (FP) PO PRN (06:04)
[2021-04-24] MEDS: GABAPENTIN 100 MG CAPSULE PO SCH (06:04)
[2021-04-24 07:10] VITALS: BP 142/88; PULSE 73; TEMP 97.3
[2021-04-24] MEDS ORDERED: MODERNA COVID-19 VACC,MRNA/PF 100 MCG/0.5 ML IM ONE (09:00)
== END 2021-04-24 08:35 | disposition home or self-care (01) | DRG 772 ==
LOC: YASAS 13:38 → Y3W 13:41 → Y5N 04-12 11:24
PROVIDERS: ADMIT Allergy & Immunology; ATTEND Allergy & Immunology
PROC: HZ42ZZZ Group Counseling for Substance Abuse Treatment, Cognitive-Behavioral (ICD-10-PCS; principal; 2021-04-11)
DX: F10.20 Alcohol dependence, uncomplicated (principal); F14.20 Cocaine dependence, uncomplicated; F11.20 Opioid dependence, uncomplicated; F17.210 Nicotine dependence, cigarettes, uncomplicated; I10 Essential (primary) hypertension; I89.0 Lymphedema, not elsewhere classified; R60.0 Localized edema; Z51.81 Encounter for therapeutic drug level monitoring
CPT/HCPCS: 36415; 82962; 84702; C9803; J0735; U0003; U0005

== ENCOUNTER 2021-07-30 09:33 | Inpatient (IN) | payer OTHER ==
[2021-07-30 10:09] VITALS: BMI 28.5
[2021-07-30] MEDS ORDERED: MAGNESIUM CITRATE 300 ML BOTTLE PO PRN (10:21)
[2021-07-30] MEDS ORDERED: IBUPROFEN 400 MG TABLET (FP) PO PRN (10:21)
[2021-07-30] MEDS ORDERED: BISMUTH SUBSALICYLATE 524 MG/30 ML PO PRN (10:21)
[2021-07-30] MEDS ORDERED: MAGNESIUM HYDROX 2400MG/30ML ORAL SUSPENSION 30 ML CUP PO PRN (10:21)
[2021-07-30] MEDS ORDERED: MENTHOL/PHENOL 1 EACH UD MM PRN (10:21)
[2021-07-30] MEDS ORDERED: MAG HYDROX/AL HYDROX/SIMETH 30 ML UNIT-DOSE CUP PO PRN (10:21)
[2021-07-30] MEDS ORDERED: ONDANSETRON *ODT* 4 MG TABLET SL PRN (10:21)
[2021-07-30] MEDS ORDERED: ACETAMINOPHEN 325 MG TABLET (FP) PO PRN ×2 (10:21)
[2021-07-30] MEDS: NICOTINE 14 MG/24 HOURS TOPICAL PATCH TD SCH (11:24)
[2021-07-30] MEDS: PRENATAL VITAMINS W/ FOLIC ACID TABLET (FP) PO SCH (11:24)
[2021-07-30] MEDS ORDERED: hydrOXYzine PAMOATE 25 MG CAPSULE (FP) PO SCH (14:00)
[2021-07-30 14:04] LABS: HEMATOCRIT 38.7 % (32.4-45.2); MCH 29.2 pg (25.7-33.7); MCHC 33.5 g/dl (32.0-36.0); MEAN CELL VOLUME 87.1 fl (80-96); PLATELET COUNT 386 10^3/uL (134-434); RBC 4.45 M/mm3 (3.60-5.2); RDW 14.1 % (11.6-15.6); WHITE BLOOD COUNT 10.5 K/mm3 (4.0-10.0)
[2021-07-30 14:09] LABS: CALCIUM 9.8 mg/dL (8.5-10.1)
[2021-07-30 14:10] LABS: BLOOD UREA NITROGEN 8.8 mg/dL (7-18)
[2021-07-30 14:13] LABS: CREATININE 1.1 mg/dL (0.55-1.3)
[2021-07-30 14:14] LABS: TOT PROT 8.2 g/dl (6.4-8.2)
[2021-07-30 14:44] LABS: ALBUMIN 3.9 g/dl (3.4-5.0); BILIRUBIN,TOTAL 0.9 mg/dL (0.2-1)
[2021-07-30 14:57] LABS: HIV INTERPRETATION NEGATIVE (NEGATIVE)
[2021-07-30] MEDS: METHOCARBAMOL 500 MG TABLET PO PRN (17:25)
[2021-07-30] MEDS: hydrOXYzine PAMOATE 25 MG CAPSULE (FP) PO PRN (17:26)
[2021-07-30] MEDS ORDERED: hydrOXYzine PAMOATE 50 MG CAPSULE (FP) PO ONE (22:48)
[2021-07-30] MEDS: amLODIPine BESYLATE 10 MG TABLET (FP) PO SCH (23:03)
[2021-07-30] MEDS: MELATONIN 5 MG TABLETS PO SCH (23:03)
[2021-07-30] MEDS: THIAMINE HCL 100 MG TABLET (FP) PO SCH (23:03)
[2021-07-31] MEDS: amLODIPine BESYLATE 10 MG TABLET (FP) PO SCH ×2 (07:36→10:10)
[2021-07-31] MEDS: hydrOXYzine PAMOATE 25 MG CAPSULE (FP) PO PRN ×3 (07:36→22:00)
[2021-07-31] MEDS: LISINOPRIL 20 MG TABLET PO SCH (10:07)
[2021-07-31] MEDS: PRENATAL VITAMINS W/ FOLIC ACID TABLET (FP) PO SCH (10:07)
[2021-07-31] MEDS: NICOTINE 14 MG/24 HOURS TOPICAL PATCH TD SCH (10:08)
[2021-07-31] MEDS: HYDROCHLOROTHIAZIDE 12.5 MG CAPSULE (FP) PO SCH (10:08)
[2021-07-31] MEDS: METHOCARBAMOL 500 MG TABLET PO PRN ×2 (10:08→22:00)
[2021-07-31] MEDS ORDERED: methaDONE HCL 10 MG TABLET (FOR DETOX USE ONLY) PO ONE (10:12)
[2021-07-31] MEDS ORDERED: diazePAM 5 MG TABLET PO PRN (10:12)
[2021-07-31] MEDS: diazePAM 5 MG TABLET PO SCH ×3 (10:48→22:01)
[2021-07-31] MEDS ORDERED: PENICILLIN G BENZATHINE 2,400,000 UNIT/4 ML PFS IM ONE (11:00)
[2021-07-31] MEDS: THIAMINE HCL 100 MG TABLET (FP) PO SCH (22:00)
[2021-07-31] MEDS: MELATONIN 5 MG TABLETS PO SCH (22:00)
[2021-07-31] MEDS: cloNIDine HCL 0.1 MG TABLET PO PRN (22:02)
[2021-08-01] MEDS: diazePAM 5 MG TABLET PO SCH ×4 (06:03→22:06)
[2021-08-01] MEDS ORDERED: methaDONE HCL 10 MG TABLET (FOR DETOX USE ONLY) ONE (09:23)
[2021-08-01] MEDS: PRENATAL VITAMINS W/ FOLIC ACID TABLET (FP) PO SCH (10:07)
[2021-08-01] MEDS: HYDROCHLOROTHIAZIDE 12.5 MG CAPSULE (FP) PO SCH (10:07)
[2021-08-01] MEDS: SERTRALINE HCL 50 MG TABLET (FP) PO SCH (10:07)
[2021-08-01] MEDS: NICOTINE 14 MG/24 HOURS TOPICAL PATCH TD SCH (10:07)
[2021-08-01] MEDS: amLODIPine BESYLATE 10 MG TABLET (FP) PO SCH (10:07)
[2021-08-01] MEDS: LISINOPRIL 20 MG TABLET PO SCH (10:07)
[2021-08-01] MEDS: LIDOCAINE 5% TOPICAL PATCH TP SCH (15:32)
[2021-08-01] MEDS: NICOTINE 10 MG CARTRIDGE (INHALER) IH PRN (22:04)
[2021-08-01] MEDS: MELATONIN 5 MG TABLETS PO SCH (22:06)
[2021-08-01] MEDS: THIAMINE HCL 100 MG TABLET (FP) PO SCH (22:06)
[2021-08-01] MEDS: METHOCARBAMOL 500 MG TABLET PO PRN (22:08)
[2021-08-01] MEDS: hydrOXYzine PAMOATE 25 MG CAPSULE (FP) PO PRN (22:08)
[2021-08-01] MEDS: cloNIDine HCL 0.1 MG TABLET PO PRN (22:08)
[2021-08-01] MEDS: LIDOCAINE PATCH REMOVAL MC SCH (22:09)
[2021-08-02] MEDS: METHOCARBAMOL 500 MG TABLET PO PRN ×2 (06:16→18:11)
[2021-08-02] MEDS: cloNIDine HCL 0.1 MG TABLET PO PRN (06:16)
[2021-08-02] MEDS: diazePAM 5 MG TABLET PO SCH ×3 (06:16→22:17)
[2021-08-02] MEDS ORDERED: methaDONE HCL 10 MG TABLET (FOR DETOX USE ONLY) PO ONE (10:00)
[2021-08-02] MEDS: LIDOCAINE 5% TOPICAL PATCH TP SCH (10:35)
[2021-08-02] MEDS: LISINOPRIL 20 MG TABLET PO SCH (10:35)
[2021-08-02] MEDS: PRENATAL VITAMINS W/ FOLIC ACID TABLET (FP) PO SCH (10:35)
[2021-08-02] MEDS: HYDROCHLOROTHIAZIDE 12.5 MG CAPSULE (FP) PO SCH (10:36)
[2021-08-02] MEDS: SERTRALINE HCL 50 MG TABLET (FP) PO SCH (10:36)
[2021-08-02] MEDS: amLODIPine BESYLATE 10 MG TABLET (FP) PO SCH (10:36)
[2021-08-02] MEDS: NICOTINE 10 MG CARTRIDGE (INHALER) IH PRN ×4 (10:37→22:18)
[2021-08-02] MEDS: NICOTINE 14 MG/24 HOURS TOPICAL PATCH TD SCH (10:38)
[2021-08-02] MEDS: MELATONIN 5 MG TABLETS PO SCH (22:16)
[2021-08-02] MEDS: THIAMINE HCL 100 MG TABLET (FP) PO SCH (22:17)
[2021-08-02] MEDS: LIDOCAINE PATCH REMOVAL MC SCH (23:18)
[2021-08-03] MEDS: diazePAM 5 MG TABLET PO SCH ×2 (06:45→17:31)
[2021-08-03] MEDS: NICOTINE 10 MG CARTRIDGE (INHALER) IH PRN ×3 (06:46→17:32)
[2021-08-03] MEDS ORDERED: methaDONE HCL 10 MG TABLET (FOR DETOX USE ONLY) ONE (09:10)
[2021-08-03] MEDS: PRENATAL VITAMINS W/ FOLIC ACID TABLET (FP) PO SCH (10:40)
[2021-08-03] MEDS: SERTRALINE HCL 50 MG TABLET (FP) PO SCH (10:40)
[2021-08-03] MEDS: LIDOCAINE 5% TOPICAL PATCH TP SCH (10:40)
[2021-08-03] MEDS: amLODIPine BESYLATE 10 MG TABLET (FP) PO SCH (10:41)
[2021-08-03] MEDS: NICOTINE 14 MG/24 HOURS TOPICAL PATCH TD SCH (10:41)
[2021-08-03] MEDS: METHOCARBAMOL 500 MG TABLET PO PRN (10:44)
[2021-08-03] MEDS: LISINOPRIL 20 MG TABLET PO SCH (11:08)
[2021-08-03] MEDS: HYDROCHLOROTHIAZIDE 12.5 MG CAPSULE (FP) PO SCH (11:08)
[2021-08-03] MEDS: ARIPiprazole 5 MG TABLET PO SCH (14:50)
[2021-08-03] MEDS: GABAPENTIN 100 MG CAPSULE PO SCH (22:22)
[2021-08-03] MEDS: THIAMINE HCL 100 MG TABLET (FP) PO SCH (22:22)
[2021-08-03] MEDS: LIDOCAINE PATCH REMOVAL MC SCH (22:23)
[2021-08-03] MEDS: MELATONIN 5 MG TABLETS PO SCH (22:23)
[2021-08-04] MEDS ORDERED: diazePAM 5 MG TABLET PO ONE (06:00)
[2021-08-04] MEDS ORDERED: methaDONE HCL 10 MG TABLET (FOR DETOX USE ONLY) PO ONE (10:00)
[2021-08-04] MEDS: GABAPENTIN 100 MG CAPSULE PO SCH ×2 (10:45→22:03)
[2021-08-04] MEDS: PRENATAL VITAMINS W/ FOLIC ACID TABLET (FP) PO SCH (10:45)
[2021-08-04] MEDS: SERTRALINE HCL 50 MG TABLET (FP) PO SCH (10:45)
[2021-08-04] MEDS: hydrOXYzine PAMOATE 25 MG CAPSULE (FP) PO PRN (10:46)
[2021-08-04] MEDS: ARIPiprazole 5 MG TABLET PO SCH (10:51)
[2021-08-04] MEDS: NICOTINE 10 MG CARTRIDGE (INHALER) IH PRN ×2 (10:54→22:05)
[2021-08-04] MEDS: LISINOPRIL 20 MG TABLET PO SCH (13:00)
[2021-08-04] MEDS: amLODIPine BESYLATE 10 MG TABLET (FP) PO SCH (13:15)
[2021-08-04] MEDS: HYDROCHLOROTHIAZIDE 12.5 MG CAPSULE (FP) PO SCH (13:16)
[2021-08-04] MEDS: LIDOCAINE 5% TOPICAL PATCH TP SCH (13:17)
[2021-08-04] MEDS: NICOTINE 14 MG/24 HOURS TOPICAL PATCH TD SCH (13:19)
[2021-08-04] MEDS: LIDOCAINE PATCH REMOVAL MC SCH (22:03)
[2021-08-04] MEDS: MELATONIN 5 MG TABLETS PO SCH (22:03)
[2021-08-04] MEDS: THIAMINE HCL 100 MG TABLET (FP) PO SCH (22:03)
[2021-08-05 06:39] VITALS: TEMP 96.9
[2021-08-05] MEDS: GABAPENTIN 100 MG CAPSULE PO SCH (09:13)
[2021-08-05] MEDS: HYDROCHLOROTHIAZIDE 12.5 MG CAPSULE (FP) PO SCH (09:13)
[2021-08-05] MEDS: LISINOPRIL 20 MG TABLET PO SCH (09:13)
[2021-08-05] MEDS: PRENATAL VITAMINS W/ FOLIC ACID TABLET (FP) PO SCH (09:13)
[2021-08-05] MEDS: amLODIPine BESYLATE 10 MG TABLET (FP) PO SCH (09:13)
[2021-08-05] MEDS: SERTRALINE HCL 50 MG TABLET (FP) PO SCH (09:14)
[2021-08-05] MEDS: ARIPiprazole 5 MG TABLET PO SCH (09:15)
[2021-08-05] MEDS: NICOTINE 14 MG/24 HOURS TOPICAL PATCH TD SCH (09:15)
[2021-08-05 09:55] VITALS: BP 148/96; PULSE 72
[2021-08-05] MEDS: LIDOCAINE 5% TOPICAL PATCH TP SCH (10:38)
== END 2021-08-05 10:33 | disposition home or self-care (01) | DRG 773 ==
LOC: YASAS 09:33 → Y3N 10:38
PROVIDERS: ADMIT Allergy & Immunology; ATTEND Allergy & Immunology
PROC: HZ2ZZZZ Detoxification Services for Substance Abuse Treatment (ICD-10-PCS; principal; 2021-07-30)
DX: F10.230 Alcohol dependence with withdrawal, uncomplicated (principal); F11.20 Opioid dependence, uncomplicated; F14.20 Cocaine dependence, uncomplicated; F15.10 Other stimulant abuse, uncomplicated; F17.210 Nicotine dependence, cigarettes, uncomplicated; F19.24 Other psychoactive substance dependence with psychoactive substance-induced mood disorder; F39 Unspecified mood [affective] disorder; F41.8 Other specified anxiety disorders; F43.10 Post-traumatic stress disorder, unspecified; G47.00 Insomnia, unspecified; I10 Essential (primary) hypertension; I89.0 Lymphedema, not elsewhere classified; Z62.810 Personal history of physical and sexual abuse in childhood; Z91.410 Personal history of adult physical and sexual abuse; Z86.19 Personal history of other infectious and parasitic diseases; Z59.0 Homelessness; Z56.0 Unemployment, unspecified
CPT/HCPCS: 36415; 80053; 81025; 85027; 86593; 86780; 87389; C9803; J0735; U0003; U0005

== ENCOUNTER 2021-11-21 11:43 | Inpatient (IN) | payer OTHER ==
[2021-11-21 12:35] VITALS: BMI 31.9
[2021-11-21] MEDS ORDERED: MENTHOL/PHENOL 1 EACH UD MM PRN (13:43)
[2021-11-21] MEDS ORDERED: MAGNESIUM CITRATE 300 ML BOTTLE PO PRN (13:43)
[2021-11-21] MEDS ORDERED: cloNIDine HCL 0.1 MG TABLET PO PRN (13:43)
[2021-11-21] MEDS ORDERED: ONDANSETRON *ODT* 4 MG TABLET SL PRN (13:43)
[2021-11-21] MEDS ORDERED: MAG HYDROX/AL HYDROX/SIMETH 30 ML UNIT-DOSE CUP PO PRN (13:43)
[2021-11-21] MEDS ORDERED: BISMUTH SUBSALICYLATE 524 MG/30 ML PO PRN (13:43)
[2021-11-21] MEDS ORDERED: IBUPROFEN 400 MG TABLET (FP) PO PRN (13:43)
[2021-11-21] MEDS ORDERED: chlordiazePOXIDE HCL 25 MG CAPSULE PO PRN (13:43)
[2021-11-21] MEDS ORDERED: MAGNESIUM HYDROX 2400MG/30ML ORAL SUSPENSION 30 ML CUP PO PRN (13:43)
[2021-11-21] MEDS ORDERED: ACETAMINOPHEN 325 MG TABLET (FP) PO PRN (13:43)
[2021-11-21] MEDS ORDERED: methaDONE HCL 10 MG TABLET (FOR DETOX USE ONLY) PO ONE ×2 (14:00→21:15)
[2021-11-21] MEDS ORDERED: cloNIDine HCL 0.1 MG TABLET ONE (17:04)
[2021-11-21] MEDS: chlordiazePOXIDE HCL 25 MG CAPSULE PO SCH ×2 (22:31→22:56)
[2021-11-21] MEDS: hydrOXYzine PAMOATE 25 MG CAPSULE (FP) PO SCH ×2 (22:31→23:48)
[2021-11-21] MEDS: HYDROCHLOROTHIAZIDE 12.5 MG CAPSULE (FP) PO SCH (22:32)
[2021-11-21] MEDS: LISINOPRIL 20 MG TABLET PO SCH (22:34)
[2021-11-21] MEDS: THIAMINE HCL 100 MG TABLET (FP) PO SCH (22:34)
[2021-11-21] MEDS: MELATONIN 5 MG TABLETS PO SCH (22:34)
[2021-11-21] MEDS: GABAPENTIN 100 MG CAPSULE PO SCH (22:34)
[2021-11-21] MEDS: NICOTINE 10 MG CARTRIDGE (INHALER) IH PRN (22:37)
[2021-11-22] MEDS: chlordiazePOXIDE HCL 25 MG CAPSULE PO SCH ×4 (05:32→22:28)
[2021-11-22] MEDS: GABAPENTIN 100 MG CAPSULE PO SCH ×2 (05:32→17:14)
[2021-11-22] MEDS ORDERED: methaDONE HCL 10 MG TABLET (FOR DETOX USE ONLY) ONE (09:44)
[2021-11-22] MEDS: PRENATAL VITAMINS W/ FOLIC ACID TABLET (FP) PO SCH (10:48)
[2021-11-22] MEDS: ARIPiprazole 5 MG TABLET PO SCH (10:49)
[2021-11-22] MEDS: SERTRALINE HCL 50 MG TABLET (FP) PO SCH (10:49)
[2021-11-22] MEDS: LISINOPRIL 20 MG TABLET PO SCH (10:49)
[2021-11-22] MEDS: amLODIPine BESYLATE 10 MG TABLET (FP) PO SCH (10:49)
[2021-11-22] MEDS: hydrOXYzine PAMOATE 25 MG CAPSULE (FP) PO SCH ×5 (10:50→22:28)
[2021-11-22 12:25] LABS: HEMATOCRIT 34.9 % (32.4-45.2); HEMOGLOBIN 11.8 GM/dL (10.7-15.3); MCH 30.4 pg (25.7-33.7); MCHC 33.8 g/dl (32.0-36.0); MEAN PLT VOLUME 9.5 fl (7.5-11.1); PLATELET COUNT 378 10^3/uL (134-434); RBC 3.88 M/mm3 (3.60-5.2); RDW 14.2 % (11.6-15.6); WHITE BLOOD COUNT 8.2 K/mm3 (4.0-10.0)
[2021-11-22 12:38] LABS: ALBUMIN 3.6 g/dl (3.4-5.0); BLOOD UREA NITROGEN 7.7 mg/dL (7-18)
[2021-11-22 12:39] LABS: CALCIUM 9.6 mg/dL (8.5-10.1)
[2021-11-22 12:43] LABS: BILIRUBIN,TOTAL 0.3 mg/dL (0.2-1); TOT PROT 7.6 g/dl (6.4-8.2)
[2021-11-22] MEDS: HYDROCHLOROTHIAZIDE 12.5 MG CAPSULE (FP) PO SCH (17:13)
[2021-11-22] MEDS: METHOCARBAMOL 500 MG TABLET PO PRN (18:51)
[2021-11-22] MEDS: THIAMINE HCL 100 MG TABLET (FP) PO SCH (22:28)
[2021-11-22] MEDS: MELATONIN 5 MG TABLETS PO SCH (22:28)
[2021-11-23] MEDS: GABAPENTIN 100 MG CAPSULE PO SCH ×4 (02:15→22:29)
[2021-11-23] MEDS: hydrOXYzine PAMOATE 25 MG CAPSULE (FP) PO SCH ×5 (05:50→22:29)
[2021-11-23] MEDS: ACETAMINOPHEN 325 MG TABLET (FP) PO PRN (05:51)
[2021-11-23] MEDS: chlordiazePOXIDE HCL 25 MG CAPSULE PO SCH ×4 (06:16→22:29)
[2021-11-23] MEDS ORDERED: methaDONE HCL 10 MG TABLET (FOR DETOX USE ONLY) PO ONE (10:00)
[2021-11-23] MEDS: LISINOPRIL 20 MG TABLET PO SCH (10:01)
[2021-11-23] MEDS: PRENATAL VITAMINS W/ FOLIC ACID TABLET (FP) PO SCH (10:01)
[2021-11-23] MEDS: ARIPiprazole 5 MG TABLET PO SCH (10:01)
[2021-11-23] MEDS: amLODIPine BESYLATE 10 MG TABLET (FP) PO SCH (10:02)
[2021-11-23] MEDS: METHOCARBAMOL 500 MG TABLET PO PRN (10:02)
[2021-11-23] MEDS: HYDROCHLOROTHIAZIDE 12.5 MG CAPSULE (FP) PO SCH (10:05)
[2021-11-23] MEDS: SERTRALINE HCL 50 MG TABLET (FP) PO SCH (10:06)
[2021-11-23] MEDS: NICOTINE 10 MG CARTRIDGE (INHALER) IH PRN ×3 (10:06→22:31)
[2021-11-23] MEDS ORDERED: PENICILLIN G BENZATHINE 2,400,000 UNIT/4 ML PFS IM ONE (13:54)
[2021-11-23] MEDS: MELATONIN 5 MG TABLETS PO SCH (22:29)
[2021-11-23] MEDS: THIAMINE HCL 100 MG TABLET (FP) PO SCH (22:29)
[2021-11-24] MEDS ORDERED: chlordiazePOXIDE HCL 10 MG CAPSULE PO PRN
[2021-11-24] MEDS: hydrOXYzine PAMOATE 25 MG CAPSULE (FP) PO SCH ×2 (06:15→10:34)
[2021-11-24] MEDS: chlordiazePOXIDE HCL 10 MG CAPSULE PO SCH ×4 (06:15→23:00)
[2021-11-24] MEDS: GABAPENTIN 100 MG CAPSULE PO SCH ×3 (06:15→22:59)
[2021-11-24] MEDS ORDERED: methaDONE HCL 10 MG TABLET (FOR DETOX USE ONLY) ONE (09:40)
[2021-11-24] MEDS: HYDROCHLOROTHIAZIDE 12.5 MG CAPSULE (FP) PO SCH (10:00)
[2021-11-24] MEDS: PRENATAL VITAMINS W/ FOLIC ACID TABLET (FP) PO SCH (10:00)
[2021-11-24] MEDS: LISINOPRIL 20 MG TABLET PO SCH (10:35)
[2021-11-24] MEDS: ARIPiprazole 5 MG TABLET PO SCH (10:37)
[2021-11-24] MEDS: amLODIPine BESYLATE 10 MG TABLET (FP) PO SCH (10:37)
[2021-11-24] MEDS: SERTRALINE HCL 50 MG TABLET (FP) PO SCH (10:37)
[2021-11-24] MEDS ORDERED: LOPERAMIDE HCL 2 MG CAPSULE PO ONE ×2 (12:10→12:45)
[2021-11-24] MEDS: METHOCARBAMOL 500 MG TABLET PO PRN (19:07)
[2021-11-24] MEDS: NICOTINE 10 MG CARTRIDGE (INHALER) IH PRN (19:09)
[2021-11-24] MEDS: THIAMINE HCL 100 MG TABLET (FP) PO SCH (22:00)
[2021-11-24] MEDS: MELATONIN 5 MG TABLETS PO SCH (22:57)
[2021-11-25] MEDS: chlordiazePOXIDE HCL 10 MG CAPSULE PO SCH ×2 (06:30→18:20)
[2021-11-25] MEDS: GABAPENTIN 100 MG CAPSULE PO SCH ×3 (07:00→22:17)
[2021-11-25] MEDS ORDERED: methaDONE HCL 10 MG TABLET (FOR DETOX USE ONLY) PO ONE (10:00)
[2021-11-25] MEDS: SERTRALINE HCL 50 MG TABLET (FP) PO SCH (10:18)
[2021-11-25] MEDS: PRENATAL VITAMINS W/ FOLIC ACID TABLET (FP) PO SCH (10:18)
[2021-11-25] MEDS: LISINOPRIL 20 MG TABLET PO SCH (10:18)
[2021-11-25] MEDS: METHOCARBAMOL 500 MG TABLET PO PRN ×2 (10:18→17:48)
[2021-11-25] MEDS: hydrOXYzine PAMOATE 25 MG CAPSULE (FP) PO PRN ×3 (10:18→22:18)
[2021-11-25] MEDS: amLODIPine BESYLATE 10 MG TABLET (FP) PO SCH (10:18)
[2021-11-25] MEDS: ARIPiprazole 5 MG TABLET PO SCH (10:18)
[2021-11-25] MEDS: NICOTINE 10 MG CARTRIDGE (INHALER) IH PRN ×2 (10:58→22:19)
[2021-11-25] MEDS: HYDROCHLOROTHIAZIDE 12.5 MG CAPSULE (FP) PO SCH (14:05)
[2021-11-25] MEDS: MELATONIN 5 MG TABLETS PO SCH (22:17)
[2021-11-25] MEDS: THIAMINE HCL 100 MG TABLET (FP) PO SCH (22:17)
[2021-11-26] MEDS ORDERED: chlordiazePOXIDE HCL 10 MG CAPSULE PO ONE (05:00)
[2021-11-26] MEDS: GABAPENTIN 100 MG CAPSULE PO SCH (05:36)
[2021-11-26] MEDS: ACETAMINOPHEN 325 MG TABLET (FP) PO PRN (05:40)
[2021-11-26] MEDS: METHOCARBAMOL 500 MG TABLET PO PRN (05:41)
[2021-11-26] MEDS ORDERED: guaiFENesin/D-METHORPHAN HB 10 ML UNIT-DOSE CUPS PO PRN (06:25)
[2021-11-26 09:37] VITALS: BP 131/85; PULSE 64; TEMP 97.3
[2021-11-26] MEDS: hydrOXYzine PAMOATE 25 MG CAPSULE (FP) PO PRN (10:01)
[2021-11-26] MEDS: ARIPiprazole 5 MG TABLET PO SCH (10:01)
[2021-11-26] MEDS: PRENATAL VITAMINS W/ FOLIC ACID TABLET (FP) PO SCH (10:02)
[2021-11-26] MEDS: amLODIPine BESYLATE 10 MG TABLET (FP) PO SCH (10:02)
[2021-11-26] MEDS: SERTRALINE HCL 50 MG TABLET (FP) PO SCH (10:02)
[2021-11-26] MEDS: LISINOPRIL 20 MG TABLET PO SCH (10:02)
[2021-11-26] MEDS: NICOTINE 10 MG CARTRIDGE (INHALER) IH PRN (10:07)
== END 2021-11-26 12:08 | disposition other institution (70) | DRG 773 ==
LOC: YASAS 11:43 → Y3N 15:49 → Y6N 17:00
PROVIDERS: ADMIT Allergy & Immunology; ATTEND Allergy & Immunology
PROC: HZ2ZZZZ Detoxification Services for Substance Abuse Treatment (ICD-10-PCS; principal; 2021-11-21)
DX: F11.23 Opioid dependence with withdrawal (principal); F10.230 Alcohol dependence with withdrawal, uncomplicated; F15.10 Other stimulant abuse, uncomplicated; F17.210 Nicotine dependence, cigarettes, uncomplicated; F43.10 Post-traumatic stress disorder, unspecified; F19.24 Other psychoactive substance dependence with psychoactive substance-induced mood disorder; I10 Essential (primary) hypertension; R73.09 Other abnormal glucose; Z62.810 Personal history of physical and sexual abuse in childhood; Z86.19 Personal history of other infectious and parasitic diseases; Z91.51 Personal history of suicidal behavior; Z56.0 Unemployment, unspecified; Z59.00 Homelessness unspecified
CPT/HCPCS: 36415; 80053; 81025; 82962; 85027; 86593; 86780; C9803; J0735; U0003; U0005

== ENCOUNTER 2021-11-26 12:25 | Inpatient (IN) | payer OTHER ==
[2021-11-26] MEDS ORDERED: guaiFENesin 200 MG/10 ML 10 ML UNIT-DOSE CUPS PO PRN (14:04)
[2021-11-26] MEDS ORDERED: MAG HYDROX/AL HYDROX/SIMETH 30 ML UNIT-DOSE CUP PO PRN (14:04)
[2021-11-26] MEDS ORDERED: IBUPROFEN 400 MG TABLET (FP) PO PRN (14:04)
[2021-11-26] MEDS ORDERED: P-EPHED 60MG/TRIPROLIDI 2.5MG TABLET PO PRN (14:04)
[2021-11-26] MEDS ORDERED: MAGNESIUM HYDROX 2400MG/30ML ORAL SUSPENSION 30 ML CUP PO PRN (14:04)
[2021-11-26] MEDS ORDERED: ACETAMINOPHEN 325 MG TABLET (FP) PO PRN (14:04)
[2021-11-26] MEDS ORDERED: LOPERAMIDE HCL 2 MG CAPSULE PO PRN (14:04)
[2021-11-26] MEDS ORDERED: MAGNESIUM CITRATE 300 ML BOTTLE PO PRN (14:04)
[2021-11-26] MEDS ORDERED: hydrOXYzine PAMOATE 25 MG CAPSULE (FP) PO SCH (18:00)
[2021-11-26] MEDS: GABAPENTIN 100 MG CAPSULE PO SCH (21:50)
[2021-11-26] MEDS: hydrOXYzine PAMOATE 25 MG CAPSULE (FP) PO PRN (21:50)
[2021-11-26] MEDS: MELATONIN 5 MG TABLETS PO SCH (21:50)
[2021-11-26] MEDS: THIAMINE HCL 100 MG TABLET (FP) PO SCH (21:50)
[2021-11-26] MEDS: NICOTINE 10 MG CARTRIDGE (INHALER) IH PRN (21:52)
[2021-11-27] MEDS: GABAPENTIN 100 MG CAPSULE PO SCH ×3 (06:34→21:08)
[2021-11-27] MEDS: hydrOXYzine PAMOATE 25 MG CAPSULE (FP) PO PRN ×2 (10:33→21:09)
[2021-11-27] MEDS: PRENATAL VITAMINS W/ FOLIC ACID TABLET (FP) PO SCH (10:34)
[2021-11-27] MEDS: HYDROCHLOROTHIAZIDE 12.5 MG CAPSULE (FP) PO SCH (10:34)
[2021-11-27] MEDS: SERTRALINE HCL 50 MG TABLET (FP) PO SCH (10:34)
[2021-11-27] MEDS: amLODIPine BESYLATE 10 MG TABLET (FP) PO SCH (10:34)
[2021-11-27] MEDS: LISINOPRIL 20 MG TABLET PO SCH (10:34)
[2021-11-27] MEDS: ARIPiprazole 5 MG TABLET PO SCH (10:34)
[2021-11-27] MEDS: NICOTINE 10 MG CARTRIDGE (INHALER) IH PRN (10:35)
[2021-11-27] MEDS: NICOTINE 7 MG/24 HOURS TOPICAL PATCH TD SCH (10:35)
[2021-11-27] MEDS: THIAMINE HCL 100 MG TABLET (FP) PO SCH (21:07)
[2021-11-27] MEDS: MELATONIN 5 MG TABLETS PO SCH (21:07)
[2021-11-28] MEDS: GABAPENTIN 100 MG CAPSULE PO SCH ×3 (06:58→21:21)
[2021-11-28] MEDS: amLODIPine BESYLATE 10 MG TABLET (FP) PO SCH (10:49)
[2021-11-28] MEDS: HYDROCHLOROTHIAZIDE 12.5 MG CAPSULE (FP) PO SCH (10:49)
[2021-11-28] MEDS: ARIPiprazole 5 MG TABLET PO SCH (10:49)
[2021-11-28] MEDS: SERTRALINE HCL 50 MG TABLET (FP) PO SCH (10:49)
[2021-11-28] MEDS: LISINOPRIL 20 MG TABLET PO SCH (10:49)
[2021-11-28] MEDS: NICOTINE 10 MG CARTRIDGE (INHALER) IH PRN ×2 (10:50→17:31)
[2021-11-28] MEDS: NICOTINE 7 MG/24 HOURS TOPICAL PATCH TD SCH (10:50)
[2021-11-28] MEDS: hydrOXYzine PAMOATE 25 MG CAPSULE (FP) PO PRN (10:50)
[2021-11-28] MEDS: PRENATAL VITAMINS W/ FOLIC ACID TABLET (FP) PO SCH (10:50)
[2021-11-28] MEDS: BUPRENORPHINE/NALOXONE 2 MG/0.5 MG FILM PACKET SL SCH ×2 (12:56→21:22)
[2021-11-28] MEDS ORDERED: PT OWN MED DRAWER 7, Y5N ONE (16:10)
[2021-11-28] MEDS: MELATONIN 5 MG TABLETS PO SCH (21:21)
[2021-11-28] MEDS: THIAMINE HCL 100 MG TABLET (FP) PO SCH (21:21)
[2021-11-29] MEDS: GABAPENTIN 100 MG CAPSULE PO SCH ×3 (06:22→23:13)
[2021-11-29] MEDS: NICOTINE 10 MG CARTRIDGE (INHALER) IH PRN ×2 (06:27→10:30)
[2021-11-29] MEDS: BUPRENORPHINE/NALOXONE 2 MG/0.5 MG FILM PACKET SL SCH ×2 (07:00→20:07)
[2021-11-29] MEDS: PRENATAL VITAMINS W/ FOLIC ACID TABLET (FP) PO SCH (10:29)
[2021-11-29] MEDS: LISINOPRIL 20 MG TABLET PO SCH (10:29)
[2021-11-29] MEDS: amLODIPine BESYLATE 10 MG TABLET (FP) PO SCH (10:30)
[2021-11-29] MEDS: HYDROCHLOROTHIAZIDE 12.5 MG CAPSULE (FP) PO SCH (10:30)
[2021-11-29] MEDS: SERTRALINE HCL 50 MG TABLET (FP) PO SCH (10:30)
[2021-11-29] MEDS: NICOTINE 7 MG/24 HOURS TOPICAL PATCH TD SCH (10:30)
[2021-11-29] MEDS: ARIPiprazole 5 MG TABLET PO SCH (10:30)
[2021-11-29] MEDS: hydrOXYzine PAMOATE 25 MG CAPSULE (FP) PO PRN (13:24)
[2021-11-29] MEDS: MELATONIN 5 MG TABLETS PO SCH (23:13)
[2021-11-29] MEDS: THIAMINE HCL 100 MG TABLET (FP) PO SCH (23:13)
[2021-11-30] MEDS: GABAPENTIN 100 MG CAPSULE PO SCH ×3 (07:56→21:04)
[2021-11-30] MEDS: BUPRENORPHINE/NALOXONE 2 MG/0.5 MG FILM PACKET SL SCH ×2 (07:56→19:25)
[2021-11-30] MEDS: NICOTINE 10 MG CARTRIDGE (INHALER) IH PRN ×2 (08:52→16:29)
[2021-11-30] MEDS: HYDROCHLOROTHIAZIDE 12.5 MG CAPSULE (FP) PO SCH (09:49)
[2021-11-30] MEDS: ARIPiprazole 5 MG TABLET PO SCH (09:50)
[2021-11-30] MEDS: NICOTINE 7 MG/24 HOURS TOPICAL PATCH TD SCH (09:50)
[2021-11-30] MEDS: SERTRALINE HCL 50 MG TABLET (FP) PO SCH (09:50)
[2021-11-30] MEDS: amLODIPine BESYLATE 10 MG TABLET (FP) PO SCH (09:50)
[2021-11-30] MEDS: PRENATAL VITAMINS W/ FOLIC ACID TABLET (FP) PO SCH (09:50)
[2021-11-30] MEDS: LISINOPRIL 20 MG TABLET PO SCH (09:50)
[2021-11-30] MEDS ORDERED: PENICILLIN G BENZATHINE 2,400,000 UNIT/4 ML PFS IM ONE (10:00)
[2021-11-30] MEDS: hydrOXYzine PAMOATE 25 MG CAPSULE (FP) PO PRN (21:04)
[2021-11-30] MEDS: THIAMINE HCL 100 MG TABLET (FP) PO SCH (21:04)
[2021-11-30] MEDS: MELATONIN 5 MG TABLETS PO SCH (21:04)
[2021-12-01] MEDS: GABAPENTIN 100 MG CAPSULE PO SCH ×3 (06:35→21:00)
[2021-12-01] MEDS: BUPRENORPHINE/NALOXONE 2 MG/0.5 MG FILM PACKET SL SCH ×2 (07:35→20:58)
[2021-12-01] MEDS: HYDROCHLOROTHIAZIDE 12.5 MG CAPSULE (FP) PO SCH (10:22)
[2021-12-01] MEDS: ARIPiprazole 5 MG TABLET PO SCH (10:22)
[2021-12-01] MEDS: SERTRALINE HCL 50 MG TABLET (FP) PO SCH (10:22)
[2021-12-01] MEDS: PRENATAL VITAMINS W/ FOLIC ACID TABLET (FP) PO SCH (10:23)
[2021-12-01] MEDS: amLODIPine BESYLATE 10 MG TABLET (FP) PO SCH (10:23)
[2021-12-01] MEDS: LISINOPRIL 20 MG TABLET PO SCH (10:23)
[2021-12-01] MEDS: NICOTINE 7 MG/24 HOURS TOPICAL PATCH TD SCH (10:24)
[2021-12-01] MEDS: hydrOXYzine PAMOATE 25 MG CAPSULE (FP) PO PRN (10:24)
[2021-12-01] MEDS: NICOTINE 10 MG CARTRIDGE (INHALER) IH PRN (10:25)
[2021-12-01] MEDS: THIAMINE HCL 100 MG TABLET (FP) PO SCH (21:00)
[2021-12-01] MEDS: MELATONIN 5 MG TABLETS PO SCH (21:00)
[2021-12-02] MEDS: GABAPENTIN 100 MG CAPSULE PO SCH ×3 (06:30→21:01)
[2021-12-02] MEDS: hydrOXYzine PAMOATE 25 MG CAPSULE (FP) PO PRN ×2 (06:31→18:03)
[2021-12-02] MEDS: BUPRENORPHINE/NALOXONE 2 MG/0.5 MG FILM PACKET SL SCH ×2 (07:35→20:24)
[2021-12-02] MEDS: HYDROCHLOROTHIAZIDE 12.5 MG CAPSULE (FP) PO SCH (10:02)
[2021-12-02] MEDS: ARIPiprazole 5 MG TABLET PO SCH (10:02)
[2021-12-02] MEDS: PRENATAL VITAMINS W/ FOLIC ACID TABLET (FP) PO SCH (10:03)
[2021-12-02] MEDS: NICOTINE 7 MG/24 HOURS TOPICAL PATCH TD SCH (10:03)
[2021-12-02] MEDS: SERTRALINE HCL 50 MG TABLET (FP) PO SCH (10:03)
[2021-12-02] MEDS: LISINOPRIL 20 MG TABLET PO SCH (10:03)
[2021-12-02] MEDS: amLODIPine BESYLATE 10 MG TABLET (FP) PO SCH (10:03)
[2021-12-02] MEDS: NICOTINE 10 MG CARTRIDGE (INHALER) IH PRN ×3 (10:04→18:04)
[2021-12-02] MEDS: MELATONIN 5 MG TABLETS PO SCH (21:01)
[2021-12-02] MEDS: THIAMINE HCL 100 MG TABLET (FP) PO SCH (21:01)
[2021-12-02] MEDS: QUEtiapine FUMARATE 50 MG TABLET PO SCH (21:01)
[2021-12-03] MEDS: GABAPENTIN 100 MG CAPSULE PO SCH ×3 (07:18→21:36)
[2021-12-03] MEDS: BUPRENORPHINE/NALOXONE 2 MG/0.5 MG FILM PACKET SL SCH ×2 (07:18→20:40)
[2021-12-03] MEDS: LISINOPRIL 20 MG TABLET PO SCH (10:24)
[2021-12-03] MEDS: PRENATAL VITAMINS W/ FOLIC ACID TABLET (FP) PO SCH (10:24)
[2021-12-03] MEDS: SERTRALINE HCL 50 MG TABLET (FP) PO SCH (10:24)
[2021-12-03] MEDS: hydrOXYzine PAMOATE 25 MG CAPSULE (FP) PO PRN ×3 (10:25→18:54)
[2021-12-03] MEDS: HYDROCHLOROTHIAZIDE 12.5 MG CAPSULE (FP) PO SCH (10:25)
[2021-12-03] MEDS: NICOTINE 7 MG/24 HOURS TOPICAL PATCH TD SCH (10:25)
[2021-12-03] MEDS: amLODIPine BESYLATE 10 MG TABLET (FP) PO SCH (10:25)
[2021-12-03] MEDS: ARIPiprazole 5 MG TABLET PO SCH (10:25)
[2021-12-03] MEDS: NICOTINE 10 MG CARTRIDGE (INHALER) IH PRN (13:14)
[2021-12-03] MEDS: MELATONIN 5 MG TABLETS PO SCH (21:36)
[2021-12-03] MEDS: THIAMINE HCL 100 MG TABLET (FP) PO SCH (21:36)
[2021-12-03] MEDS: QUEtiapine FUMARATE 50 MG TABLET PO SCH (21:36)
[2021-12-04] MEDS: GABAPENTIN 100 MG CAPSULE PO SCH ×3 (06:49→21:06)
[2021-12-04] MEDS: BUPRENORPHINE/NALOXONE 2 MG/0.5 MG FILM PACKET SL SCH ×2 (07:33→19:42)
[2021-12-04] MEDS: PRENATAL VITAMINS W/ FOLIC ACID TABLET (FP) PO SCH (09:45)
[2021-12-04] MEDS: HYDROCHLOROTHIAZIDE 12.5 MG CAPSULE (FP) PO SCH (09:46)
[2021-12-04] MEDS: ARIPiprazole 5 MG TABLET PO SCH (09:46)
[2021-12-04] MEDS: SERTRALINE HCL 50 MG TABLET (FP) PO SCH (09:46)
[2021-12-04] MEDS: LISINOPRIL 20 MG TABLET PO SCH (09:47)
[2021-12-04] MEDS: amLODIPine BESYLATE 10 MG TABLET (FP) PO SCH (09:47)
[2021-12-04] MEDS: NICOTINE 7 MG/24 HOURS TOPICAL PATCH TD SCH (09:47)
[2021-12-04] MEDS: NICOTINE 10 MG CARTRIDGE (INHALER) IH PRN ×3 (12:07→21:06)
[2021-12-04] MEDS: hydrOXYzine PAMOATE 25 MG CAPSULE (FP) PO PRN (12:38)
[2021-12-04] MEDS: QUEtiapine FUMARATE 50 MG TABLET PO SCH (21:06)
[2021-12-04] MEDS: THIAMINE HCL 100 MG TABLET (FP) PO SCH (21:06)
[2021-12-04] MEDS: MELATONIN 5 MG TABLETS PO SCH (21:06)
[2021-12-05] MEDS: GABAPENTIN 100 MG CAPSULE PO SCH ×3 (06:14→21:06)
[2021-12-05] MEDS: BUPRENORPHINE/NALOXONE 2 MG/0.5 MG FILM PACKET SL SCH ×2 (07:17→19:29)
[2021-12-05] MEDS: NICOTINE 10 MG CARTRIDGE (INHALER) IH PRN ×5 (07:57→23:04)
[2021-12-05] MEDS: ARIPiprazole 5 MG TABLET PO SCH (10:17)
[2021-12-05] MEDS: SERTRALINE HCL 50 MG TABLET (FP) PO SCH (10:17)
[2021-12-05] MEDS: LISINOPRIL 20 MG TABLET PO SCH (10:17)
[2021-12-05] MEDS: PRENATAL VITAMINS W/ FOLIC ACID TABLET (FP) PO SCH (10:17)
[2021-12-05] MEDS: amLODIPine BESYLATE 10 MG TABLET (FP) PO SCH (10:17)
[2021-12-05] MEDS: NICOTINE 7 MG/24 HOURS TOPICAL PATCH TD SCH (10:17)
[2021-12-05] MEDS: HYDROCHLOROTHIAZIDE 12.5 MG CAPSULE (FP) PO SCH (10:17)
[2021-12-05] MEDS: hydrOXYzine PAMOATE 25 MG CAPSULE (FP) PO PRN ×2 (12:19→19:29)
[2021-12-05] MEDS: QUEtiapine FUMARATE 50 MG TABLET PO SCH (21:06)
[2021-12-05] MEDS: MELATONIN 5 MG TABLETS PO SCH (21:06)
[2021-12-05] MEDS: THIAMINE HCL 100 MG TABLET (FP) PO SCH (21:06)
[2021-12-06] MEDS: BUPRENORPHINE/NALOXONE 2 MG/0.5 MG FILM PACKET SL SCH ×2 (07:19→20:12)
[2021-12-06] MEDS: GABAPENTIN 100 MG CAPSULE PO SCH ×3 (07:19→21:28)
[2021-12-06] MEDS: PRENATAL VITAMINS W/ FOLIC ACID TABLET (FP) PO SCH (10:23)
[2021-12-06] MEDS: amLODIPine BESYLATE 10 MG TABLET (FP) PO SCH (10:24)
[2021-12-06] MEDS: HYDROCHLOROTHIAZIDE 12.5 MG CAPSULE (FP) PO SCH (10:24)
[2021-12-06] MEDS: LISINOPRIL 20 MG TABLET PO SCH (10:24)
[2021-12-06] MEDS: ARIPiprazole 5 MG TABLET PO SCH (10:24)
[2021-12-06] MEDS: NICOTINE 7 MG/24 HOURS TOPICAL PATCH TD SCH (10:25)
[2021-12-06] MEDS: SERTRALINE HCL 50 MG TABLET (FP) PO SCH (10:25)
[2021-12-06] MEDS: NICOTINE 10 MG CARTRIDGE (INHALER) IH PRN ×4 (10:27→21:12)
[2021-12-06] MEDS: hydrOXYzine PAMOATE 25 MG CAPSULE (FP) PO PRN ×2 (13:55→17:23)
[2021-12-06] MEDS: THIAMINE HCL 100 MG TABLET (FP) PO SCH (21:28)
[2021-12-06] MEDS: MELATONIN 5 MG TABLETS PO SCH (21:28)
[2021-12-06] MEDS: QUEtiapine FUMARATE 50 MG TABLET PO SCH (21:28)
[2021-12-07] MEDS: GABAPENTIN 100 MG CAPSULE PO SCH ×3 (06:57→21:23)
[2021-12-07] MEDS: hydrOXYzine PAMOATE 25 MG CAPSULE (FP) PO PRN ×3 (06:58→21:23)
[2021-12-07] MEDS: NICOTINE 10 MG CARTRIDGE (INHALER) IH PRN ×3 (07:00→17:46)
[2021-12-07] MEDS: BUPRENORPHINE/NALOXONE 2 MG/0.5 MG FILM PACKET SL SCH ×2 (07:58→19:52)
[2021-12-07] MEDS ORDERED: PENICILLIN G BENZATHINE 2,400,000 UNIT/4 ML PFS IM ONE (10:00)
[2021-12-07] MEDS: SERTRALINE HCL 50 MG TABLET (FP) PO SCH (10:42)
[2021-12-07] MEDS: PRENATAL VITAMINS W/ FOLIC ACID TABLET (FP) PO SCH (10:42)
[2021-12-07] MEDS: ARIPiprazole 5 MG TABLET PO SCH (10:42)
[2021-12-07] MEDS: LISINOPRIL 20 MG TABLET PO SCH (10:43)
[2021-12-07] MEDS: HYDROCHLOROTHIAZIDE 12.5 MG CAPSULE (FP) PO SCH (10:43)
[2021-12-07] MEDS: NICOTINE 7 MG/24 HOURS TOPICAL PATCH TD SCH (10:43)
[2021-12-07] MEDS: amLODIPine BESYLATE 10 MG TABLET (FP) PO SCH (10:43)
[2021-12-07] MEDS: THIAMINE HCL 100 MG TABLET (FP) PO SCH (21:23)
[2021-12-07] MEDS: QUEtiapine FUMARATE 50 MG TABLET PO SCH (21:23)
[2021-12-07] MEDS: MELATONIN 5 MG TABLETS PO SCH (21:23)
[2021-12-08] MEDS: GABAPENTIN 100 MG CAPSULE PO SCH ×3 (06:23→21:09)
[2021-12-08] MEDS: BUPRENORPHINE/NALOXONE 2 MG/0.5 MG FILM PACKET SL SCH ×2 (07:23→19:35)
[2021-12-08] MEDS: NICOTINE 10 MG CARTRIDGE (INHALER) IH PRN ×4 (07:41→21:10)
[2021-12-08] MEDS: ARIPiprazole 5 MG TABLET PO SCH (10:12)
[2021-12-08] MEDS: hydrOXYzine PAMOATE 25 MG CAPSULE (FP) PO PRN ×2 (10:12→18:27)
[2021-12-08] MEDS: PRENATAL VITAMINS W/ FOLIC ACID TABLET (FP) PO SCH (10:12)
[2021-12-08] MEDS: SERTRALINE HCL 50 MG TABLET (FP) PO SCH (10:12)
[2021-12-08] MEDS: LISINOPRIL 20 MG TABLET PO SCH (10:13)
[2021-12-08] MEDS: HYDROCHLOROTHIAZIDE 12.5 MG CAPSULE (FP) PO SCH (10:13)
[2021-12-08] MEDS: amLODIPine BESYLATE 10 MG TABLET (FP) PO SCH (10:13)
[2021-12-08] MEDS: NICOTINE 7 MG/24 HOURS TOPICAL PATCH TD SCH (10:13)
[2021-12-08] MEDS: MELATONIN 5 MG TABLETS PO SCH (21:07)
[2021-12-08] MEDS: QUEtiapine FUMARATE 50 MG TABLET PO SCH (21:07)
[2021-12-08] MEDS: THIAMINE HCL 100 MG TABLET (FP) PO SCH (21:07)
[2021-12-09] MEDS: GABAPENTIN 100 MG CAPSULE PO SCH ×3 (06:54→21:29)
[2021-12-09] MEDS: NICOTINE 10 MG CARTRIDGE (INHALER) IH PRN ×3 (06:54→19:27)
[2021-12-09 07:21] VITALS: TEMP 97.5
[2021-12-09] MEDS: BUPRENORPHINE/NALOXONE 2 MG/0.5 MG FILM PACKET SL SCH ×2 (07:34→20:03)
[2021-12-09] MEDS: PRENATAL VITAMINS W/ FOLIC ACID TABLET (FP) PO SCH (09:56)
[2021-12-09] MEDS: SERTRALINE HCL 50 MG TABLET (FP) PO SCH (09:57)
[2021-12-09] MEDS: ARIPiprazole 5 MG TABLET PO SCH (09:57)
[2021-12-09] MEDS: amLODIPine BESYLATE 10 MG TABLET (FP) PO SCH (09:57)
[2021-12-09] MEDS: NICOTINE 7 MG/24 HOURS TOPICAL PATCH TD SCH (09:57)
[2021-12-09] MEDS: LISINOPRIL 20 MG TABLET PO SCH (09:57)
[2021-12-09] MEDS: HYDROCHLOROTHIAZIDE 12.5 MG CAPSULE (FP) PO SCH (09:57)
[2021-12-09] MEDS: hydrOXYzine PAMOATE 25 MG CAPSULE (FP) PO PRN ×2 (09:59→17:10)
[2021-12-09] MEDS: QUEtiapine FUMARATE 50 MG TABLET PO SCH (21:29)
[2021-12-09] MEDS: THIAMINE HCL 100 MG TABLET (FP) PO SCH (21:30)
[2021-12-09] MEDS: MELATONIN 5 MG TABLETS PO SCH (21:30)
[2021-12-10] MEDS: hydrOXYzine PAMOATE 25 MG CAPSULE (FP) PO PRN (06:33)
[2021-12-10] MEDS: NICOTINE 10 MG CARTRIDGE (INHALER) IH PRN (06:33)
[2021-12-10] MEDS: GABAPENTIN 100 MG CAPSULE PO SCH (06:34)
[2021-12-10] MEDS: BUPRENORPHINE/NALOXONE 2 MG/0.5 MG FILM PACKET SL SCH (07:08)
[2021-12-10] MEDS: SERTRALINE HCL 50 MG TABLET (FP) PO SCH (09:05)
[2021-12-10] MEDS: LISINOPRIL 20 MG TABLET PO SCH (09:05)
[2021-12-10] MEDS: ARIPiprazole 5 MG TABLET PO SCH (09:05)
[2021-12-10] MEDS: amLODIPine BESYLATE 10 MG TABLET (FP) PO SCH (09:05)
[2021-12-10] MEDS: PRENATAL VITAMINS W/ FOLIC ACID TABLET (FP) PO SCH (09:06)
[2021-12-10] MEDS: HYDROCHLOROTHIAZIDE 12.5 MG CAPSULE (FP) PO SCH (09:06)
[2021-12-10] MEDS: NICOTINE 7 MG/24 HOURS TOPICAL PATCH TD SCH (09:06)
[2021-12-10 09:19] VITALS: BP 121/70; PULSE 68
== END 2021-12-10 10:15 | disposition home or self-care (01) | DRG 772 ==
LOC: YASAS 12:25 → Y5N 12:27
PROVIDERS: ADMIT Allergy & Immunology; ATTEND Allergy & Immunology
PROC: HZ42ZZZ Group Counseling for Substance Abuse Treatment, Cognitive-Behavioral (ICD-10-PCS; principal; 2021-11-26)
DX: F11.20 Opioid dependence, uncomplicated (principal); F10.20 Alcohol dependence, uncomplicated; F14.20 Cocaine dependence, uncomplicated; F17.210 Nicotine dependence, cigarettes, uncomplicated; F19.282 Other psychoactive substance dependence with psychoactive substance-induced sleep disorder; F43.10 Post-traumatic stress disorder, unspecified; A53.0 Latent syphilis, unspecified as early or late; I10 Essential (primary) hypertension; I89.0 Lymphedema, not elsewhere classified; Z62.810 Personal history of physical and sexual abuse in childhood; Z20.822 Contact with and (suspected) exposure to COVID-19; Z86.19 Personal history of other infectious and parasitic diseases; Z91.410 Personal history of adult physical and sexual abuse; Z56.0 Unemployment, unspecified; Z59.00 Homelessness unspecified
CPT/HCPCS: 82962; 83036; C9803-CS; U0003; U0005

== ENCOUNTER 2022-01-21 08:37 | Inpatient (IN) | payer OTHER ==
[2022-01-21] MEDS ORDERED: MAG HYDROX/AL HYDROX/SIMETH 30 ML UNIT-DOSE CUP PO PRN (09:14)
[2022-01-21] MEDS ORDERED: methaDONE HCL 10 MG TABLET (FOR DETOX USE ONLY) PO ONE (09:14)
[2022-01-21] MEDS ORDERED: ACETAMINOPHEN 325 MG TABLET (FP) PO PRN ×2 (09:14)
[2022-01-21] MEDS ORDERED: IBUPROFEN 400 MG TABLET (FP) PO PRN (09:14)
[2022-01-21] MEDS ORDERED: MAGNESIUM HYDROX 2400MG/30ML ORAL SUSPENSION 30 ML CUP PO PRN (09:14)
[2022-01-21] MEDS ORDERED: cloNIDine HCL 0.1 MG TABLET PO PRN (09:14)
[2022-01-21] MEDS ORDERED: MENTHOL/PHENOL 1 EACH UD MM PRN (09:14)
[2022-01-21] MEDS ORDERED: BISMUTH SUBSALICYLATE 262 MG/15 ML BTL PO PRN (09:14)
[2022-01-21] MEDS ORDERED: LOPERAMIDE HCL 2 MG CAPSULE PO PRN (09:14)
[2022-01-21] MEDS ORDERED: ONDANSETRON *ODT* 4 MG TABLET SL PRN (09:14)
[2022-01-21] MEDS ORDERED: MAGNESIUM CITRATE 300 ML BOTTLE PO PRN (09:14)
[2022-01-21 09:28] VITALS: BMI 28.7
[2022-01-21] MEDS: PRENATAL VITAMINS W/ FOLIC ACID TABLET (FP) PO SCH (11:27)
[2022-01-21] MEDS: amLODIPine BESYLATE 10 MG TABLET (FP) PO SCH (11:27)
[2022-01-21] MEDS: NICOTINE 14 MG/24 HOURS TOPICAL PATCH TD SCH (11:27)
[2022-01-21] MEDS: hydrOXYzine PAMOATE 25 MG CAPSULE (FP) PO SCH ×4 (11:27→22:50)
[2022-01-21] MEDS: LISINOPRIL 20 MG TABLET PO SCH (11:27)
[2022-01-21] MEDS: HYDROCHLOROTHIAZIDE 12.5 MG CAPSULE (FP) PO SCH (11:28)
[2022-01-21] MEDS: GABAPENTIN 100 MG CAPSULE PO SCH ×2 (13:11→22:50)
[2022-01-21 14:21] LABS: CALCIUM 10.4 mg/dL (8.5-10.1)
[2022-01-21 14:22] LABS: BLOOD UREA NITROGEN 11.6 mg/dL (7-18)
[2022-01-21 14:25] LABS: CREATININE 1.4 mg/dL (0.55-1.3)
[2022-01-21 14:26] LABS: BILIRUBIN,TOTAL 0.5 mg/dL (0.2-1); HEMATOCRIT 41.4 % (32.4-45.2); HEMOGLOBIN 13.5 GM/dL (10.7-15.3); MCH 28.4 pg (25.7-33.7); MCHC 32.6 g/dl (32.0-36.0); MEAN CELL VOLUME 87.2 fl (80-96); MEAN PLT VOLUME 9.3 fl (7.5-11.1); PLATELET COUNT 419 10^3/uL (134-434); RBC 4.74 M/mm3 (3.60-5.2); WHITE BLOOD COUNT 9.2 K/mm3 (4.0-10.0)
[2022-01-21 14:27] LABS: TOT PROT 8.5 g/dl (6.4-8.2)
[2022-01-21] MEDS ORDERED: MELATONIN 5 MG TABLETS PO SCH (22:00)
[2022-01-21] MEDS: ARIPiprazole 5 MG TABLET PO SCH (22:50)
[2022-01-21] MEDS: MELATONIN 5 MG TABLETS PO SCH (22:50)
[2022-01-21] MEDS: THIAMINE HCL 100 MG TABLET (FP) PO SCH (22:50)
[2022-01-22] MEDS: GABAPENTIN 100 MG CAPSULE PO SCH ×3 (06:39→22:34)
[2022-01-22] MEDS: hydrOXYzine PAMOATE 25 MG CAPSULE (FP) PO SCH ×5 (06:39→22:34)
[2022-01-22] MEDS ORDERED: methaDONE HCL 10 MG TABLET (FOR DETOX USE ONLY) ONE (09:30)
[2022-01-22] MEDS: PRENATAL VITAMINS W/ FOLIC ACID TABLET (FP) PO SCH (10:34)
[2022-01-22] MEDS: amLODIPine BESYLATE 10 MG TABLET (FP) PO SCH (10:35)
[2022-01-22] MEDS: LISINOPRIL 20 MG TABLET PO SCH (10:35)
[2022-01-22] MEDS: SERTRALINE HCL 50 MG TABLET (FP) PO SCH (10:35)
[2022-01-22] MEDS: METHOCARBAMOL 500 MG TABLET PO PRN (10:35)
[2022-01-22] MEDS: HYDROCHLOROTHIAZIDE 12.5 MG CAPSULE (FP) PO SCH (10:35)
[2022-01-22] MEDS: NICOTINE 10 MG CARTRIDGE (INHALER) IH PRN (10:38)
[2022-01-22] MEDS: NICOTINE 14 MG/24 HOURS TOPICAL PATCH TD SCH (10:38)
[2022-01-22] MEDS: BACITRACIN 0.9 GM PACKET TP SCH ×2 (12:30→23:06)
[2022-01-22] MEDS: THIAMINE HCL 100 MG TABLET (FP) PO SCH (22:34)
[2022-01-22] MEDS: MELATONIN 5 MG TABLETS PO SCH (22:35)
[2022-01-22] MEDS: ARIPiprazole 5 MG TABLET PO SCH (22:35)
[2022-01-23] MEDS: hydrOXYzine PAMOATE 25 MG CAPSULE (FP) PO SCH ×5 (06:29→22:39)
[2022-01-23] MEDS: GABAPENTIN 100 MG CAPSULE PO SCH ×3 (06:29→22:39)
[2022-01-23] MEDS ORDERED: methaDONE HCL 10 MG TABLET (FOR DETOX USE ONLY) PO ONE (10:00)
[2022-01-23 10:08] LABS: SARS-CoV-2 NAA Not Detected (Not Detected)
[2022-01-23] MEDS: PRENATAL VITAMINS W/ FOLIC ACID TABLET (FP) PO SCH (10:36)
[2022-01-23] MEDS: METHOCARBAMOL 500 MG TABLET PO PRN ×2 (10:37→18:02)
[2022-01-23] MEDS: SERTRALINE HCL 50 MG TABLET (FP) PO SCH (10:37)
[2022-01-23] MEDS: LISINOPRIL 20 MG TABLET PO SCH (10:37)
[2022-01-23] MEDS: amLODIPine BESYLATE 10 MG TABLET (FP) PO SCH (10:37)
[2022-01-23] MEDS: NICOTINE 14 MG/24 HOURS TOPICAL PATCH TD SCH (10:38)
[2022-01-23] MEDS: BACITRACIN 0.9 GM PACKET TP SCH ×2 (10:39→22:39)
[2022-01-23] MEDS: HYDROCHLOROTHIAZIDE 12.5 MG CAPSULE (FP) PO SCH (10:40)
[2022-01-23] MEDS: NICOTINE 10 MG CARTRIDGE (INHALER) IH PRN (10:42)
[2022-01-23] MEDS ORDERED: PENICILLIN G BENZATHINE 2,400,000 UNIT/4 ML PFS IM ONE (12:00)
[2022-01-23] MEDS: THIAMINE HCL 100 MG TABLET (FP) PO SCH (22:39)
[2022-01-23] MEDS: MELATONIN 5 MG TABLETS PO SCH (22:39)
[2022-01-23] MEDS: ARIPiprazole 5 MG TABLET PO SCH (22:39)
[2022-01-24] MEDS: GABAPENTIN 100 MG CAPSULE PO SCH ×3 (05:57→22:53)
[2022-01-24] MEDS: hydrOXYzine PAMOATE 25 MG CAPSULE (FP) PO SCH ×5 (05:57→22:49)
[2022-01-24] MEDS ORDERED: methaDONE HCL 10 MG TABLET (FOR DETOX USE ONLY) ONE (09:35)
[2022-01-24] MEDS: PRENATAL VITAMINS W/ FOLIC ACID TABLET (FP) PO SCH (10:44)
[2022-01-24] MEDS: amLODIPine BESYLATE 10 MG TABLET (FP) PO SCH (10:44)
[2022-01-24] MEDS: LISINOPRIL 20 MG TABLET PO SCH (10:44)
[2022-01-24] MEDS: HYDROCHLOROTHIAZIDE 12.5 MG CAPSULE (FP) PO SCH (10:44)
[2022-01-24] MEDS: METHOCARBAMOL 500 MG TABLET PO PRN ×2 (10:44→18:28)
[2022-01-24] MEDS: SERTRALINE HCL 50 MG TABLET (FP) PO SCH (10:44)
[2022-01-24] MEDS: BACITRACIN 0.9 GM PACKET TP SCH ×2 (10:44→22:51)
[2022-01-24] MEDS: NICOTINE 14 MG/24 HOURS TOPICAL PATCH TD SCH (10:45)
[2022-01-24] MEDS: NICOTINE 10 MG CARTRIDGE (INHALER) IH PRN ×2 (10:47→22:50)
[2022-01-24] MEDS: MELATONIN 5 MG TABLETS PO SCH (22:49)
[2022-01-24] MEDS: THIAMINE HCL 100 MG TABLET (FP) PO SCH (22:50)
[2022-01-24] MEDS: ARIPiprazole 5 MG TABLET PO SCH (22:50)
[2022-01-25] MEDS: hydrOXYzine PAMOATE 25 MG CAPSULE (FP) PO SCH ×5 (06:43→22:07)
[2022-01-25] MEDS: GABAPENTIN 100 MG CAPSULE PO SCH ×3 (06:46→22:07)
[2022-01-25] MEDS ORDERED: methaDONE HCL 10 MG TABLET (FOR DETOX USE ONLY) PO ONE (10:00)
[2022-01-25] MEDS: HYDROCHLOROTHIAZIDE 12.5 MG CAPSULE (FP) PO SCH (10:38)
[2022-01-25] MEDS: METHOCARBAMOL 500 MG TABLET PO PRN (10:40)
[2022-01-25] MEDS: BACITRACIN 0.9 GM PACKET TP SCH ×2 (10:40→22:06)
[2022-01-25] MEDS: amLODIPine BESYLATE 10 MG TABLET (FP) PO SCH (10:40)
[2022-01-25] MEDS: SERTRALINE HCL 50 MG TABLET (FP) PO SCH (10:40)
[2022-01-25] MEDS: PRENATAL VITAMINS W/ FOLIC ACID TABLET (FP) PO SCH (10:40)
[2022-01-25] MEDS: NICOTINE 14 MG/24 HOURS TOPICAL PATCH TD SCH (10:40)
[2022-01-25] MEDS: LISINOPRIL 20 MG TABLET PO SCH (10:40)
[2022-01-25] MEDS: NICOTINE 10 MG CARTRIDGE (INHALER) IH PRN (10:42)
[2022-01-25] MEDS: ARIPiprazole 5 MG TABLET PO SCH (22:06)
[2022-01-25] MEDS: MELATONIN 5 MG TABLETS PO SCH (22:07)
[2022-01-25] MEDS: THIAMINE HCL 100 MG TABLET (FP) PO SCH (22:07)
[2022-01-26] MEDS: hydrOXYzine PAMOATE 25 MG CAPSULE (FP) PO SCH ×3 (06:22→14:41)
[2022-01-26] MEDS: GABAPENTIN 100 MG CAPSULE PO SCH ×2 (06:23→14:41)
[2022-01-26] MEDS: NICOTINE 10 MG CARTRIDGE (INHALER) IH PRN ×2 (09:01→10:12)
[2022-01-26] MEDS: HYDROCHLOROTHIAZIDE 12.5 MG CAPSULE (FP) PO SCH (10:09)
[2022-01-26] MEDS: BACITRACIN 0.9 GM PACKET TP SCH (10:11)
[2022-01-26] MEDS: NICOTINE 14 MG/24 HOURS TOPICAL PATCH TD SCH (10:14)
[2022-01-26] MEDS: PRENATAL VITAMINS W/ FOLIC ACID TABLET (FP) PO SCH (10:14)
[2022-01-26] MEDS: LISINOPRIL 20 MG TABLET PO SCH (10:14)
[2022-01-26] MEDS: SERTRALINE HCL 50 MG TABLET (FP) PO SCH (10:14)
[2022-01-26] MEDS: amLODIPine BESYLATE 10 MG TABLET (FP) PO SCH (10:14)
[2022-01-26 14:29] VITALS: BP 106/54; PULSE 57; TEMP 97.9
== END 2022-01-26 14:53 | disposition other institution (70) | DRG 773 ==
LOC: YASAS 08:37 → Y6N 10:25
PROVIDERS: ADMIT Allergy & Immunology; ATTEND Allergy & Immunology
PROC: HZ2ZZZZ Detoxification Services for Substance Abuse Treatment (ICD-10-PCS; principal; 2022-01-21)
DX: F11.23 Opioid dependence with withdrawal (principal); F10.230 Alcohol dependence with withdrawal, uncomplicated; F14.20 Cocaine dependence, uncomplicated; F15.10 Other stimulant abuse, uncomplicated; F17.210 Nicotine dependence, cigarettes, uncomplicated; F25.1 Schizoaffective disorder, depressive type; F39 Unspecified mood [affective] disorder; F19.282 Other psychoactive substance dependence with psychoactive substance-induced sleep disorder; F43.10 Post-traumatic stress disorder, unspecified; A53.0 Latent syphilis, unspecified as early or late; I10 Essential (primary) hypertension; I89.0 Lymphedema, not elsewhere classified; R73.9 Hyperglycemia, unspecified; R79.89 Other specified abnormal findings of blood chemistry; Z62.810 Personal history of physical and sexual abuse in childhood; Z86.19 Personal history of other infectious and parasitic diseases; Z59.00 Homelessness unspecified; Z56.0 Unemployment, unspecified
CPT/HCPCS: 36415; 80053; 81025; 82962; 85027; 86593; 86780; C9803; J0735; U0003; U0005

== ENCOUNTER 2022-01-26 09:56 | Inpatient (IN) | payer OTHER ==
[2022-01-26] MEDS ORDERED: BACITRACIN 0.9 GM PACKET ONE (10:11)
[2022-01-26] MEDS ORDERED: P-EPHED 60MG/TRIPROLIDI 2.5MG TABLET PO PRN (12:41)
[2022-01-26] MEDS ORDERED: LOPERAMIDE HCL 2 MG CAPSULE PO PRN (12:41)
[2022-01-26] MEDS ORDERED: MAGNESIUM CITRATE 300 ML BOTTLE PO PRN (12:41)
[2022-01-26] MEDS ORDERED: guaiFENesin 200 MG/10 ML 10 ML UNIT-DOSE CUPS PO PRN (12:41)
[2022-01-26] MEDS ORDERED: MAG HYDROX/AL HYDROX/SIMETH 30 ML UNIT-DOSE CUP PO PRN (12:41)
[2022-01-26] MEDS ORDERED: ACETAMINOPHEN 325 MG TABLET (FP) PO PRN (12:41)
[2022-01-26] MEDS ORDERED: MAGNESIUM HYDROX 2400MG/30ML ORAL SUSPENSION 30 ML CUP PO PRN (12:41)
[2022-01-26] MEDS: hydrOXYzine PAMOATE 25 MG CAPSULE (FP) PO SCH ×3 (15:19→22:20)
[2022-01-26] MEDS: GABAPENTIN 100 MG CAPSULE PO SCH ×2 (15:19→22:21)
[2022-01-26] MEDS: ARIPiprazole 5 MG TABLET PO SCH (22:20)
[2022-01-26] MEDS: THIAMINE HCL 100 MG TABLET (FP) PO SCH (22:21)
[2022-01-26] MEDS: MELATONIN 5 MG TABLETS PO SCH (22:21)
[2022-01-27] MEDS: GABAPENTIN 100 MG CAPSULE PO SCH ×3 (06:23→21:07)
[2022-01-27] MEDS: hydrOXYzine PAMOATE 25 MG CAPSULE (FP) PO SCH ×5 (06:23→21:07)
[2022-01-27] MEDS: PRENATAL VITAMINS W/ FOLIC ACID TABLET (FP) PO SCH (10:18)
[2022-01-27] MEDS: amLODIPine BESYLATE 10 MG TABLET (FP) PO SCH (10:18)
[2022-01-27] MEDS: LISINOPRIL 20 MG TABLET PO SCH (10:18)
[2022-01-27] MEDS: NICOTINE 7 MG/24 HOURS TOPICAL PATCH TD SCH (10:18)
[2022-01-27] MEDS: NICOTINE 10 MG CARTRIDGE (INHALER) IH PRN ×3 (10:18→21:08)
[2022-01-27] MEDS: SERTRALINE HCL 25 MG TABLET (FP) PO SCH (10:19)
[2022-01-27] MEDS: ARIPiprazole 5 MG TABLET PO SCH (21:07)
[2022-01-27] MEDS: MELATONIN 5 MG TABLETS PO SCH (21:07)
[2022-01-27] MEDS: THIAMINE HCL 100 MG TABLET (FP) PO SCH (21:07)
[2022-01-28] MEDS: GABAPENTIN 100 MG CAPSULE PO SCH ×3 (06:59→21:19)
[2022-01-28] MEDS: hydrOXYzine PAMOATE 25 MG CAPSULE (FP) PO SCH ×5 (06:59→21:19)
[2022-01-28] MEDS: NICOTINE 7 MG/24 HOURS TOPICAL PATCH TD SCH (10:17)
[2022-01-28] MEDS: PRENATAL VITAMINS W/ FOLIC ACID TABLET (FP) PO SCH (10:17)
[2022-01-28] MEDS: LISINOPRIL 20 MG TABLET PO SCH (10:18)
[2022-01-28] MEDS: amLODIPine BESYLATE 10 MG TABLET (FP) PO SCH (10:18)
[2022-01-28] MEDS: SERTRALINE HCL 25 MG TABLET (FP) PO SCH (10:19)
[2022-01-28] MEDS: NICOTINE 10 MG CARTRIDGE (INHALER) IH PRN ×2 (10:20→15:37)
[2022-01-28] MEDS ORDERED: BACLOFEN 10 MG TABLET (FP) PO ONE (11:00)
[2022-01-28] MEDS ORDERED: COLLOIDAL OATMEAL 1 BAR EACH TP PRN (12:13)
[2022-01-28] MEDS: BACITRACIN 0.9 GM PACKET TP SCH (13:57)
[2022-01-28] MEDS: BACLOFEN 10 MG TABLET (FP) PO SCH ×2 (13:58→21:19)
[2022-01-28] MEDS ORDERED: BUPRENORPHINE/NALOXONE 2 MG/0.5 MG FILM PACKET SL ONE (14:00)
[2022-01-28] MEDS: MINERAL OIL/PETROLAT/WATER TOPICAL CREAM 113 GM JAR TP SCH (14:02)
[2022-01-28] MEDS: SILVER SULFADIAZINE 1% TOP CREAM 50 GM JAR TP SCH (14:02)
[2022-01-28] MEDS: THIAMINE HCL 100 MG TABLET (FP) PO SCH (21:18)
[2022-01-28] MEDS: MELATONIN 5 MG TABLETS PO SCH (21:18)
[2022-01-28] MEDS: ARIPiprazole 5 MG TABLET PO SCH (21:18)
[2022-01-28] MEDS: BUPRENORPHINE/NALOXONE 2 MG/0.5 MG FILM PACKET SL SCH (21:20)
[2022-01-29] MEDS: hydrOXYzine PAMOATE 25 MG CAPSULE (FP) PO SCH ×5 (06:34→21:08)
[2022-01-29] MEDS: GABAPENTIN 100 MG CAPSULE PO SCH ×3 (06:34→21:08)
[2022-01-29] MEDS: BACLOFEN 10 MG TABLET (FP) PO SCH ×3 (06:34→21:08)
[2022-01-29] MEDS: NICOTINE 10 MG CARTRIDGE (INHALER) IH PRN ×2 (09:02→17:39)
[2022-01-29] MEDS: PRENATAL VITAMINS W/ FOLIC ACID TABLET (FP) PO SCH (09:48)
[2022-01-29] MEDS: amLODIPine BESYLATE 10 MG TABLET (FP) PO SCH (09:49)
[2022-01-29] MEDS: SILVER SULFADIAZINE 1% TOP CREAM 50 GM JAR TP SCH (09:49)
[2022-01-29] MEDS: BACITRACIN 0.9 GM PACKET TP SCH (09:49)
[2022-01-29] MEDS: MINERAL OIL/PETROLAT/WATER TOPICAL CREAM 113 GM JAR TP SCH (09:50)
[2022-01-29] MEDS: LISINOPRIL 20 MG TABLET PO SCH (09:50)
[2022-01-29] MEDS: BUPRENORPHINE/NALOXONE 2 MG/0.5 MG FILM PACKET SL SCH ×2 (09:50→21:07)
[2022-01-29] MEDS: NICOTINE 7 MG/24 HOURS TOPICAL PATCH TD SCH (09:50)
[2022-01-29] MEDS: SERTRALINE HCL 25 MG TABLET (FP) PO SCH (09:51)
[2022-01-29] MEDS: THIAMINE HCL 100 MG TABLET (FP) PO SCH (21:08)
[2022-01-29] MEDS: ARIPiprazole 5 MG TABLET PO SCH (21:08)
[2022-01-29] MEDS: MELATONIN 5 MG TABLETS PO SCH (21:09)
[2022-01-30] MEDS: GABAPENTIN 100 MG CAPSULE PO SCH ×3 (06:54→21:42)
[2022-01-30] MEDS: BACLOFEN 10 MG TABLET (FP) PO SCH ×3 (06:54→21:41)
[2022-01-30] MEDS: hydrOXYzine PAMOATE 25 MG CAPSULE (FP) PO SCH ×5 (06:54→21:41)
[2022-01-30] MEDS: BUPRENORPHINE/NALOXONE 2 MG/0.5 MG FILM PACKET SL SCH (09:40)
[2022-01-30] MEDS: BACITRACIN 0.9 GM PACKET TP SCH (09:40)
[2022-01-30] MEDS: LISINOPRIL 20 MG TABLET PO SCH (09:40)
[2022-01-30] MEDS: amLODIPine BESYLATE 10 MG TABLET (FP) PO SCH (09:41)
[2022-01-30] MEDS: NICOTINE 7 MG/24 HOURS TOPICAL PATCH TD SCH (09:41)
[2022-01-30] MEDS: PRENATAL VITAMINS W/ FOLIC ACID TABLET (FP) PO SCH (09:41)
[2022-01-30] MEDS: SILVER SULFADIAZINE 1% TOP CREAM 50 GM JAR TP SCH (09:41)
[2022-01-30] MEDS: MINERAL OIL/PETROLAT/WATER TOPICAL CREAM 113 GM JAR TP SCH (09:41)
[2022-01-30] MEDS: SERTRALINE HCL 50 MG TABLET (FP) PO SCH (09:42)
[2022-01-30] MEDS: NICOTINE 10 MG CARTRIDGE (INHALER) IH PRN (13:12)
[2022-01-30] MEDS: BUPRENORPHINE/NALOXONE 4 MG/1 MG FILM PACKET SL SCH (18:03)
[2022-01-30] MEDS: IBUPROFEN 400 MG TABLET (FP) PO PRN (18:53)
[2022-01-30] MEDS: ARIPiprazole 5 MG TABLET PO SCH (21:41)
[2022-01-30] MEDS: THIAMINE HCL 100 MG TABLET (FP) PO SCH (21:41)
[2022-01-30] MEDS ORDERED: SUVOREXANT 10 MG TABLET PO PRN (22:00)
[2022-01-31] MEDS: BACLOFEN 10 MG TABLET (FP) PO SCH ×3 (06:34→21:41)
[2022-01-31] MEDS: GABAPENTIN 100 MG CAPSULE PO SCH ×3 (06:34→21:41)
[2022-01-31] MEDS: hydrOXYzine PAMOATE 25 MG CAPSULE (FP) PO SCH ×5 (06:34→21:41)
[2022-01-31] MEDS: BUPRENORPHINE/NALOXONE 4 MG/1 MG FILM PACKET SL SCH ×2 (06:34→17:26)
[2022-01-31] MEDS: NICOTINE 10 MG CARTRIDGE (INHALER) IH PRN ×2 (07:13→16:33)
[2022-01-31] MEDS: NICOTINE 7 MG/24 HOURS TOPICAL PATCH TD SCH (10:31)
[2022-01-31] MEDS: MINERAL OIL/PETROLAT/WATER TOPICAL CREAM 113 GM JAR TP SCH (10:31)
[2022-01-31] MEDS: SERTRALINE HCL 50 MG TABLET (FP) PO SCH (10:32)
[2022-01-31] MEDS: LISINOPRIL 20 MG TABLET PO SCH (10:32)
[2022-01-31] MEDS: amLODIPine BESYLATE 10 MG TABLET (FP) PO SCH (10:32)
[2022-01-31] MEDS: PRENATAL VITAMINS W/ FOLIC ACID TABLET (FP) PO SCH (10:33)
[2022-01-31] MEDS: BACITRACIN 0.9 GM PACKET TP SCH (10:33)
[2022-01-31] MEDS: SILVER SULFADIAZINE 1% TOP CREAM 50 GM JAR TP SCH (10:33)
[2022-01-31] MEDS: ARIPiprazole 5 MG TABLET PO SCH (21:41)
[2022-01-31] MEDS: THIAMINE HCL 100 MG TABLET (FP) PO SCH (21:41)
[2022-02-01] MEDS: BACLOFEN 10 MG TABLET (FP) PO SCH ×3 (06:23→22:12)
[2022-02-01] MEDS: hydrOXYzine PAMOATE 25 MG CAPSULE (FP) PO SCH ×5 (06:23→22:12)
[2022-02-01] MEDS: BUPRENORPHINE/NALOXONE 4 MG/1 MG FILM PACKET SL SCH ×2 (06:23→17:46)
[2022-02-01] MEDS: GABAPENTIN 100 MG CAPSULE PO SCH ×3 (06:24→22:12)
[2022-02-01] MEDS: NICOTINE 10 MG CARTRIDGE (INHALER) IH PRN (07:26)
[2022-02-01] MEDS: PRENATAL VITAMINS W/ FOLIC ACID TABLET (FP) PO SCH (10:04)
[2022-02-01] MEDS: amLODIPine BESYLATE 10 MG TABLET (FP) PO SCH (10:05)
[2022-02-01] MEDS: MINERAL OIL/PETROLAT/WATER TOPICAL CREAM 113 GM JAR TP SCH (10:05)
[2022-02-01] MEDS: LISINOPRIL 20 MG TABLET PO SCH (10:05)
[2022-02-01] MEDS: NICOTINE 7 MG/24 HOURS TOPICAL PATCH TD SCH (10:05)
[2022-02-01] MEDS: BACITRACIN 0.9 GM PACKET TP SCH (10:05)
[2022-02-01] MEDS: SILVER SULFADIAZINE 1% TOP CREAM 50 GM JAR TP SCH (10:06)
[2022-02-01] MEDS: SERTRALINE HCL 50 MG TABLET (FP) PO SCH (10:06)
[2022-02-01 14:11] LABS: SARS-CoV-2 NAA Not Detected (Not Detected)
[2022-02-01] MEDS: IBUPROFEN 400 MG TABLET (FP) PO PRN (15:14)
[2022-02-01] MEDS: THIAMINE HCL 100 MG TABLET (FP) PO SCH (22:12)
[2022-02-01] MEDS: ARIPiprazole 5 MG TABLET PO SCH (22:12)
[2022-02-02] MEDS: BUPRENORPHINE/NALOXONE 4 MG/1 MG FILM PACKET SL SCH ×2 (06:24→17:51)
[2022-02-02] MEDS: BACLOFEN 10 MG TABLET (FP) PO SCH ×3 (06:24→21:48)
[2022-02-02] MEDS: hydrOXYzine PAMOATE 25 MG CAPSULE (FP) PO SCH ×5 (06:24→21:46)
[2022-02-02] MEDS: GABAPENTIN 100 MG CAPSULE PO SCH ×3 (06:25→21:48)
[2022-02-02] MEDS: NICOTINE 10 MG CARTRIDGE (INHALER) IH PRN ×2 (06:26→22:21)
[2022-02-02] MEDS: PRENATAL VITAMINS W/ FOLIC ACID TABLET (FP) PO SCH (10:49)
[2022-02-02] MEDS: amLODIPine BESYLATE 10 MG TABLET (FP) PO SCH (10:50)
[2022-02-02] MEDS: SERTRALINE HCL 50 MG TABLET (FP) PO SCH (10:50)
[2022-02-02] MEDS: BACITRACIN 0.9 GM PACKET TP SCH (10:50)
[2022-02-02] MEDS: LISINOPRIL 20 MG TABLET PO SCH (10:50)
[2022-02-02] MEDS: MINERAL OIL/PETROLAT/WATER TOPICAL CREAM 113 GM JAR TP SCH (10:51)
[2022-02-02] MEDS: NICOTINE 7 MG/24 HOURS TOPICAL PATCH TD SCH (10:51)
[2022-02-02] MEDS: SILVER SULFADIAZINE 1% TOP CREAM 50 GM JAR TP SCH (10:53)
[2022-02-02] MEDS: IBUPROFEN 400 MG TABLET (FP) PO PRN (14:21)
[2022-02-02] MEDS: THIAMINE HCL 100 MG TABLET (FP) PO SCH (21:46)
[2022-02-02] MEDS: ARIPiprazole 5 MG TABLET PO SCH (21:48)
[2022-02-02] MEDS ORDERED: SUVOREXANT 10 MG TABLET PO PRN (22:00)
[2022-02-03] MEDS: hydrOXYzine PAMOATE 25 MG CAPSULE (FP) PO SCH ×2 (06:26→10:22)
[2022-02-03] MEDS: BACLOFEN 10 MG TABLET (FP) PO SCH (06:27)
[2022-02-03] MEDS: GABAPENTIN 100 MG CAPSULE PO SCH (06:27)
[2022-02-03] MEDS: BUPRENORPHINE/NALOXONE 4 MG/1 MG FILM PACKET SL SCH (06:27)
[2022-02-03] MEDS: PRENATAL VITAMINS W/ FOLIC ACID TABLET (FP) PO SCH (10:22)
[2022-02-03] MEDS: LISINOPRIL 20 MG TABLET PO SCH (10:22)
[2022-02-03] MEDS: BACITRACIN 0.9 GM PACKET TP SCH (10:22)
[2022-02-03] MEDS: SILVER SULFADIAZINE 1% TOP CREAM 50 GM JAR TP SCH (10:23)
[2022-02-03] MEDS: SERTRALINE HCL 50 MG TABLET (FP) PO SCH (10:23)
[2022-02-03] MEDS: amLODIPine BESYLATE 10 MG TABLET (FP) PO SCH (10:23)
[2022-02-03] MEDS: MINERAL OIL/PETROLAT/WATER TOPICAL CREAM 113 GM JAR TP SCH (10:24)
[2022-02-03] MEDS: NICOTINE 7 MG/24 HOURS TOPICAL PATCH TD SCH (10:25)
[2022-02-03] MEDS: NICOTINE 10 MG CARTRIDGE (INHALER) IH PRN (10:27)
[2022-02-03 11:14] VITALS: BP 130/79; PULSE 68; TEMP 97.8
== END 2022-02-03 11:55 | disposition home or self-care (01) | DRG 772 ==
LOC: YASAS 09:56 → Y5N 09:57
PROVIDERS: ADMIT Allergy & Immunology; ATTEND Allergy & Immunology
PROC: HZ42ZZZ Group Counseling for Substance Abuse Treatment, Cognitive-Behavioral (ICD-10-PCS; principal; 2022-01-26)
DX: F11.20 Opioid dependence, uncomplicated (principal); F10.20 Alcohol dependence, uncomplicated; F14.20 Cocaine dependence, uncomplicated; F17.210 Nicotine dependence, cigarettes, uncomplicated; F19.282 Other psychoactive substance dependence with psychoactive substance-induced sleep disorder; F19.24 Other psychoactive substance dependence with psychoactive substance-induced mood disorder; F43.10 Post-traumatic stress disorder, unspecified; F41.9 Anxiety disorder, unspecified; F32.9 Major depressive disorder, single episode, unspecified; F60.3 Borderline personality disorder; I10 Essential (primary) hypertension; Z86.19 Personal history of other infectious and parasitic diseases; Z56.0 Unemployment, unspecified; Z59.00 Homelessness unspecified; T22.09 Burn of unspecified degree of multiple sites of shoulder and upper limb, except wrist and hand; X16.XXXD Contact with hot heating appliances, radiators and pipes, subsequent encounter
CPT/HCPCS: C9803; J0475; U0003; U0005

== ENCOUNTER 2022-04-05 12:46 | Inpatient (IN) | payer OTHER ==
[2022-04-05 14:21] VITALS: BMI 26.4
[2022-04-05] MEDS ORDERED: diazePAM 5 MG TABLET PO PRN (19:28)
[2022-04-05] MEDS ORDERED: DICYCLOMINE HCL 10 MG CAPSULE PO PRN (19:28)
[2022-04-05] MEDS ORDERED: MAG HYDROX/AL HYDROX/SIMETH 30 ML UNIT-DOSE CUP PO PRN (19:28)
[2022-04-05] MEDS ORDERED: MAGNESIUM HYDROX 2400MG/30ML ORAL SUSPENSION 30 ML CUP PO PRN (19:28)
[2022-04-05] MEDS ORDERED: BENZOCAINE/MENTHOL (CHLORASEPTIC ) LOZENGE MM PRN (19:28)
[2022-04-05] MEDS ORDERED: MAGNESIUM CITRATE 300 ML BOTTLE PO PRN (19:28)
[2022-04-05] MEDS ORDERED: ACETAMINOPHEN 325 MG TABLET (FP) PO PRN ×2 (19:28)
[2022-04-05] MEDS ORDERED: ONDANSETRON *ODT* 4 MG TABLET SL PRN (19:28)
[2022-04-05] MEDS ORDERED: LOPERAMIDE HCL 2 MG CAPSULE PO PRN (19:28)
[2022-04-05] MEDS ORDERED: BISMUTH SUBSALICYLATE 524 MG/30 ML PO PRN (19:28)
[2022-04-05] MEDS ORDERED: diazePAM 5 MG TABLET PO ONE (19:45)
[2022-04-05] MEDS ORDERED: methaDONE HCL 10 MG TABLET (FOR DETOX USE ONLY) PO ONE (20:00)
[2022-04-05] MEDS: cloNIDine HCL 0.1 MG TABLET PO PRN (20:02)
[2022-04-05] MEDS: THIAMINE HCL 100 MG TABLET (FP) PO SCH (22:28)
[2022-04-05] MEDS: GABAPENTIN 100 MG CAPSULE PO SCH (22:28)
[2022-04-05] MEDS: MELATONIN 5 MG TABLETS PO SCH (22:28)
[2022-04-05] MEDS: diazePAM 5 MG TABLET PO SCH (22:29)
[2022-04-05] MEDS: TOLNAFTATE 1% CREAM 15 GM TUBE TP SCH (22:31)
[2022-04-05] MEDS: NICOTINE 10 MG CARTRIDGE (INHALER) IH PRN (22:32)
[2022-04-06] MEDS: GABAPENTIN 100 MG CAPSULE PO SCH ×3 (06:24→22:15)
[2022-04-06] MEDS: diazePAM 5 MG TABLET PO SCH ×4 (06:24→22:15)
[2022-04-06] MEDS ORDERED: methaDONE HCL 10 MG TABLET (FOR DETOX USE ONLY) ONE (08:58)
[2022-04-06] MEDS: LISINOPRIL 20 MG TABLET PO SCH (11:10)
[2022-04-06] MEDS: amLODIPine BESYLATE 10 MG TABLET (FP) PO SCH (11:10)
[2022-04-06] MEDS: METHOCARBAMOL 500 MG TABLET PO PRN ×2 (11:10→18:32)
[2022-04-06] MEDS: PRENATAL VITAMINS W/ FOLIC ACID TABLET (FP) PO SCH (11:13)
[2022-04-06] MEDS: TOLNAFTATE 1% CREAM 15 GM TUBE TP SCH ×2 (11:14→22:15)
[2022-04-06] MEDS ORDERED: GABAPENTIN 100 MG CAPSULE PO SCH (22:00)
[2022-04-06] MEDS: THIAMINE HCL 100 MG TABLET (FP) PO SCH (22:15)
[2022-04-06] MEDS: ARIPiprazole 5 MG TABLET PO SCH (22:15)
[2022-04-06] MEDS: MELATONIN 5 MG TABLETS PO SCH (22:15)
[2022-04-07] MEDS: GABAPENTIN 100 MG CAPSULE PO SCH ×3 (05:53→22:12)
[2022-04-07] MEDS: diazePAM 5 MG TABLET PO SCH ×3 (05:53→22:13)
[2022-04-07] MEDS ORDERED: methaDONE HCL 10 MG TABLET (FOR DETOX USE ONLY) PO ONE (10:00)
[2022-04-07] MEDS: LISINOPRIL 20 MG TABLET PO SCH (10:13)
[2022-04-07] MEDS: TOLNAFTATE 1% CREAM 15 GM TUBE TP SCH ×2 (10:13→22:28)
[2022-04-07] MEDS: PRENATAL VITAMINS W/ FOLIC ACID TABLET (FP) PO SCH (10:13)
[2022-04-07] MEDS: amLODIPine BESYLATE 10 MG TABLET (FP) PO SCH (10:14)
[2022-04-07] MEDS: IBUPROFEN 400 MG TABLET (FP) PO PRN (10:14)
[2022-04-07] MEDS: SERTRALINE HCL 50 MG TABLET (FP) PO SCH (10:14)
[2022-04-07 11:02] LABS: ALBUMIN 3.1 g/dl (3.4-5.0)
[2022-04-07 11:04] LABS: CREATININE 0.9 mg/dL (0.55-1.3)
[2022-04-07 11:06] LABS: BILIRUBIN,TOTAL 0.3 mg/dL (0.2-1); TOT PROT 6.6 g/dl (6.4-8.2)
[2022-04-07 11:10] LABS: HEMATOCRIT 39.7 % (32.4-45.2); HEMOGLOBIN 12.8 GM/dL (10.7-15.3); MCHC 32.3 g/dl (32.0-36.0); MEAN CELL VOLUME 86.7 fl (80-96); MEAN PLT VOLUME 9.6 fl (7.5-11.1); PLATELET COUNT 286 10^3/uL (134-434); RBC 4.58 M/mm3 (3.60-5.2); WHITE BLOOD COUNT 8.8 K/mm3 (4.0-10.0)
[2022-04-07] MEDS: HYDROCHLOROTHIAZIDE 25 MG TABLET (FP) PO SCH (15:11)
[2022-04-07] MEDS: cloNIDine HCL 0.1 MG TABLET PO PRN (18:18)
[2022-04-07] MEDS: MELATONIN 5 MG TABLETS PO SCH (22:12)
[2022-04-07] MEDS: ARIPiprazole 5 MG TABLET PO SCH (22:12)
[2022-04-07] MEDS: THIAMINE HCL 100 MG TABLET (FP) PO SCH (22:12)
[2022-04-08 00:09] LABS: SARS-CoV-2 NAA Not Detected (Not Detected)
[2022-04-08] MEDS: GABAPENTIN 100 MG CAPSULE PO SCH ×3 (06:21→22:15)
[2022-04-08] MEDS: diazePAM 5 MG TABLET PO SCH ×2 (06:21→18:02)
[2022-04-08] MEDS: amLODIPine BESYLATE 10 MG TABLET (FP) PO SCH (07:01)
[2022-04-08] MEDS ORDERED: methaDONE HCL 10 MG TABLET (FOR DETOX USE ONLY) ONE (08:51)
[2022-04-08] MEDS: PRENATAL VITAMINS W/ FOLIC ACID TABLET (FP) PO SCH (10:12)
[2022-04-08] MEDS: LISINOPRIL 20 MG TABLET PO SCH (10:12)
[2022-04-08] MEDS: HYDROCHLOROTHIAZIDE 25 MG TABLET (FP) PO SCH (10:12)
[2022-04-08] MEDS: TOLNAFTATE 1% CREAM 15 GM TUBE TP SCH ×2 (10:12→22:19)
[2022-04-08] MEDS: SERTRALINE HCL 50 MG TABLET (FP) PO SCH (10:13)
[2022-04-08] MEDS: IBUPROFEN 400 MG TABLET (FP) PO PRN (10:14)
[2022-04-08] MEDS: NICOTINE 10 MG CARTRIDGE (INHALER) IH PRN (10:52)
[2022-04-08] MEDS ORDERED: cloNIDine HCL 0.1 MG TABLET PO PRN (14:58)
[2022-04-08] MEDS: METHOCARBAMOL 500 MG TABLET PO PRN (18:03)
[2022-04-08] MEDS: MELATONIN 5 MG TABLETS PO SCH (22:14)
[2022-04-08] MEDS: THIAMINE HCL 100 MG TABLET (FP) PO SCH (22:14)
[2022-04-08] MEDS: ARIPiprazole 5 MG TABLET PO SCH (22:15)
[2022-04-09] MEDS: GABAPENTIN 100 MG CAPSULE PO SCH ×3 (05:41→22:16)
[2022-04-09] MEDS: amLODIPine BESYLATE 10 MG TABLET (FP) PO SCH (05:42)
[2022-04-09] MEDS ORDERED: diazePAM 5 MG TABLET PO ONE (06:00)
[2022-04-09] MEDS ORDERED: methaDONE HCL 10 MG TABLET (FOR DETOX USE ONLY) PO ONE (10:00)
[2022-04-09] MEDS: SERTRALINE HCL 50 MG TABLET (FP) PO SCH (10:27)
[2022-04-09] MEDS: PRENATAL VITAMINS W/ FOLIC ACID TABLET (FP) PO SCH (10:27)
[2022-04-09] MEDS: TOLNAFTATE 1% CREAM 15 GM TUBE TP SCH ×2 (10:27→23:05)
[2022-04-09] MEDS: LISINOPRIL 20 MG TABLET PO SCH (10:27)
[2022-04-09] MEDS: HYDROCHLOROTHIAZIDE 25 MG TABLET (FP) PO SCH (10:30)
[2022-04-09] MEDS: NICOTINE 10 MG CARTRIDGE (INHALER) IH PRN (15:46)
[2022-04-09] MEDS: METHOCARBAMOL 500 MG TABLET PO PRN (18:00)
[2022-04-09] MEDS: MELATONIN 5 MG TABLETS PO SCH (22:16)
[2022-04-09] MEDS: ARIPiprazole 5 MG TABLET PO SCH (22:16)
[2022-04-09] MEDS: THIAMINE HCL 100 MG TABLET (FP) PO SCH (22:16)
[2022-04-10] MEDS: GABAPENTIN 100 MG CAPSULE PO SCH (06:35)
[2022-04-10] MEDS: amLODIPine BESYLATE 10 MG TABLET (FP) PO SCH (06:36)
[2022-04-10 09:43] VITALS: BP 120/89; PULSE 79; TEMP 96.9
[2022-04-10] MEDS: PRENATAL VITAMINS W/ FOLIC ACID TABLET (FP) PO SCH (10:13)
[2022-04-10] MEDS: LISINOPRIL 20 MG TABLET PO SCH (10:13)
[2022-04-10] MEDS: SERTRALINE HCL 50 MG TABLET (FP) PO SCH (10:13)
[2022-04-10] MEDS: TOLNAFTATE 1% CREAM 15 GM TUBE TP SCH (10:14)
[2022-04-10] MEDS: METHOCARBAMOL 500 MG TABLET PO PRN (10:15)
[2022-04-10] MEDS: HYDROCHLOROTHIAZIDE 25 MG TABLET (FP) PO SCH (10:16)
== END 2022-04-10 11:25 | disposition home or self-care (01) | DRG 773 ==
LOC: YASAS 12:46 → Y6N 17:48
PROVIDERS: ADMIT Allergy & Immunology; ATTEND Allergy & Immunology
PROC: HZ2ZZZZ Detoxification Services for Substance Abuse Treatment (ICD-10-PCS; principal; 2022-04-05)
DX: F11.23 Opioid dependence with withdrawal (principal); F10.230 Alcohol dependence with withdrawal, uncomplicated; F14.10 Cocaine abuse, uncomplicated; F16.10 Hallucinogen abuse, uncomplicated; F17.210 Nicotine dependence, cigarettes, uncomplicated; F25.1 Schizoaffective disorder, depressive type; F39 Unspecified mood [affective] disorder; F43.10 Post-traumatic stress disorder, unspecified; F32.A Depression, unspecified; I89.0 Lymphedema, not elsewhere classified; R01.1 Cardiac murmur, unspecified; Z86.19 Personal history of other infectious and parasitic diseases; Z56.0 Unemployment, unspecified; Z59.00 Homelessness unspecified
CPT/HCPCS: 36415; 80053; 81025; 82962; 85027; 86593; 86780; 93005; 93010; C9803-CS; J0735; U0003; U0005

== ENCOUNTER 2024-06-15 12:47 | Inpatient (IN) | payer OTHER ==
[2024-06-15 14:06] VITALS: BMI 25.2
[2024-06-15] MEDS ORDERED: NALOXONE HCL 0.4 MG/ML VIAL IM PRN (14:46)
[2024-06-15] MEDS ORDERED: POLYETHYLENE GLYCOL (HEALTHYLAX) 3350 17 GM PACKET PO PRN (14:46)
[2024-06-15] MEDS ORDERED: NICOTINE POLACRILEX 2 MG LOZENGE BC PRN (14:46)
[2024-06-15] MEDS ORDERED: guaiFENesin 600 MG TABLET.ER (FP) PO PRN (14:46)
[2024-06-15] MEDS ORDERED: BENZONATATE 200 MG CAPSULE PO PRN (14:46)
[2024-06-15] MEDS ORDERED: LOPERAMIDE HCL 2 MG CAPSULE PO PRN (14:46)
[2024-06-15] MEDS ORDERED: MAGNESIUM HYDROX 2400MG/30ML ORAL SUSPENSION 30 ML CUP PO PRN (14:46)
[2024-06-15] MEDS ORDERED: BENZOCAINE/MENTHOL (CHLORASEPTIC ) LOZENGE MM PRN (14:46)
[2024-06-15] MEDS ORDERED: NALOXONE (NARCAN) HCL 4 MG/0.1 ML SPRAY NS PRN (14:46)
[2024-06-15] MEDS ORDERED: MAG HYDROX/AL HYDROX/SIMETH 30 ML UNIT-DOSE CUP PO PRN (14:46)
[2024-06-15] MEDS ORDERED: ACETAMINOPHEN 325 MG TABLET (FP) PO PRN (14:46)
[2024-06-15] MEDS: amLODIPine BESYLATE 10 MG TABLET (FP) PO SCH (18:09)
[2024-06-15] MEDS: THIAMINE 100 MG TABLET PO SCH (22:32)
[2024-06-15] MEDS: MELATONIN 5 MG TABLETS PO SCH (22:32)
[2024-06-16] MEDS ORDERED: NALOXONE (NARCAN) HCL 4 MG/0.1 ML SPRAY NS PRN (07:57)
[2024-06-16] MEDS: amLODIPine BESYLATE 10 MG TABLET (FP) PO SCH (09:42)
[2024-06-16] MEDS: PRENATAL VITAMINS W/ FOLIC ACID TABLET (FP) PO SCH (09:42)
[2024-06-16] MEDS: NICOTINE 14 MG/24 HOURS TOPICAL PATCH TD SCH (09:42)
[2024-06-16] MEDS: cloNIDine HCL 0.1 MG TABLET PO PRN (09:42)
[2024-06-16] MEDS: LISINOPRIL 10 MG TABLET PO SCH (09:42)
[2024-06-16] MEDS: ARIPiprazole 10 MG TABLET PO SCH (11:14)
[2024-06-16] MEDS: SERTRALINE HCL 50 MG TABLET (FP) PO SCH (11:14)
[2024-06-16 11:41] LABS: POTASSIUM 4.4 mmol/L (3.5-5.1)
[2024-06-16 11:51] LABS: HEMATOCRIT 42.2 % (32.4-45.2); HEMOGLOBIN 13.9 GM/dL (10.7-15.3); MCH 30.7 pg (25.7-33.7); MCHC 32.9 g/dl (32.0-36.0); MEAN CELL VOLUME 93.4 fl (80-96); MEAN PLT VOLUME 9.8 fl (7.5-11.1); PLATELET COUNT 292 10^3/uL (134-434); RBC 4.52 M/mm3 (3.60-5.2); RDW 13.2 % (11.6-15.6); WHITE BLOOD COUNT 6.4 K/mm3 (4.0-10.0)
[2024-06-16 12:19] LABS: SYPHILIS W/ RPR CONF REACTIVE (NONREACTIVE)
[2024-06-16 12:22] LABS: BLOOD UREA NITROGEN 11.2 mg/dL (7-18); CALCIUM 9.9 mg/dL (8.5-10.1)
[2024-06-16 12:25] LABS: CREATININE 0.8 mg/dL (0.55-1.3)
[2024-06-16 12:27] LABS: TOT PROT 8.3 g/dl (6.4-8.2)
[2024-06-16 12:32] LABS: BILIRUBIN,TOTAL 0.2 mg/dL (0.2-1)
[2024-06-16] MEDS: GABAPENTIN 100 MG CAPSULE PO SCH (14:37)
[2024-06-17 12:02] LABS: URINE APPEARANCE CLEAR; URINE BILIRUBIN NEGATIVE (NEGATIVE); URINE COLOR YELLOW; URINE GLUCOSE (UA) NEGATIVE (NEGATIVE); URINE KETONE NEGATIVE (NEGATIVE); URINE LEUK ESTERASE NEGATIVE (NEGATIVE); URINE NITRITE NEGATIVE (NEGATIVE); URINE PROTEIN NEGATIVE (NEGATIVE); URINE UROBILINOGEN 0.2 mg/dL (0.2-1.0)
[2024-06-17] MEDS: FUROSEMIDE 40 MG TABLET (FP) PO SCH (12:16)
[2024-06-19] MEDS: IBUPROFEN 600 MG TABLET (FP) PO PRN (06:19)
[2024-06-21] MEDS: NICOTINE POLACRILEX 2 MG GUM BUC PRN (11:08)
[2024-06-22] MEDS: PERMETHRIN 5% TOPICAL CREAM 60 GM TUBE TP ONE (12:31)
[2024-06-23] MEDS: SUVOREXANT 10 MG TABLET PO PRN (22:00)
[2024-06-24] MEDS: NALTREXONE HCL 50 MG TABLET PO SCH (09:39)
[2024-06-24 16:58] LABS: PROTHROMBIN TIME (PATIENT) 11.5 SEC (9.7-13.0)
[2024-06-24] MEDS: P-EPHED 60MG/TRIPROLIDI 2.5MG TABLET PO PRN (18:23)
[2024-06-26] MEDS: SUVOREXANT 10 MG TABLET PO SCH (21:35)
[2024-06-26] MEDS: LACTULOSE 20 GM/30 ML UDC (FOR ORAL USE ONLY) PO SCH (22:24)
[2024-06-27] MEDS: SUVOREXANT 10 MG TABLET PO PRN (21:30)
[2024-06-29] MEDS: IBUPROFEN 400 MG TABLET (FP) PO PRN (12:33)
[2024-06-30 06:55] VITALS: RESP 17; TEMP 97.6
[2024-06-30 09:45] VITALS: BP 148/85; PULSE 70
== END 2024-06-30 09:57 | disposition home or self-care (01) | DRG 772 ==
LOC: YASAS 12:47 → Y3NR 16:40 → Y5N 06-16 12:51
PROVIDERS: ADMIT Allergy & Immunology; ATTEND Psychiatry & Neurology Pain Medicine
PROC: HZ42ZZZ Group Counseling for Substance Abuse Treatment, Cognitive-Behavioral (ICD-10-PCS; principal; 2024-06-15)
DX: F10.20 Alcohol dependence, uncomplicated (principal); F14.10 Cocaine abuse, uncomplicated; F17.210 Nicotine dependence, cigarettes, uncomplicated; F39 Unspecified mood [affective] disorder; F43.10 Post-traumatic stress disorder, unspecified; F25.1 Schizoaffective disorder, depressive type; I10 Essential (primary) hypertension; Z62.810 Personal history of physical and sexual abuse in childhood; Z86.19 Personal history of other infectious and parasitic diseases; Z56.0 Unemployment, unspecified; Z59.00 Homelessness unspecified
CPT/HCPCS: 36415; 80053; 80305; 81003; 81025; 82140; 82306; 83735; 85027; 85610; 86593; 86780; 86803; 87811; 93005; 93010

== ENCOUNTER 2025-02-04 13:52 | Inpatient (IN) | payer OTHER ==
[2025-02-04 14:21] VITALS: BMI 25.0
[2025-02-04] MEDS ORDERED: BENZOCAINE/MENTHOL (CHLORASEPTIC ) LOZENGE MM PRN (14:32)
[2025-02-04] MEDS ORDERED: ONDANSETRON *ODT* 4 MG TABLET SL PRN (14:32)
[2025-02-04] MEDS ORDERED: MAG HYDROX/AL HYDROX/SIMETH 30 ML UNIT-DOSE CUP PO PRN (14:32)
[2025-02-04] MEDS ORDERED: IBUPROFEN 400 MG TABLET (FP) PO PRN (14:32)
[2025-02-04] MEDS ORDERED: ACETAMINOPHEN 325 MG TABLET (FP) PO PRN (14:32)
[2025-02-04] MEDS ORDERED: NICOTINE POLACRILEX 2 MG LOZENGE BC PRN (14:32)
[2025-02-04] MEDS ORDERED: DICYCLOMINE HCL 10 MG CAPSULE PO PRN (14:32)
[2025-02-04] MEDS ORDERED: POLYETHYLENE GLYCOL (HEALTHYLAX) 3350 17 GM PACKET PO PRN (14:32)
[2025-02-04] MEDS ORDERED: BENZONATATE 200 MG CAPSULE PO PRN (14:32)
[2025-02-04] MEDS ORDERED: MAGNESIUM HYDROX 2400MG/30ML ORAL SUSPENSION 30 ML CUP PO PRN (14:32)
[2025-02-04] MEDS ORDERED: LOPERAMIDE HCL 2 MG CAPSULE PO PRN (14:32)
[2025-02-04] MEDS ORDERED: NALOXONE (NARCAN) HCL 4 MG/0.1 ML SPRAY NS PRN (14:32)
[2025-02-04] MEDS ORDERED: BISMUTH SUBSALICYLATE 524 MG/30 ML PO PRN (14:32)
[2025-02-04] MEDS ORDERED: guaiFENesin 600 MG TABLET.ER (FP) PO PRN (14:32)
[2025-02-04] MEDS ORDERED: amLODIPine BESYLATE 5 MG TABLET (FP) ONE (15:11)
[2025-02-04] MEDS ORDERED: LISINOPRIL 10 MG TABLET ONE (15:11)
[2025-02-04] MEDS: amLODIPine BESYLATE 10 MG TABLET (FP) PO SCH (15:17)
[2025-02-04] MEDS: LISINOPRIL 20 MG TABLET PO SCH (15:17)
[2025-02-04] MEDS: hydrOXYzine PAMOATE 25 MG CAPSULE (FP) PO PRN (17:37)
[2025-02-04] MEDS: METHOCARBAMOL 500 MG TABLET PO PRN (17:37)
[2025-02-04] MEDS: DOCUSATE SODIUM 100 MG CAPSULE (FP) PO PRN (22:42)
[2025-02-04] MEDS: THIAMINE 100 MG TABLET PO SCH (22:42)
[2025-02-04] MEDS: MELATONIN 5 MG TABLETS PO SCH (22:42)
[2025-02-05 10:02] LABS: HEMATOCRIT 38.3 % (32.4-45.2); HEMOGLOBIN 12.5 GM/dL (10.7-15.3); MCH 30.1 pg (25.7-33.7); MCHC 32.7 g/dl (32.0-36.0); MEAN CELL VOLUME 91.9 fl (80-96); MEAN PLT VOLUME 9.4 fl (7.5-11.1); PLATELET COUNT 302 10^3/uL (134-434); RBC 4.17 M/mm3 (3.60-5.2); RDW 13.6 % (11.6-15.6); WHITE BLOOD COUNT 6.6 K/mm3 (4.0-10.0)
[2025-02-05] MEDS: PRENATAL VITAMINS W/ FOLIC ACID TABLET (FP) PO SCH (10:06)
[2025-02-05 10:19] LABS: CHLORIDE 105 mmol/L (98-107); POTASSIUM 4.2 mmol/L (3.5-5.1); SODIUM 139 mmol/L (136-145)
[2025-02-05 10:21] LABS: ALBUMIN 3.6 g/dl (3.4-5.0); ANION GAP 5 mmol/L (4-13); BLOOD UREA NITROGEN 6.4 mg/dL (7-18); CALCIUM 9.6 mg/dL (8.5-10.1); CO2 29 mmol/L (21-32); GLUCOSE,RANDOM 95 mg/dL (74-106)
[2025-02-05 10:24] LABS: CREATININE 0.9 mg/dL (0.55-1.3); SGOT/AST 24 U/L (15-37); SGPT/ALT 27 U/L (13-61)
[2025-02-05 10:26] LABS: BILIRUBIN,TOTAL 0.2 mg/dL (0.2-1); TOT PROT 7.7 g/dl (6.4-8.2)
[2025-02-05 10:27] LABS: ALK PHOS 69 U/L (45-117)
[2025-02-05] MEDS: cloNIDine HCL 0.1 MG TABLET PO PRN (14:06)
[2025-02-05] MEDS: chlordiazePOXIDE HCL 25 MG CAPSULE PO PRN (14:06)
[2025-02-05] MEDS: HYDROCHLOROTHIAZIDE 25 MG TABLET (FP) PO ONE (14:06)
[2025-02-05] MEDS: NICOTINE 14 MG/24 HOURS TOPICAL PATCH TD SCH (14:07)
[2025-02-05] MEDS: GABAPENTIN 100 MG CAPSULE PO SCH (14:37)
[2025-02-05] MEDS ORDERED: chlordiazePOXIDE HCL 25 MG CAPSULE PO SCH (17:00)
[2025-02-05] MEDS: IBUPROFEN 600 MG TABLET (FP) PO PRN (17:04)
[2025-02-05] MEDS: chlordiazePOXIDE HCL 25 MG CAPSULE PO SCH (17:06)
[2025-02-06] MEDS: chlordiazePOXIDE HCL 25 MG CAPSULE PO SCH (05:59)
[2025-02-06] MEDS: ARIPiprazole 10 MG TABLET PO SCH (10:44)
[2025-02-06] MEDS: SERTRALINE HCL 50 MG TABLET (FP) PO SCH (10:57)
[2025-02-06] MEDS: HYDROCHLOROTHIAZIDE 25 MG TABLET (FP) PO SCH (11:01)
[2025-02-07] MEDS ORDERED: chlordiazePOXIDE HCL 10 MG CAPSULE PO PRN
[2025-02-07] MEDS: chlordiazePOXIDE HCL 10 MG CAPSULE PO SCH (05:44)
[2025-02-07] MEDS: HYDROCHLOROTHIAZIDE 12.5 MG CAPSULE (FP) PO SCH (10:15)
[2025-02-07] MEDS: NICOTINE POLACRILEX 2 MG GUM BUC PRN (13:12)
[2025-02-07] MEDS: PENICILLIN G BENZATHINE 2,400,000 UNIT/4 ML PFS IM ONE (14:53)
[2025-02-08] MEDS: chlordiazePOXIDE HCL 10 MG CAPSULE PO SCH (05:27)
[2025-02-08] MEDS: NALTREXONE HCL 50 MG TABLET PO ONE (12:23)
[2025-02-09] MEDS: chlordiazePOXIDE HCL 10 MG CAPSULE PO ONE (05:38)
[2025-02-09 09:07] VITALS: BP 144/85; PULSE 55; RESP 17; TEMP 97.6
[2025-02-09] MEDS: NALTREXONE HCL 50 MG TABLET PO SCH (09:58)
== END 2025-02-09 11:09 | disposition home or self-care (01) | DRG 774 ==
LOC: YASAS 13:52 → Y6N 14:52
PROVIDERS: ADMIT Neuromusculoskeletal Medicine & OMM; ATTEND Allergy & Immunology
PROC: HZ2ZZZZ Detoxification Services for Substance Abuse Treatment (ICD-10-PCS; principal; 2025-02-04)
DX: F10.230 Alcohol dependence with withdrawal, uncomplicated (principal); F14.20 Cocaine dependence, uncomplicated; F17.210 Nicotine dependence, cigarettes, uncomplicated; F25.1 Schizoaffective disorder, depressive type; F43.10 Post-traumatic stress disorder, unspecified; F39 Unspecified mood [affective] disorder; I10 Essential (primary) hypertension; Z20.2 Contact with and (suspected) exposure to infections with a predominantly sexual mode of transmission; Z62.810 Personal history of physical and sexual abuse in childhood; Z99.89 Dependence on other enabling machines and devices
CPT/HCPCS: 36415; 80053; 80305; 80307; 81025; 85027; 86593; 86780; 93005; 93010